=== PATIENT | female | born 1935 | race Caucasian/White ===

== ENCOUNTER 2016-12-02 12:35 | Emergency (ER) | payer MEDICARE ==
[2016-12-02 13:34] LABS: ANION GAP 11 (5-19); BLOOD UREA NITROGEN 25 mg/dL (7-20); CALCIUM 9.1 mg/dL (8.4-10.2); CARBON DIOXIDE 23 mmol/L (22-30); CHLORIDE 109 mmol/L (98-107); CREATININE RESULT 0.77 mg/dL (0.52-1.25); GLUCOSE 92 mg/dL (75-110); POTASSIUM 3.9 mmol/L (3.6-5.0); SODIUM 143.4 mmol/L (137-145)
[2016-12-02 13:43] LABS: ABSOLUTE EOSINOPHILS # (AUTO) 0.1 10^3/uL (0.0-0.6); ABSOLUTE LYMPHOCYTES (AUTO) 1.3 10^3/uL (0.5-4.7); ABSOLUTE MONOCYTES (AUTO) 0.4 10^3/uL (0.1-1.4); ABSOLUTE NEUT (AUTO) 4.1 10^3/uL (1.7-8.2); BASOPHILS % (AUTO) 0.8 % (0-2); HEMATOCRIT 39.6 % (36.0-47.0); HEMOGLOBIN 13.2 g/dL (12.0-15.5); LYMPHOCYTES % (AUTO) 21.1 % (13-45); MEAN CORPUSCULAR HEMOGLOBIN 30.9 pg (27.0-33.4); MEAN CORPUSCULAR HGB CONC 33.3 g/dL (32.0-36.0); MEAN CORPUSCULAR VOLUME 93 fl (80-97); MONOCYTES % (AUTO) 7.3 % (3-13); RED BLOOD COUNT 4.26 10^6/uL (3.72-5.28); SEGMENTED NEUTROPHILS % (AUTO) 68.8 % (42-78); WHITE BLOOD COUNT 5.9 10^3/uL (4.0-10.5)
--- NOTE | 2016-12-02 14:31 | ER Document Report ---
ED General - General Mode of Arrival: Medic Information source: Patient TRAVEL OUTSIDE OF THE [place] IN LAST 30 DAYS: No <ELIAN SINGLETON - Last Filed: 12/02/16 14:46> <LUCÍA RICO - Last Filed: 12/02/16 21:21> - General Chief Complaint: Shortness Of Breath Stated Complaint: WEAKNESS Notes: Patient is a 81-year-old female presenting [facility] the emergency department from her [facility], but she denies having any complaints. Patient states that the prison became worried because she was having chest pain from where she had her port removed today. Patient wants to go back home, and does not want her family to worry. Patient denies any symptoms whatsoever. (ELIAN SINGLETON) - Related Data Allergies/Adverse Reactions: codeine [Codeine] Allergy (Verified 05/25/15 07:40) meperidine HCl [From Demerol] Allergy (Verified 05/25/15 07:40) Penicillins Allergy (Verified 05/25/15 07:40) Sulfa (Sulfonamide Antibiotics) Allergy (Verified 05/25/15 07:40) Past Medical History - General Information source: Patient, [facility] Records, Outside Facility Records - Social History Smoking Status: Never Smoker Chew tobacco use (# tins/day): No Frequency of alcohol use: None Drug Abuse: None Family History: Reviewed & Not Pertinent - Past Medical History Cardiac Medical History: Reports: Hx Atrial Fibrillation, Hx Coronary Artery Disease, Hx Hypercholesterolemia, Hx Hypertension, Hx Peripheral Vascular Disease - Past surgical h/o hysterectomy, colectomy, cholecystectomy, appendectomy Pulmonary Medical History: Reports: Hx COPD, Hx Pneumonia Malignancy Medical History: Reports: Hx Colorectal Cancer Psychiatric Medical History: Reports: Hx Anxiety Past Surgical History: Reports: Hx Abdominal Surgery - colon, Hx Appendectomy, Hx Cholecystectomy, Hx Hysterectomy. Denies: Hx Pacemaker - Immunizations Immunizations up to date: Yes Hx Diphtheria, Pertussis, Tetanus Vaccination: Yes <ELIAN SINGLETON - Last Filed: 12/02/16 14:46> Review of Systems - Review of Systems Constitutional: No symptoms reported EENT: No symptoms reported Cardiovascular: No symptoms reported Respiratory: No symptoms reported Gastrointestinal: No symptoms reported Genitourinary: No symptoms reported Female Genitourinary: No symptoms reported Musculoskeletal: No symptoms reported Skin: No symptoms reported Hematologic/Lymphatic: No symptoms reported Neurological/Psychological: No symptoms reported <ELIAN SINGLETON - Last Filed: 12/02/16 14:46> Physical Exam - General General appearance: Appears well, Alert - HEENT Head: Normocephalic, Atraumatic Eyes: Normal Pupils: PERRL - Respiratory Respiratory status: No respiratory distress Chest status: Nontender Breath sounds: Normal Chest palpation: Normal - Cardiovascular Rhythm: Other - A. fib, rate controlled Murmur: No - Abdominal Inspection: Normal Distension: No distension Bowel sounds: Normal Tenderness: Nontender Organomegaly: No organomegaly - Back Back: Normal, Nontender - Extremities General upper extremity: Normal inspection, Nontender General lower extremity: Normal inspection, Nontender - Neurological Neuro grossly intact: Yes Cognition: Normal Orientation: AAOx4 [place] Coma Scale Eye Opening: Spontaneous [place] Coma Scale Verbal: Oriented [place] Coma Scale Motor: Obeys Commands [place] Coma Scale Total: 15 Speech: Normal - Psychological Associated symptoms: Normal affect, Normal mood - Skin Skin Temperature: Warm Skin Moisture: Dry Skin Color: Normal <ELIAN SINGLETON - Last Filed: 12/02/16 14:46> Course - Laboratory Result Diagrams: 12/02/16 13:05 12/02/16 13:05 <ELIAN SINGLETON - Last Filed: 12/02/16 14:46> - Laboratory Result Diagrams: 12/02/16 13:05 12/02/16 13:05 <LUCÍA RICO - Last Filed: 12/02/16 21:21> - Re-evaluation Re-evalutation: 12/02/16 14:52 I personally performed the services described in the documentation, reviewed and edited the documentation which was dictated to my scribe in my presence, and it accurately records my words and actions. Patient was at the surgeon's office today getting her port removed after going through cancer chemotherapy radiation for colon cancer. She said it's in remission. She said after it was removed she had a little bit of discomfort in her chest where they removed it when she went back to the prison she mention that to them thinking they gave her a Tylenol and they insisted she come in for evaluation. Patient says she is asymptomatic and does not want to be here she allows us to do a workup consisting of an EKG that is unchanged laboratory evaluation is negative and chest x-ray that is stable. She wants to go home she does not have any complaints she was discharged for primary care physician one to 2 days return for increasing worsening or new symptoms (LUCÍA RICO) - Vital Signs Vital signs: Temp Pulse Resp BP Pulse Ox 98.9 F 12/02/16 12:45 - Laboratory Laboratory results interpreted by me: 12/02/16 12/02/16 13:05 13:05 RDW 15.0 H Chloride 109 H BUN 25 H - EKG Interpretation by Me Additional EKG results interpreted by me: 12/02/16 14:52 EKG A. fib rate of 78 with history of A. fib no acute change from previous EKG done on 09/08/15. No acute ST segment elevation or depression (LUCÍA RICO) Discharge <ELIAN SINGLETON - Last Filed: 12/02/16 14:46> <LUCÍA RICO - Last Filed: 12/02/16 21:21> - Discharge Clinical Impression: recent port removal Condition: Stable Disposition: HOME, SELF-CARE Additional Instructions: Your sent over from the emergency department as a positive concerns on the nursing staff that you had some chest discomfort when she report was removed. He denied any chest pain pressure shortness of breath or exertion. No cardiac complaints on arrival stated that she felt fine we did a full assessment and evaluation including an EKG cardiac enzymes and lab all of which were negative. Your stable for discharge follow primary care physician one 2 days and return for increasing worsening or new symptoms Referrals: ONEL AVINA MD [Primary Care Provider] - Follow up as needed Scribe Documentation - Scribe Written by Gildardo:: Elian Singleton 12/02/2016 1431 acting as scribe for :: Dr. Rico <ELIAN SINGLTEON - Last Filed: 12/02/16 14:46>
--- NOTE | 2016-12-03 22:08 | EKG REPORT ---
SEVERITY:- ABNORMAL ECG - ATRIAL FIBRILLATION, V-RATE 60-104 BORDERLINE R WAVE PROGRESSION, ANTERIOR LEADS MINIMAL ST DEPRESSION, LATERAL LEADS : Confirmed by: Suzy Rubi MD 03-Dec-2016 22:06:24
== END 2016-12-02 16:00 | disposition home or self-care (01) ==
LOC: ER 12:35
DX: R06.02 Shortness of breath (principal); R53.1 Weakness
CPT/HCPCS: 36415; 71010; 80048; 84484; 85025; 93005; 93010; 99285

== ENCOUNTER → 2017-01-19 | Outpatient (CLI) | payer MEDICARE | LOC: OD 15:41 | PROVIDERS: ATTEND Family Medicine | DX: Z79.01 Long term (current) use of anticoagulants (principal) | CPT/HCPCS: 36415 ==

== ENCOUNTER → 2017-02-10 | Outpatient (CLI) | payer MEDICARE ==
--- NOTE | 2017-02-10 15:34 | WOMENS IMAGING REPORT ---
EXAM DESCRIPTION: BILAT SCREENING MAMMO W/CAD COMPLETED DATE/TIME: 02/10/2017 8:41 am REASON FOR STUDY: Z12.31, ROUTINE SCREENING MAMMO Z12.31 ENCNTR SCREEN MAMMOGRAM FOR MALIGNANT NEOP LASM OF MISSAEL COMPARISON: None. TECHNIQUE: Standard craniocaudal and mediolateral oblique views of each breast recorded using Memeoa l acquisition. LIMITATIONS: None. FINDINGS: RIGHT BREAST MASSES: No suspicious masses. CALCIFICATIONS: No new or suspicious calcifications. ARCHITECTURAL DISTORTION: None. DEVELOPING DENSITY: None. ASYMMETRY: None noted. OTHER: No other significant findings. LEFT BREAST MASSES: No suspicious masses. CALCIFICATIONS: No new or suspicious calcifications. ARCHITECTURAL DISTORTION: None. DEVELOPING DENSITY: None. ASYMMETRY: Asymmetry lateral left breast CC view only 5.4 cm from the nipple OTHER: No other significant findings. Read with the assistance of CAD. .[facility] - R2 Cenova Version 1.3 .[facility] Imaging - R2 Cenova Version 1.3 .[facility] - R2 Cenova Version 2.4 .[facility] - R2 Cenova Version 2.4 .[facility] - R2 Wel[employer] Line Arc Version 9.2 IMPRESSION: Left breast asymmetry BREAST DENSITY: b. There are scattered areas of fibroglandular density. BIRAD: 0 Incomplete: Needs Additional Imaging Evaluation and/or prior Mammograms for Comparison. RECOMMENDATION: RECOMMENDED FOLLOW-UP: Spot compression and ultrasound. The patient will be contacted for additional imaging. COMMENT: The patient has been notified of the results by letter per SA requirements. Additional no tification policies are in place for contacting patient with suspicious or incomplete findings. Quality ID #[id number]: The [employer] recommends an annual screening mammogram for women aged 40 years or over. This facility utilizes a reminder system to ensure that all patients receive reminder letters, and/or direct phone calls for appointments. This includes reminders for routine scr eening mammograms, diagnostic mammograms, or other Breast Imaging Interventions when appropriate. Th is patient will be placed in the appropriate reminder system. The [employer] (ACR) has developed recommendations for screening MRI of the breast s in certain patient populations, to be used in conjunction with mammography. Breast MRI surveillanc e may be appropriate for women with more than 20% lifetime risk of developing breast cancer as deter mined by genetic testing, significant family history of the disease, or history of mantle radiation f or Hodgkins Disease. ACR Practice Guidelines 2008. TECHNICAL DOCUMENTATION: FINDING NUMBER: (1) ASSESSMENT: (1) JOB ID: [id number] [employer]- All Rights Reserved
== END ==
LOC: WI 07:32
PROVIDERS: ATTEND Family Medicine
DX: Z12.31 Encounter for screening mammogram for malignant neoplasm of breast (principal)
CPT/HCPCS: 77067; G0202

== ENCOUNTER → 2017-02-23 | Outpatient (CLI) | payer MEDICARE ==
--- NOTE | 2017-02-24 08:13 | WOMENS IMAGING REPORT ---
EXAM DESCRIPTION: LEFT DIAGNOSTIC MAMMO W/CAD; U/S BREAST UNILAT LIMITED COMPLETED DATE/TIME: 02/23/2017 9:05 am; 02/23/2017 10:02 am REASON FOR STUDY: ASYMMETRY LATERAL L BREAST; LEFT BREAST ASYMMETRY R92.2 INCONCLUSIVE MAMMOGRAM COMPARISON: Bilateral screening mammogram 02/10/2017 TECHNIQUE: Cone compression craniocaudal and whole breast 90 mediolateral images of the left breas t recorded with digital acquisition. Additional left breast ultrasound was also performed LIMITATIONS: None. FINDINGS: BREAST: Left MASSES: No suspicious masses. CALCIFICATIONS: No new or suspicious calcifications. ARCHITECTURAL DISTORTION: None. DEVELOPING DENSITY: None. ASYMMETRY: None noted. OTHER: No other significant findings. Read with the assistance of CAD. .[facility] - R2 Cenova Version 1.3 .[facility] Imaging - R2 Cenova Version 1.3 .[facility] Imaging - R2 Cenova Version 2.4 .[facility] - R2 Cenova Version 2.4 .[facility] - R2 Bakery Products Checker Version 9.2 Left breast ultrasound: Ultrasound of the left breast at the 1 to 2 o'clock position about 5 cm of from the nipple demonstrat es a cluster of breast parenchymal cysts, together measuring about 1.3 x 0.5 cm in size. This accoun ts for the original density seen on screening mammogram 02/10/2017, and is a benign finding. IMPRESSION: No mammographic or sonographic evidence for malignancy left breast BREAST DENSITY: b. There are scattered areas of fibroglandular density. BIRAD: 2 Benign findings. RECOMMENDATION: RECOMMENDED FOLLOW UP: Please continue bilateral screening mammography in January 2018. SPECIFIC INTERVENTION/IMAGING/CONSULTATION RECOMMENDED:No additional intervention/ imaging/consultati on needed at this time. COMMUNICATION:Patient notified by letter COMMENT: The patient has been notified of the results by letter per SA requirements. Additional no tification policies are in place for contacting patient with suspicious or incomplete findings. Quality ID #[id number]: The [employer] recommends an annual screening mammogram for women aged 40 years or over. This facility utilizes a reminder system to ensure that all patients receive reminder letters, and/or direct phone calls for appointments. This includes reminders for routine scr eening mammograms, diagnostic mammograms, or other Breast Imaging Interventions when appropriate. Th is patient will be placed in the appropriate reminder system. The [employer] (ACR) has developed recommendations for screening MRI of the breast s in certain patient populations, to be used in conjunction with mammography. Breast MRI surveillanc e may be appropriate for women with more than 20% lifetime risk of developing breast cancer as deter mined by genetic testing, significant family history of the disease, or history of mantle radiation f or Hodgkins Disease. ACR Practice Guidelines 2008. TECHNICAL DOCUMENTATION: FINDING NUMBER: (1) ASSESSMENT: (1) JOB ID: [id number] [employer]- All Rights Reserved
--- NOTE | 2017-02-24 08:13 | WOMENS IMAGING REPORT ---
EXAM DESCRIPTION: LEFT DIAGNOSTIC MAMMO W/CAD; U/S BREAST UNILAT LIMITED COMPLETED DATE/TIME: 02/23/2017 9:05 am; 02/23/2017 10:02 am REASON FOR STUDY: ASYMMETRY LATERAL L BREAST; LEFT BREAST ASYMMETRY R92.2 INCONCLUSIVE MAMMOGRAM COMPARISON: Bilateral screening mammogram 02/10/2017 TECHNIQUE: Cone compression craniocaudal and whole breast 90 mediolateral images of the left breas t recorded with digital acquisition. Additional left breast ultrasound was also performed LIMITATIONS: None. FINDINGS: BREAST: Left MASSES: No suspicious masses. CALCIFICATIONS: No new or suspicious calcifications. ARCHITECTURAL DISTORTION: None. DEVELOPING DENSITY: None. ASYMMETRY: None noted. OTHER: No other significant findings. Read with the assistance of CAD. .[facility] - R2 Cenova Version 1.3 .[facility] Imaging - R2 Cenova Version 1.3 .[facility] Imaging - R2 Cenova Version 2.4 .[facility] [place] R2 Cenova Version 2.4 .[facility] - R2 Etcher Hand Version 9.2 Left breast ultrasound: Ultrasound of the left breast at the 1 to 2 o'clock position about 5 cm of from the nipple demonstrat es a cluster of breast parenchymal cysts, together measuring about 1.3 x 0.5 cm in size. This accoun ts for the original density seen on screening mammogram 02/10/2017, and is a benign finding. IMPRESSION: No mammographic or sonographic evidence for malignancy left breast BREAST DENSITY: b. There are scattered areas of fibroglandular density. BIRAD: 2 Benign findings. RECOMMENDATION: RECOMMENDED FOLLOW UP: Please continue bilateral screening mammography in January 2018. SPECIFIC INTERVENTION/IMAGING/CONSULTATION RECOMMENDED:No additional intervention/ imaging/consultati on needed at this time. COMMUNICATION:Patient notified by letter COMMENT: The patient has been notified of the results by letter per SA requirements. Additional no tification policies are in place for contacting patient with suspicious or incomplete findings. Quality ID #[id number]: The [employer] recommends an annual screening mammogram for women aged 40 years or over. This facility utilizes a reminder system to ensure that all patients receive reminder letters, and/or direct phone calls for appointments. This includes reminders for routine scr eening mammograms, diagnostic mammograms, or other Breast Imaging Interventions when appropriate. Th is patient will be placed in the appropriate reminder system. The [employer] (ACR) has developed recommendations for screening MRI of the breast s in certain patient populations, to be used in conjunction with mammography. Breast MRI surveillanc e may be appropriate for women with more than 20% lifetime risk of developing breast cancer as deter mined by genetic testing, significant family history of the disease, or history of mantle radiation f or Hodgkins Disease. ACR Practice Guidelines 2008. TECHNICAL DOCUMENTATION: FINDING NUMBER: (1) ASSESSMENT: (1) JOB ID: [id number] [employer]- All Rights Reserved
== END ==
LOC: WI 14:22
PROVIDERS: ATTEND Family Medicine
DX: R92.2 Inconclusive mammogram (principal)
CPT/HCPCS: 76642; G0206

== ENCOUNTER 2017-09-09 18:25 | Inpatient (IN) | payer MEDICARE ==
[2017-09-09] MEDS ORDERED: NORMAL SALINE 1000 ML 1,000 ML IV ONE (19:45)
--- NOTE | 2017-09-09 20:28 | RADIOLOGY REPORT (SQ) ---
EXAM DESCRIPTION: CHEST PA/LAT COMPLETED DATE/TIME: 09/09/2017 8:16 pm REASON FOR STUDY: cough 3 days, hypotensive COMPARISON: 08/28/2015. EXAM PARAMETERS: NUMBER OF VIEWS: two views TECHNIQUE: Digital Frontal and Lateral radiographic views of the chest acquired. RADIATION DOSE: NA LIMITATIONS: none FINDINGS: LUNGS AND PLEURA: No opacities, masses or pneumothorax. No pleural effusion. MEDIASTINUM AND HILAR STRUCTURES: No masses or contour abnormalities. HEART AND VASCULAR STRUCTURES: Heart normal size. No evidence for failure. BONES: No acute findings. HARDWARE: Vascular access port. OTHER: No other significant finding. IMPRESSION: NO SIGNIFICANT RADIOGRAPHIC FINDING IN THE CHEST. TECHNICAL DOCUMENTATION: JOB ID: [id number] [employer]- All Rights Reserved
[2017-09-09 20:56] LABS: ABSOLUTE MONOCYTES (AUTO) 0.5 10^3/uL (0.1-1.4); ABSOLUTE NEUT (AUTO) 7.3 10^3/uL (1.7-8.2); BASOPHILS % (AUTO) 0.3 % (0-2); EOSINOPHILS % (AUTO) 0.2 % (0-6); HEMATOCRIT 43.1 % (36.0-47.0); HEMOGLOBIN 14.4 g/dL (12.0-15.5); LYMPHOCYTES % (AUTO) 11.1 % (13-45); MEAN CORPUSCULAR HEMOGLOBIN 30.9 pg (27.0-33.4); MEAN CORPUSCULAR HGB CONC 33.3 g/dL (32.0-36.0); MEAN CORPUSCULAR VOLUME 93 fl (80-97); MONOCYTES % (AUTO) 6.1 % (3-13); PLATELET COUNT 180 10^3/uL (150-450); RED BLOOD COUNT 4.65 10^6/uL (3.72-5.28); SEGMENTED NEUTROPHILS % (AUTO) 82.3 % (42-78); TOTAL CELLS COUNTED % (AUTO) 100 %; WHITE BLOOD COUNT 8.9 10^3/uL (4.0-10.5)
--- NOTE | 2017-09-09 20:57 | ER Document Report ---
ED General - General Chief Complaint: Diarrhea Stated Complaint: DIARRHEA,COUGH Time Seen by Provider: 09/09/17 19:43 Notes: 82-year-old female patient from a nursing facility chief complaint of diarrhea and abdominal pain. Symptoms have been getting worse over the last several days. Note, patient had cellulitis underneath her right arm around [place] and has been on antibiotics. History of colon cancer with partial colon resection. Followed by Dr. Avina TRAVEL OUTSIDE OF THE [place] IN LAST 30 DAYS: No - HPI Onset: Last week Onset/Duration: Gradual Quality of pain: Cramping Severity: Moderate Pain Level: 2 Associated symptoms: Nonproductive cough Exacerbated by: Denies - Related Data Allergies/Adverse Reactions: codeine [Codeine] Allergy (Verified 09/09/17 18:26) meperidine HCl [From Demerol] Allergy (Verified 09/09/17 18:26) Penicillins Allergy (Verified 09/09/17 18:26) Sulfa (Sulfonamide Antibiotics) Allergy (Verified 09/09/17 18:26) Past Medical History - General Information source: Patient, Relative - Social History Smoking Status: Never Smoker Cigarette use (# per day): No Chew tobacco use (# tins/day): No Smoking Education Provided: No Frequency of alcohol use: None Drug Abuse: None Lives with: [facility] Family History: Reviewed & Not Pertinent - Past Medical History Cardiac Medical History: Reports: Hx Atrial Fibrillation, Hx Coronary Artery Disease, Hx Hypercholesterolemia, Hx Hypertension, Hx Peripheral Vascular Disease - Past surgical h/o hysterectomy, colectomy, cholecystectomy, appendectomy Pulmonary Medical History: Reports: Hx COPD, Hx Pneumonia Malignancy Medical History: Reports: Hx Colorectal Cancer Psychiatric Medical History: Reports: Hx Anxiety Past Surgical History: Reports: Hx Abdominal Surgery - colon, Hx Appendectomy, Hx Cholecystectomy, Hx Hysterectomy. Denies: Hx Pacemaker - Immunizations Immunizations up to date: Yes Hx Diphtheria, Pertussis, Tetanus Vaccination: Yes Review of Systems - Review of Systems Constitutional: Malaise, Weakness EENT: No symptoms reported Cardiovascular: Palpitations, Lightheaded Respiratory: Cough Gastrointestinal: Abdominal pain, Diarrhea Genitourinary: No symptoms reported Musculoskeletal: No symptoms reported Skin: No symptoms reported Physical Exam - Vital signs Vitals: Temp Pulse Resp BP Pulse Ox 99.1 F 90 20 89/63 L 97 09/09/17 18:40 09/09/17 18:40 09/09/17 18:40 09/09/17 18:40 09/09/17 18:40 Interpretation: Normal - General General appearance: Appears well, Alert - HEENT Head: Normocephalic, Atraumatic Eyes: Normal Pupils: PERRL - Respiratory Respiratory status: No respiratory distress Chest status: Nontender Breath sounds: Normal Chest palpation: Normal - Cardiovascular Rhythm: Tachycardia Heart sounds: Normal auscultation Murmur: No - Abdominal Inspection: Normal Distension: No distension Bowel sounds: Normal Tenderness: Nontender Organomegaly: No organomegaly - Back Back: Normal, Nontender - Extremities General upper extremity: Normal inspection, Nontender, Normal color, Normal ROM , Normal temperature General lower extremity: Normal inspection, Nontender, Normal color, Normal ROM , Normal temperature, Normal weight bearing. No: Cecilia's sign - Neurological Neuro grossly intact: Yes Cognition: Normal Orientation: AAOx4 [place] Coma Scale Eye Opening: Spontaneous [place] Coma Scale Verbal: Oriented [place] Coma Scale Motor: Obeys Commands [place] Coma Scale Total: 15 Speech: Normal Motor strength normal: LUE, RUE, LLE, RLE Sensory: Normal - Psychological Associated symptoms: Normal affect, Normal mood - Skin Skin Temperature: Warm Skin Moisture: Dry Skin Color: Normal Course - Re-evaluation Re-evalutation: 09/09/17 21:35 On the fact the patient was on antibiotics recently, was tachycardic and hypotensive and is an elderly patient lives in a residential with a history of colon cancer will admit to the hospital. Consulted Dr. Hernandez who agrees to admit at this time. Does not want cardiac labs or EKG but does want her started on fluids and Flagyl. - Vital Signs Vital signs: Temp Pulse Resp BP Pulse Ox 99.1 F 90 20 122/93 H 92 09/09/17 18:40 09/09/17 18:40 09/09/17 21:01 09/09/17 21:01 09/09/17 21:01 - Laboratory Result Diagrams: 09/09/17 20:35 09/09/17 20:35 Laboratory results interpreted by me: 09/09/17 09/09/17 09/09/17 20:35 20:35 21:45 RDW 16.0 H Seg Neutrophils % 82.3 H Lymphocytes % 11.1 L BUN 26 H Est GFR ( Amer) 54 L Est GFR (Non-Af Amer) 45 L Urine Protein 100 H Urine Blood MODERATE H Urine Nitrite POSITIVE H Urine Bilirubin SMALL H Urine Urobilinogen 4.0 H Ur Leukocyte Esterase MODERATE H Discharge - Discharge Clinical Impression: Colitis Hypotension Qualifiers: Hypotension type: other hypotension type Qualified Code(s): I95.89 - Other hypotension Condition: Good Disposition: ADMITTED INPATIENT Admitting Provider: David Referrals: ONEL AVINA MD [Primary Care Provider] - Follow up as needed
[2017-09-09 21:33] LABS: ALANINE AMINOTRANSFERASE 21 U/L (9-52); ALBUMIN 4.1 g/dL (3.5-5.0); ALKALINE PHOSPHATASE 68 U/L (38-126); ANION GAP 11 (5-19); ASPARTATE AMINO TRANSFERASE 23 U/L (14-36); BILIRUBIN,DIRECT 0.4 mg/dL (0.0-0.4); BILIRUBIN,TOTAL 1.3 mg/dL (0.2-1.3); BLOOD UREA NITROGEN 26 mg/dL (7-20); CALCIUM 9.6 mg/dL (8.4-10.2); CARBON DIOXIDE 27 mmol/L (22-30); CHLORIDE 104 mmol/L (98-107); GLUCOSE 106 mg/dL (75-110); LIPASE 30.4 U/L (23-300); POTASSIUM 3.7 mmol/L (3.6-5.0); SODIUM 142.2 mmol/L (137-145); TOTAL PROTEIN 6.7 g/dL (6.3-8.2)
[2017-09-09 22:06] LABS: APPEARANCE,URINE CLOUDY; BILIRUBIN,URINE SMALL (NEGATIVE); COLOR,URINE AMBER; GLUCOSE, URINE NEGATIVE (NEGATIVE); KETONES,URINE NEGATIVE (NEGATIVE); LEUKOCYTE ESTERASE,URINE MODERATE (NEGATIVE); NITRITE,URINE POSITIVE (NEGATIVE); PROTEIN,URINE 100 mg/dL (NEGATIVE); URINE SPECIFIC GRAVITY 1.028
[2017-09-09] MEDS ORDERED: DEXTROSE 5%-1/2 NORMAL SALINE 500 ML IV ONE (22:09)
[2017-09-09] MEDS ORDERED: NITROFURANTOIN MONOHYD/M-CRYST 100 MG CAPSULE PO ONE (22:10)
[2017-09-09] MEDS ORDERED: METRONIDAZOLE 500 MG TABLET PO ONE (22:10)
[2017-09-09 22:14] LABS: A TYPE INFLUENZA AG NEGATIVE (NEGATIVE); B INFLUENZA AG NEGATIVE (NEGATIVE)
[2017-09-10] MEDS ORDERED: INFLUENZA ADLT QUAD (36MOS+) 2017-18 VAC 0.5 ML SYR IM PRN (02:00)
[2017-09-10] MEDS: ONDANSETRON HCL INJ/PF 4 MG/2 ML SDV IV PRN (05:05)
[2017-09-10] MEDS ORDERED: METRONIDAZOLE 500 MG/NS RTU 100 ML IV SCH (06:00)
[2017-09-10] MEDS ORDERED: (PENDING PHARMACY ID) (Melatonin/Pyridoxine Hcl (B6) [Melatonin 3 Mg Tablet] 1 TAB) PO PRN (11:05)
[2017-09-10] MEDS ORDERED: (PENDING PHARMACY ID) (Loperamide Hcl [Imodium A-D] 2 MG) PO PRN (11:05)
[2017-09-10] MEDS ORDERED: CALCIUM CARBONATE 500 MG TAB.CHEW PO PRN (11:05)
[2017-09-10] MEDS ORDERED: (PENDING PHARMACY ID) (Guaifenesin [Mucinex] 600 MG) PO PRN (11:05)
[2017-09-10] MEDS ORDERED: GUAIFENESIN 600 MG TABLET.SA PO PRN (11:27)
[2017-09-10] MEDS ORDERED: LOPERAMIDE HCL 2 MG CAPSULE PO PRN (11:28)
[2017-09-10] MEDS ORDERED: SERTRALINE HCL 50 MG TABLET PO ONE (11:45)
[2017-09-10] MEDS ORDERED: DILTIAZEM HCL 120 MG CAP.SR.24H PO ONE (12:00)
[2017-09-10] MEDS: METRONIDAZOLE 500 MG TABLET PO SCH ×2 (13:24→21:37)
[2017-09-10 16:13] LABS: INTERNATIONAL RATION (INR) 2.39; PROTHROMBIN TIME 27.3 SEC (11.4-15.4)
[2017-09-10 16:14] LABS: PARTIAL THROMBOPLASTIN TIME 70.4 SEC (23.5-35.8)
[2017-09-10] MEDS ORDERED: IPRATROPIUM/ALBUTEROL 0.5-2.5 MG/3 ML AMPUL NEB ONE (19:15)
[2017-09-10] MEDS: IPRATROPIUM/ALBUTEROL 0.5-2.5 MG/3 ML AMPUL NEB SCH (20:03)
[2017-09-10] MEDS: ATORVASTATIN CALCIUM 10 MG TABLET PO SCH (21:36)
[2017-09-10] MEDS: DONEPEZIL HCL 5 MG TABLET PO SCH (21:37)
[2017-09-10] MEDS: BUDESONIDE/FORMOTEROL 160-4.5 MCG 60 PUFF/6 GM MDI IH SCH (21:38)
[2017-09-10] MEDS: OXYCODONE-ACETAMINOPHEN 5-325 MG TABLET PO SCH (22:04)
--- NOTE | 2017-09-10 22:15 | PDOC H&P ---
History of Present Illness Admission Date/PCP: 09/09/17 22:26 ONEL AVINA MD History of Present Illness: DARLYN EVANS is a 82 year old female, She came to the emergency room last night for evaluation of diarrhea associated with hypotension. She apparently was on p.o. antibiotic for management of cellulitis of the right upper arm, she subsequently developed diarrhea, in the emergency room it was assumed that she has clostridium difficile colitis, because of the low blood pressure and profuse diarrhea hospital admission was advised by the ED providers. When I saw patient on the floor there was no diarrhea the low blood pressure was resolved with hydration but she was audibly wheezing, the urine culture is growing negative rods, she has a history of COPD.Last night the oxygen saturation was 98% on room air, since she started wheezing the oxygen saturation has decreased to 90% on room air, presently on nasal cannula, 2 L Past Medical History Cardiac Medical History: Reports: Atrial Fibrillation, Coronary Artery Disease, Hyperlipidema, Hypertension, Peripheral Vascular Disease - Past surgical h/o hysterectomy, colectomy, cholecystectomy, appendectomy Pulmonary Medical History: Reports: Chronic Obstructive Pulmonary Disease (COPD) , Pneumonia Malignancy Medical History: Reports: Colorectal Cancer Past Surgical History Past Surgical History: Reports: Appendectomy, Cholecystectomy, Hysterectomy Denies: Pacemaker Social History Lives with: Shelter Smoking Status: Former Smoker Frequency of Alcohol Use: None Hx Recreational Drug Use: No Drugs: None Hx Prescription Drug Abuse: No - Advance Directive Resuscitation Status: Do Not Resuscitate Family History Family History: Reviewed & Not Pertinent Parental Family History Reviewed: Yes Children Family History Reviewed: Yes Sibling(s) Family History Reviewed.: Yes Medication/Allergy Home Medications: Acetaminophen [Tylenol 325 mg Tablet] 325 mg PO Q6HP PRN 09/10/17 Budesonide/Formoterol Fumarate [Symbicort HFA 160-4.5 mcg Inhaler 6 gm] 2 puff IH BID 09/10/17 Calcium Carbonate [Tums Chewable 500 mg Tab.chew] 500 mg PO BIDP PRN 09/10/17 Diltiazem HCl [Cardizem Cd 120 mg Capsule] 120 mg PO DAILY 09/10/17 Donepezil HCl [Aricept 5 mg Tablet] 5 mg PO QHS 09/10/17 Fluticasone Propionate [Flonase Nasal Whiteford 50 Mcg/Whiteford 16 gm] 1 spr NASL DAILY 09/10/17 Guaifenesin [Mucinex] 600 mg PO Q12HP PRN 09/10/17 Loperamide HCl [Imodium A-D] 2 mg PO Q6HP PRN 09/10/17 Melatonin/Pyridoxine HCl (B6) [Melatonin 3 mg Tablet] 1 tab PO HSP PRN 09/10/17 Omeprazole 20 mg PO DAILY 09/10/17 Oxycodone HCl/Acetaminophen [Percocet 5-325 mg Tablet] 1 tab PO QHS 09/10/17 Pravastatin Sodium [Pravachol] 40 mg PO DAILY 09/10/17 Sertraline HCl [Zoloft] 25 mg PO DAILY 09/10/17 Warfarin Sodium [Coumadin 2.5 mg Tablet] 2.5 mg PO TUTHSA 09/10/17 Allergies/Adverse Reactions: codeine [Codeine] Allergy (Verified 09/09/17 18:26) meperidine HCl [From Demerol] Allergy (Verified 09/09/17 18:26) Penicillins Allergy (Verified 09/09/17 18:26) Sulfa (Sulfonamide Antibiotics) Allergy (Verified 09/09/17 18:26) Review of Systems Constitutional: ABSENT: chills, fever(s), headache(s), weight gain, weight loss Eyes: ABSENT: visual disturbances Ears: ABSENT: hearing changes Cardiovascular: ABSENT: chest pain, dyspnea on exertion, edema, orthropnea, palpitations Respiratory: PRESENT: cough, dyspnea Gastrointestinal: PRESENT: diarrhea Genitourinary: ABSENT: dysuria, hematuria Musculoskeletal: ABSENT: joint swelling Integumentary: ABSENT: rash, wounds Neurological: ABSENT: abnormal gait, abnormal speech, confusion, dizziness, focal weakness, syncope Psychiatric: ABSENT: anxiety, depression, homidical ideation, suicidal ideation Endocrine: ABSENT: cold intolerance, heat intolerance, menstrual abnormalities, polydipsia, polyuria Hematologic/Lymphatic: ABSENT: easy bleeding, easy bruising, lymphadenopathy Physical Exam Vital Signs: Temp Pulse Resp BP Pulse Ox 98.0 F 86 16 140/70 H 100 09/10/17 15:59 09/10/17 20:05 09/10/17 20:05 09/10/17 15:59 09/10/17 15:59 Intake & Output 09/09/17 09/10/17 09/11/17 06:59 06:59 06:59 Intake Total 0 362 Output Total 100 Balance 0 262 General appearance: PRESENT: severe distress Eye exam: PRESENT: conjunctiva pink, EOMI, PERRLA Ear exam: PRESENT: normal external ear exam Mouth exam: PRESENT: moist, tongue midline Neck exam: PRESENT: full ROM Respiratory exam: PRESENT: wheezes Cardiovascular exam: PRESENT: RRR, +S1, +S2 Pulses: PRESENT: normal dorsalis pedis pul, +2 pedal pulses bilateral Vascular exam: PRESENT: normal capillary refill GI/Abdominal exam: PRESENT: normal bowel sounds, soft Rectal exam: PRESENT: deferred Neurological exam: PRESENT: alert, awake, oriented to person, oriented to place , oriented to time, oriented to situation, CN II-XII grossly intact Psychiatric exam: PRESENT: appropriate affect, normal mood Skin exam: PRESENT: dry, intact, warm Results Impressions: Chest X-Ray 09/09/17 19:44 IMPRESSION: NO SIGNIFICANT RADIOGRAPHIC FINDING IN THE CHEST. Assessment & Plan - Diagnosis (1) Acute exacerbation of chronic obstructive pulmonary disease (COPD) Is this a current diagnosis for this admission?: Yes Plan: Patient started on IV Solu-Medrol, bronchodilators (2) Urinary tract infection Qualifiers: Urinary tract infection type: site unspecified Hematuria presence: without hematuria Qualified Code(s): N39.0 - Urinary tract infection, site not specified Is this a current diagnosis for this admission?: Yes Plan: Start IV Levaquin (3) Diarrhea Qualifiers: Diarrhea type: unspecified type Qualified Code(s): R19.7 - Diarrhea, unspecified Is this a current diagnosis for this admission?: Yes (4) Hypotension Qualifiers: Hypotension type: unspecified hypotension type Qualified Code(s): I95.9 - Hypotension, unspecified Is this a current diagnosis for this admission?: Yes Plan: Current volume loss with hydration
[2017-09-10] MEDS: WARFARIN SODIUM 2.5 MG TABLET PO SCH (22:58)
[2017-09-10] MEDS: METHYLPREDNISOLONE INJ 125 MG/2 ML SDV IV SCH (22:58)
[2017-09-10] MEDS: LEVOFLOXACIN 750 MG/D5W RTU 750 MG/150 ML RTUPB IV SCH (22:58)
[2017-09-10] MEDS: DEXTROSE 5%-1/2 NORMAL SALINE 1,000 ML IV PRN (23:00)
[2017-09-11] MEDS: IPRATROPIUM/ALBUTEROL 0.5-2.5 MG/3 ML AMPUL NEB SCH ×6 (00:36→21:06)
[2017-09-11] MEDS: LANSOPRAZOLE 15 MG TAB.RAP.DR PO SCH (06:48)
[2017-09-11] MEDS: METHYLPREDNISOLONE INJ 125 MG/2 ML SDV IV SCH ×3 (06:48→23:00)
[2017-09-11] MEDS: METRONIDAZOLE 500 MG TABLET PO SCH ×3 (06:49→22:59)
[2017-09-11 08:46] LABS: INTERNATIONAL RATION (INR) 2.27; PROTHROMBIN TIME 26.3 SEC (11.4-15.4)
[2017-09-11] MEDS: ACETAMINOPHEN 325 MG TABLET PO PRN (08:54)
[2017-09-11] MEDS ORDERED: (PENDING PHARMACY ID) (Sertraline Hcl [Zoloft] 25 MG) PO SCH (10:00)
[2017-09-11] MEDS ORDERED: (PENDING PHARMACY ID) (Pravastatin Sodium [Pravachol] 40 MG) PO SCH (10:00)
[2017-09-11] MEDS: BUDESONIDE/FORMOTEROL 160-4.5 MCG 60 PUFF/6 GM MDI IH SCH (10:39)
[2017-09-11] MEDS: DILTIAZEM HCL 120 MG CAP.SR.24H PO SCH (10:39)
[2017-09-11] MEDS: FLUTICASONE NASAL SPRAY 50 MCG/SPRY 120 SPRAY/16 GM NASL SCH (10:39)
[2017-09-11] MEDS: SERTRALINE HCL 50 MG TABLET PO SCH (10:39)
[2017-09-11] MEDS: DEXTROSE 5%-1/2 NORMAL SALINE 1,000 ML IV PRN (15:09)
[2017-09-11] MEDS: OXYCODONE-ACETAMINOPHEN 5-325 MG TABLET PO SCH (22:58)
[2017-09-11] MEDS: ATORVASTATIN CALCIUM 10 MG TABLET PO SCH (22:59)
[2017-09-11] MEDS: LEVOFLOXACIN 750 MG/D5W RTU 750 MG/150 ML RTUPB IV SCH (23:00)
--- NOTE | 2017-09-11 23:58 | PDOC PROGRESS REPORT ---
Subjective Progress Note for:: 09/11/17 Subjective:: Patient was seen by the bedside, she was admitted initially for presumptive Clostridium difficile colitis, she was noted to be wheezing with shortness of breath and retraction of the chest wall Reason For Visit: COLITIS, HYPOTENSION Physical Exam Vital Signs: Temp Pulse Resp BP Pulse Ox 97.3 F 105 H 16 107/84 93 09/11/17 15:18 09/11/17 21:06 09/11/17 21:06 09/11/17 15:18 09/11/17 21:06 Intake & Output 09/10/17 09/11/17 09/12/17 06:59 06:59 06:59 Intake Total 0 512 Output Total 100 Balance 0 412 Eye exam: PRESENT: PERRLA Ear exam: PRESENT: normal external ear exam Mouth exam: PRESENT: moist, tongue midline Neck exam: PRESENT: full ROM Respiratory exam: PRESENT: wheezes Cardiovascular exam: PRESENT: RRR, +S1, +S2 Vascular exam: PRESENT: normal capillary refill GI/Abdominal exam: PRESENT: normal bowel sounds, soft Rectal exam: PRESENT: deferred Neurological exam: PRESENT: alert Psychiatric exam: PRESENT: appropriate affect, normal mood Skin exam: PRESENT: dry, intact, warm. ABSENT: cyanosis, rash Results Impressions: Chest X-Ray 09/09/17 19:44 IMPRESSION: NO SIGNIFICANT RADIOGRAPHIC FINDING IN THE CHEST. Assessment & Plan - Diagnosis (1) Acute exacerbation of chronic obstructive pulmonary disease (COPD) Is this a current diagnosis for this admission?: Yes (2) Urinary tract infection Qualifiers: Urinary tract infection type: site unspecified Hematuria presence: without hematuria Qualified Code(s): N39.0 - Urinary tract infection, site not specified Is this a current diagnosis for this admission?: Yes (3) Diarrhea Qualifiers: Diarrhea type: unspecified type Qualified Code(s): R19.7 - Diarrhea, unspecified Is this a current diagnosis for this admission?: Yes (4) Hypotension Qualifiers: Hypotension type: unspecified hypotension type Qualified Code(s): I95.9 - Hypotension, unspecified Is this a current diagnosis for this admission?: Yes
[2017-09-11] MEDS ORDERED: DONEPEZIL HCL 5 MG TABLET ONE (23:59)
[2017-09-12] MEDS: IPRATROPIUM/ALBUTEROL 0.5-2.5 MG/3 ML AMPUL NEB SCH ×6 (00:03→20:55)
[2017-09-12] MEDS: DONEPEZIL HCL 5 MG TABLET PO SCH ×2 (00:07→23:56)
[2017-09-12] MEDS: BUDESONIDE/FORMOTEROL 160-4.5 MCG 60 PUFF/6 GM MDI IH SCH ×3 (03:03→23:56)
[2017-09-12] MEDS: METRONIDAZOLE 500 MG TABLET PO SCH ×2 (05:45→13:45)
[2017-09-12] MEDS: LANSOPRAZOLE 15 MG TAB.RAP.DR PO SCH (05:45)
[2017-09-12] MEDS: METHYLPREDNISOLONE INJ 125 MG/2 ML SDV IV SCH ×3 (05:46→22:44)
[2017-09-12 07:30] LABS: INTERNATIONAL RATION (INR) 2.36
[2017-09-12] MEDS: DEXTROSE 5%-1/2 NORMAL SALINE 1,000 ML IV PRN ×2 (08:25→22:46)
[2017-09-12] MEDS: SERTRALINE HCL 50 MG TABLET PO SCH (10:01)
[2017-09-12] MEDS: FLUTICASONE NASAL SPRAY 50 MCG/SPRY 120 SPRAY/16 GM NASL SCH (10:02)
[2017-09-12] MEDS: ACETAMINOPHEN 325 MG TABLET PO PRN (10:02)
[2017-09-12] MEDS: DILTIAZEM HCL 120 MG CAP.SR.24H PO SCH (10:32)
--- NOTE | 2017-09-12 16:04 | PDOC PROGRESS REPORT ---
Subjective Progress Note for:: 09/12/17 Subjective:: She was seen by the bedside, the nurse stated that she did not sleep last night and that she was confused. She told me that she was talking to her and that she usually does these ,when asked why she kept talking to her she said that she loves her . Reason For Visit: COLITIS, HYPOTENSION Physical Exam Vital Signs: Temp Pulse Resp BP Pulse Ox 98.1 F 114 H 20 131/64 H 98 09/12/17 12:35 09/12/17 15:37 09/12/17 15:37 09/12/17 12:35 09/12/17 12:35 Intake & Output 09/11/17 09/12/17 09/13/17 06:59 06:59 06:59 Intake Total 512 1000 105 Output Total 100 Balance 412 1000 105 Head exam: PRESENT: atraumatic, normocephalic Eye exam: PRESENT: conjunctiva pink, EOMI, PERRLA Ear exam: PRESENT: normal external ear exam Mouth exam: PRESENT: moist, tongue midline Neck exam: PRESENT: full ROM Respiratory exam: PRESENT: wheezes Vascular exam: PRESENT: normal capillary refill GI/Abdominal exam: PRESENT: normal bowel sounds, soft Rectal exam: PRESENT: deferred Neurological exam: PRESENT: alert Results Impressions: Chest X-Ray 09/09/17 19:44 IMPRESSION: NO SIGNIFICANT RADIOGRAPHIC FINDING IN THE CHEST. Assessment & Plan - Diagnosis (1) Acute exacerbation of chronic obstructive pulmonary disease (COPD) Is this a current diagnosis for this admission?: Yes (2) Urinary tract infection Qualifiers: Urinary tract infection type: site unspecified Hematuria presence: without hematuria Qualified Code(s): N39.0 - Urinary tract infection, site not specified Is this a current diagnosis for this admission?: Yes (3) Diarrhea Qualifiers: Diarrhea type: unspecified type Qualified Code(s): R19.7 - Diarrhea, unspecified Is this a current diagnosis for this admission?: Yes (4) Hypotension Qualifiers: Hypotension type: unspecified hypotension type Qualified Code(s): I95.9 - Hypotension, unspecified Is this a current diagnosis for this admission?: Yes (5) Insomnia Is this a current diagnosis for this admission?: Yes Plan: Start restoril
[2017-09-12] MEDS ORDERED: HALOPERIDOL LACTATE INJ 5 MG/1 ML VIAL IV PRN (16:57)
[2017-09-12] MEDS ORDERED: HALOPERIDOL LACTATE INJ 5 MG/1 ML VIAL ONE (17:25)
[2017-09-12] MEDS: ONDANSETRON HCL INJ/PF 4 MG/2 ML SDV IV PRN (17:49)
[2017-09-12 18:27] LABS: ARTERIAL BLOOD BASE EXCESS -2.6 mmol/L; ARTERIAL BLOOD H2CO3 1.09 mmol/L (1.05-1.35); ARTERIAL BLOOD HCO3 21.7 mmol/L (20-26); ARTERIAL BLOOD O2 SATURATION 97.5 % (94-98); ARTERIAL BLOOD PCO2 36.2 mmHg (35-45); ARTERIAL BLOOD PO2 99.2 mmHg (80-100); ARTERIAL BLOOD TOTAL CO2 22.8 mmol/L (21-25)
[2017-09-12 18:28] LABS: ARTERIAL BLOOD FIO2 3L
[2017-09-12] MEDS: LEVOFLOXACIN 750 MG/D5W RTU 750 MG/150 ML RTUPB IV SCH (22:44)
[2017-09-12] MEDS: WARFARIN SODIUM 2.5 MG TABLET PO SCH (23:56)
[2017-09-12] MEDS: ATORVASTATIN CALCIUM 10 MG TABLET PO SCH (23:56)
[2017-09-12] MEDS: TEMAZEPAM 15 MG CAPSULE PO SCH (23:56)
[2017-09-12] MEDS: OXYCODONE-ACETAMINOPHEN 5-325 MG TABLET PO SCH (23:56)
[2017-09-13] MEDS: IPRATROPIUM/ALBUTEROL 0.5-2.5 MG/3 ML AMPUL NEB SCH ×6 (00:11→19:26)
[2017-09-13] MEDS: LANSOPRAZOLE 15 MG TAB.RAP.DR PO SCH (05:13)
[2017-09-13] MEDS: METHYLPREDNISOLONE INJ 125 MG/2 ML SDV IV SCH ×3 (05:13→18:08)
[2017-09-13 07:52] LABS: INTERNATIONAL RATION (INR) 2.48; PROTHROMBIN TIME 28.1 SEC (11.4-15.4)
[2017-09-13] MEDS: BUDESONIDE/FORMOTEROL 160-4.5 MCG 60 PUFF/6 GM MDI IH SCH ×2 (10:34→23:11)
[2017-09-13] MEDS: DILTIAZEM HCL 120 MG CAP.SR.24H PO SCH (10:34)
[2017-09-13] MEDS: SERTRALINE HCL 50 MG TABLET PO SCH (10:34)
[2017-09-13] MEDS: FLUTICASONE NASAL SPRAY 50 MCG/SPRY 120 SPRAY/16 GM NASL SCH (10:34)
[2017-09-13] MEDS: ACETAMINOPHEN 325 MG TABLET PO PRN (15:14)
--- NOTE | 2017-09-13 17:07 | PDOC PROGRESS REPORT ---
Subjective Progress Note for:: 09/13/17 Subjective:: Patient was seen by the bedside, she still wheezing some Reason For Visit: COLITIS, HYPOTENSION Physical Exam Vital Signs: Temp Pulse Resp BP Pulse Ox 97.6 F 65 24 H 150/90 H 97 09/13/17 12:25 09/13/17 12:25 09/13/17 12:25 09/13/17 12:25 09/13/17 12:25 Intake & Output 09/12/17 09/13/17 09/14/17 06:59 06:59 06:59 Intake Total 1624 965 7081 Balance 1533 593 2757 General appearance: PRESENT: mild distress Eye exam: PRESENT: PERRLA Respiratory exam: PRESENT: wheezes Cardiovascular exam: PRESENT: +S1, +S2 GI/Abdominal exam: PRESENT: soft Neurological exam: PRESENT: alert Results Laboratory Results: 09/12/17 18:10 Carbonic Acid 1.09 HCO3/H2CO3 Ratio 19:1 ABG pH 7.40 ABG pCO2 36.2 ABG pO2 99.2 ABG HCO3 21.7 ABG O2 Saturation 97.5 ABG Base Excess -2.6 FiO2 3L Impressions: Chest X-Ray 09/09/17 19:44 IMPRESSION: NO SIGNIFICANT RADIOGRAPHIC FINDING IN THE CHEST. Assessment & Plan - Diagnosis (1) Acute exacerbation of chronic obstructive pulmonary disease (COPD) Is this a current diagnosis for this admission?: Yes Plan: The dose of Solu-Medrol will be decreased to 60 mg IV every 8 (2) Urinary tract infection Qualifiers: Urinary tract infection type: site unspecified Hematuria presence: without hematuria Qualified Code(s): N39.0 - Urinary tract infection, site not specified Is this a current diagnosis for this admission?: Yes (3) Diarrhea Qualifiers: Diarrhea type: unspecified type Qualified Code(s): R19.7 - Diarrhea, unspecified Is this a current diagnosis for this admission?: Yes (4) Hypotension Qualifiers: Hypotension type: unspecified hypotension type Qualified Code(s): I95.9 - Hypotension, unspecified Is this a current diagnosis for this admission?: Yes (5) Insomnia Is this a current diagnosis for this admission?: Yes
--- NOTE | 2017-09-13 17:46 | RADIOLOGY REPORT (SQ) ---
EXAM DESCRIPTION: CHEST PA/LAT COMPLETED DATE/TIME: 09/13/2017 5:31 pm REASON FOR STUDY: copd COMPARISON: 09/09/2017 EXAM PARAMETERS: NUMBER OF VIEWS: two views TECHNIQUE: Digital Frontal and Lateral radiographic views of the chest acquired. RADIATION DOSE: NA LIMITATIONS: none FINDINGS: LUNGS AND PLEURA: Interval development of a small left effusion. Right lung remains clear . MEDIASTINUM AND HILAR STRUCTURES: No masses or contour abnormalities. HEART AND VASCULAR STRUCTURES: Heart normal size. No evidence for failure. BONES: No acute findings. HARDWARE: Venous access catheter unchanged. OTHER: No other significant finding. IMPRESSION: Interval development of small left effusion. TECHNICAL DOCUMENTATION: JOB ID: [id number] [employer]- All Rights Reserved
[2017-09-13 17:49] LABS: ABSOLUTE LYMPHOCYTES (AUTO) 0.4 10^3/uL (0.5-4.7); ABSOLUTE MONOCYTES (AUTO) 0.3 10^3/uL (0.1-1.4); ABSOLUTE NEUT (AUTO) 7.7 10^3/uL (1.7-8.2); HEMATOCRIT 38.6 % (36.0-47.0); LYMPHOCYTES % (AUTO) 5.2 % (13-45); MEAN CORPUSCULAR HEMOGLOBIN 31.3 pg (27.0-33.4); MEAN CORPUSCULAR HGB CONC 33.8 g/dL (32.0-36.0); MEAN CORPUSCULAR VOLUME 92 fl (80-97); MONOCYTES % (AUTO) 3.8 % (3-13); PLATELET COUNT 182 10^3/uL (150-450); RED BLOOD COUNT 4.17 10^6/uL (3.72-5.28); TOTAL CELLS COUNTED % (AUTO) 100 %; WHITE BLOOD COUNT 8.5 10^3/uL (4.0-10.5)
[2017-09-13 18:14] LABS: ALANINE AMINOTRANSFERASE 33 U/L (9-52); ALBUMIN 3.1 g/dL (3.5-5.0); ALKALINE PHOSPHATASE 50 U/L (38-126); ANION GAP 15 (5-19); ASPARTATE AMINO TRANSFERASE 32 U/L (14-36); BILIRUBIN,DIRECT 0.3 mg/dL (0.0-0.4); BILIRUBIN,TOTAL 0.3 mg/dL (0.2-1.3); BLOOD UREA NITROGEN 25 mg/dL (7-20); CALCIUM 10.1 mg/dL (8.4-10.2); CARBON DIOXIDE 21 mmol/L (22-30); CHLORIDE 106 mmol/L (98-107); GLUCOSE 163 mg/dL (75-110); POTASSIUM 3.4 mmol/L (3.6-5.0); TOTAL PROTEIN 5.4 g/dL (6.3-8.2)
[2017-09-13] MEDS: LEVOFLOXACIN 750 MG/D5W RTU 750 MG/150 ML RTUPB IV SCH (23:08)
[2017-09-13] MEDS: ATORVASTATIN CALCIUM 10 MG TABLET PO SCH (23:09)
[2017-09-13] MEDS: DONEPEZIL HCL 5 MG TABLET PO SCH (23:09)
[2017-09-13] MEDS: OXYCODONE-ACETAMINOPHEN 5-325 MG TABLET PO SCH (23:10)
[2017-09-13] MEDS: TEMAZEPAM 15 MG CAPSULE PO SCH (23:10)
[2017-09-14] MEDS: IPRATROPIUM/ALBUTEROL 0.5-2.5 MG/3 ML AMPUL NEB SCH ×6 (00:01→19:50)
[2017-09-14] MEDS: METHYLPREDNISOLONE INJ 125 MG/2 ML SDV IV SCH ×3 (02:17→17:40)
[2017-09-14] MEDS: LANSOPRAZOLE 15 MG TAB.RAP.DR PO SCH (06:19)
[2017-09-14 08:11] LABS: ABSOLUTE LYMPHOCYTES (AUTO) 0.5 10^3/uL (0.5-4.7); ABSOLUTE MONOCYTES (AUTO) 0.3 10^3/uL (0.1-1.4); ABSOLUTE NEUT (AUTO) 5.8 10^3/uL (1.7-8.2); BASOPHILS % (AUTO) 0.1 % (0-2); HEMATOCRIT 38.5 % (36.0-47.0); HEMOGLOBIN 12.9 g/dL (12.0-15.5); LYMPHOCYTES % (AUTO) 7.9 % (13-45); MEAN CORPUSCULAR HEMOGLOBIN 30.8 pg (27.0-33.4); MEAN CORPUSCULAR HGB CONC 33.4 g/dL (32.0-36.0); MEAN CORPUSCULAR VOLUME 92 fl (80-97); MONOCYTES % (AUTO) 3.8 % (3-13); PLATELET COUNT 158 10^3/uL (150-450); RED BLOOD COUNT 4.18 10^6/uL (3.72-5.28); RED CELL DISTRIBUTION WIDTH 15.7 % (11.5-14.0); SEGMENTED NEUTROPHILS % (AUTO) 88.2 % (42-78); TOTAL CELLS COUNTED % (AUTO) 100 %; WHITE BLOOD COUNT 6.5 10^3/uL (4.0-10.5)
[2017-09-14 08:22] LABS: INTERNATIONAL RATION (INR) 2.28; PROTHROMBIN TIME 26.3 SEC (11.4-15.4)
[2017-09-14 08:33] LABS: ALANINE AMINOTRANSFERASE 38 U/L (9-52); ALBUMIN 3.1 g/dL (3.5-5.0); ALKALINE PHOSPHATASE 43 U/L (38-126); ANION GAP 12 (5-19); ASPARTATE AMINO TRANSFERASE 28 U/L (14-36); BILIRUBIN,DIRECT 0.2 mg/dL (0.0-0.4); BILIRUBIN,TOTAL 0.4 mg/dL (0.2-1.3); BLOOD UREA NITROGEN 26 mg/dL (7-20); CALCIUM 9.9 mg/dL (8.4-10.2); CARBON DIOXIDE 25 mmol/L (22-30); CHLORIDE 105 mmol/L (98-107); GLUCOSE 146 mg/dL (75-110); POTASSIUM 3.7 mmol/L (3.6-5.0); SODIUM 142.3 mmol/L (137-145); TOTAL PROTEIN 5.3 g/dL (6.3-8.2)
[2017-09-14] MEDS: BUDESONIDE/FORMOTEROL 160-4.5 MCG 60 PUFF/6 GM MDI IH SCH ×2 (10:23→21:46)
[2017-09-14] MEDS: DILTIAZEM HCL 120 MG CAP.SR.24H PO SCH (10:23)
[2017-09-14] MEDS: SERTRALINE HCL 50 MG TABLET PO SCH (10:23)
[2017-09-14] MEDS: FLUTICASONE NASAL SPRAY 50 MCG/SPRY 120 SPRAY/16 GM NASL SCH (10:23)
--- NOTE | 2017-09-14 21:37 | PDOC PROGRESS REPORT ---
Subjective Progress Note for:: 09/14/17 Subjective:: Patient was seen by the bedside, she is improving Reason For Visit: COLITIS, HYPOTENSION Physical Exam Vital Signs: Temp Pulse Resp BP Pulse Ox 98.0 F 120 H 22 H 151/84 H 97 09/14/17 15:57 09/14/17 16:34 09/14/17 16:34 09/14/17 15:57 09/14/17 16:34 Intake & Output 09/13/17 09/14/17 09/15/17 06:59 06:59 06:59 Intake Total 255 1050 Balance 255 1050 General appearance: PRESENT: no acute distress Respiratory exam: PRESENT: wheezes Cardiovascular exam: PRESENT: +S1, +S2 GI/Abdominal exam: PRESENT: soft Neurological exam: PRESENT: alert Results Laboratory Results: 09/14/17 07:58 09/14/17 07:58 09/14/17 09/14/17 07:58 07:58 WBC 6.5 RBC 4.18 Hgb 12.9 Hct 38.5 MCV 92 MCH 30.8 MCHC 33.4 RDW 15.7 H Plt Count 158 Seg Neutrophils % 88.2 H Lymphocytes % 7.9 L Monocytes % 3.8 Eosinophils % 0.0 Basophils % 0.1 Absolute Neutrophils 5.8 Absolute Lymphocytes 0.5 Absolute Monocytes 0.3 Absolute Eosinophils 0.0 Absolute Basophils 0.0 Sodium 142.3 Potassium 3.7 Chloride 105 Carbon Dioxide 25 Anion Gap 12 BUN 26 H Creatinine 0.89 Est GFR ( Amer) > 60 Est GFR (Non-Af Amer) > 60 Glucose 146 H Calcium 9.9 Total Bilirubin 0.4 AST 28 ALT 38 Alkaline Phosphatase 43 Total Protein 5.3 L Albumin 3.1 L Impressions: Chest X-Ray 09/13/17 00:00 IMPRESSION: Interval development of small left effusion. Assessment & Plan - Diagnosis (1) Acute exacerbation of chronic obstructive pulmonary disease (COPD) Is this a current diagnosis for this admission?: Yes (2) Urinary tract infection Qualifiers: Urinary tract infection type: site unspecified Hematuria presence: without hematuria Qualified Code(s): N39.0 - Urinary tract infection, site not specified Is this a current diagnosis for this admission?: Yes (3) Diarrhea Qualifiers: Diarrhea type: unspecified type Qualified Code(s): R19.7 - Diarrhea, unspecified Is this a current diagnosis for this admission?: Yes (4) Hypotension Qualifiers: Hypotension type: unspecified hypotension type Qualified Code(s): I95.9 - Hypotension, unspecified Is this a current diagnosis for this admission?: Yes (5) Insomnia Is this a current diagnosis for this admission?: Yes
[2017-09-14] MEDS: LEVOFLOXACIN 750 MG TABLET PO SCH (21:47)
[2017-09-14] MEDS: ATORVASTATIN CALCIUM 10 MG TABLET PO SCH (21:49)
[2017-09-14] MEDS: DONEPEZIL HCL 5 MG TABLET PO SCH (21:49)
[2017-09-14] MEDS: OXYCODONE-ACETAMINOPHEN 5-325 MG TABLET PO SCH (21:50)
[2017-09-14] MEDS: TEMAZEPAM 15 MG CAPSULE PO SCH (21:50)
[2017-09-15] MEDS: IPRATROPIUM/ALBUTEROL 0.5-2.5 MG/3 ML AMPUL NEB SCH ×6 (00:21→20:37)
[2017-09-15] MEDS: METHYLPREDNISOLONE INJ 125 MG/2 ML SDV IV SCH ×3 (02:48→18:04)
[2017-09-15] MEDS: DEXTROSE 5%-1/2 NORMAL SALINE 1,000 ML IV PRN ×2 (02:48→21:47)
[2017-09-15] MEDS: LANSOPRAZOLE 15 MG TAB.RAP.DR PO SCH (07:32)
[2017-09-15 08:06] LABS: INTERNATIONAL RATION (INR) 1.84; PROTHROMBIN TIME 22.3 SEC (11.4-15.4)
[2017-09-15] MEDS: DILTIAZEM HCL 120 MG CAP.SR.24H PO SCH (09:14)
[2017-09-15] MEDS: SERTRALINE HCL 50 MG TABLET PO SCH (09:14)
[2017-09-15] MEDS: BUDESONIDE/FORMOTEROL 160-4.5 MCG 60 PUFF/6 GM MDI IH SCH ×2 (09:16→21:46)
[2017-09-15] MEDS: FLUTICASONE NASAL SPRAY 50 MCG/SPRY 120 SPRAY/16 GM NASL SCH (09:17)
[2017-09-15] MEDS: ATORVASTATIN CALCIUM 10 MG TABLET PO SCH (21:45)
[2017-09-15] MEDS: TEMAZEPAM 15 MG CAPSULE PO SCH (21:45)
[2017-09-15] MEDS: WARFARIN SODIUM 2.5 MG TABLET PO SCH (21:45)
[2017-09-15] MEDS: OXYCODONE-ACETAMINOPHEN 5-325 MG TABLET PO SCH (21:46)
[2017-09-15] MEDS: LEVOFLOXACIN 750 MG TABLET PO SCH (21:46)
[2017-09-15] MEDS: DONEPEZIL HCL 5 MG TABLET PO SCH (21:46)
--- NOTE | 2017-09-15 21:51 | PDOC PROGRESS REPORT ---
Subjective Progress Note for:: 09/15/17 Subjective:: Patient was seen by the bedside she is still wheezing but she is improved she complained of constipation Reason For Visit: COLITIS, HYPOTENSION Physical Exam Vital Signs: Temp Pulse Resp BP Pulse Ox 98.5 F 118 H 18 136/77 H 95 09/15/17 20:00 09/15/17 20:00 09/15/17 20:00 09/15/17 20:00 09/15/17 20:00 Intake & Output 09/14/17 09/15/17 09/16/17 06:59 06:59 06:59 Intake Total 1050 770 Balance 1050 770 Head exam: PRESENT: atraumatic, normocephalic Eye exam: PRESENT: conjunctiva pink, EOMI, PERRLA Ear exam: PRESENT: normal external ear exam Mouth exam: PRESENT: moist, tongue midline Neck exam: PRESENT: full ROM Respiratory exam: PRESENT: wheezes Cardiovascular exam: PRESENT: RRR, +S1, +S2 Pulses: PRESENT: normal dorsalis pedis pul, +2 pedal pulses bilateral Vascular exam: PRESENT: normal capillary refill GI/Abdominal exam: PRESENT: normal bowel sounds, soft. ABSENT: distended, guarding, mass, organolmegaly, rebound, tenderness Rectal exam: PRESENT: deferred Neurological exam: PRESENT: alert, awake, oriented to person, oriented to place , oriented to time, oriented to situation, CN II-XII grossly intact. ABSENT: motor sensory deficit Psychiatric exam: PRESENT: appropriate affect, normal mood Skin exam: PRESENT: dry, intact, warm Results Laboratory Results: 09/14/17 07:58 09/14/17 07:58 Impressions: Chest X-Ray 09/13/17 00:00 IMPRESSION: Interval development of small left effusion. Assessment & Plan - Diagnosis (1) Acute exacerbation of chronic obstructive pulmonary disease (COPD) Is this a current diagnosis for this admission?: Yes (2) Urinary tract infection Qualifiers: Urinary tract infection type: site unspecified Hematuria presence: without hematuria Qualified Code(s): N39.0 - Urinary tract infection, site not specified Is this a current diagnosis for this admission?: Yes (3) Diarrhea Qualifiers: Diarrhea type: unspecified type Qualified Code(s): R19.7 - Diarrhea, unspecified Is this a current diagnosis for this admission?: Yes (4) Hypotension Qualifiers: Hypotension type: unspecified hypotension type Qualified Code(s): I95.9 - Hypotension, unspecified Is this a current diagnosis for this admission?: Yes (5) Insomnia Is this a current diagnosis for this admission?: Yes - Plan Summary Plan Summary: Discontinue IV Solu-Medrol start prednisone 40 mg
[2017-09-16] MEDS: IPRATROPIUM/ALBUTEROL 0.5-2.5 MG/3 ML AMPUL NEB SCH ×7 (00:14→23:57)
[2017-09-16] MEDS: LANSOPRAZOLE 15 MG TAB.RAP.DR PO SCH (07:25)
[2017-09-16 09:07] LABS: INTERNATIONAL RATION (INR) 1.66; PROTHROMBIN TIME 20.6 SEC (11.4-15.4)
[2017-09-16] MEDS: DILTIAZEM HCL 120 MG CAP.SR.24H PO SCH (09:30)
[2017-09-16] MEDS: SERTRALINE HCL 50 MG TABLET PO SCH (09:30)
[2017-09-16] MEDS: FLUTICASONE NASAL SPRAY 50 MCG/SPRY 120 SPRAY/16 GM NASL SCH (09:31)
[2017-09-16] MEDS: PREDNISONE 20 MG TABLET PO SCH (09:31)
[2017-09-16] MEDS: BUDESONIDE/FORMOTEROL 160-4.5 MCG 60 PUFF/6 GM MDI IH SCH ×2 (09:31→22:07)
--- NOTE | 2017-09-16 16:38 | PDOC PROGRESS REPORT ---
Subjective Progress Note for:: 09/16/17 Subjective:: Patient complains of constipation Reason For Visit: COLITIS, HYPOTENSION Physical Exam Vital Signs: Temp Pulse Resp BP Pulse Ox 96.8 F L 76 18 141/75 H 97 09/16/17 12:26 09/16/17 12:26 09/16/17 12:26 09/16/17 12:26 09/16/17 12:26 Intake & Output 09/15/17 09/16/17 09/17/17 06:59 06:59 06:59 Intake Total 770 770 450 Balance 770 770 450 General appearance: PRESENT: no acute distress Eye exam: PRESENT: PERRLA Respiratory exam: PRESENT: wheezes Cardiovascular exam: PRESENT: +S1, +S2 GI/Abdominal exam: PRESENT: soft Neurological exam: PRESENT: alert Results Laboratory Results: 09/14/17 07:58 09/14/17 07:58 Impressions: Chest X-Ray 09/13/17 00:00 IMPRESSION: Interval development of small left effusion. Assessment & Plan - Diagnosis (1) Acute exacerbation of chronic obstructive pulmonary disease (COPD) Is this a current diagnosis for this admission?: Yes (2) Urinary tract infection Qualifiers: Urinary tract infection type: site unspecified Hematuria presence: without hematuria Qualified Code(s): N39.0 - Urinary tract infection, site not specified Is this a current diagnosis for this admission?: Yes (3) Diarrhea Qualifiers: Diarrhea type: unspecified type Qualified Code(s): R19.7 - Diarrhea, unspecified Is this a current diagnosis for this admission?: Yes (4) Hypotension Qualifiers: Hypotension type: unspecified hypotension type Qualified Code(s): I95.9 - Hypotension, unspecified Is this a current diagnosis for this admission?: Yes (5) Insomnia Is this a current diagnosis for this admission?: Yes (6) Constipation Qualifiers: Constipation type: other constipation type Qualified Code(s): K59.09 - Other constipation Is this a current diagnosis for this admission?: Yes Plan: Molasses enema
[2017-09-16] MEDS: LEVOFLOXACIN 750 MG TABLET PO SCH (22:08)
[2017-09-16] MEDS: TEMAZEPAM 15 MG CAPSULE PO SCH (22:08)
[2017-09-16] MEDS: OXYCODONE-ACETAMINOPHEN 5-325 MG TABLET PO SCH (22:08)
[2017-09-16] MEDS: DONEPEZIL HCL 5 MG TABLET PO SCH (22:08)
[2017-09-16] MEDS: ATORVASTATIN CALCIUM 10 MG TABLET PO SCH (22:08)
[2017-09-17] MEDS: DEXTROSE 5%-1/2 NORMAL SALINE 1,000 ML IV PRN ×2 (03:20→23:13)
[2017-09-17] MEDS: IPRATROPIUM/ALBUTEROL 0.5-2.5 MG/3 ML AMPUL NEB SCH ×5 (03:52→20:31)
[2017-09-17] MEDS: LANSOPRAZOLE 15 MG TAB.RAP.DR PO SCH (07:40)
[2017-09-17] MEDS: FLUTICASONE NASAL SPRAY 50 MCG/SPRY 120 SPRAY/16 GM NASL SCH (09:25)
[2017-09-17] MEDS: DILTIAZEM HCL 120 MG CAP.SR.24H PO SCH (09:25)
[2017-09-17] MEDS: PREDNISONE 20 MG TABLET PO SCH (09:25)
[2017-09-17] MEDS: BUDESONIDE/FORMOTEROL 160-4.5 MCG 60 PUFF/6 GM MDI IH SCH ×2 (09:25→21:12)
[2017-09-17] MEDS: SERTRALINE HCL 50 MG TABLET PO SCH (09:25)
--- NOTE | 2017-09-17 16:45 | RADIOLOGY REPORT (SQ) ---
EXAM DESCRIPTION: CT ABD/PELVIS NO ORAL OR IV COMPLETED DATE/TIME: 09/17/2017 4:23 pm REASON FOR STUDY: constipation COMPARISON: May 2015 TECHNIQUE: CT scan of the abdomen and pelvis performed without intravenous or oral contrast. Images reviewed with lung, soft tissue, and bone windows. Reconstructed coronal and sagittal MPR images revi ewed. All images stored on PACS. All CT scanners at this facility use dose modulation, iterative reconstruction, and/or weight based d osing when appropriate to reduce radiation dose to as low as reasonably achievable (ALARA). [facility]: Dose Right [facility]: CareDose [facility]: Dose Right [facility]: Teradose 4D [facility]: Smart Tachyus RADIATION DOSE: CT Rad equipment meets quality standard of care and radiation dose reduction techniq ues were employed. CTDIvol: 18.1 mGy. DLP: 877 mGy-cm.mGy. LIMITATIONS: None. FINDINGS: LOWER CHEST: Tiny bilateral pleural effusions are identified with some minimal associated airspace consolidation in the lung bases most consistent with atelectatic changes. NON-CONTRASTED LIVER, SPLEEN, ADRENALS: Evaluation limited by lack of IV contrast. No identified sign ificant masses. PANCREAS: No masses. No peripancreatic inflammatory changes. GALLBLADDER: Status post cholecystectomy RIGHT KIDNEY AND URETER: No suspicious masses. Assessment limited by lack of IV contrast. No signif icant calcifications. No hydronephrosis or hydroureter. LEFT KIDNEY AND URETER: No suspicious masses. Assessment limited by lack of IV contrast. No signifi cant calcifications. No hydronephrosis or hydroureter. AORTA AND RETROPERITONEUM: Extensive vascular calcifications are again identified involving the abdom inal aorta and iliac vessels as well as the mesenteric and renal arteries. Infrarenal abdominal aort ic aneurysm is identified measuring 3.7 x 3.3 cm in diameters. This is increase in size from the pre vious study were measured 3.5 x 3.2 cm. 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 No retroperitoneal masses or adenopathy. BOWEL AND PERITONEAL CAVITY: No obvious masses or inflammatory changes. No free fluid. Moderate amou nt of fecal material is identified throughout the colon. Multiple diverticula are identified in the sigmoid colon without CT evidence for diverticulitis APPENDIX: Status post appendectomy PELVIS, BLADDER, AND ABDOMINAL WALL:No abnormal masses. No free fluid. Bladder normal. There is an i ncisional hernia in the midline anteriorly containing a portion of bowel without obstruction. BONES: There is a lumbar scoliosis convex to the right with extensive degenerative changes. OTHER: No other significant finding. IMPRESSION: Interval increase in size of the abdominal aortic aneurysm in left common iliac artery a neurysm as noted above. Other findings as noted above COMMENT: Quality ID # [id number]: Final reports with documentation of one or more dose reduction techniques (e.g., Automated exposure control, adjustment of the mA and/or kV according to patient size, use of iterative reconstruction technique) TECHNICAL DOCUMENTATION: JOB ID: [id number] [employer]- All Rights Reserved
[2017-09-17] MEDS ORDERED: BISACODYL 5 MG TABEC PO ONE (18:00)
[2017-09-17] MEDS ORDERED: FLUCONAZOLE 100 MG TABLET PO ONE (20:00)
--- NOTE | 2017-09-17 20:44 | PDOC PROGRESS REPORT ---
Subjective Progress Note for:: 09/17/17 Subjective:: Patient did not respond to molasses enema, a CAT scan of the abdomen and pelvis was obtained, showed no obstruction, it showed fecal impaction throughout the colon, infrarenal aortic aneurysm that is slightly increased from previous examination, she also have fungal dermatitis of the inner thighs Reason For Visit: COLITIS, HYPOTENSION Physical Exam Vital Signs: Temp Pulse Resp BP Pulse Ox 97.4 F 98 16 130/78 H 98 09/17/17 16:54 09/17/17 20:33 09/17/17 20:33 09/17/17 16:54 09/17/17 20:33 Intake & Output 09/16/17 09/17/17 09/18/17 06:59 06:59 06:59 Intake Total 770 1820 Balance 770 1820 General appearance: PRESENT: mild distress Head exam: PRESENT: atraumatic, normocephalic Eye exam: PRESENT: PERRLA Ear exam: PRESENT: normal external ear exam Mouth exam: PRESENT: moist, tongue midline Neck exam: PRESENT: full ROM Respiratory exam: PRESENT: rhonchi Cardiovascular exam: PRESENT: RRR, +S1, +S2 Vascular exam: PRESENT: normal capillary refill GI/Abdominal exam: PRESENT: normal bowel sounds, soft Rectal exam: PRESENT: deferred Neurological exam: PRESENT: alert. ABSENT: motor sensory deficit Psychiatric exam: PRESENT: appropriate affect, normal mood Skin exam: PRESENT: dry, erythema, intact, warm Results Laboratory Results: 09/14/17 07:58 09/14/17 07:58 Impressions: Chest X-Ray 09/13/17 00:00 IMPRESSION: Interval development of small left effusion. Abdomen/Pelvis CT 09/17/17 00:00 IMPRESSION: Interval increase in size of the abdominal aortic aneurysm in left common iliac artery aneurysm as noted above. Other findings as noted above Assessment & Plan - Diagnosis (1) Acute exacerbation of chronic obstructive pulmonary disease (COPD) Is this a current diagnosis for this admission?: Yes (2) Urinary tract infection Qualifiers: Urinary tract infection type: site unspecified Hematuria presence: without hematuria Qualified Code(s): N39.0 - Urinary tract infection, site not specified Is this a current diagnosis for this admission?: Yes (3) Diarrhea Qualifiers: Diarrhea type: unspecified type Qualified Code(s): R19.7 - Diarrhea, unspecified Is this a current diagnosis for this admission?: Yes (4) Hypotension Qualifiers: Hypotension type: unspecified hypotension type Qualified Code(s): I95.9 - Hypotension, unspecified Is this a current diagnosis for this admission?: Yes (5) Insomnia Is this a current diagnosis for this admission?: Yes (6) Constipation Qualifiers: Constipation type: other constipation type Qualified Code(s): K59.09 - Other constipation Is this a current diagnosis for this admission?: Yes Plan: Start Dulcolax 20GRAM (7) Fungal dermatitis Is this a current diagnosis for this admission?: Yes Plan: Start Diflucan, nystatin cream
[2017-09-17] MEDS: TEMAZEPAM 15 MG CAPSULE PO SCH (21:11)
[2017-09-17] MEDS: DONEPEZIL HCL 5 MG TABLET PO SCH (21:11)
[2017-09-17] MEDS: ATORVASTATIN CALCIUM 10 MG TABLET PO SCH (21:12)
[2017-09-17] MEDS: WARFARIN SODIUM 2.5 MG TABLET PO SCH (21:12)
[2017-09-17] MEDS: NYSTATIN CREAM 15 GM TP SCH (21:12)
[2017-09-18] MEDS: IPRATROPIUM/ALBUTEROL 0.5-2.5 MG/3 ML AMPUL NEB SCH ×6 (00:08→20:20)
[2017-09-18] MEDS: LANSOPRAZOLE 15 MG TAB.RAP.DR PO SCH (05:20)
[2017-09-18 08:07] LABS: INTERNATIONAL RATION (INR) 1.53; PROTHROMBIN TIME 19.3 SEC (11.4-15.4)
[2017-09-18] MEDS: DILTIAZEM HCL 120 MG CAP.SR.24H PO SCH (10:19)
[2017-09-18] MEDS: BUDESONIDE/FORMOTEROL 160-4.5 MCG 60 PUFF/6 GM MDI IH SCH ×2 (10:19→22:04)
[2017-09-18] MEDS: NYSTATIN CREAM 15 GM TP SCH ×2 (10:19→22:05)
[2017-09-18] MEDS: SERTRALINE HCL 50 MG TABLET PO SCH (10:19)
[2017-09-18] MEDS: PREDNISONE 20 MG TABLET PO SCH (10:19)
[2017-09-18] MEDS: FLUTICASONE NASAL SPRAY 50 MCG/SPRY 120 SPRAY/16 GM NASL SCH (10:19)
--- NOTE | 2017-09-18 19:13 | PDOC TRANSFER SUMMARY ---
General - Admit/Disc Date/PCP Admission Date/Primary Care Provider: 09/09/17 22:26 ONEL AVINA MD Discharge Date: 09/18/17 - Discharge Diagnosis (1) Acute exacerbation of chronic obstructive pulmonary disease (COPD) Is this a current diagnosis for this admission?: Yes (2) Urinary tract infection Is this a current diagnosis for this admission?: Yes (3) Diarrhea Is this a current diagnosis for this admission?: Yes (4) Hypotension Is this a current diagnosis for this admission?: Yes (5) Insomnia Is this a current diagnosis for this admission?: Yes (6) Constipation Is this a current diagnosis for this admission?: Yes (7) Fungal dermatitis Is this a current diagnosis for this admission?: Yes - Additional Information Resuscitation Status: Do Not Resuscitate Prescriptions: Prednisone 20 mg PO DAILY #10 tablet Home Medications: Acetaminophen [Tylenol 325 mg Tablet] 325 mg PO Q6HP PRN 09/10/17 Budesonide/Formoterol Fumarate [Symbicort HFA 160-4.5 mcg Inhaler 6 gm] 2 puff IH BID 09/10/17 Calcium Carbonate [Tums Chewable 500 mg Tab.chew] 500 mg PO BIDP PRN 09/10/17 Diltiazem HCl [Cardizem Cd 120 mg Capsule] 120 mg PO DAILY 09/10/17 Donepezil HCl [Aricept 5 mg Tablet] 5 mg PO QHS 09/10/17 Fluticasone Propionate [Flonase Nasal [place] 50 Mcg/[place] 16 gm] 1 spr NASL DAILY 09/10/17 Guaifenesin [Mucinex] 600 mg PO Q12HP PRN 09/10/17 Loperamide HCl [Imodium A-D] 2 mg PO Q6HP PRN 09/10/17 Melatonin/Pyridoxine HCl (B6) [Melatonin 3 mg Tablet] 1 tab PO HSP PRN 09/10/17 Omeprazole 20 mg PO DAILY 09/10/17 Pravastatin Sodium [Pravachol] 40 mg PO DAILY 09/10/17 Sertraline HCl [Zoloft] 25 mg PO DAILY 09/10/17 Warfarin Sodium [Coumadin 2.5 mg Tablet] 2.5 mg PO TUTHSA 09/10/17 Prednisone 20 mg PO DAILY #10 tablet 09/18/17 History of Present Illness Admission Date/PCP: 09/09/17 22:26 ONEL AVINA MD History of Present Illness: DARLYN EVANS is a 82 year old female, She came to the emergency room last night for evaluation of diarrhea associated with hypotension. She apparently was on p.o. antibiotic for management of cellulitis of the right upper arm, she subsequently developed diarrhea, in the emergency room it was assumed that she has clostridium difficile colitis, because of the low blood pressure and profuse diarrhea hospital admission was advised by the ED providers. When I saw patient on the floor there was no diarrhea the low blood pressure was resolved with hydration but she was audibly wheezing, the urine culture is growing negative rods, she has a history of COPD.Last night the oxygen saturation was 98% on room air, since she started wheezing the oxygen saturation has decreased to 90% on room air, presently on nasal cannula, 2 L Hospital Course Hospital Course: Patient was admitted initially for diarrhea associated with low blood pressure, there was no evidence of diarrhea in the hospital, she developed acute COPD exacerbation requiring IV Solu-Medrol and antibiotic. She had constipation that did not respond initially to enema, a CAT scan of the abdomen and pelvis was done without contrast, it confirmed constipation does not obstruction she was subsequently treated with p.o. Dulcolax and enema and she had a BM. She is being discharged back to assisted living facility today Physical Exam Vital Signs: Temp Pulse Resp BP Pulse Ox 97.4 F 56 L 18 114/86 H 95 09/18/17 16:18 09/18/17 16:18 09/18/17 16:18 09/18/17 16:18 09/18/17 16:18 Intake & Output 09/17/17 09/18/17 09/19/17 06:59 06:59 06:59 Intake Total 5861 034 2119 Balance 3268 080 3922 General appearance: PRESENT: no acute distress Eye exam: PRESENT: PERRLA Respiratory exam: PRESENT: rhonchi Cardiovascular exam: PRESENT: +S1, +S2 GI/Abdominal exam: PRESENT: soft Neurological exam: PRESENT: alert Results Laboratory Results: 09/14/17 07:58 09/14/17 07:58 09/18/17 10:55 Stool for White Cells NO WBCs SEEN Impressions: Chest X-Ray 09/13/17 00:00 IMPRESSION: Interval development of small left effusion. Abdomen/Pelvis CT 09/17/17 00:00 IMPRESSION: Interval increase in size of the abdominal aortic aneurysm in left common iliac artery aneurysm as noted above. Other findings as noted above
[2017-09-18] MEDS: DONEPEZIL HCL 5 MG TABLET PO SCH (22:04)
[2017-09-18] MEDS: ATORVASTATIN CALCIUM 10 MG TABLET PO SCH (22:04)
[2017-09-18] MEDS: TEMAZEPAM 15 MG CAPSULE PO SCH (22:04)
[2017-09-19] MEDS: IPRATROPIUM/ALBUTEROL 0.5-2.5 MG/3 ML AMPUL NEB SCH ×7 (00:01→23:54)
[2017-09-19] MEDS: LANSOPRAZOLE 15 MG TAB.RAP.DR PO SCH (06:44)
[2017-09-19 08:25] LABS: INTERNATIONAL RATION (INR) 1.42; PROTHROMBIN TIME 18.2 SEC (11.4-15.4)
[2017-09-19] MEDS: NYSTATIN CREAM 15 GM TP SCH ×2 (09:35→21:39)
[2017-09-19] MEDS: PREDNISONE 20 MG TABLET PO SCH (09:35)
[2017-09-19] MEDS: DILTIAZEM HCL 120 MG CAP.SR.24H PO SCH (09:35)
[2017-09-19] MEDS: BUDESONIDE/FORMOTEROL 160-4.5 MCG 60 PUFF/6 GM MDI IH SCH ×2 (09:35→21:39)
[2017-09-19] MEDS: SERTRALINE HCL 50 MG TABLET PO SCH (09:36)
[2017-09-19] MEDS: FLUTICASONE NASAL SPRAY 50 MCG/SPRY 120 SPRAY/16 GM NASL SCH (09:36)
--- NOTE | 2017-09-19 11:49 | PDOC PROGRESS REPORT ---
Subjective Progress Note for:: 09/19/17 Subjective:: Transfer to [facility] delayed due to facility refusal to accept patient back because of increase need for assistance in ADL. She denied any chest pain or difficulty with breathing. No nausea, vomiting, abdominal pain, constipation, or diarrhea. No reported fever or chills. Reason For Visit: COLITIS, HYPOTENSION Physical Exam Vital Signs: Temp Pulse Resp BP Pulse Ox 97.9 F 115 H 20 128/71 H 96 09/19/17 08:33 09/19/17 08:33 09/19/17 08:33 09/19/17 08:33 09/19/17 08:33 Intake & Output 09/18/17 09/19/17 09/20/17 06:59 06:59 06:59 Intake Total 520 1000 Balance 520 1000 General appearance: PRESENT: no acute distress, well-developed, well-nourished Head exam: PRESENT: atraumatic, normocephalic Mouth exam: PRESENT: moist Respiratory exam: PRESENT: clear to auscultation chela Cardiovascular exam: PRESENT: RRR. ABSENT: diastolic murmur, rubs, systolic murmur Vascular exam: PRESENT: normal capillary refill. ABSENT: pallor GI/Abdominal exam: PRESENT: normal bowel sounds, soft. ABSENT: distended, guarding, mass, organolmegaly, rebound, tenderness Extremities exam: ABSENT: pedal edema Musculoskeletal exam: PRESENT: deformity - related to multiple jpoints involvment with arthritis Neurological exam: PRESENT: alert, awake, oriented to person, oriented to place , oriented to time, oriented to situation, CN II-XII grossly intact. ABSENT: motor sensory deficit Psychiatric exam: PRESENT: appropriate affect, normal mood. ABSENT: homicidal ideation, suicidal ideation Skin exam: PRESENT: dry, intact, warm, other - resolving ecchymotic lesion on left forearm.. ABSENT: cyanosis, rash Results Laboratory Results: 09/14/17 07:58 09/14/17 07:58 09/18/17 10:55 Stool for White Cells NO WBCs SEEN Impressions: Chest X-Ray 09/13/17 00:00 IMPRESSION: Interval development of small left effusion. Abdomen/Pelvis CT 09/17/17 00:00 IMPRESSION: Interval increase in size of the abdominal aortic aneurysm in left common iliac artery aneurysm as noted above. Other findings as noted above Assessment & Plan - Diagnosis (1) Acute exacerbation of chronic obstructive pulmonary disease (COPD) Is this a current diagnosis for this admission?: Yes Plan: Improved. (2) Urinary tract infection Qualifiers: Urinary tract infection type: acute cystitis Hematuria presence: without hematuria Qualified Code(s): N30.00 - Acute cystitis without hematuria Is this a current diagnosis for this admission?: Yes Plan: Improved. (3) Constipation Qualifiers: Constipation type: other constipation type Qualified Code(s): K59.09 - Other constipation Is this a current diagnosis for this admission?: Yes Plan: Improved. (4) Physical debility Is this a current diagnosis for this admission?: Yes Plan: Patient may benefit from short term rehabilitation and [facility]. (5) Chronic atrial fibrillation Is this a current diagnosis for this admission?: Yes Plan: See covering attending physician orders. (6) Hypertension Qualifiers: Hypertension type: essential hypertension Qualified Code(s): I10 - Essential (primary) hypertension Is this a current diagnosis for this admission?: Yes Plan: See covering attending physician orders. (7) CAD (coronary artery disease) Qualifiers: Coronary Disease-Associated Artery/Lesion type: [place] artery [place] vs. transplanted heart: circle heart Associated angina: without angina Qualified Code(s): I25.10 - Atherosclerotic heart disease of circle coronary artery without angina pectoris Is this a current diagnosis for this admission?: Yes Plan: Improved. - Time Time Spent with patient: 25-34 minutes Medications reviewed and adjusted accordingly: Yes Anticipated discharge: SNF - for short term rehabilitation Within: Other - Inpatient Certification Based on my medical assessment, after consideration of the patient's comorbidities, presenting symptoms, or acuity I expect that the services needed warrant INPATIENT care.: Yes I certify that my determination is in accordance with my understanding of Medicare's requirements for reasonable and necessary INPATIENT services [42 CFR 412.3e].: Yes Medical Necessity: Need Close Monitoring Due to Risk of Patient Decompensation, Risk of Complication if Not Cared For in Hospital Post Hospital Care: D/C or Transfer Summary - Plan Summary Plan Summary: See covering attending physician orders.
[2017-09-19] MEDS: ACETAMINOPHEN 325 MG TABLET PO PRN (16:54)
[2017-09-19] MEDS: ATORVASTATIN CALCIUM 10 MG TABLET PO SCH (21:38)
[2017-09-19] MEDS: WARFARIN SODIUM 2.5 MG TABLET PO SCH (21:38)
[2017-09-19] MEDS: TEMAZEPAM 15 MG CAPSULE PO SCH (21:39)
[2017-09-19] MEDS: DONEPEZIL HCL 5 MG TABLET PO SCH (21:39)
[2017-09-20] MEDS: IPRATROPIUM/ALBUTEROL 0.5-2.5 MG/3 ML AMPUL NEB SCH ×5 (04:09→19:47)
[2017-09-20] MEDS: LANSOPRAZOLE 15 MG TAB.RAP.DR PO SCH (06:27)
[2017-09-20] MEDS: BUDESONIDE/FORMOTEROL 160-4.5 MCG 60 PUFF/6 GM MDI IH SCH ×2 (10:05→22:36)
[2017-09-20] MEDS: PREDNISONE 20 MG TABLET PO SCH (10:05)
[2017-09-20] MEDS: DILTIAZEM HCL 120 MG CAP.SR.24H PO SCH (10:05)
[2017-09-20] MEDS: FLUTICASONE NASAL SPRAY 50 MCG/SPRY 120 SPRAY/16 GM NASL SCH (10:05)
[2017-09-20] MEDS: NYSTATIN CREAM 15 GM TP SCH ×2 (10:05→22:38)
[2017-09-20] MEDS: SERTRALINE HCL 50 MG TABLET PO SCH (10:05)
[2017-09-20] MEDS: DONEPEZIL HCL 5 MG TABLET PO SCH (22:37)
[2017-09-20] MEDS: ATORVASTATIN CALCIUM 10 MG TABLET PO SCH (22:37)
[2017-09-20] MEDS: TEMAZEPAM 15 MG CAPSULE PO SCH (22:37)
[2017-09-21] MEDS: IPRATROPIUM/ALBUTEROL 0.5-2.5 MG/3 ML AMPUL NEB SCH ×6 (00:32→19:35)
[2017-09-21] MEDS: LANSOPRAZOLE 15 MG TAB.RAP.DR PO SCH (05:09)
[2017-09-21] MEDS: PREDNISONE 20 MG TABLET PO SCH (09:14)
[2017-09-21] MEDS: DILTIAZEM HCL 120 MG CAP.SR.24H PO SCH (09:14)
[2017-09-21] MEDS: SERTRALINE HCL 50 MG TABLET PO SCH (09:15)
[2017-09-21] MEDS: BUDESONIDE/FORMOTEROL 160-4.5 MCG 60 PUFF/6 GM MDI IH SCH ×2 (09:17→22:37)
[2017-09-21] MEDS: FLUTICASONE NASAL SPRAY 50 MCG/SPRY 120 SPRAY/16 GM NASL SCH (09:17)
[2017-09-21] MEDS: NYSTATIN CREAM 15 GM TP SCH ×2 (14:01→22:37)
--- NOTE | 2017-09-21 19:45 | PDOC PROGRESS REPORT ---
Subjective Progress Note for:: 09/21/17 Subjective:: Patient was discharged on Thursday about 3 days ago to assisted living facility but the facility refused to accept patient back suggesting that patient needed to go to senior care home for rehabilitation, discharge planning is working on that Reason For Visit: COLITIS, HYPOTENSION Physical Exam Vital Signs: Temp Pulse Resp BP Pulse Ox 97.9 F 120 H 16 125/81 97 09/21/17 16:56 09/21/17 19:36 09/21/17 19:36 09/21/17 16:56 09/21/17 19:36 Intake & Output 09/20/17 09/21/17 09/22/17 06:59 06:59 06:59 Intake Total 490 1420 700 Balance 490 1420 700 General appearance: PRESENT: no acute distress Eye exam: PRESENT: PERRLA Respiratory exam: PRESENT: rhonchi Cardiovascular exam: PRESENT: +S1, +S2 GI/Abdominal exam: PRESENT: soft Neurological exam: PRESENT: alert Results Laboratory Results: 09/14/17 07:58 09/14/17 07:58 09/18/17 10:55 Stool - Stool - Final Impressions: Chest X-Ray 09/13/17 00:00 IMPRESSION: Interval development of small left effusion. Abdomen/Pelvis CT 09/17/17 00:00 IMPRESSION: Interval increase in size of the abdominal aortic aneurysm in left common iliac artery aneurysm as noted above. Other findings as noted above Assessment & Plan - Diagnosis (1) Acute exacerbation of chronic obstructive pulmonary disease (COPD) Is this a current diagnosis for this admission?: Yes (2) Urinary tract infection Qualifiers: Urinary tract infection type: site unspecified Hematuria presence: without hematuria Qualified Code(s): N39.0 - Urinary tract infection, site not specified Is this a current diagnosis for this admission?: Yes (3) Diarrhea Qualifiers: Diarrhea type: unspecified type Qualified Code(s): R19.7 - Diarrhea, unspecified Is this a current diagnosis for this admission?: Yes (4) Hypotension Qualifiers: Hypotension type: unspecified hypotension type Qualified Code(s): I95.9 - Hypotension, unspecified Is this a current diagnosis for this admission?: Yes (5) Insomnia Is this a current diagnosis for this admission?: Yes (6) Constipation Qualifiers: Constipation type: other constipation type Qualified Code(s): K59.09 - Other constipation Is this a current diagnosis for this admission?: Yes (7) Fungal dermatitis Is this a current diagnosis for this admission?: Yes
[2017-09-21] MEDS: DONEPEZIL HCL 5 MG TABLET PO SCH (22:38)
[2017-09-21] MEDS: TEMAZEPAM 15 MG CAPSULE PO SCH (22:38)
[2017-09-21] MEDS: ATORVASTATIN CALCIUM 10 MG TABLET PO SCH (22:39)
[2017-09-22] MEDS: IPRATROPIUM/ALBUTEROL 0.5-2.5 MG/3 ML AMPUL NEB SCH ×6 (00:07→19:26)
[2017-09-22] MEDS: LANSOPRAZOLE 15 MG TAB.RAP.DR PO SCH (05:17)
[2017-09-22] MEDS: DILTIAZEM HCL 120 MG CAP.SR.24H PO SCH (10:35)
[2017-09-22] MEDS: FLUTICASONE NASAL SPRAY 50 MCG/SPRY 120 SPRAY/16 GM NASL SCH (10:35)
[2017-09-22] MEDS: PREDNISONE 20 MG TABLET PO SCH (10:35)
[2017-09-22] MEDS: SERTRALINE HCL 50 MG TABLET PO SCH (10:35)
[2017-09-22] MEDS: BUDESONIDE/FORMOTEROL 160-4.5 MCG 60 PUFF/6 GM MDI IH SCH ×2 (10:35→23:07)
[2017-09-22] MEDS: NYSTATIN CREAM 15 GM TP SCH ×2 (10:35→23:08)
[2017-09-22] MEDS: WARFARIN SODIUM 2.5 MG TABLET PO SCH (23:06)
[2017-09-22] MEDS: ATORVASTATIN CALCIUM 10 MG TABLET PO SCH (23:07)
[2017-09-22] MEDS: TEMAZEPAM 15 MG CAPSULE PO SCH (23:07)
[2017-09-22] MEDS: DONEPEZIL HCL 5 MG TABLET PO SCH (23:07)
[2017-09-23] MEDS: IPRATROPIUM/ALBUTEROL 0.5-2.5 MG/3 ML AMPUL NEB SCH ×5 (00:25→16:47)
[2017-09-23] MEDS: LANSOPRAZOLE 15 MG TAB.RAP.DR PO SCH (07:33)
[2017-09-23] MEDS: FLUTICASONE NASAL SPRAY 50 MCG/SPRY 120 SPRAY/16 GM NASL SCH (09:11)
[2017-09-23] MEDS: BUDESONIDE/FORMOTEROL 160-4.5 MCG 60 PUFF/6 GM MDI IH SCH (09:11)
[2017-09-23] MEDS: SERTRALINE HCL 50 MG TABLET PO SCH (09:11)
[2017-09-23] MEDS: PREDNISONE 20 MG TABLET PO SCH (09:11)
[2017-09-23] MEDS: DILTIAZEM HCL 120 MG CAP.SR.24H PO SCH (09:11)
[2017-09-23] MEDS: NYSTATIN CREAM 15 GM TP SCH (09:12)
--- NOTE | 2017-09-23 10:25 | PDOC PROGRESS REPORT ---
Subjective Progress Note for:: 09/23/17 Subjective:: Patient is currently doing well Patient's denied any chest pain denied any shortness of the breath Patient's denied any other complaints Patients wants to go back to the rehab and waiting for the rooms Reason For Visit: COLITIS, HYPOTENSION Physical Exam Vital Signs: Temp Pulse Resp BP Pulse Ox 98.1 F 82 18 137/76 H 98 09/23/17 08:29 09/23/17 08:29 09/23/17 08:29 09/23/17 08:29 09/23/17 08:29 Intake & Output 09/22/17 09/23/17 09/24/17 06:59 06:59 06:59 Intake Total 1660 1100 Balance 1660 1100 Weight 113.1 kg General appearance: PRESENT: no acute distress, well-developed, well-nourished Head exam: PRESENT: atraumatic, normocephalic Eye exam: PRESENT: conjunctiva pink, EOMI, PERRLA. ABSENT: scleral icterus Ear exam: PRESENT: normal external ear exam Mouth exam: PRESENT: moist, tongue midline Neck exam: PRESENT: full ROM. ABSENT: carotid bruit, JVD, lymphadenopathy, thyromegaly Respiratory exam: PRESENT: clear to auscultation chela Cardiovascular exam: PRESENT: RRR. ABSENT: diastolic murmur, rubs, systolic murmur Pulses: PRESENT: normal dorsalis pedis pul, +2 pedal pulses bilateral Vascular exam: PRESENT: normal capillary refill GI/Abdominal exam: PRESENT: normal bowel sounds, soft. ABSENT: distended, guarding, mass, organolmegaly, rebound, tenderness Rectal exam: PRESENT: deferred Musculoskeletal exam: PRESENT: ambulatory Neurological exam: PRESENT: alert, awake, oriented to person, oriented to place , oriented to time, oriented to situation, CN II-XII grossly intact. ABSENT: motor sensory deficit Psychiatric exam: PRESENT: appropriate affect, normal mood. ABSENT: homicidal ideation, suicidal ideation Skin exam: PRESENT: dry, intact, warm. ABSENT: cyanosis, rash Results Laboratory Results: 09/14/17 07:58 09/14/17 07:58 09/18/17 10:55 Stool - Stool - Final 09/18/17 10:55 Stool - Stool Stool Culture - Final Vancomycin Resis. Enterococci Yeast, Not Natasha Albicans Impressions: Chest X-Ray 09/13/17 00:00 IMPRESSION: Interval development of small left effusion. Abdomen/Pelvis CT 09/17/17 00:00 IMPRESSION: Interval increase in size of the abdominal aortic aneurysm in left common iliac artery aneurysm as noted above. Other findings as noted above Assessment & Plan - Diagnosis (1) Acute exacerbation of chronic obstructive pulmonary disease (COPD) Is this a current diagnosis for this admission?: Yes (3) Hypotension Qualifiers: Hypotension type: unspecified hypotension type Qualified Code(s): I95.9 - Hypotension, unspecified Is this a current diagnosis for this admission?: Yes (4) CAD (coronary artery disease) Qualifiers: Coronary Disease-Associated Artery/Lesion type: [place] artery [place] vs. transplanted heart: [place] heart Associated angina: without angina Qualified Code(s): I25.10 - Atherosclerotic heart disease of [place] coronary artery without angina pectoris Is this a current diagnosis for this admission?: Yes (5) COPD (chronic obstructive pulmonary disease) Qualifiers: COPD type: unspecified COPD Qualified Code(s): J44.9 - Chronic obstructive pulmonary disease, unspecified (6) Chronic atrial fibrillation Is this a current diagnosis for this admission?: Yes - Time Time Spent with patient: 15-24 minutes Medications reviewed and adjusted accordingly: Yes Anticipated discharge: SNF Within: when bed available - Inpatient Certification Medical Necessity: Need Close Monitoring Due to Risk of Patient Decompensation Post Hospital Care: D/C Named Account Executive Documentation - Plan Summary Plan Summary: Patient is currently doing well
[2017-09-23 15:32] VITALS: BP 132/84
== END 2017-09-23 16:55 | DRG 392 ==
LOC: ER 18:25 → EH 22:26 → 5 09-10 00:49 → 2N 09-11 12:49 → 2S 09-12 18:17
PROVIDERS: ADMIT Family Medicine; ATTEND Family Medicine
DX: K52.9 Noninfective gastroenteritis and colitis, unspecified (principal); J44.1 Chronic obstructive pulmonary disease with (acute) exacerbation; N39.0 Urinary tract infection, site not specified; I95.89 Other hypotension; I25.10 Atherosclerotic heart disease of native coronary artery without angina pectoris; I48.91 Unspecified atrial fibrillation; I73.9 Peripheral vascular disease, unspecified; Z16.21 Resistance to vancomycin; E78.00 Pure hypercholesterolemia, unspecified; G47.00 Insomnia, unspecified; K56.41 Fecal impaction; B36.8 Other specified superficial mycoses; I72.2 Aneurysm of renal artery; B95.2 Enterococcus as the cause of diseases classified elsewhere; Z88.0 Allergy status to penicillin; Z88.6 Allergy status to analgesic agent; Z85.038 Personal history of other malignant neoplasm of large intestine; Z88.2 Allergy status to sulfonamides; Z75.1 Person awaiting admission to adequate facility elsewhere; Z66 Do not resuscitate; Z90.710 Acquired absence of both cervix and uterus; Z90.49 Acquired absence of other specified parts of digestive tract
CPT/HCPCS: 36415; 36600; 71046; 74176; 80053; 81001; 82803; 83690; 85025; 85610; 85730; 87045; 87086; 87088; 87186; 87205; 87493; 87804; 89055; 94640; 96360; 99285; G8978-GP; G8979-GP; J1630; J1956; J2405; J2930; J3490; J7030; J7512; J7620; J8499

== ENCOUNTER → 2017-10-12 | Outpatient (CLI) | payer MEDICARE ==
[2017-10-13 07:07] LABS: PROTHROMBIN TIME 13.9 SEC (11.4-15.4)
== END ==
LOC: LCAL 12:55
PROVIDERS: ATTEND Physician Assistant
DX: I48.2 Chronic atrial fibrillation (principal); Z79.01 Long term (current) use of anticoagulants
CPT/HCPCS: 36415; 85610

== ENCOUNTER 2017-10-21 07:32 | Emergency (ER) | payer MEDICARE ==
[2017-10-21] MEDS ORDERED: ACETAMINOPHEN 325 MG TABLET PO ONE (08:16)
[2017-10-21 09:57] LABS: APPEARANCE,URINE CLEAR; BILIRUBIN,URINE NEGATIVE (NEGATIVE); COLOR,URINE YELLOW; GLUCOSE, URINE NEGATIVE (NEGATIVE); KETONES,URINE NEGATIVE (NEGATIVE); LEUKOCYTE ESTERASE,URINE NEGATIVE (NEGATIVE); NITRITE,URINE NEGATIVE (NEGATIVE); PROTEIN,URINE NEGATIVE (NEGATIVE); URINE SPECIFIC GRAVITY 1.008; UROBILINOGEN,URINE NEGATIVE mg/dL (<2.0)
--- NOTE | 2017-10-21 10:09 | RADIOLOGY REPORT (SQ) ---
EXAM DESCRIPTION: L SPINE WHOLE COMPLETED DATE/TIME: 10/21/2017 9:58 am REASON FOR STUDY: low back pain COMPARISON: CT abdomen pelvis 09/17/2017 NUMBER OF VIEWS: Five views including obliques. TECHNIQUE: AP, lateral, oblique, and sacral radiographic images acquired of the lumbar spine. LIMITATIONS: None. FINDINGS: MINERALIZATION: Normal. SEGMENTATION: Normal. No transitional anatomy. ALIGNMENT: Degenerative convex rightward lumbar curvature. Grade 1 anterolisthesis of L4 over L5 VERTEBRAE: No compression deformities DISCS: High-grade disc space narrowing throughout the T12-L1, L1-2, L2-3, and L3-4 levels. POSTERIOR ELEMENTS: Advanced bilateral facet arthropathy at L3-4, L4-5, and L5-S1. HARDWARE: None in the spine. PARASPINAL SOFT TISSUES: Peripherally calcified 5 cm left proximal common iliac artery aneurysm simil ar compared to CT 09/17/2017. PELVIS: Not included in the field of view OTHER: No other significant finding. 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
[2017-10-21] MEDS ORDERED: LIDOCAINE 5% (700 MG) TRANSDERMAL ADH..PATCH TP ONE (10:27)
--- NOTE | 2017-10-21 10:27 | ER Document Report ---
ED Neck/Back Problem - General Chief Complaint: Back Pain Stated Complaint: BACK PAIN Time Seen by Provider: 10/21/17 07:46 Mode of Arrival: Medic Information source: Patient Notes: Patient is an 82-year-old female who presents to the ER via EMS for left lower back pain times approximately 1 month. PatientWas diagnosed with urinary tract infection by her primary care provider and placed on Keflex. She states that she did finish all of that and she denies any burning with urination, fever, chills. She denies any injury. Patient told EMS that she had chronic back pain. She denies any radiation down the leg, numbness, tingling, loss of bladder or bowel function. TRAVEL OUTSIDE OF THE [place] IN LAST 30 DAYS: No - Related Data Allergies/Adverse Reactions: codeine [Codeine] Allergy (Verified 09/09/17 18:26) meperidine HCl [From Demerol] Allergy (Verified 09/09/17 18:26) Penicillins Allergy (Verified 09/09/17 18:26) Sulfa (Sulfonamide Antibiotics) Allergy (Verified 09/09/17 18:26) Past Medical History - General Information source: Patient - Social History Smoking Status: Unknown if Ever Smoked Family History: Reviewed & Not Pertinent Patient has suicidal ideation: No Patient has homicidal ideation: No - Past Medical History Cardiac Medical History: Reports: Hx Atrial Fibrillation, Hx Coronary Artery Disease, Hx Hypercholesterolemia, Hx Hypertension, Hx Peripheral Vascular Disease - Past surgical h/o hysterectomy, colectomy, cholecystectomy, appendectomy Pulmonary Medical History: Reports: Hx COPD, Hx Pneumonia Renal/ Medical History: Denies: Hx Peritoneal Dialysis Malignancy Medical History: Reports: Hx Colorectal Cancer Psychiatric Medical History: Reports: Hx Anxiety Past Surgical History: Reports: Hx Abdominal Surgery - colon, Hx Appendectomy, Hx Cholecystectomy, Hx Hysterectomy. Denies: Hx Pacemaker - Immunizations Immunizations up to date: Yes Hx Diphtheria, Pertussis, Tetanus Vaccination: Yes Review of Systems - Review of Systems Constitutional: No symptoms reported EENT: No symptoms reported Cardiovascular: No symptoms reported Respiratory: No symptoms reported Gastrointestinal: No symptoms reported Genitourinary: See HPI Female Genitourinary: No symptoms reported Musculoskeletal: See HPI Skin: No symptoms reported Hematologic/Lymphatic: No symptoms reported Neurological/Psychological: No symptoms reported Physical Exam - Vital signs Vitals: Pulse Resp 98 18 10/21/17 08:03 02/21/18 08:03 - Notes Notes: PHYSICAL EXAMINATION: GENERAL: Well-appearing and in no acute distress. HEAD: Atraumatic, normocephalic. EYES: Pupils equal round and reactive to light, extraocular movements intact, sclera anicteric, conjunctiva are normal. ENT: ear canals without erythema or foreign body, TMs pearly [place] with good bony landmarks, nares patent, oropharynx clear without exudates. Moist mucous membranes. NECK: Normal range of motion, supple without lymphadenopathy LUNGS: CTAB and equal. No wheezes rales or rhonchi. HEART: Regular rate and rhythm without murmurs ABDOMEN: Soft, no tenderness. No guarding, no rebound BACK: no vertebral tenderness, normal ROM GI/: no CVA tenderness EXTREMITIES: Normal range of motion, no pitting edema. No cyanosis. NEUROLOGICAL: Cranial nerves grossly intact. Normal sensory/motor exams. PSYCH: Normal mood, normal affect. SKIN: Warm, Dry, normal turgor, no rashes or lesions noted Course - Re-evaluation Re-evalutation: 10/21/17 10:25 Patient is not tender to exam of the back, urinalysis reveals no signs of infection, lumbar x-ray reveals no acute pathology. It does report a 5 cm common iliac aneurysm which primary care provider does know about. - Vital Signs Vital signs: Temp Pulse Resp BP Pulse Ox 98 22 H 124/81 100 10/21/17 08:03 10/21/17 08:58 10/21/17 08:58 10/21/17 08:58 Discharge - Discharge Clinical Impression: Back pain Qualifiers: Back pain location: low back pain Chronicity: acute Back pain laterality: left Sciatica presence: without sciatica Qualified Code(s): M54.5 - Low back pain Condition: Stable Disposition: HOME, SELF-CARE Additional Instructions: Return immediately for any new or worsening symptoms. Follow up with primary care provider, call tomorrow to make followup appointment. Referrals: ONEL AVINA MD [Primary Care Provider] - Follow up as needed
[2017-10-21 11:25] VITALS: BP 154/88
== END 2017-10-21 11:44 | disposition home or self-care (01) ==
LOC: ER 07:32
DX: M54.5 Low back pain (principal); I72.3 Aneurysm of iliac artery; I25.10 Atherosclerotic heart disease of native coronary artery without angina pectoris; I10 Essential (primary) hypertension; J44.9 Chronic obstructive pulmonary disease, unspecified; Z85.048 Personal history of other malignant neoplasm of rectum, rectosigmoid junction, and anus; Z87.440 Personal history of urinary (tract) infections; Z88.5 Allergy status to narcotic agent; Z88.0 Allergy status to penicillin; Z88.2 Allergy status to sulfonamides
CPT/HCPCS: 99284; 81001; 72110; A9270

== ENCOUNTER 2017-10-24 17:00 | Emergency (ER) | payer MEDICARE ==
[2017-10-24] MEDS ORDERED: IPRATROPIUM/ALBUTEROL 0.5-2.5 MG/3 ML AMPUL NEB ONE (17:26)
[2017-10-24] MEDS ORDERED: PREDNISONE 20 MG TABLET PO ONE (17:26)
--- NOTE | 2017-10-24 17:26 | ER Document Report ---
ED Respiratory Problem - General Chief Complaint: Shortness Of Breath Stated Complaint: SHORTNESS OF BREATH Time Seen by Provider: 10/24/17 17:07 Notes: The patient is an 82-year-old female, past medical history COPD, A. fib (on Cardizem and Coumadin), dementia, presents with productive yellow sputum and mild shortness of breath over the past 2 days. Patient denies fevers, chest pain, abdominal pain, vomiting, hemoptysis, increased leg swelling, back pain, rash or headaches. TRAVEL OUTSIDE OF THE [place] IN LAST 30 DAYS: No - Related Data Allergies/Adverse Reactions: codeine [Codeine] Allergy (Verified 09/09/17 18:26) meperidine HCl [From Demerol] Allergy (Verified 09/09/17 18:26) Penicillins Allergy (Verified 09/09/17 18:26) Sulfa (Sulfonamide Antibiotics) Allergy (Verified 09/09/17 18:26) Past Medical History - General Information source: Patient, Outside Facility Records - Social History Smoking Status: Unknown if Ever Smoked Family History: Reviewed & Not Pertinent - Past Medical History Cardiac Medical History: Reports: Hx Atrial Fibrillation, Hx Coronary Artery Disease, Hx Hypercholesterolemia, Hx Hypertension, Hx Peripheral Vascular Disease - Past surgical h/o hysterectomy, colectomy, cholecystectomy, appendectomy Pulmonary Medical History: Reports: Hx COPD, Hx Pneumonia Renal/ Medical History: Denies: Hx Peritoneal Dialysis Malignancy Medical History: Reports: Hx Colorectal Cancer Psychiatric Medical History: Reports: Hx Anxiety Past Surgical History: Reports: Hx Abdominal Surgery - colon, Hx Appendectomy, Hx Cholecystectomy, Hx Hysterectomy. Denies: Hx Pacemaker - Immunizations Immunizations up to date: Yes Hx Diphtheria, Pertussis, Tetanus Vaccination: Yes Review of Systems - Review of Systems Notes: REVIEW OF SYSTEMS: CONSTITUTIONAL: -fevers, -chills EENT: -eye pain, -difficulty swallowing, -nasal congestion CARDIOVASCULAR: -chest pain, -syncope. RESPIRATORY: +cough, +SOB GASTROINTESTINAL: -abdominal pain, -nausea, -vomiting, -diarrhea GENITOURINARY: -dysuria, -hematuria MUSCULOSKELETAL: -back pain, -neck pain SKIN: -rash or skin lesions. HEMATOLOGIC: -easy bruising or bleeding. LYMPHATIC: -swollen, enlarged glands. NEUROLOGICAL: -altered mental status or loss of consciousness, -headache, - neurologic symptoms PSYCHIATRIC: -anxiety, -depression. ALL OTHER SYSTEMS REVIEWED AND NEGATIVE. Physical Exam - Vital signs Vitals: Resp 25 H 10/24/17 17:08 - Notes Notes: PHYSICAL EXAMINATION: GENERAL: Well-appearing, well-nourished and in no acute distress. HEAD: Atraumatic, normocephalic. EYES: Pupils equal round and reactive to light, extraocular movements intact, sclera anicteric, conjunctiva are normal. ENT: nares patent, oropharynx clear without exudates. Moist mucous membranes. NECK: Normal range of motion, supple without lymphadenopathy LUNGS: Diffuse rhonchi and mild wheezing. No increased work of breathing. HEART: Irregularly irregular rhythm. ABDOMEN: Soft, nontender, normoactive bowel sounds. No guarding, no rebound. No masses appreciated. EXTREMITIES: Normal range of motion, no pitting or edema. No cyanosis. NEUROLOGICAL: Cranial nerves grossly intact. Normal speech. Normal sensory and motor exams. PSYCH: Normal mood, normal affect. SKIN: Warm, Dry, normal turgor, no rashes or lesions noted. Course - Re-evaluation Re-evalutation: Patient appears well and is in no respiratory distress. After duonebs and steroids, she feels much better and her wheezing has resolved. Chest x-ray does not show any acute infiltrates and she is afebrile. No signs of pneumonia at this time. Patient went into A. fib with RVR while in the ER, most likely from her duonebs. This is a frequent occurrence for her and she is asymptomatic. Patient already on Coumadin and takes Diltiazem at home. Provided her her evening dose with improvement in her rate. Given very strict return precautions and she understands. - Vital Signs Vital signs: Temp Pulse Resp BP Pulse Ox 98.9 F 28 H 113/87 H 94 10/24/17 17:09 10/24/17 21:44 10/24/17 21:44 10/24/17 21:44 - Laboratory Result Diagrams: 10/24/17 17:22 10/24/17 17:22 Laboratory results interpreted by me: 10/24/17 10/24/17 10/24/17 17:22 17:22 17:22 RDW 17.3 H Seg Neutrophils % 83.0 H Lymphocytes % 7.2 L Potassium 3.4 L Glucose 111 H Creatine Kinase 24 L NT-Pro-B Natriuret Pep 1950 H Total Protein 5.6 L - Diagnostic Test Radiology reviewed: Image reviewed, Reports reviewed Radiology results interpreted by me: CXR: NAD - EKG Interpretation by Me EKG shows normal: [place], Intervals, QRS Complexes Rate: Tachycardia Rhythm: A.Fib When compared to previous EKG there are: No significant change Discharge - Discharge Clinical Impression: Bronchitis Atrial fibrillation Qualifiers: Atrial fibrillation type: chronic Qualified Code(s): I48.2 - Chronic atrial fibrillation Condition: Stable Disposition: HOME, SELF-CARE Additional Instructions: BRONCHITIS WITH BRONCHOSPASM (WHEEZING): You have bronchitis with bronchospasm (wheezing). Sometimes people develop wheezing with a chest cold. This occurs either because of an underlying tendency toward asthma or because the virus itself irritates the bronchial tubes. This irritation causes cough, shortness of breath, and wheezing. Emergency treatment of bronchospasm may include adrenaline shots or bronchodilator aerosol. You may feel lightheaded and have a rapid pulse for an hour or two. Rest and get plenty of fluids. At home, we'll treat you with a bronchodilator inhaler. Corticosteroids may be required for some patients. Until you recover, avoid chemical fumes, dusts, pollens, and exercising in very cold or dry air. If you smoke, stop now! Most cases of bronchitis get better without antibiotics. We prescribe antibiotics when we believe bacteria are damaging your airways, or if there's high risk the bronchitis will worsen into pneumonia. Increase your fluid intake. A cool mist humidifier may make your lungs more comfortable. An expectorant (cough medicine that loosens phlegm) can help. Repeated episodes of bronchitis and bronchospasm may result in lung damage -- for example, chronic bronchitis, recurrent pneumonias, or emphysema. If you develop a fever, increased wheezing, chest pain, or severe shortness of breath, you should contact the doctor immediately. INHALED BRONCHODILATORS: You have received a treatment of and/or prescription for an inhaled bronchodilator -- a medication which stimulates the airways in the lung to dilate. This improves the flow of air in asthma, bronchitis, and emphysema. These medicines have some similarity to adrenaline, and can cause similar side effects: shakiness, racing heart, and a sense of nervousness. These side effects decrease with time. Contact your doctor if these side effects are severe. Do not over-use the medicine. Too-frequent use of the inhaler may make it ineffective. Call your doctor if the inhaler is not controlling your symptoms at the prescribed doses. STEROID MEDICATION: You have been given an injection of or oral medicine of the cortisone/ steroid class. This medication is used to control inflammation or allergy. Jose t is usually only given for a short period of time, until the acute process subsides. There are usually no side effects from short-term use of cortisone-like medications. Some persons feel an increased sense of well-being and are not sleepy at bedtime. Long-term use of cortisone medications is best avoided, unless required for a severe condition. If your condition does not remit, or relapses after the course of corticosteroid medication, you should consult your physician. USE OF ACETAMINOPHEN (Tylenol): Acetaminophen may be taken for pain relief or fever control. It's much safer than aspirin, offering a wider range of "safe" dosages. It is safe during . Some brand names are Tylenol, Panadol, Datril, Anacin 3, Tempra, and Liquiprin. Acetaminophen can be repeated every four hours. The following are maximum recommended dosages: >89 pounds or adults 650 mg to 900 mg Acetaminophen can be repeated every four hours. Maximum dose not to exceed 4000 mg a day. SMOKING: If you smoke, you should stop smoking. The tar and chemicals in cigarette smoke are harmful. Smoking has been shown to cause: emphysema chronic bronchitis lung cancer mouth and throat cancer stomach and pancreas cancer premature aging defects In addition, smoking increases ear and lung infections in children of smokers. FOLLOW-UP CARE: If you have been referred to a physician for follow-up care, call the physician s office for an appointment as you were instructed or within the next two days. If you experience worsening or a significant change in your symptoms, notify the physician immediately or return to the Emergency Department at any time for re-evaluation. Prescriptions: Albuterol Sulfate [Proair HFA Inhalation Aerosol 8.5 gm MDI] 2 puff IH Q4H PRN # 1 mdi PRN Reason: Prednisone [Deltasone 20 mg Tablet] 3 tab PO DAILY 4 Days tablet Referrals: ONEL AVINA MD [Primary Care Provider] - Follow up as needed
[2017-10-24 17:43] LABS: ABSOLUTE BASOPHILS # (AUTO) 0.1 10^3/uL (0.0-0.2); ABSOLUTE LYMPHOCYTES (AUTO) 0.6 10^3/uL (0.5-4.7); ABSOLUTE MONOCYTES (AUTO) 0.8 10^3/uL (0.1-1.4); ABSOLUTE NEUT (AUTO) 7.5 10^3/uL (1.7-8.2); BASOPHILS % (AUTO) 0.8 % (0-2); EOSINOPHILS % (AUTO) 0.4 % (0-6); HEMATOCRIT 36.7 % (36.0-47.0); HEMOGLOBIN 12.3 g/dL (12.0-15.5); LYMPHOCYTES % (AUTO) 7.2 % (13-45); MEAN CORPUSCULAR HEMOGLOBIN 31.7 pg (27.0-33.4); MEAN CORPUSCULAR HGB CONC 33.6 g/dL (32.0-36.0); MEAN CORPUSCULAR VOLUME 94 fl (80-97); MONOCYTES % (AUTO) 8.6 % (3-13); PLATELET COUNT 266 10^3/uL (150-450); RED BLOOD COUNT 3.89 10^6/uL (3.72-5.28); RED CELL DISTRIBUTION WIDTH 17.3 % (11.5-14.0); TOTAL CELLS COUNTED % (AUTO) 100 %
[2017-10-24 18:03] LABS: ALANINE AMINOTRANSFERASE 17 U/L (9-52); ALBUMIN 3.5 g/dL (3.5-5.0); ALKALINE PHOSPHATASE 54 U/L (38-126); ANION GAP 10 (5-19); ASPARTATE AMINO TRANSFERASE 16 U/L (14-36); BILIRUBIN,DIRECT 0.2 mg/dL (0.0-0.4); BILIRUBIN,TOTAL 0.7 mg/dL (0.2-1.3); BLOOD UREA NITROGEN 10 mg/dL (7-20); CARBON DIOXIDE 30 mmol/L (22-30); CHLORIDE 101 mmol/L (98-107); CREATINE KINASE 24 U/L (30-135); GLUCOSE 111 mg/dL (75-110); POTASSIUM 3.4 mmol/L (3.6-5.0); SODIUM 141.1 mmol/L (137-145); TOTAL PROTEIN 5.6 g/dL (6.3-8.2)
--- NOTE | 2017-10-24 18:16 | RADIOLOGY REPORT (SQ) ---
EXAM DESCRIPTION: CHEST SINGLE VIEW COMPLETED DATE/TIME: 10/24/2017 5:35 pm REASON FOR STUDY: cough COMPARISON: 09/13/2017 EXAM PARAMETERS: NUMBER OF VIEWS: One view. TECHNIQUE: Single frontal radiographic view of the chest acquired. RADIATION DOSE: NA LIMITATIONS: None. FINDINGS: LUNGS AND PLEURA: No acute opacities, masses or pneumothorax. No pleural effusion. MEDIASTINUM AND HILAR STRUCTURES: Stable. HEART AND VASCULAR STRUCTURES: Stable. BONES: No acute findings. HARDWARE: Left chest port, stable. OTHER: No other significant finding. IMPRESSION: NO ACUTE RADIOGRAPHIC FINDING IN THE CHEST. TECHNICAL DOCUMENTATION: JOB ID: [id number] [id number] 2010 [employer]- All Rights Reserved Reading location - IP/workstation name: [email or web address]
[2017-10-24 18:28] LABS: VENOUS BLOOD BASE EXCESS 3.2 mmol/L; VENOUS BLOOD HCO3 30.3 mmol/L (20-32); VENOUS BLOOD PCO2 53.2 mmHg (35-63); VENOUS BLOOD PH 7.37 (7.30-7.42)
[2017-10-24] MEDS ORDERED: DILTIAZEM HCL INJ 25 MG/5 ML VIAL IV ONE (18:38)
[2017-10-24] MEDS ORDERED: DILTIAZEM HCL 120 MG CAP.SR.24H PO ONE (19:54)
[2017-10-24] MEDS ORDERED: NORMAL SALINE 500 ML IV ONE (19:54)
--- NOTE | 2017-10-24 21:31 | EKG REPORT ---
SEVERITY:- ABNORMAL ECG - ATRIAL FIBRILLATION, V-RATE 84-149 VENTRICULAR PREMATURE COMPLEX OLD ANTERIOR INFARCT : Confirmed by: Dixon Mcfarlane MD 24-Oct-2017 21:31:09
[2017-10-24 21:56] VITALS: BP 113/87
== END 2017-10-24 21:56 | disposition home or self-care (01) ==
LOC: ER 17:00
DX: J40 Bronchitis, not specified as acute or chronic (principal); J44.9 Chronic obstructive pulmonary disease, unspecified; R06.02 Shortness of breath; R00.0 Tachycardia, unspecified; I25.10 Atherosclerotic heart disease of native coronary artery without angina pectoris; I10 Essential (primary) hypertension; I48.2 Chronic atrial fibrillation; Z79.01 Long term (current) use of anticoagulants; Z79.899 Other long term (current) drug therapy; Z88.5 Allergy status to narcotic agent; Z88.0 Allergy status to penicillin; Z88.2 Allergy status to sulfonamides; Z85.048 Personal history of other malignant neoplasm of rectum, rectosigmoid junction, and anus; Z87.01 Personal history of pneumonia (recurrent)
CPT/HCPCS: 93005; 94640; 99285; 96374; 36415; 82550; 83605; 85025; 80053; 82803; 83880; 71045; 93010; A9270 ×3; J3490; J7040; J7512; J7620

== ENCOUNTER 2017-10-26 09:18 | Inpatient (IN) | payer MEDICARE ==
[2017-10-26] MEDS ORDERED: DILTIAZEM HCL INJ 25 MG/5 ML VIAL IV ONE (09:41)
[2017-10-26] MEDS ORDERED: IPRATROPIUM/ALBUTEROL 0.5-2.5 MG/3 ML AMPUL NEB ONE (09:48)
--- NOTE | 2017-10-26 09:53 | ER Document Report ---
ED Respiratory Problem - General Chief Complaint: Breathing Difficulty Stated Complaint: BREATHING DIFFICULTIES Time Seen by Provider: 10/26/17 09:40 Information source: Patient TRAVEL OUTSIDE OF THE [place] IN LAST 30 DAYS: No - HPI Patient complains to provider of: CHF Duration: No: Better, Continuous, Gone now, Intermittent episodes, Worse/ persistent Initiating Event: No: Allergy, Aspiration/Choking, Exertion, Exposure to chemicals, Exposure to dust, Exposure to fumes, Exposure to mold, Exposure to smoke, Out of meds, Sports/exercise, URI, Other Quality of pain: denies: No pain, Achy, Burning, Cramping, Dull, Fullness, Pressure, Sharp, Stabbing, Throbbing, Other Context: denies: DVT, Factor V Leiden, Hx asthma, Hx CHF, Hx COPD, Malignancy, , Recent cardiac event, Recent foreign travel, Recent long distance trvl , Recent immobilization, Recent surgery, Smoker, Other Chest pain/discomfort: denies: Center, Constant, Heaviness, Intermittent, Left, Pain, Radiates to arm, Radiates to back, Radiates to jaw, Right, Tightness, Worse with deep breaths Cough: denies: Nonproductive, Productive, Stridor, Suspect aspiration Sputum amount: Moderate Sputum color: Creamy Associated symptoms: denies: None, Ankle/leg swelling, Allergy/hay fever, Anxiety, Bloody cough, Chest pain/discomfort, Chills, Congestion, Cough, Dental decay, Difficulty breathing, Earache, Extertional dyspnea, Facial pain, Fever, Headache, Heart racing, Hoarseness, Hurts to breathe, Hyperventilation, Jaw pain , Leg/calf/joint pain, Muscle spasms, Orthopnea, PND, Runny nose, Sinus pain/ pressure, Short of breath, Sore Throat, Sweaty, Tingling face, Tingling hands, Unable to swallow, Toothache, Wheezing, Other - Related Data Allergies/Adverse Reactions: codeine [Codeine] Allergy (Verified 09/09/17 18:) meperidine HCl [From Demerol] Allergy (Verified 09/09/17:) Penicillins Allergy (Verified 09/09/17) Sulfa (Sulfonamide Antibiotics) Allergy (Verified 09/09/17) Past Medical History - General Information source: Patient - Social History Smoking Status: Former Smoker Cigarette use (# per day): No Chew tobacco use (# tins/day): No Smoking Education Provided: No Frequency of alcohol use: Rare Lives with: [facility] Family History: Reviewed & Not Pertinent - Past Medical History Cardiac Medical History: Reports: Hx Atrial Fibrillation, Hx Coronary Artery Disease, Hx Hypercholesterolemia, Hx Hypertension, Hx Peripheral Vascular Disease - Past surgical h/o hysterectomy, colectomy, cholecystectomy, appendectomy Pulmonary Medical History: Reports: Hx COPD, Hx Pneumonia Renal/ Medical History: Denies: Hx Peritoneal Dialysis Malignancy Medical History: Reports: Hx Colorectal Cancer Psychiatric Medical History: Reports: Hx Anxiety Past Surgical History: Reports: Hx Abdominal Surgery - colon, Hx Appendectomy, Hx Cholecystectomy, Hx Hysterectomy. Denies: Hx Pacemaker - Immunizations Immunizations up to date: Yes Hx Diphtheria, Pertussis, Tetanus Vaccination: Yes Review of Systems - Review of Systems Constitutional: denies: No symptoms reported, See HPI, Chills, Diaphoresis, Fever, Malaise, Weakness, Other, Weight gain, Weight loss, Recent illness EENT: denies: No symptoms reported, See HPI, Eye pain, Eye discharge, Blurred vision, Tearing, Double vision, Ear pain, Ear discharge, Nose pain, Nose congestion, Nose discharge, Sinus pressure, Sinus discharge, Throat pain, Difficulty swallowing, Throat swelling, Mouth pain, Mouth swelling, Dental problem, Vertigo, Other Cardiovascular: denies: No symptoms reported, See HPI, Chest pain, Palpitations , Heart racing, Orthopnea, Dyspnea, Syncope, Dizziness, Lightheaded, Edema, Other, Paroxysmal Nocturnal Dysp Respiratory: denies: No symptoms reported, See HPI, Cough, Hurts to breathe, Hemoptysis, Short of breath, Sputum, Stridor, Wheezing, Other Gastrointestinal: denies: No symptoms reported, See HPI, Abdomen distended, Abdominal pain, Diarrhea, Nausea, Vomiting, Constipation, Blood streaked bowels , Poor appetite, Poor fluid intake, Blood in vomit, Black stools, Rectal bleeding, Last bowel movement, Fecal incontinence, Other Genitourinary: denies: No symptoms reported, See HPI, Burning, Dysuria, Discharge, Frequency, Flank pain, Hematuria, Incontinence, Pain, Urgency, Retention, Other Physical Exam - Vital signs Vitals: Resp BP Pulse Ox 30 H 150/87 H 86 L 10/26/17 09:26 10/26/17 09:26 10/26/17 09:26 - Notes Notes: PHYSICAL EXAMINATION: GENERAL: Well-appearing, well-nourished and in no acute distress. Obese, audible tracheal sound HEAD: Atraumatic, normocephalic. EYES: Pupils equal round and reactive to light, extraocular movements intact, conjunctiva are normal. ENT: Nares patent, oropharynx clear without exudates. Moist mucous membranes. NECK: Normal range of motion, supple without lymphadenopathy LUNGS: Bilaterally tracheobronchial sounds were heard throughout the lung field , except expiratory wheeze in the left lower lung field. No rales. No other adventitial sounds HEART: Regular rate and rhythm without murmurs ABDOMEN: Soft, nontender, nondistended abdomen. No guarding, no rebound. No masses appreciated. Female : deferred Musculoskeletal: Normal range of motion, no pitting or edema. No cyanosis. NEUROLOGICAL: Cranial nerves grossly intact. Normal speech, normal gait. Normal sensory, motor exams PSYCH: Normal mood, normal affect. SKIN: Warm, Dry, normal turgor, no rashes or lesions noted. Course - Re-evaluation Re-evalutation: 10/26/17 12:30 Patient states that she is still feeling not that well. Like to stay in the hospital. Dr. Avina was contacted and case was discussed and currently being admitted. - Vital Signs Vital signs: Temp Pulse Resp BP Pulse Ox 98.4 F 24 H 158/94 H 90 L 10/26/17 09:56 10/26/17 11:31 10/26/17 11:31 10/26/17 11:31 - Laboratory Result Diagrams: 10/26/17 09:30 10/26/17 09:30 Laboratory results interpreted by me: 10/26/17 10/26/17 10/26/17 09:30 09:30 09:30 RDW 17.2 H Potassium 3.3 L Carbon Dioxide 31 H Direct Bilirubin 0.6 H NT-Pro-B Natriuret Pep 7210 H Urine Protein Urine Urobilinogen 10/26/17 10:25 RDW Potassium Carbon Dioxide Direct Bilirubin NT-Pro-B Natriuret Pep Urine Protein 30 H Urine Urobilinogen 4.0 H - EKG Interpretation by Me Rhythm: A.Fib When compared to previous EKG there are: No significant change - Electrocardiogram shows atrial fibrillation at the rate of 120 beats per minutes , normal axis, poor R-wave in anterior lead V2 to V3 V4. No acute ST elevation ST-T depression T-wave inversions noted. Discharge - Discharge Clinical Impression: Tracheobronchitis Congestive heart failure (CHF) Qualifiers: Heart failure type: systolic Heart failure chronicity: acute on chronic Qualified Code(s): I50.23 - Acute on chronic systolic (congestive) heart failure COPD (chronic obstructive pulmonary disease) Qualifiers: COPD type: chronic bronchitis Chronic bronchitis type: mucopurulent Qualified Code(s): J41.1 - Mucopurulent chronic bronchitis Atrial fibrillation Qualifiers: Atrial fibrillation type: chronic Qualified Code(s): I48.2 - Chronic atrial fibrillation Condition: Stable Admitting Provider: [facility] Admitted: [facility] Referrals: ONEL AVINA MD [Primary Care Provider] - Follow up as needed
[2017-10-26 09:59] LABS: ABSOLUTE LYMPHOCYTES (AUTO) 1.1 10^3/uL (0.5-4.7); ABSOLUTE NEUT (AUTO) 5.9 10^3/uL (1.7-8.2); BASOPHILS % (AUTO) 0.1 % (0-2); HEMATOCRIT 39.4 % (36.0-47.0); HEMOGLOBIN 13.1 g/dL (12.0-15.5); MEAN CORPUSCULAR HEMOGLOBIN 31.7 pg (27.0-33.4); MEAN CORPUSCULAR HGB CONC 33.2 g/dL (32.0-36.0); MEAN CORPUSCULAR VOLUME 96 fl (80-97); PLATELET COUNT 308 10^3/uL (150-450); RED BLOOD COUNT 4.12 10^6/uL (3.72-5.28); RED CELL DISTRIBUTION WIDTH 17.2 % (11.5-14.0); SEGMENTED NEUTROPHILS % (AUTO) 73.9 % (42-78); TOTAL CELLS COUNTED % (AUTO) 100 %
--- NOTE | 2017-10-26 10:17 | RADIOLOGY REPORT (SQ) ---
EXAM DESCRIPTION: CHEST SINGLE VIEW COMPLETED DATE/TIME: 10/26/2017 10:02 am REASON FOR STUDY: Shortness of breath cough COMPARISON: 10/24/2017 EXAM PARAMETERS: NUMBER OF VIEWS: One view. TECHNIQUE: Single frontal radiographic view of the chest acquired. RADIATION DOSE: NA LIMITATIONS: None. FINDINGS: LUNGS AND PLEURA: No opacities, masses or pneumothorax. No pleural effusion. MEDIASTINUM AND HILAR STRUCTURES: No masses. Contour normal. HEART AND VASCULAR STRUCTURES: Mild cardiomegaly. BONES: No acute findings. HARDWARE: Left subclavian catheter with tip in superior vena cava. OTHER: No other significant finding. IMPRESSION: Cardiomegaly without evidence acute cardiopulmonary disease. TECHNICAL DOCUMENTATION: JOB ID: [id number] [employer]- All Rights Reserved Reading location - IP/workstation name: [email or web address]
[2017-10-26 10:20] LABS: ALANINE AMINOTRANSFERASE 24 U/L (9-52); ALBUMIN 3.6 g/dL (3.5-5.0); ALKALINE PHOSPHATASE 62 U/L (38-126); ANION GAP 14 (5-19); ASPARTATE AMINO TRANSFERASE 18 U/L (14-36); BILIRUBIN,DIRECT 0.6 mg/dL (0.0-0.4); BILIRUBIN,TOTAL 0.9 mg/dL (0.2-1.3); BLOOD UREA NITROGEN 16 mg/dL (7-20); CALCIUM 9.5 mg/dL (8.4-10.2); CARBON DIOXIDE 31 mmol/L (22-30); CHLORIDE 99 mmol/L (98-107); GLUCOSE 95 mg/dL (75-110); POTASSIUM 3.3 mmol/L (3.6-5.0); SODIUM 144.1 mmol/L (137-145); TOTAL PROTEIN 6.3 g/dL (6.3-8.2)
[2017-10-26 10:31] LABS: CREATINE KINASE MB 2.85 ng/mL (<4.55); TROPONIN I 0.026 ng/mL
[2017-10-26 10:57] LABS: APPEARANCE,URINE SLIGHTLY-CLOUDY; BILIRUBIN,URINE NEGATIVE (NEGATIVE); COLOR,URINE YELLOW; GLUCOSE, URINE NEGATIVE (NEGATIVE); KETONES,URINE NEGATIVE (NEGATIVE); LEUKOCYTE ESTERASE,URINE NEGATIVE (NEGATIVE); NITRITE,URINE NEGATIVE (NEGATIVE); PROTEIN,URINE 30 mg/dL (NEGATIVE); URINE SPECIFIC GRAVITY 1.024
[2017-10-26] MEDS ORDERED: MAG HYDROX/AL HYDROX/SIMETH SUSP 30 ML UDCUP PO PRN (12:34)
[2017-10-26] MEDS ORDERED: POTASSIUM CHLORIDE 10 MEQ TABLET.SA PO ONE (12:59)
[2017-10-26] MEDS ORDERED: DILTIAZEM HCL 120 MG CAP.SR.24H PO ONE (13:00)
[2017-10-26 13:20] LABS: INTERNATIONAL RATION (INR) 1.11; PROTHROMBIN TIME 15.1 SEC (11.4-15.4)
[2017-10-26] MEDS: LEVALBUTEROL HCL NEB 1.25 MG/3 ML AMPUL NEB SCH ×2 (13:39→20:24)
[2017-10-26] MEDS: METHYLPREDNISOLONE INJ 40 MG/1 ML SDV IV SCH ×2 (13:39→21:57)
--- NOTE | 2017-10-26 13:48 | EKG REPORT ---
SEVERITY:- ABNORMAL ECG - ATRIAL FIBRILLATION ABNRM R PROG, CONSIDER OLD ASMI OR LEAD PLACEMENT REPOL ABNRM SUGGESTS ISCHEMIA, ANT-LAT LEADS : Confirmed by: Dixon Mcfarlane MD 26-Oct-2017 13:46:29
--- NOTE | 2017-10-26 13:52 | PDOC H&P ---
History of Present Illness Admission Date/PCP: 10/26/17 13:25 ONEL AVINA MD Patient complains of: Shortness of the breath History of Present Illness: DARLYN EVANS is a 82 year old female This is a 4-year-old females with a significant history of the COPD history of the hypertension history of the chronic A. fib and a multiple other comorbidity came to the emergency department because of the complaining of her difficulty in breathing with some productivity cough and congestion'sAnd the patient's was some mild bronchitis with COPD with acute exacerbations and underlying congestive heart failure and decided to admit in the IMCU for further evaluations I saw the patient in the ER patient was comfortably lying in the bed denied any chest pain denied any shortness of the breath but patient heart rate was running 120 range Patient was in the ER last week because of the back pain and possible UTI currently denied any symptoms Patient supposed to be on Coumadin but currently not taking the Coumadin as per INR is only 1.11 Not sure what the assisted living's medications list is not there Patient have underlying some dementia but currently appropriately answered all questions Discussed with the son Scot regarding the patient's current conditions Past Medical History Cardiac Medical History: Reports: Atrial Fibrillation, Coronary Artery Disease, Hyperlipidema, Hypertension, Peripheral Vascular Disease - Past surgical h/o hysterectomy, colectomy, cholecystectomy, appendectomy Pulmonary Medical History: Reports: Chronic Obstructive Pulmonary Disease (COPD) , Pneumonia Malignancy Medical History: Reports: Colorectal Cancer GI Medical History: Reports: Gastroesophageal Reflux Disease Musculoskeltal Medical History: Reports: Arthritis Psychiatric Medical History: Reports: Dementia, Depression Past Surgical History Past Surgical History: Reports: Appendectomy, Cholecystectomy, Hysterectomy Denies: Pacemaker Social History Lives with: [facility] Smoking Status: Former Smoker Frequency of Alcohol Use: None Hx Recreational Drug Use: No Drugs: None Hx Prescription Drug Abuse: No Family History Family History: Reviewed & Not Pertinent Parental Family History Reviewed: Yes Children Family History Reviewed: Yes Sibling(s) Family History Reviewed.: Yes Medication/Allergy Home Medications: Acetaminophen [Tylenol 325 mg Tablet] 650 mg PO Q4HP PRN 10/26/17 Albuterol Sulfate [Proair HFA] 2 puff IH Q4HP PRN 10/26/17 Budesonide/Formoterol Fumarate [Symbicort Hfa 160-4.5 Mcg Inhaler 6 gm] 1 puff IH Q12 10/26/17 Diltiazem HCl [Cardizem Cd 120 mg Capsule] 120 mg PO QHS 10/26/17 Donepezil HCl [Aricept 5 mg Tablet] 5 mg PO QHS 10/26/17 Fluticasone Propionate [Flonase Nasal [place] 50 Mcg/[place] 16 gm] 1 spray NASL DAILY 10/26/17 Loperamide HCl [Imodium A-D] 2 mg PO Q6HP PRN 10/26/17 Mag Hydrox/Al Hydrox/Simeth [Maalox Plus Susp 30 Udcup] 30 ml PO DAILYP PRN Melatonin [Melatin] 3 mg PO HSP PRN 10/26/17 Omeprazole 20 mg PO DAILY 10/26/17 Pravastatin Sodium [Pravachol] 40 mg PO DAILY 10/26/17 Prednisone [Deltasone 20 mg Tablet] 60 mg PO DAILY 10/26/17 Sertraline HCl [Zoloft] 25 mg PO DAILY 10/26/17 Allergies/Adverse Reactions: codeine [Codeine] Allergy (Verified 09/09/17 18:26) meperidine HCl [From Demerol] Allergy (Verified 09/09/17 18:26) Penicillins Allergy (Verified 09/09/17 18:26) Sulfa (Sulfonamide Antibiotics) Allergy (Verified 09/09/17 18:26) Review of Systems Constitutional: PRESENT: weakness. ABSENT: chills, fever(s), headache(s), weight gain, weight loss Eyes: ABSENT: visual disturbances Ears: ABSENT: hearing changes Cardiovascular: ABSENT: chest pain, edema, orthropnea, palpitations Respiratory: PRESENT: cough. ABSENT: hemoptysis Gastrointestinal: ABSENT: abdominal pain, constipation, diarrhea, hematemesis, hematochezia, nausea, vomiting Genitourinary: ABSENT: dysuria, hematuria Musculoskeletal: ABSENT: joint swelling Integumentary: ABSENT: rash, wounds Neurological: ABSENT: abnormal gait, abnormal speech, confusion, dizziness, focal weakness, syncope Psychiatric: ABSENT: anxiety, depression, homidical ideation, suicidal ideation Endocrine: ABSENT: cold intolerance, heat intolerance, menstrual abnormalities, polydipsia, polyuria Hematologic/Lymphatic: ABSENT: easy bleeding, easy bruising, lymphadenopathy Physical Exam Vital Signs: Temp Pulse Resp BP Pulse Ox 98.4 F 24 H 158/94 H 135 H 10/26/17 09:56 10/26/17 11:31 10/26/17 11:31 10/26/17 13:08 General appearance: PRESENT: no acute distress, well-developed, well-nourished Head exam: PRESENT: atraumatic, normocephalic Eye exam: PRESENT: conjunctiva pink, EOMI, PERRLA. ABSENT: scleral icterus Ear exam: PRESENT: normal external ear exam Mouth exam: PRESENT: moist, tongue midline Neck exam: PRESENT: full ROM. ABSENT: carotid bruit, JVD, lymphadenopathy, thyromegaly Respiratory exam: PRESENT: decreased breath sounds, wheezes Cardiovascular exam: PRESENT: irregular rhythm, +S1, +S2, tachycardia. ABSENT: diastolic murmur, rubs, systolic murmur Pulses: PRESENT: normal dorsalis pedis pul, +2 pedal pulses bilateral Vascular exam: PRESENT: normal capillary refill GI/Abdominal exam: PRESENT: normal bowel sounds, soft. ABSENT: distended, guarding, mass, organolmegaly, rebound, tenderness Rectal exam: PRESENT: deferred Extremities exam: ABSENT: pedal edema Neurological exam: PRESENT: alert, awake, oriented to person, oriented to place , oriented to time, oriented to situation, CN II-XII grossly intact. ABSENT: motor sensory deficit Psychiatric exam: PRESENT: appropriate affect, normal mood. ABSENT: homicidal ideation, suicidal ideation Skin exam: PRESENT: dry, intact, warm. ABSENT: cyanosis, rash Results Impressions: Chest X-Ray 10/26/17 09:48 IMPRESSION: Cardiomegaly without evidence acute cardiopulmonary disease. Assessment & Plan - Diagnosis (1) COPD (chronic obstructive pulmonary disease) Qualifiers: COPD type: chronic bronchitis Chronic bronchitis type: mucopurulent Qualified Code(s): J41.1 - Mucopurulent chronic bronchitis Is this a current diagnosis for this admission?: Yes Plan: With acute exacerbation will start the patient is Xopenex nebulizer and IV steroids (2) Atrial fibrillation Qualifiers: Atrial fibrillation type: chronic Qualified Code(s): I48.2 - Chronic atrial fibrillation Is this a current diagnosis for this admission?: Yes Plan: With a rapid ventricular response. At the [facility] p.o. get the echocardiogramSince the cardiology (3) Congestive heart failure (CHF) Qualifiers: Heart failure type: systolic Heart failure chronicity: acute on chronic Qualified Code(s): I50.23 - Acute on chronic systolic (congestive) heart failure Is this a current diagnosis for this admission?: Yes Plan: But the patient on Lasix 20 mg get the 2D echocardiogram (4) CAD (coronary artery disease) Qualifiers: Coronary Disease-Associated Artery/Lesion type: unspecified vessel or lesion type Is this a current diagnosis for this admission?: Yes Plan: Get the serial cardiac enzymes to continues to monitor (5) Hypertension Qualifiers: Hypertension type: essential hypertension Qualified Code(s): I10 - Essential (primary) hypertension Is this a current diagnosis for this admission?: Yes Plan: Currently stable (6) Hypokalemia Is this a current diagnosis for this admission?: Yes Plan: Replace the potassium (7) Dementia Qualifiers: Dementia type: unspecified type Dementia behavioral disturbance: without behavioral disturbance Qualified Code(s): F03.90 - Unspecified dementia without behavioral disturbance Is this a current diagnosis for this admission?: Yes Plan: Currently stable - Time Time Spent: 30 to 50 Minutes Critical Time spent with patient: 15-24 minutes Medications reviewed and adjusted accordingly: Yes Anticipated discharge: Other Within: Other - Inpatient Certification Medical Necessity: Need Close Monitoring Due to Risk of Patient Decompensation, Need for Nebulizer Therapy and Monitoring of Response, Need for IV Antibiotics Post Hospital Care: D/C [facility] Documentation - Plan Summary Plan Summary: With the patient in IMCU see other MD orders discussed with the patient's son Scot regarding the patient's current conditions
[2017-10-26 14:39] LABS: CREATINE KINASE MB 2.38 ng/mL (<4.55); TROPONIN I 0.028 ng/mL
--- NOTE | 2017-10-26 15:14 | RADIOLOGY REPORT (SQ) ---
EXAM DESCRIPTION: CTA CHEST COMPLETED DATE/TIME: 10/26/2017 2:16 pm REASON FOR STUDY: sob COMPARISON: CT chest 03/10/2014, 08/06/2012 TECHNIQUE: CT scan of the chest performed using helical scanning technique with dynamic intravenous contrast injection. Images reviewed with lung, soft tissue and bone windows. Reconstructed coronal and sagittal MPR images reviewed. Additional 3 dimensional post-processing performed to develop Maximal Intensity Projection images (CO P). All images stored on PACS. All CT scanners at this facility use dose modulation, iterative reconstruction, and/or weight based d osing when appropriate to reduce radiation dose to as low as reasonably achievable (ALARA). [facility]: Dose Right [facility]: CareDose [facility]: Dose Right [facility]: Teradose 4D [facility]: [employer] CONTRAST TYPE AND DOSE: contrast/concentration: Isovue 370.00 mg/ml; Total Contrast Delivered: 75.0 ml; Total Saline Delivered: 87.0 ml Contrast bolus optimized for the pulmonary arteries. Not diagnostic for the aorta. RENAL FUNCTION: Creatinine 0.7 RADIATION DOSE: CT Rad equipment meets quality standard of care and radiation dose reduction techniq ues were employed. CTDIvol: 18.2 - 23.2 mGy. DLP: 709 mGy-cm. . LIMITATIONS: Motion artifact FINDINGS: LUNGS AND PLEURA: There is mild interstitial infiltrate in the right and left posterior co stophrenic sulci, and in the lingula. Question mild interstitial pulmonary edema. Changes of obstructive lung disease at both apices. No worrisome pulmonary nodules. No pleural effusion. No pneumothorax. AORTA AND GREAT VESSELS: No aneurysm. Contrast bolus not optimized for the aorta, no gross aortic di ssection. . HEART: No pericardial effusion. Very heavy aortic valve calcification and heavily calcified coronary arteries. PULMONARY ARTERIES: No emboli visualized in the main pulmonary arteries or the segmental branches. HILAR AND MEDIASTINAL STRUCTURES: No identified masses or abnormal nodes. HARDWARE: None in the chest. UPPER ABDOMEN: Very heavily calcified upper abdominal aorta and celiac/ SMA. At the very bottom edge of the field of view, the at infrarenal abdominal aorta is ectatic, 3.5 cm in diameter. This is inc ompletely evaluated on today's study. However, CT abdomen pelvis 09/17/2017 demonstrates that this ec ruslan of the abdominal aorta is stable. 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 Right upper quadrant Clips post cholecystect shayan THYROID AND OTHER SOFT TISSUES: No masses. No adenopathy. BONES: No acute or significant finding. 3D MIPS: Confirm above findings. OTHER: No other significant finding. IMPRESSION: No CT angio evidence of acute pulmonary emboli. Very heavily calcified aortic valve and heavily calcified coronary arteries. No thoracic aneurysm Very heavily calcified visceral arteries in the upper abdomen. COMMENT: Quality ID # [id number]: Final reports with documentation of one or more dose reduction techniques (e.g., Automated exposure control, adjustment of the mA and/or kV according to patient size, use of iterative reconstruction technique) TECHNICAL DOCUMENTATION: JOB ID: [id number] [employer]- All Rights Reserved Reading location - IP/workstation name: [email or web address]
[2017-10-26] MEDS ORDERED: PREDNISONE 20 MG TABLET PO SCH (18:00)
[2017-10-26 19:33] LABS: CREATINE KINASE MB 2.38 ng/mL (<4.55); TROPONIN I 0.017 ng/mL
--- NOTE | 2017-10-26 20:19 | PDOC CONSULTATION ---
Consultation Consult Date: 10/26/17 Attending physician:: ONEL AVINA Consult reason:: Shortness of breath and atrial fibrillation History of Present Illness Admission Date/PCP: 10/26/17 13:25 ONEL AVINA MD Patient complains of: Shortness of breath History of Present Illness: DARLYN EVANS is a 82 year old female with a significant history of the COPD history of the hypertension history of the chronic A. fib and a multiple other comorbidity came to the emergency department because of the complaining of her difficulty in breathing with some productivity cough and congestion. Patient was seen in the ER prior to transfer to a regular bed. At that time she looked comfortable but skin felt somewhat warm and hot. Patient was in the ER last week because of the back pain and possible UTI currently denied any symptoms Patient supposed to be on Coumadin but currently not taking the Coumadin as per INR is only 1.11 Not sure what the assisted living's medications list is not there. Patient have underlying some dementia but currently appropriately answered all questions Discussed with the son Scot regarding the patient's current conditions. This history was reviewed and confirmed. On questioning patient denied any chest pain. Patient was noted to be confused therefore could not add to this history. Patient however on repeated questioning denied having any chest pains. Past Medical History Cardiac Medical History: Reports: Atrial Fibrillation, Coronary Artery Disease, Hyperlipidema, Hypertension, Peripheral Vascular Disease - Past surgical h/o hysterectomy, colectomy, cholecystectomy, appendectomy Pulmonary Medical History: Reports: Chronic Obstructive Pulmonary Disease (COPD) , Pneumonia Malignancy Medical History: Reports: Colorectal Cancer GI Medical History: Reports: Gastroesophageal Reflux Disease Musculoskeltal Medical History: Reports: Arthritis Psychiatric Medical History: Reports: Dementia, Depression Past Surgical History Past Surgical History: Reports: Appendectomy, Cholecystectomy, Hysterectomy Denies: Pacemaker Social History Information Source: Patient Lives with: [facility] Smoking Status: Former Smoker Frequency of Alcohol Use: None Hx Recreational Drug Use: No Drugs: None Hx Prescription Drug Abuse: No - Advance Directive Resuscitation Status: Full Code Surrogate healthcare decision maker:: Patient's son is the surrogate decision-maker Family History Family History: Hypertension Parental Family History Reviewed: Yes Children Family History Reviewed: Yes Sibling(s) Family History Reviewed.: Yes Medication/Allergy Home Medications: Acetaminophen [Tylenol 325 mg Tablet] 650 mg PO Q4HP PRN 10/26/17 Albuterol Sulfate [Proair HFA] 2 puff IH Q4HP PRN 10/26/17 Budesonide/Formoterol Fumarate [Symbicort Hfa 160-4.5 Mcg Inhaler 6 gm] 1 puff IH Q12 10/26/17 Diltiazem HCl [Cardizem Cd 120 mg Capsule] 120 mg PO QHS 10/26/17 Donepezil HCl [Aricept 5 mg Tablet] 5 mg PO QHS 10/26/17 Fluticasone Propionate [Flonase Nasal [place] 50 Mcg/[place] 16 gm] 1 spray NASL DAILY 10/26/17 Loperamide HCl [Imodium A-D] 2 mg PO Q6HP PRN 10/26/17 Mag Hydrox/Al Hydrox/Simeth [Maalox Plus Susp 30 Udcup] 30 ml PO DAILYP PRN Melatonin [Melatin] 3 mg PO HSP PRN 10/26/17 Omeprazole 20 mg PO DAILY 10/26/17 Pravastatin Sodium [Pravachol] 40 mg PO DAILY 10/26/17 Prednisone [Deltasone 20 mg Tablet] 60 mg PO DAILY 10/26/17 Sertraline HCl [Zoloft] 25 mg PO DAILY 10/26/17 Allergies/Adverse Reactions: codeine [Codeine] Allergy (Verified 09/09/17 18:26) meperidine HCl [From Demerol] Allergy (Verified 09/09/17 18:26) Penicillins Allergy (Verified 09/09/17 18:26) Sulfa (Sulfonamide Antibiotics) Allergy (Verified 09/09/17 18:26) Review of Systems ROS unobtainable: Due to mental status Physical Exam Vital Signs: Temp Pulse Resp BP Pulse Ox 98.4 F 34 H 146/69 H 94 10/26/17 09:56 10/26/17 18:33 10/26/17 18:33 10/26/17 18:33 Exam: GENERAL: well-nourished and in no acute distress. Patient is alert but not oriented to place time or person. Patient noted to be mildly agitated. HEAD: Atraumatic, normocephalic. EYES: Pupils equal round and reactive to light, extraocular movements intact, sclera anicteric, conjunctiva are normal. ENT: TMs normal, nares patent, oropharynx clear without exudates. Moist mucous membranes. No oral ulcerations or bleeding gums noted NECK: supple without lymphadenopathy or JVD. Trachea is central. No cervical or axillary lymphadenopathy noted. Carotids are 2+ LUNGS: Breath sounds bibasilar fine crackles at bases. No significant dullness noted. CHEST: Palpation of chest wall shows no significant chest wall tenderness. HEART: [place] [employer], No PSH, 2/6 BOGDAN aortic area, 1/6 saucedo systolic murmur mitral area, rubs or gallops. ABDOMEN: Soft, no significant tenderness appreciated, normoactive bowel sounds. No guarding, no rebound. No rigidity noted . No masses appreciated. EXTREMITIES: Pedal pulses are 1-2+, no calf tenderness noted, Trace + pedal edema noted. No clubbing or cyanosis. NEUROLOGICAL: Patient is alert but is not able to participate in neurological exam because of patient's current mental status PSYCH: Patient cannot participate in a neurologic and psych exam because of the patient's current mental status SKIN: No significant ecchymosis, rash, ulcerations or signs of pruritus noted. MUSCULOSKELETAL EXAM: No significant joint swelling noted. Results Laboratory Results: 10/26/17 10/26/17 10/26/17 13:37 13:37 18:59 Creatine Kinase 28 L 30 CK-MB (CK-2) 2.38 Troponin I 0.028 10/26/17 18:59 Creatine Kinase CK-MB (CK-2) 2.38 Troponin I 0.017 EKG Comments: Atrial fibrillation with rapid ventricular response. Minor nonspecific ST segment changes noted. Impressions: Chest/Abdomen CTA 10/26/17 00:00 IMPRESSION: No CT angio evidence of acute pulmonary emboli. Very heavily calcified aortic valve and heavily calcified coronary arteries. No thoracic aneurysm Very heavily calcified visceral arteries in the upper abdomen. Chest X-Ray 10/26/17 09:48 IMPRESSION: Cardiomegaly without evidence acute cardiopulmonary disease. Assessment & Plan - Diagnosis (1) Atrial fibrillation Qualifiers: Atrial fibrillation type: chronic Qualified Code(s): I48.2 - Chronic atrial fibrillation Is this a current diagnosis for this admission?: Yes (2) COPD (chronic obstructive pulmonary disease) Qualifiers: COPD type: chronic bronchitis Chronic bronchitis type: mucopurulent Qualified Code(s): J41.1 - Mucopurulent chronic bronchitis Is this a current diagnosis for this admission?: Yes (3) Congestive heart failure (CHF) Qualifiers: Heart failure type: systolic Heart failure chronicity: acute on chronic Qualified Code(s): I50.23 - Acute on chronic systolic (congestive) heart failure Is this a current diagnosis for this admission?: Yes (4) Acute bronchitis Qualifiers: Bronchitis organism: unspecified organism Qualified Code(s): J20.9 - Acute bronchitis, unspecified Is this a current diagnosis for this admission?: Yes (5) Coronary artery disease Qualifiers: Coronary Disease-Associated Artery/Lesion type: [place] artery [place] vs. transplanted heart: [place] heart Associated angina: angina presence unspecified Qualified Code(s): I25.10 - Atherosclerotic heart disease of [place] coronary artery without angina pectoris Is this a current diagnosis for this admission?: Yes - Notes Notes: Atrial fibrillation: Seems to be chronic. Recommend rate control and chronic anticoagulation. Consider rate control with calcium channel chichi in view of significant COPD. COPD: Continue antibiotic therapy, a steroid therapy, bronchodilator therapy as required. Congestive heart failure: Possibly diastolic and possibly right-sided. Recommend diuretic therapy. Acute bronchitis: Continue antibiotic therapy. Coronary artery disease: Patient noted to have significant coronary calcification on CTA. Recommend chronic Coumadin to be continued for A. fib, statin statin therapy, beta-chichi/rate lowering calcium channel chichi therapy etc. - Time Time Spent: 30 to 50 Minutes - CODE STATUS was discussed, patient remains full code. Surrogate decision-maker unchanged. Multiple medical problems were addressed. More than 50% of the time spent coordinating care, discussing management plans with involved caregivers. Management plans discussed with involved personnels. Medical decision making was of moderate to high complexity , patient's has multiple comorbidities. Medications reviewed and adjusted accordingly: Yes
[2017-10-26 21:36] LABS: FREE T3 3.05 pg/mL (2.77-5.27); FREE T4 (FREE THYROXINE) 1.67 ng/dL (0.78-2.19)
[2017-10-26] MEDS: ATORVASTATIN CALCIUM 10 MG TABLET PO SCH (21:54)
[2017-10-26] MEDS: DONEPEZIL HCL 5 MG TABLET PO SCH (21:54)
[2017-10-26] MEDS: ACETAMINOPHEN 325 MG TABLET PO PRN (21:55)
[2017-10-26] MEDS: MELATONIN 3 MG TABLET PO PRN (21:56)
[2017-10-26] MEDS ORDERED: WARFARIN SODIUM 3 MG TABLET PO SCH (22:00)
[2017-10-26] MEDS ORDERED: DILTIAZEM HCL 120 MG CAP.SR.24H PO SCH (22:00)
[2017-10-26] MEDS ORDERED: CEFEPIME 1 GM/D5W RTU 1 GM/50 ML RTUPB IV SCH (22:00)
[2017-10-26] MEDS ORDERED: WARFARIN SODIUM 5 MG TABLET PO SCH (22:00)
[2017-10-26] MEDS: BUDESONIDE/FORMOTEROL 160-4.5 MCG 60 PUFF/6 GM MDI IH SCH (23:25)
[2017-10-26] MEDS: CEFEPIME 1 GM/D5W RTU 1 GM/50 ML RTUPB IV SCH (23:37)
[2017-10-27 01:30] LABS: CREATINE KINASE MB 2.44 ng/mL (<4.55); TROPONIN I 0.013 ng/mL
[2017-10-27] MEDS: LEVALBUTEROL HCL NEB 1.25 MG/3 ML AMPUL NEB SCH ×4 (01:59→21:19)
[2017-10-27] MEDS ORDERED: DILTIAZEM HCL 30 MG TABLET PO ONE (02:45)
[2017-10-27] MEDS ORDERED: FUROSEMIDE 20 MG TABLET PO ONE (03:15)
[2017-10-27] MEDS: LANSOPRAZOLE 15 MG TAB.RAP.DR PO SCH (06:05)
[2017-10-27] MEDS: METHYLPREDNISOLONE INJ 40 MG/1 ML SDV IV SCH (06:06)
[2017-10-27 06:53] LABS: ABSOLUTE LYMPHOCYTES (AUTO) 0.5 10^3/uL (0.5-4.7); ABSOLUTE MONOCYTES (AUTO) 0.7 10^3/uL (0.1-1.4); ABSOLUTE NEUT (AUTO) 5.3 10^3/uL (1.7-8.2); BASOPHILS % (AUTO) 0.1 % (0-2); HEMATOCRIT 35.6 % (36.0-47.0); LYMPHOCYTES % (AUTO) 8.2 % (13-45); MEAN CORPUSCULAR HEMOGLOBIN 31.9 pg (27.0-33.4); MEAN CORPUSCULAR HGB CONC 33.7 g/dL (32.0-36.0); MEAN CORPUSCULAR VOLUME 95 fl (80-97); MONOCYTES % (AUTO) 10.5 % (3-13); PLATELET COUNT 260 10^3/uL (150-450); RED BLOOD COUNT 3.76 10^6/uL (3.72-5.28); RED CELL DISTRIBUTION WIDTH 17.3 % (11.5-14.0); SEGMENTED NEUTROPHILS % (AUTO) 81.2 % (42-78); TOTAL CELLS COUNTED % (AUTO) 100 %; WHITE BLOOD COUNT 6.5 10^3/uL (4.0-10.5)
[2017-10-27 07:01] LABS: INTERNATIONAL RATION (INR) 1.14; PROTHROMBIN TIME 15.4 SEC (11.4-15.4)
[2017-10-27 07:16] LABS: ANION GAP 12 (5-19); BLOOD UREA NITROGEN 25 mg/dL (7-20); CALCIUM 9.7 mg/dL (8.4-10.2); CARBON DIOXIDE 29 mmol/L (22-30); CHLORIDE 104 mmol/L (98-107); GLUCOSE 159 mg/dL (75-110); SODIUM 145.2 mmol/L (137-145)
[2017-10-27] MEDS: ACETAMINOPHEN 325 MG TABLET PO PRN ×3 (09:04→19:51)
[2017-10-27] MEDS: SERTRALINE HCL 50 MG TABLET PO SCH (09:05)
[2017-10-27] MEDS: FLUTICASONE NASAL SPRAY 50 MCG/SPRY 120 SPRAY/16 GM NASL SCH (09:05)
[2017-10-27] MEDS: BUDESONIDE/FORMOTEROL 160-4.5 MCG 60 PUFF/6 GM MDI IH SCH ×2 (09:06→21:09)
[2017-10-27] MEDS: CEFEPIME 1 GM/D5W RTU 1 GM/50 ML RTUPB IV SCH ×2 (09:06→21:09)
[2017-10-27] MEDS ORDERED: (PENDING PHARMACY ID) (Sertraline Hcl [Zoloft] 25 MG) PO SCH (10:00)
[2017-10-27] MEDS ORDERED: DILTIAZEM HCL 120 MG CAP.SR.24H PO SCH ×2 (10:00)
[2017-10-27] MEDS ORDERED: BUSPIRONE HCL 10 MG TABLET PO ONE (10:00)
[2017-10-27] MEDS ORDERED: FUROSEMIDE 20 MG TABLET PO SCH (10:00)
[2017-10-27] MEDS ORDERED: (PENDING PHARMACY ID) (Pravastatin Sodium [Pravachol] 40 MG) PO SCH (10:00)
[2017-10-27] MEDS ORDERED: METHYLPREDNISOLONE INJ 40 MG/1 ML SDV IV SCH (12:36)
[2017-10-27] MEDS: DILTIAZEM HCL INJ 25 MG/5 ML VIAL IV PRN ×3 (12:40→23:26)
--- NOTE | 2017-10-27 12:45 | PDOC PROGRESS REPORT ---
Subjective Progress Note for:: 10/27/17 Subjective:: Patient is still very anxious and still wheezing Patient's denied any chest pain but still short of breath Since heart rate is still running 120-130 range Is very anxious Reason For Visit: SOB,COPD,CHF Physical Exam Vital Signs: Temp Pulse Resp BP Pulse Ox 97.7 F 120 H 22 H 124/88 H 96 10/27/17 11:10 10/27/17 11:10 10/27/17 11:10 10/27/17 11:10 10/27/17 11:10 Intake & Output 10/26/17 10/27/17 10/28/17 06:59 06:59 06:59 Intake Total 750 355 Balance 750 355 Weight 87.5 kg General appearance: PRESENT: no acute distress, well-developed, well-nourished Head exam: PRESENT: atraumatic, normocephalic Eye exam: PRESENT: conjunctiva pink, EOMI, PERRLA. ABSENT: scleral icterus Ear exam: PRESENT: normal external ear exam Mouth exam: PRESENT: moist, tongue midline Neck exam: PRESENT: full ROM. ABSENT: carotid bruit, JVD, lymphadenopathy, thyromegaly Respiratory exam: PRESENT: wheezes Cardiovascular exam: PRESENT: RRR. ABSENT: diastolic murmur, rubs, systolic murmur Pulses: PRESENT: normal dorsalis pedis pul, +2 pedal pulses bilateral Vascular exam: PRESENT: normal capillary refill GI/Abdominal exam: PRESENT: normal bowel sounds, soft. ABSENT: distended, guarding, mass, organolmegaly, rebound, tenderness Rectal exam: PRESENT: deferred Extremities exam: ABSENT: pedal edema Neurological exam: PRESENT: alert, awake, oriented to person, oriented to place , oriented to time, oriented to situation, CN II-XII grossly intact. ABSENT: motor sensory deficit Psychiatric exam: PRESENT: appropriate affect, normal mood. ABSENT: homicidal ideation, suicidal ideation Skin exam: PRESENT: dry, intact, warm. ABSENT: cyanosis, rash Results Laboratory Results: 10/27/17 05:46 10/27/17 05:46 10/26/17 10/27/17 10/27/17 18:59 05:46 05:46 WBC 6.5 RBC 3.76 Hgb 12.0 Hct 35.6 L MCV 95 MCH 31.9 MCHC 33.7 RDW 17.3 H Plt Count 260 Seg Neutrophils % 81.2 H Lymphocytes % 8.2 L Monocytes % 10.5 Eosinophils % 0.0 Basophils % 0.1 Absolute Neutrophils 5.3 Absolute Lymphocytes 0.5 Absolute Monocytes 0.7 Absolute Eosinophils 0.0 Absolute Basophils 0.0 Sodium 145.2 H Potassium 4.0 Chloride 104 Carbon Dioxide 29 Anion Gap 12 BUN 25 H Creatinine 0.76 Est GFR ( Amer) > 60 Est GFR (Non-Af Amer) > 60 Glucose 159 H Calcium 9.7 Magnesium 1.9 Free T4 1.67 Free T3 pg/mL 3.05 10/26/17 10/26/17 10/26/17 13:37 13:37 18:59 Creatine Kinase 28 L 30 CK-MB (CK-2) 2.38 Troponin I 0.028 NT-Pro-B Natriuret Pep 10/26/17 10/27/17 10/27/17 18:59 00:43 00:43 Creatine Kinase 27 L CK-MB (CK-2) 2.38 2.44 Troponin I 0.017 0.013 NT-Pro-B Natriuret Pep 10/27/17 05:46 Creatine Kinase CK-MB (CK-2) Troponin I NT-Pro-B Natriuret Pep 4390 H Impressions: Chest/Abdomen CTA 10/26/17 00:00 IMPRESSION: No CT angio evidence of acute pulmonary emboli. Very heavily calcified aortic valve and heavily calcified coronary arteries. No thoracic aneurysm Very heavily calcified visceral arteries in the upper abdomen. Chest X-Ray 10/26/17 09:48 IMPRESSION: Cardiomegaly without evidence acute cardiopulmonary disease. Assessment & Plan - Diagnosis (1) COPD (chronic obstructive pulmonary disease) Qualifiers: COPD type: chronic bronchitis Chronic bronchitis type: mucopurulent Qualified Code(s): J41.1 - Mucopurulent chronic bronchitis Is this a current diagnosis for this admission?: Yes Plan: increse IV steroid 60 mg q. 8 continues to nebulizer treatments (2) Atrial fibrillation Qualifiers: Atrial fibrillation type: chronic Qualified Code(s): I48.2 - Chronic atrial fibrillation Is this a current diagnosis for this admission?: Yes Plan: With a rapid ventricular response. At the [facility] p.o. get the echocardiogramSince the cardiology (3) Congestive heart failure (CHF) Qualifiers: Heart failure type: systolic Heart failure chronicity: acute on chronic Qualified Code(s): I50.23 - Acute on chronic systolic (congestive) heart failure Is this a current diagnosis for this admission?: Yes Plan: But the patient on Lasix 20 mg get the 2D echocardiogram (4) CAD (coronary artery disease) Qualifiers: Coronary Disease-Associated Artery/Lesion type: unspecified vessel or lesion type Is this a current diagnosis for this admission?: Yes Plan: Get the serial cardiac enzymes to continues to monitor (5) Hypertension Qualifiers: Hypertension type: essential hypertension Qualified Code(s): I10 - Essential (primary) hypertension Is this a current diagnosis for this admission?: Yes Plan: Currently stable (6) Hypokalemia Is this a current diagnosis for this admission?: Yes Plan: Currently all stable (7) Dementia Qualifiers: Dementia type: unspecified type Dementia behavioral disturbance: without behavioral disturbance Qualified Code(s): F03.90 - Unspecified dementia without behavioral disturbance Is this a current diagnosis for this admission?: Yes Plan: Currently stable (8) Abdominal aortic aneurysm Qualifiers: Presence of rupture: without rupture Qualified Code(s): I71.4 - Abdominal aortic aneurysm, without rupture Is this a current diagnosis for this admission?: Yes Plan: CT abdomen and pelvis was done in 2018 in August with so some mild increasing the size of aneurysm will follow outpatients vascular surgery (9) Anxiety disorder Qualifiers: Anxiety disorder type: generalized anxiety disorder Qualified Code(s): F41.1 - Generalized anxiety disorder Is this a current diagnosis for this admission?: Yes Plan: Start the patient on the BuSpar 5 mg p.o. every 8 - Time Time Spent with patient: 15-24 minutes Medications reviewed and adjusted accordingly: Yes Anticipated discharge: SNF Within: Other - Inpatient Certification Medical Necessity: Need Close Monitoring Due to Risk of Patient Decompensation, Need for IV Antibiotics Post Hospital Care: D/C Rn Surgical [facility] Documentation - Plan Summary Plan Summary: Will increase the steroid and also start on the BuSpar Is very noncompliance with the Coumadin is hard to regulate discussed with the patient's to start the Eliquis 2.5 mg p.o. twice a day continues to current other medications The CT of the head and also continues to monitor
[2017-10-27] MEDS: METHYLPREDNISOLONE INJ 125 MG/2 ML SDV IV SCH ×2 (13:53→21:19)
[2017-10-27] MEDS: BUSPIRONE HCL 10 MG TABLET PO SCH ×2 (13:54→21:08)
--- NOTE | 2017-10-27 14:04 | RADIOLOGY REPORT (SQ) ---
EXAM DESCRIPTION: CT HEAD WITHOUT COMPLETED DATE/TIME: 10/27/2017 1:30 pm REASON FOR STUDY: daniel COMPARISON: 09/08/2015 TECHNIQUE: Axial images acquired through the brain without intravenous contrast. Images reviewed wi th bone, brain and subdural windows. Images stored on PACS. All CT scanners at this facility use dose modulation, iterative reconstruction, and/or weight based d osing when appropriate to reduce radiation dose to as low as reasonably achievable (ALARA). [facility]: Dose Right [facility]: CareDose [facility]: Dose Right [facility]: Teradose 4D [facility]: Smart [employer] RADIATION DOSE: CT Rad equipment meets quality standard of care and radiation dose reduction techniq ues were employed. CTDIvol: 47.9 mGy. DLP: 881 mGy-cm.mGy. LIMITATIONS: None. FINDINGS: VENTRICLES: Prominent. CEREBRUM: No masses. No hemorrhage. No midline shift. Areas of low density in the white matter mos t likely due to chronic micro-vascular ischemic change. No evidence for acute infarction. CEREBELLUM: No masses. No hemorrhage. No alteration of density. No evidence for acute infarction. EXTRAAXIAL SPACES: Age-related involutional change. No fluid collections. No masses. ORBITS AND GLOBE: No intra- or extraconal masses. Normal contour of globe without masses. CALVARIUM: No fracture. PARANASAL SINUSES: Opacified maxillary, ethmoid and sphenoid sinuses. SOFT TISSUES: No mass or hematoma. OTHER: No other significant finding. IMPRESSION: CHRONIC CHANGES OF ATROPHY AND MICROVASCULAR ISCHEMIA. NO ACUTE PROCESS. EVIDENCE OF ACUTE STROKE: NO. TECHNICAL DOCUMENTATION: JOB ID: [id number] Quality ID # [id number]: Final reports with documentation of one or more dose reduction techniques (e.g., Au tomated exposure control, adjustment of the mA and/or kV according to patient size, use of iterative reconstruction technique) 2010 [employer]- All Rights Reserved Reading location - IP/workstation name: [email or web address]
[2017-10-27] MEDS: APIXABAN 2.5 MG TABLET PO SCH (17:58)
--- NOTE | 2017-10-27 18:40 | XCELERA REPORT ---
[address] [address] Transthoracic Echocardiogram Report Name: DARLYN EVANS Age: 82 yrs Gender: Female : 1935 Patient Status: Inpatient Patient Location: [address] [place] [address] Study Date: 10/27/2017 03:12 PM Height: 67 in Weight: 190 lb BSA: 2.0 m2 Procedure: A complete two-dimensional transthoracic echocardiogram was performed (2D, M-mode, spectral and color flow Doppler). The study was technically difficult with many images being suboptimal in quality. Reason For Study: chf/afib Ordering Physician: ONEL AVINA Performed By: Brenda Bach Interpretation Summary LV diastolic function could not be adequately assessed due to atrial fibrilation. The left ventricular ejection fraction is preserved. Consider additional methods to assess LVEF such as MUGA scan, CTA heart, cardiac MRI, FIFI, etc. if clinically indicated. There is borderline concentric left ventricular hypertrophy. The left ventricle is grossly normal size. Regional wall motion abnormalities cannot be excluded due to limited visualization. The right ventricle is mild to moderately dilated. Right ventricular function cannot be assessed due to poor image quality. The right atrium is moderately dilated. The left atrium is mildly dilated. There is no mitral valve stenosis. There is a mild to moderate amount of mitral regurgitation There is a mild amount of aortic regurgitation There is no aortic valve stenosis There is a trace to mild amount of tricuspid regurgitation There is mild to moderate pulmonary hypertension by echo Right ventricular systolic pressure is estimated to be elevated at 40- 50mmHg. The aortic root is not well visualized but is probably normal size. The inferior vena cava was not well visualized There is no pericardial effusion. MMode/2D Measurements & Calculations RVDd: 2.9 cm LVIDd: 4.7 cmFS: 23.3 % Ao root diam: 2.9 cm IVSd: 1.2 cm LVIDs: 3.6 cmEDV(Teich): 102.8 ml LVPWd: 1.0 cmESV(Teich): 54.9 ml Ao root area: 6.5 cm2 EF(Teich): 46.6 % LA dimension: 4.0 cm LVOT diam: 2.0 cm LVOT area: 3.3 cm2 Doppler Measurements & Calculations MV E max manuelito: MV P1/2t max manuelito: Ao V2 max: AI max manuelito: 149.1 cm/sec 144.6 cm/sec 156.4 cm/sec 419.3 cm/sec MV P1/2t: 64.6 msec Ao max PG: AI max PG: MVA(P1/2t): 3.4 cm2 9.8 mmHg 70.3 mmHg MV dec slope: ALYSE(V,D): 1.8 cm2AI dec slope: 655.7 cm/sec2 322.8 cm/sec2 AI P1/2t: 380.5 msec LV V1 max PG: PA V2 max: TR max manuelito: 2.9 mmHg 84.4 cm/sec 304.1 cm/sec LV V1 max: PA max P.8 mmHg TR max P.0 cm/sec 37.0 mmHg Left Ventricle The left ventricle is grossly normal size. There is borderline concentric left ventricular hypertrophy. The left ventricular ejection fraction is preserved. Consider additional methods to assess LVEF such as MUGA scan, CTA heart, cardiac MRI, FIFI, etc. if clinically indicated. LV diastolic function could not be adequately assessed due to atrial fibrilation. Regional wall motion abnormalities cannot be excluded due to limited visualization. Right Ventricle The right ventricle is mild to moderately dilated. There is normal right ventricular wall thickness. Right ventricular function cannot be assessed due to poor image quality. Atria The right atrium is moderately dilated. The left atrium is mildly dilated. Interarterial septum not well visualized and not well dopplered. Cannot comment on ASD/PFO presence. Mitral Valve There is mild mitral leaflet calcification. There is mild to moderate mitral annular calcification. There is no mitral valve stenosis. There is a mild to moderate amount of mitral regurgitation. Aortic Valve The aortic valve is moderately calcified. There is no aortic valve stenosis. There is a mild amount of aortic regurgitation. Tricuspid Valve The tricuspid valve is not well visualized secondary to technical limitations. There is no tricuspid stenosis. There is a trace to mild amount of tricuspid regurgitation. There is mild to moderate pulmonary hypertension by echo. Right ventricular systolic pressure is estimated to be elevated at 40-50mmHg. Pulmonic Valve The pulmonic valve is not well visualized. Great Vessels The aortic root is not well visualized but is probably normal size. The inferior vena cava was not well visualized. Effusions There is no pericardial effusion. : ONEL AVINA > Nathan Maurer
--- NOTE | 2017-10-27 19:50 | PDOC PROGRESS REPORT ---
Subjective Progress Note for:: 10/27/17 Subjective:: Patient noted to be intermittently short of breath with active wheezing. She is also noted to have increased heart rate especially when agitated. When she is asleep, her heart rate seems reasonable. I was called this morning about patient heart rate being increased. Orders to give Cardizem 10 mg IV every hour as needed for heart rate of 110 bpm was given. Patient also noted to have congestive heart failure. 2D echo shows significant enlargement of the right ventricle with some RV systolic dysfunction. Reason For Visit: SOB,COPD,CHF Physical Exam Vital Signs: Temp Pulse Resp BP Pulse Ox 98.1 F 113 H 20 146/83 H 98 10/27/17 19:35 10/27/17 19:35 10/27/17 19:35 10/27/17 19:35 10/27/17 19:35 Intake & Output 10/26/17 10/27/17 10/28/17 06:59 06:59 06:59 Intake Total 750 1197 Balance 750 1197 Weight 87.5 kg Exam: GENERAL: well-nourished and in no acute distress. Patient is alert patient is somewhat confused and not cooperative. HEAD: Atraumatic, normocephalic. EYES: Pupils equal round and reactive to light, extraocular movements intact, sclera anicteric, conjunctiva are normal. ENT: TMs normal, nares patent, oropharynx clear without exudates. Moist mucous membranes. No oral ulcerations or bleeding gums noted NECK: supple without lymphadenopathy or JVD. Trachea is central. No cervical or axillary lymphadenopathy noted. Carotids are 2+ LUNGS: Breath sounds bibasilar fine crackles at bases. No significant dullness noted. CHEST: Palpation of chest wall shows no significant chest wall tenderness. 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 ABDOMEN: Soft, no significant tenderness appreciated, normoactive bowel sounds. No guarding, no rebound. No rigidity noted . No masses appreciated. EXTREMITIES: Pedal pulses are 1-2+, no calf tenderness noted, Trace + pedal edema noted. No clubbing or cyanosis. NEUROLOGICAL: Patient is alert but is not able to participate in neurological exam because of patient's current mental status PSYCH: Patient cannot participate in a neurologic and psych exam because of the patient's current mental status SKIN: No significant ecchymosis, rash, ulcerations or signs of pruritus noted. MUSCULOSKELETAL EXAM: No significant joint swelling noted. Results Laboratory Results: 10/27/17 05:46 10/27/17 05:46 10/26/17 10/27/17 10/27/17 18:59 05:46 05:46 WBC 6.5 RBC 3.76 Hgb 12.0 Hct 35.6 L MCV 95 MCH 31.9 MCHC 33.7 RDW 17.3 H Plt Count 260 Seg Neutrophils % 81.2 H Lymphocytes % 8.2 L Monocytes % 10.5 Eosinophils % 0.0 Basophils % 0.1 Absolute Neutrophils 5.3 Absolute Lymphocytes 0.5 Absolute Monocytes 0.7 Absolute Eosinophils 0.0 Absolute Basophils 0.0 Sodium 145.2 H Potassium 4.0 Chloride 104 Carbon Dioxide 29 Anion Gap 12 BUN 25 H Creatinine 0.76 Est GFR ( Amer) > 60 Est GFR (Non-Af Amer) > 60 Glucose 159 H Calcium 9.7 Magnesium 1.9 Free T4 1.67 Free T3 pg/mL 3.05 10/26/17 10/26/17 10/26/17 13:37 13:37 18:59 Creatine Kinase 28 L 30 CK-MB (CK-2) 2.38 Troponin I 0.028 NT-Pro-B Natriuret Pep 10/26/17 10/27/17 10/27/17 18:59 00:43 00:43 Creatine Kinase 27 L CK-MB (CK-2) 2.38 2.44 Troponin I 0.017 0.013 NT-Pro-B Natriuret Pep 10/27/17 05:46 Creatine Kinase CK-MB (CK-2) Troponin I NT-Pro-B Natriuret Pep 4390 H EKG Comments: Telemetry strip shows atrial fibrillation with uncontrolled ventricular response. Impressions: Chest/Abdomen CTA 10/26/17 00:00 IMPRESSION: No CT angio evidence of acute pulmonary emboli. Very heavily calcified aortic valve and heavily calcified coronary arteries. No thoracic aneurysm Very heavily calcified visceral arteries in the upper abdomen. Chest X-Ray 10/26/17 09:48 IMPRESSION: Cardiomegaly without evidence acute cardiopulmonary disease. Head CT 10/27/17 00:00 IMPRESSION: CHRONIC CHANGES OF ATROPHY AND MICROVASCULAR ISCHEMIA. NO ACUTE PROCESS. EVIDENCE OF ACUTE STROKE: NO. Assessment & Plan - Diagnosis (1) Atrial fibrillation Qualifiers: Atrial fibrillation type: chronic Qualified Code(s): I48.2 - Chronic atrial fibrillation Is this a current diagnosis for this admission?: Yes (2) COPD (chronic obstructive pulmonary disease) Qualifiers: COPD type: chronic bronchitis Chronic bronchitis type: mucopurulent Qualified Code(s): J41.1 - Mucopurulent chronic bronchitis Is this a current diagnosis for this admission?: Yes (3) Congestive heart failure (CHF) Qualifiers: Heart failure type: systolic Heart failure chronicity: acute on chronic Qualified Code(s): I50.23 - Acute on chronic systolic (congestive) heart failure Is this a current diagnosis for this admission?: Yes (4) Acute bronchitis Qualifiers: Bronchitis organism: unspecified organism Qualified Code(s): J20.9 - Acute bronchitis, unspecified Is this a current diagnosis for this admission?: Yes (5) Coronary artery disease Qualifiers: Coronary Disease-Associated Artery/Lesion type: [place] artery [place] vs. transplanted heart: [place] heart Associated angina: angina presence unspecified Qualified Code(s): I25.10 - Atherosclerotic heart disease of [place] coronary artery without angina pectoris Is this a current diagnosis for this admission?: Yes - Notes Notes: Atrial fibrillation: Seems to be chronic. Recommend rate control and chronic anticoagulation. Consider rate control with calcium channel chichi in view of significant COPD. Patient currently on Cardizem CD will increase to a total dose and also give as needed IV Cardizem. Will consider adding digoxin to the regimen. COPD: Continue antibiotic therapy, a steroid therapy, bronchodilator therapy as required. Congestive heart failure: Possibly diastolic and possibly right-sided. Patient on Lasix 20 mg p.o. daily. Recommend follow-up chest x-rays. Acute bronchitis: Continue antibiotic therapy. Coronary artery disease: Patient noted to have significant coronary calcification on CTA. Recommend chronic anticoagulation to be continued for A. fib, statin statin therapy, beta-chichi/rate lowering calcium channel chichi therapy etc. consider adding a small dose of beta-chichi when wheezing has improved. - Time Time with patient: 15-25 minutes - CODE STATUS : was discussed, patient remains DO NOT RESUSCITATE. Surrogate decision-maker unchanged. Multiple medical problems were addressed. More than 50% of the time spent coordinating care, discussing management plans with involved caregivers. Management plans discussed with involved personnels. Medical decision making was of moderate to high complexity, patient's has multiple comorbidities. Medications reviewed and adjusted accordingly: Yes
[2017-10-27] MEDS ORDERED: DIGOXIN 0.125 MG TABLET PO ONE (20:30)
[2017-10-27] MEDS: DILTIAZEM HCL 180 MG CAPSULE.CR PO SCH (21:08)
[2017-10-27] MEDS: ATORVASTATIN CALCIUM 10 MG TABLET PO SCH (21:09)
[2017-10-27] MEDS: DONEPEZIL HCL 5 MG TABLET PO SCH (21:09)
[2017-10-28] MEDS: LEVALBUTEROL HCL NEB 1.25 MG/3 ML AMPUL NEB SCH ×4 (02:39→20:08)
[2017-10-28 04:51] LABS: ABSOLUTE LYMPHOCYTES (AUTO) 0.6 10^3/uL (0.5-4.7); ABSOLUTE MONOCYTES (AUTO) 0.4 10^3/uL (0.1-1.4); BASOPHILS % (AUTO) 0.1 % (0-2); HEMATOCRIT 37.5 % (36.0-47.0); HEMOGLOBIN 12.5 g/dL (12.0-15.5); MEAN CORPUSCULAR HEMOGLOBIN 31.6 pg (27.0-33.4); MEAN CORPUSCULAR HGB CONC 33.5 g/dL (32.0-36.0); MEAN CORPUSCULAR VOLUME 95 fl (80-97); PLATELET COUNT 273 10^3/uL (150-450); RED BLOOD COUNT 3.97 10^6/uL (3.72-5.28); RED CELL DISTRIBUTION WIDTH 17.7 % (11.5-14.0); SEGMENTED NEUTROPHILS % (AUTO) 85.9 % (42-78); TOTAL CELLS COUNTED % (AUTO) 100 %
[2017-10-28 05:04] LABS: ANION GAP 8 (5-19); BLOOD UREA NITROGEN 31 mg/dL (7-20); CALCIUM 9.4 mg/dL (8.4-10.2); CARBON DIOXIDE 30 mmol/L (22-30); CHLORIDE 106 mmol/L (98-107); GLUCOSE 160 mg/dL (75-110); INTERNATIONAL RATION (INR) 1.58; POTASSIUM 3.9 mmol/L (3.6-5.0); PROTHROMBIN TIME 19.8 SEC (11.4-15.4); SODIUM 143.9 mmol/L (137-145)
[2017-10-28 05:17] LABS: APPEARANCE,URINE SLIGHTLY-CLOUDY; BILIRUBIN,URINE NEGATIVE (NEGATIVE); COLOR,URINE YELLOW; GLUCOSE, URINE NEGATIVE (NEGATIVE); KETONES,URINE NEGATIVE (NEGATIVE); LEUKOCYTE ESTERASE,URINE NEGATIVE (NEGATIVE); NITRITE,URINE NEGATIVE (NEGATIVE); PROTEIN,URINE NEGATIVE (NEGATIVE); URINE SPECIFIC GRAVITY 1.032
[2017-10-28] MEDS: LANSOPRAZOLE 15 MG TAB.RAP.DR PO SCH (05:55)
[2017-10-28] MEDS: APIXABAN 2.5 MG TABLET PO SCH ×2 (05:55→17:11)
[2017-10-28] MEDS: BUSPIRONE HCL 10 MG TABLET PO SCH ×3 (05:55→22:00)
[2017-10-28] MEDS: DILTIAZEM HCL INJ 25 MG/5 ML VIAL IV PRN (05:55)
[2017-10-28] MEDS: METHYLPREDNISOLONE INJ 125 MG/2 ML SDV IV SCH ×3 (05:55→22:01)
[2017-10-28] MEDS ORDERED: ONDANSETRON HCL INJ/PF 4 MG/2 ML SDV ONE (06:59)
[2017-10-28] MEDS: FUROSEMIDE 20 MG TABLET PO SCH (10:41)
[2017-10-28] MEDS: BUDESONIDE/FORMOTEROL 160-4.5 MCG 60 PUFF/6 GM MDI IH SCH ×2 (10:41→22:01)
[2017-10-28] MEDS: SERTRALINE HCL 50 MG TABLET PO SCH (10:42)
[2017-10-28] MEDS: DIGOXIN 0.125 MG TABLET PO SCH (10:42)
[2017-10-28] MEDS: DILTIAZEM HCL 180 MG CAPSULE.CR PO SCH ×2 (10:42→22:00)
[2017-10-28] MEDS: FLUTICASONE NASAL SPRAY 50 MCG/SPRY 120 SPRAY/16 GM NASL SCH (10:42)
[2017-10-28] MEDS: CEFEPIME 1 GM/D5W RTU 1 GM/50 ML RTUPB IV SCH ×2 (10:54→22:01)
--- NOTE | 2017-10-28 11:31 | PDOC PROGRESS REPORT ---
Subjective Progress Note for:: 10/28/17 Subjective:: Patient today feeling better. She is sitting at the bedside chair and is cheerful today. Patient still short of breath but significantly improved. Heart rate under better control on increased dose of Cardizem and digoxin. Patient remains in atrial fibrillation. Patient also noted to have congestive heart failure. 2D echo shows significant enlargement of the right ventricle with some RV systolic dysfunction. Reason For Visit: SOB,COPD,CHF Physical Exam Vital Signs: Temp Pulse Resp BP Pulse Ox 98.3 F 96 22 H 142/75 H 93 10/28/17 07:42 10/28/17 08:37 10/28/17 08:37 10/28/17 07:42 10/28/17 08:37 Intake & Output 10/27/17 10/28/17 10/29/17 06:59 06:59 06:59 Intake Total 750 1507 Balance 750 1507 Weight 87.5 kg 87.5 kg Exam: GENERAL: well-nourished and in no acute distress. Alert and oriented x2 HEAD: Atraumatic, normocephalic. EYES: Pupils equal round and reactive to light, extraocular movements intact, sclera anicteric, conjunctiva are normal. ENT: TMs normal, nares patent, oropharynx clear without exudates. Moist mucous membranes. No oral ulcerations or bleeding gums noted NECK: supple without lymphadenopathy. Trachea is central. No cervical or axillary lymphadenopathy noted. Carotids are 2+, JVD WNL LUNGS: Respiration seems nonlabored, no significant accessory muscle action noted. Bilateral mild wheezes rales or rhonchi noted. No significant dullness noted on percussion. CHEST: Palpation of the chest wall shows no significant chest wall tenderness. No other significant abnormalities noted. HEART: [place] [employer], No PSH, 1/6 BOGDAN aortic area, 1/6 saucedo systolic murmur mitral area, no rubs, no gallops. ABDOMEN: Soft, no significant tenderness appreciated, normoactive bowel sounds. No guarding, no rebound. No rigidity noted . No masses appreciated. EXTREMITIES: Pedal pulses are 1-2+, no calf tenderness noted. No clubbing or cyanosis.trace to 1+ pedal edema noted NEUROLOGICAL: Focused neurological exam showed no significant neurologic deficit. Normal speech, no focal weakness appreciated. PSYCH: Normal mood, normal affect. Judgment and insight not checked. SKIN: No significant ecchymosis, rash, ulcerations or signs of pruritus noted. MUSCULOSKELETAL EXAM: No significant joint swelling noted. Results Laboratory Results: 10/28/17 04:28 10/28/17 04:28 10/28/17 10/28/17 10/28/17 04:28 04:28 04:45 WBC 7.0 RBC 3.97 Hgb 12.5 Hct 37.5 MCV 95 MCH 31.6 MCHC 33.5 RDW 17.7 H Plt Count 273 Seg Neutrophils % 85.9 H Lymphocytes % 8.0 L Monocytes % 6.0 Eosinophils % 0.0 Basophils % 0.1 Absolute Neutrophils 6.0 Absolute Lymphocytes 0.6 Absolute Monocytes 0.4 Absolute Eosinophils 0.0 Absolute Basophils 0.0 Sodium 143.9 Potassium 3.9 Chloride 106 Carbon Dioxide 30 Anion Gap 8 BUN 31 H Creatinine 0.77 Est GFR ( Amer) > 60 Est GFR (Non-Af Amer) > 60 Glucose 160 H Calcium 9.4 Magnesium 2.1 Urine Color YELLOW Urine Appearance SLIGHTLY-CLOUDY Urine pH 6.0 Ur Specific [place] 1.032 Urine Protein NEGATIVE Urine Glucose (UA) NEGATIVE Urine Ketones NEGATIVE Urine Blood NEGATIVE Urine Nitrite NEGATIVE Ur Leukocyte Esterase NEGATIVE Urine WBC (Auto) 0 Urine RBC (Auto) 0 10/26/17 14:20 Sputum Gram Stain - Final 10/26/17 14:20 Sputum Sputum Culture - Final Haemophilus Influenzae Normal Ania 10/26/17 10/26/17 10/26/17 13:37 13:37 18:59 Creatine Kinase 28 L 30 CK-MB (CK-2) 2.38 Troponin I 0.028 NT-Pro-B Natriuret Pep 10/26/17 10/27/17 10/27/17 18:59 00:43 00:43 Creatine Kinase 27 L CK-MB (CK-2) 2.38 2.44 Troponin I 0.017 0.013 NT-Pro-B Natriuret Pep 10/27/17 10/28/17 05:46 04:28 Creatine Kinase CK-MB (CK-2) Troponin I NT-Pro-B Natriuret Pep 4390 H 3800 H EKG Comments: Telemetry shows atrial fibrillation with controlled ventricular response. Impressions: Chest/Abdomen CTA 10/26/17 00:00 IMPRESSION: No CT angio evidence of acute pulmonary emboli. Very heavily calcified aortic valve and heavily calcified coronary arteries. No thoracic aneurysm Very heavily calcified visceral arteries in the upper abdomen. Chest X-Ray 10/26/17 09:48 IMPRESSION: Cardiomegaly without evidence acute cardiopulmonary disease. Head CT 10/27/17 00:00 IMPRESSION: CHRONIC CHANGES OF ATROPHY AND MICROVASCULAR ISCHEMIA. NO ACUTE PROCESS. EVIDENCE OF ACUTE STROKE: NO. Assessment & Plan - Diagnosis (1) Atrial fibrillation Qualifiers: Atrial fibrillation type: chronic Qualified Code(s): I48.2 - Chronic atrial fibrillation Is this a current diagnosis for this admission?: Yes (2) COPD (chronic obstructive pulmonary disease) Qualifiers: COPD type: chronic bronchitis Chronic bronchitis type: mucopurulent Qualified Code(s): J41.1 - Mucopurulent chronic bronchitis Is this a current diagnosis for this admission?: Yes (3) Congestive heart failure (CHF) Qualifiers: Heart failure type: systolic Heart failure chronicity: acute on chronic Qualified Code(s): I50.23 - Acute on chronic systolic (congestive) heart failure Is this a current diagnosis for this admission?: Yes (4) Acute bronchitis Qualifiers: Bronchitis organism: unspecified organism Qualified Code(s): J20.9 - Acute bronchitis, unspecified Is this a current diagnosis for this admission?: Yes (5) Coronary artery disease Qualifiers: Coronary Disease-Associated Artery/Lesion type: [place] artery [place] vs. transplanted heart: [place] heart Associated angina: angina presence unspecified Qualified Code(s): I25.10 - Atherosclerotic heart disease of [place] coronary artery without angina pectoris Is this a current diagnosis for this admission?: Yes - Notes Notes: Atrial fibrillation: Seems to be chronic. Recommend rate control and chronic anticoagulation. Consider rate control with calcium channel chichi in view of significant COPD. Yesterday increased Cardizem CD to 180 p.o. twice daily and also added digoxin at low-dose. Continue at this dose today with additional IV Cardizem as needed. COPD: Continue antibiotic therapy, a steroid therapy, bronchodilator therapy as required. Congestive heart failure: Possibly diastolic and possibly right-sided. Patient on Lasix 20 mg p.o. daily. Recommend follow-up chest x-rays. Acute bronchitis: Continue antibiotic therapy. Coronary artery disease: Patient noted to have significant coronary calcification on CTA. Recommend chronic anticoagulation to be continued for A. fib, statin statin therapy, beta-chichi/rate lowering calcium channel chichi therapy etc. consider adding a small dose of beta-chichi when wheezing has improved. - Time Time with patient: 15-25 minutes - CODE STATUS : was discussed, patient remains DO NOT RESUSCITATE. Surrogate decision-maker patient's son. Multiple medical problems were addressed. More than 50% of the time spent coordinating care, discussing management plans with involved caregivers. Management plans discussed with involved personnels. Medical decision making was of moderate to high complexity, patient's has multiple comorbidities. Medications reviewed and adjusted accordingly: Yes
--- NOTE | 2017-10-28 16:42 | PDOC CONSULTATION ---
Consultation Consult Date: 10/27/17 Attending physician:: ONEL AVINA Consult reason:: Dyspnea History of Present Illness Admission Date/PCP: 10/26/17 13:25 ONEL AVINA MD History of Present Illness: DARLYN EVANS is a 82 year old female with a significant history of the COPD history of the hypertension history of the chronic A. fib and a multiple other comorbidity came to the emergency department because of the complaining of her difficulty in breathing with some productivity cough and congestion.Patient is somewhat complete fused in history is limited . Past Medical History Cardiac Medical History: Reports: Atrial Fibrillation, Coronary Artery Disease, Hyperlipidema, Hypertension, Peripheral Vascular Disease - Past surgical h/o hysterectomy, colectomy, cholecystectomy, appendectomy Pulmonary Medical History: Reports: Chronic Obstructive Pulmonary Disease (COPD) , Pneumonia Malignancy Medical History: Reports: Colorectal Cancer GI Medical History: Reports: Gastroesophageal Reflux Disease Musculoskeltal Medical History: Reports: Arthritis Psychiatric Medical History: Reports: Dementia, Depression Past Surgical History Past Surgical History: Reports: Appendectomy, Cholecystectomy, Hysterectomy Denies: Pacemaker Social History Lives with: [facility] Smoking Status: Former Smoker Frequency of Alcohol Use: None Hx Recreational Drug Use: No Drugs: None Hx Prescription Drug Abuse: No - Advance Directive Resuscitation Status: Full Code Family History Parental Family History Reviewed: No Children Family History Reviewed: No Sibling(s) Family History Reviewed.: No Medication/Allergy Home Medications: Acetaminophen [Tylenol 325 mg Tablet] 650 mg PO Q4HP PRN 10/26/17 Albuterol Sulfate [Proair HFA] 2 puff IH Q4HP PRN 10/26/17 Budesonide/Formoterol Fumarate [Symbicort Hfa 160-4.5 Mcg Inhaler 6 gm] 1 puff IH Q12 10/26/17 Diltiazem HCl [Cardizem Cd 120 mg Capsule] 120 mg PO QHS 10/26/17 Donepezil HCl [Aricept 5 mg Tablet] 5 mg PO QHS 10/26/17 Fluticasone Propionate [Flonase Nasal [place] 50 Mcg/Worden 16 gm] 1 spray NASL DAILY 10/26/17 Loperamide HCl [Imodium A-D] 2 mg PO Q6HP PRN 10/26/17 Mag Hydrox/Al Hydrox/Simeth [Maalox Plus Susp 30 Udcup] 30 ml PO DAILYP PRN Melatonin [Melatin] 3 mg PO HSP PRN 10/26/17 Omeprazole 20 mg PO DAILY 10/26/17 Pravastatin Sodium [Pravachol] 40 mg PO DAILY 10/26/17 Prednisone [Deltasone 20 mg Tablet] 60 mg PO DAILY 10/26/17 Sertraline HCl [Zoloft] 25 mg PO DAILY 10/26/17 Allergies/Adverse Reactions: codeine [Codeine] Allergy (Verified 09/09/17 18:26) meperidine HCl [From Demerol] Allergy (Verified 09/09/17 18:26) Penicillins Allergy (Verified 09/09/17 18:26) Sulfa (Sulfonamide Antibiotics) Allergy (Verified 09/09/17 18:26) Review of Systems ROS unobtainable: Due to mental status Physical Exam Vital Signs: Temp Pulse Resp BP Pulse Ox 97.7 F 96 22 H 124/88 H 96 10/27/17 11:10 10/27/17 14:00 10/27/17 14:00 10/27/17 11:10 10/27/17 14:00 Intake & Output 10/26/17 10/27/17 10/28/17 06:59 06:59 06:59 Intake Total 750 355 Balance 750 355 Weight 87.5 kg General appearance: PRESENT: disheveled, mild distress, thin, well-developed. ABSENT: cooperative Head exam: PRESENT: atraumatic, normocephalic Eye exam: PRESENT: conjunctiva pale. ABSENT: nystagmus, periorbital swelling, scleral icterus Mouth exam: PRESENT: dry mucosa, neck supple, tongue midline Neck exam: ABSENT: carotid bruit, JVD, lymphadenopathy, thyromegaly, tracheal deviation, tracheostomy Respiratory exam: PRESENT: decreased breath sounds, prolonged expiratory phas Cardiovascular exam: PRESENT: RRR, +S1, +S2 Pulses: PRESENT: normal radial pulses GI/Abdominal exam: PRESENT: diminished bowel sounds, soft Extremities exam: ABSENT: clubbing, joint swelling Musculoskeletal exam: ABSENT: deformity, dislocation Neurological exam: PRESENT: awake. ABSENT: oriented to person, oriented to place Psychiatric exam: ABSENT: anxious Skin exam: PRESENT: dry Results Laboratory Results: 10/27/17 05:46 10/27/17 05:46 10/26/17 10/27/17 10/27/17 18:59 05:46 05:46 WBC 6.5 RBC 3.76 Hgb 12.0 Hct 35.6 L MCV 95 MCH 31.9 MCHC 33.7 RDW 17.3 H Plt Count 260 Seg Neutrophils % 81.2 H Lymphocytes % 8.2 L Monocytes % 10.5 Eosinophils % 0.0 Basophils % 0.1 Absolute Neutrophils 5.3 Absolute Lymphocytes 0.5 Absolute Monocytes 0.7 Absolute Eosinophils 0.0 Absolute Basophils 0.0 Sodium 145.2 H Potassium 4.0 Chloride 104 Carbon Dioxide 29 Anion Gap 12 BUN 25 H Creatinine 0.76 Est GFR ( Amer) > 60 Est GFR (Non-Af Amer) > 60 Glucose 159 H Calcium 9.7 Magnesium 1.9 Free T4 1.67 Free T3 pg/mL 3.05 10/26/17 10/26/17 10/26/17 13:37 13:37 18:59 Creatine Kinase 28 L 30 CK-MB (CK-2) 2.38 Troponin I 0.028 NT-Pro-B Natriuret Pep 10/26/17 10/27/17 10/27/17 18:59 00:43 00:43 Creatine Kinase 27 L CK-MB (CK-2) 2.38 2.44 Troponin I 0.017 0.013 NT-Pro-B Natriuret Pep 10/27/17 05:46 Creatine Kinase CK-MB (CK-2) Troponin I NT-Pro-B Natriuret Pep 4390 H Impressions: Chest/Abdomen CTA 10/26/17 00:00 IMPRESSION: No CT angio evidence of acute pulmonary emboli. Very heavily calcified aortic valve and heavily calcified coronary arteries. No thoracic aneurysm Very heavily calcified visceral arteries in the upper abdomen. Chest X-Ray 10/26/17 09:48 IMPRESSION: Cardiomegaly without evidence acute cardiopulmonary disease. Head CT 10/27/17 00:00 IMPRESSION: CHRONIC CHANGES OF ATROPHY AND MICROVASCULAR ISCHEMIA. NO ACUTE PROCESS. EVIDENCE OF ACUTE STROKE: NO. Assessment & Plan - Diagnosis (1) Anxiety disorder Qualifiers: Anxiety disorder type: generalized anxiety disorder Qualified Code(s): F41.1 - Generalized anxiety disorder Is this a current diagnosis for this admission?: Yes (2) COPD (chronic obstructive pulmonary disease) Qualifiers: COPD type: chronic bronchitis Chronic bronchitis type: mucopurulent Qualified Code(s): J41.1 - Mucopurulent chronic bronchitis Is this a current diagnosis for this admission?: Yes Plan: bronchodialator (3) Congestive heart failure (CHF) Qualifiers: Heart failure type: systolic Heart failure chronicity: acute on chronic Qualified Code(s): I50.23 - Acute on chronic systolic (congestive) heart failure Is this a current diagnosis for this admission?: Yes (4) Dementia Qualifiers: Dementia type: unspecified type Dementia behavioral disturbance: without behavioral disturbance Qualified Code(s): F03.90 - Unspecified dementia without behavioral disturbance Is this a current diagnosis for this admission?: Yes
--- NOTE | 2017-10-28 17:28 | PDOC PROGRESS REPORT ---
Subjective Progress Note for:: 10/28/17 Subjective:: Patient is currently doing wellPatient's denied any chest pain denied any shortness of the breath Reason For Visit: SOB,COPD,CHF Physical Exam Vital Signs: Temp Pulse Resp BP Pulse Ox 98.0 F 114 H 20 116/54 L 93 10/28/17 15:37 10/28/17 15:37 10/28/17 15:37 10/28/17 15:37 10/28/17 15:37 Intake & Output 10/27/17 10/28/17 10/29/17 06:59 06:59 06:59 Intake Total 750 1507 250 Balance 750 1507 250 Weight 87.5 kg 87.5 kg General appearance: PRESENT: no acute distress, well-developed, well-nourished Head exam: PRESENT: atraumatic, normocephalic Eye exam: PRESENT: conjunctiva pink, EOMI, PERRLA. ABSENT: scleral icterus Ear exam: PRESENT: normal external ear exam Mouth exam: PRESENT: moist, tongue midline Neck exam: PRESENT: full ROM. ABSENT: carotid bruit, JVD, lymphadenopathy, thyromegaly Respiratory exam: PRESENT: wheezes Cardiovascular exam: PRESENT: RRR. ABSENT: diastolic murmur, rubs, systolic murmur Pulses: PRESENT: normal dorsalis pedis pul, +2 pedal pulses bilateral Vascular exam: PRESENT: normal capillary refill GI/Abdominal exam: PRESENT: normal bowel sounds, soft. ABSENT: distended, guarding, mass, organolmegaly, rebound, tenderness Rectal exam: PRESENT: deferred Extremities exam: ABSENT: pedal edema Neurological exam: PRESENT: alert, awake, oriented to person, oriented to place , oriented to time, oriented to situation, CN II-XII grossly intact. ABSENT: motor sensory deficit Psychiatric exam: PRESENT: appropriate affect, normal mood. ABSENT: homicidal ideation, suicidal ideation Skin exam: PRESENT: dry, intact, warm. ABSENT: cyanosis, rash Results Laboratory Results: 10/28/17 04:28 10/28/17 04:28 10/28/17 10/28/17 10/28/17 04:28 04:28 04:45 WBC 7.0 RBC 3.97 Hgb 12.5 Hct 37.5 MCV 95 MCH 31.6 MCHC 33.5 RDW 17.7 H Plt Count 273 Seg Neutrophils % 85.9 H Lymphocytes % 8.0 L Monocytes % 6.0 Eosinophils % 0.0 Basophils % 0.1 Absolute Neutrophils 6.0 Absolute Lymphocytes 0.6 Absolute Monocytes 0.4 Absolute Eosinophils 0.0 Absolute Basophils 0.0 Sodium 143.9 Potassium 3.9 Chloride 106 Carbon Dioxide 30 Anion Gap 8 BUN 31 H Creatinine 0.77 Est GFR ( Amer) > 60 Est GFR (Non-Af Amer) > 60 Glucose 160 H Calcium 9.4 Magnesium 2.1 Urine Color YELLOW Urine Appearance SLIGHTLY-CLOUDY Urine pH 6.0 Ur Specific [place] 1.032 Urine Protein NEGATIVE Urine Glucose (UA) NEGATIVE Urine Ketones NEGATIVE Urine Blood NEGATIVE Urine Nitrite NEGATIVE Ur Leukocyte Esterase NEGATIVE Urine WBC (Auto) 0 Urine RBC (Auto) 0 10/26/17 14:20 Sputum Gram Stain - Final 10/26/17 14:20 Sputum Sputum Culture - Final Haemophilus Influenzae Normal Ania 10/26/17 10/26/17 10/26/17 13:37 13:37 18:59 Creatine Kinase 28 L 30 CK-MB (CK-2) 2.38 Troponin I 0.028 NT-Pro-B Natriuret Pep 10/26/17 10/27/17 10/27/17 18:59 00:43 00:43 Creatine Kinase 27 L CK-MB (CK-2) 2.38 2.44 Troponin I 0.017 0.013 NT-Pro-B Natriuret Pep 10/27/17 10/28/17 05:46 04:28 Creatine Kinase CK-MB (CK-2) Troponin I NT-Pro-B Natriuret Pep 4390 H 3800 H Impressions: Chest/Abdomen CTA 10/26/17 00:00 IMPRESSION: No CT angio evidence of acute pulmonary emboli. Very heavily calcified aortic valve and heavily calcified coronary arteries. No thoracic aneurysm Very heavily calcified visceral arteries in the upper abdomen. Chest X-Ray 10/26/17 09:48 IMPRESSION: Cardiomegaly without evidence acute cardiopulmonary disease. Head CT 10/27/17 00:00 IMPRESSION: CHRONIC CHANGES OF ATROPHY AND MICROVASCULAR ISCHEMIA. NO ACUTE PROCESS. EVIDENCE OF ACUTE STROKE: NO. Assessment & Plan - Diagnosis (1) COPD (chronic obstructive pulmonary disease) Qualifiers: COPD type: chronic bronchitis Chronic bronchitis type: mucopurulent Qualified Code(s): J41.1 - Mucopurulent chronic bronchitis Is this a current diagnosis for this admission?: Yes Plan: increse IV steroid 60 mg q. 8 continues to nebulizer treatments (2) Atrial fibrillation Qualifiers: Atrial fibrillation type: chronic Qualified Code(s): I48.2 - Chronic atrial fibrillation Is this a current diagnosis for this admission?: Yes Plan: With a rapid ventricular response. At the [facility] p.o. get the echocardiogramSince the cardiology (3) Congestive heart failure (CHF) Qualifiers: Heart failure type: systolic Heart failure chronicity: acute on chronic Qualified Code(s): I50.23 - Acute on chronic systolic (congestive) heart failure Is this a current diagnosis for this admission?: Yes Plan: But the patient on Lasix 20 mg get the 2D echocardiogram (4) CAD (coronary artery disease) Qualifiers: Coronary Disease-Associated Artery/Lesion type: unspecified vessel or lesion type Is this a current diagnosis for this admission?: Yes Plan: Get the serial cardiac enzymes to continues to monitor (5) Hypertension Qualifiers: Hypertension type: essential hypertension Qualified Code(s): I10 - Essential (primary) hypertension Is this a current diagnosis for this admission?: Yes Plan: Currently stable (6) Hypokalemia Is this a current diagnosis for this admission?: Yes Plan: Currently all stable (7) Dementia Qualifiers: Dementia type: unspecified type Dementia behavioral disturbance: without behavioral disturbance Qualified Code(s): F03.90 - Unspecified dementia without behavioral disturbance Is this a current diagnosis for this admission?: Yes Plan: Currently stable (8) Abdominal aortic aneurysm Qualifiers: Presence of rupture: without rupture Qualified Code(s): I71.4 - Abdominal aortic aneurysm, without rupture Is this a current diagnosis for this admission?: Yes Plan: CT abdomen and pelvis was done in 2018 in August with so some mild increasing the size of aneurysm will follow outpatients vascular surgery (9) Anxiety disorder Qualifiers: Anxiety disorder type: generalized anxiety disorder Qualified Code(s): F41.1 - Generalized anxiety disorder Is this a current diagnosis for this admission?: Yes Plan: Start the patient on the BuSpar 5 mg p.o. every 8 - Time Time Spent with patient: 15-24 minutes Medications reviewed and adjusted accordingly: Yes Anticipated discharge: SNF Within: Other - Inpatient Certification Medical Necessity: Need Close Monitoring Due to Risk of Patient Decompensation, Need for IV Antibiotics Post Hospital Care: D/C [place] [facility] Documentation - Plan Summary Plan Summary: Continues to current medication
[2017-10-28] MEDS: ATORVASTATIN CALCIUM 10 MG TABLET PO SCH (22:00)
[2017-10-28] MEDS: DONEPEZIL HCL 5 MG TABLET PO SCH (22:00)
[2017-10-28] MEDS ORDERED: CEFEPIME IV ONE (22:42)
[2017-10-28] MEDS ORDERED: D5W RTU IV ONE (22:42)
[2017-10-29] MEDS: LEVALBUTEROL HCL NEB 1.25 MG/3 ML AMPUL NEB SCH ×4 (01:33→20:25)
[2017-10-29] MEDS: LANSOPRAZOLE 15 MG TAB.RAP.DR PO SCH (05:16)
[2017-10-29] MEDS: BUSPIRONE HCL 10 MG TABLET PO SCH ×3 (05:16→23:11)
[2017-10-29] MEDS: APIXABAN 2.5 MG TABLET PO SCH ×2 (05:16→18:26)
[2017-10-29] MEDS: METHYLPREDNISOLONE INJ 125 MG/2 ML SDV IV SCH (05:17)
[2017-10-29 06:43] LABS: INTERNATIONAL RATION (INR) 1.61; PROTHROMBIN TIME 20.1 SEC (11.4-15.4)
[2017-10-29 06:45] LABS: ABSOLUTE LYMPHOCYTES (AUTO) 0.6 10^3/uL (0.5-4.7); ABSOLUTE MONOCYTES (AUTO) 0.4 10^3/uL (0.1-1.4); ABSOLUTE NEUT (AUTO) 9.4 10^3/uL (1.7-8.2); BASOPHILS % (AUTO) 0.2 % (0-2); HEMOGLOBIN 12.3 g/dL (12.0-15.5); LYMPHOCYTES % (AUTO) 5.8 % (13-45); MEAN CORPUSCULAR HEMOGLOBIN 31.4 pg (27.0-33.4); MEAN CORPUSCULAR HGB CONC 33.2 g/dL (32.0-36.0); MEAN CORPUSCULAR VOLUME 95 fl (80-97); MONOCYTES % (AUTO) 3.4 % (3-13); PLATELET COUNT 288 10^3/uL (150-450); RED CELL DISTRIBUTION WIDTH 17.5 % (11.5-14.0); SEGMENTED NEUTROPHILS % (AUTO) 90.6 % (42-78); TOTAL CELLS COUNTED % (AUTO) 100 %; WHITE BLOOD COUNT 10.4 10^3/uL (4.0-10.5)
[2017-10-29 06:48] LABS: ANION GAP 8 (5-19); BLOOD UREA NITROGEN 39 mg/dL (7-20); CALCIUM 9.2 mg/dL (8.4-10.2); CARBON DIOXIDE 29 mmol/L (22-30); CHLORIDE 106 mmol/L (98-107); GLUCOSE 162 mg/dL (75-110); POTASSIUM 3.9 mmol/L (3.6-5.0); SODIUM 142.9 mmol/L (137-145)
--- NOTE | 2017-10-29 08:40 | PDOC PROGRESS REPORT ---
Subjective Progress Note for:: 10/29/17 Subjective:: Patient is currently doing much better Patient's denied any chest pain denied any shortness of the breath Does walk with the physical therapy yesterday Reason For Visit: SOB,COPD,CHF Physical Exam Vital Signs: Temp Pulse Resp BP Pulse Ox 97.9 F 55 L 16 128/67 H 98 10/29/17 07:40 10/29/17 07:40 10/29/17 07:40 10/29/17 07:40 10/29/17 07:40 Intake & Output 10/28/17 10/29/17 10/30/17 06:59 06:59 06:59 Intake Total 1507 1595 Output Total 400 Balance 1507 1195 Weight 87.5 kg 87 kg General appearance: PRESENT: no acute distress, well-developed, well-nourished Head exam: PRESENT: atraumatic, normocephalic Eye exam: PRESENT: conjunctiva pink, EOMI, PERRLA. ABSENT: scleral icterus Ear exam: PRESENT: normal external ear exam Mouth exam: PRESENT: moist, tongue midline Neck exam: PRESENT: full ROM. ABSENT: carotid bruit, JVD, lymphadenopathy, thyromegaly Respiratory exam: PRESENT: clear to auscultation chela Cardiovascular exam: PRESENT: RRR. ABSENT: diastolic murmur, rubs, systolic murmur Pulses: PRESENT: normal dorsalis pedis pul, +2 pedal pulses bilateral Vascular exam: PRESENT: normal capillary refill GI/Abdominal exam: PRESENT: normal bowel sounds, soft. ABSENT: distended, guarding, mass, organolmegaly, rebound, tenderness Rectal exam: PRESENT: deferred Extremities exam: ABSENT: pedal edema Musculoskeletal exam: PRESENT: ambulatory Neurological exam: PRESENT: alert, awake, oriented to person, oriented to place , oriented to time, oriented to situation, CN II-XII grossly intact. ABSENT: motor sensory deficit Psychiatric exam: PRESENT: appropriate affect, normal mood. ABSENT: homicidal ideation, suicidal ideation Skin exam: PRESENT: dry, intact, warm. ABSENT: cyanosis, rash Results Laboratory Results: 10/29/17 06:16 10/29/17 06:16 10/29/17 10/29/17 06:16 06:16 WBC 10.4 RBC 3.90 Hgb 12.3 Hct 37.0 MCV 95 MCH 31.4 MCHC 33.2 RDW 17.5 H Plt Count 288 Seg Neutrophils % 90.6 H Lymphocytes % 5.8 L Monocytes % 3.4 Eosinophils % 0.0 Basophils % 0.2 Absolute Neutrophils 9.4 H Absolute Lymphocytes 0.6 Absolute Monocytes 0.4 Absolute Eosinophils 0.0 Absolute Basophils 0.0 Sodium 142.9 Potassium 3.9 Chloride 106 Carbon Dioxide 29 Anion Gap 8 BUN 39 H Creatinine 0.80 Est GFR ( Amer) > 60 Est GFR (Non-Af Amer) > 60 Glucose 162 H Calcium 9.2 Magnesium 2.1 10/26/17 14:20 Sputum Gram Stain - Final 10/26/17 14:20 Sputum Sputum Culture - Final Haemophilus Influenzae Normal Ania 10/26/17 10/26/17 10/26/17 13:37 13:37 18:59 Creatine Kinase 28 L 30 CK-MB (CK-2) 2.38 Troponin I 0.028 NT-Pro-B Natriuret Pep 10/26/17 10/27/17 10/27/17 18:59 00:43 00:43 Creatine Kinase 27 L CK-MB (CK-2) 2.38 2.44 Troponin I 0.017 0.013 NT-Pro-B Natriuret Pep 10/27/17 10/28/17 10/29/17 05:46 04:28 06:16 Creatine Kinase CK-MB (CK-2) Troponin I NT-Pro-B Natriuret Pep 4390 H 3800 H 1940 H Impressions: Chest/Abdomen CTA 10/26/17 00:00 IMPRESSION: No CT angio evidence of acute pulmonary emboli. Very heavily calcified aortic valve and heavily calcified coronary arteries. No thoracic aneurysm Very heavily calcified visceral arteries in the upper abdomen. Chest X-Ray 10/26/17 09:48 IMPRESSION: Cardiomegaly without evidence acute cardiopulmonary disease. Head CT 10/27/17 00:00 IMPRESSION: CHRONIC CHANGES OF ATROPHY AND MICROVASCULAR ISCHEMIA. NO ACUTE PROCESS. EVIDENCE OF ACUTE STROKE: NO. Assessment & Plan - Diagnosis (1) COPD (chronic obstructive pulmonary disease) Qualifiers: COPD type: chronic bronchitis Chronic bronchitis type: mucopurulent Qualified Code(s): J41.1 - Mucopurulent chronic bronchitis Is this a current diagnosis for this admission?: Yes Plan: We reduce the IV steroid continues to nebulizer (2) Atrial fibrillation Qualifiers: Atrial fibrillation type: chronic Qualified Code(s): I48.2 - Chronic atrial fibrillation Is this a current diagnosis for this admission?: Yes Plan: With a rapid ventricular response. At the [facility] p.o. get the echocardiogramSince the cardiology Patient's claim that she cannot afford the Eliquis because it is too expensive will check with the pharmacyIf is still expensive consider back to the Coumadin which is very difficult to monitor with this patient's noncompliance issues (3) Congestive heart failure (CHF) Qualifiers: Heart failure type: systolic Heart failure chronicity: acute on chronic Qualified Code(s): I50.23 - Acute on chronic systolic (congestive) heart failure Is this a current diagnosis for this admission?: Yes Plan: But the patient on Lasix 20 mg get the 2D echocardiogram (4) CAD (coronary artery disease) Qualifiers: Coronary Disease-Associated Artery/Lesion type: unspecified vessel or lesion type Is this a current diagnosis for this admission?: Yes Plan: Get the serial cardiac enzymes to continues to monitor (5) Hypertension Qualifiers: Hypertension type: essential hypertension Qualified Code(s): I10 - Essential (primary) hypertension Is this a current diagnosis for this admission?: Yes Plan: Currently stable (6) Hypokalemia Is this a current diagnosis for this admission?: Yes Plan: Currently all resolved (7) Dementia Qualifiers: Dementia type: unspecified type Dementia behavioral disturbance: without behavioral disturbance Qualified Code(s): F03.90 - Unspecified dementia without behavioral disturbance Is this a current diagnosis for this admission?: Yes Plan: Currently stable (8) Abdominal aortic aneurysm Qualifiers: Presence of rupture: without rupture Qualified Code(s): I71.4 - Abdominal aortic aneurysm, without rupture Is this a current diagnosis for this admission?: Yes Plan: CT abdomen and pelvis was done in 2018 in August with so some mild increasing the size of aneurysm will follow outpatients vascular surgery (9) Anxiety disorder Qualifiers: Anxiety disorder type: generalized anxiety disorder Qualified Code(s): F41.1 - Generalized anxiety disorder Is this a current diagnosis for this admission?: Yes Plan: Start the patient on the BuSpar 5 mg p.o. every 8 - Time Time Spent with patient: 15-24 minutes Medications reviewed and adjusted accordingly: Yes Anticipated discharge: Other Within: Other - Inpatient Certification Medical Necessity: Need Close Monitoring Due to Risk of Patient Decompensation Post Hospital Care: D/C Uat Tester Documentation - Plan Summary Plan Summary: Currently all improving will continues to current medications
[2017-10-29] MEDS: POLYETHYLENE GLYCOL 3350 POWDER 17 GM/1 PACKET PO SCH (09:07)
[2017-10-29] MEDS: FLUTICASONE NASAL SPRAY 50 MCG/SPRY 120 SPRAY/16 GM NASL SCH (09:07)
[2017-10-29] MEDS: CEFEPIME 1 GM/D5W RTU 1 GM/50 ML RTUPB IV SCH ×2 (09:07→23:09)
[2017-10-29] MEDS: BUDESONIDE/FORMOTEROL 160-4.5 MCG 60 PUFF/6 GM MDI IH SCH ×2 (09:09→23:11)
[2017-10-29] MEDS: FUROSEMIDE 20 MG TABLET PO SCH (09:10)
[2017-10-29] MEDS: DIGOXIN 0.125 MG TABLET PO SCH (09:10)
[2017-10-29] MEDS: SERTRALINE HCL 50 MG TABLET PO SCH (09:10)
[2017-10-29] MEDS: DILTIAZEM HCL 180 MG CAPSULE.CR PO SCH ×2 (09:11→23:10)
[2017-10-29] MEDS: ACETAMINOPHEN 325 MG TABLET PO PRN (11:54)
--- NOTE | 2017-10-29 12:56 | PDOC PROGRESS REPORT ---
Subjective Progress Note for:: 10/28/17 Subjective:: I am a little better Reason For Visit: SOB,COPD,CHF Physical Exam Vital Signs: Temp Pulse Resp BP Pulse Ox 97.5 F 101 H 18 134/70 H 97 10/29/17 11:10 10/29/17 11:10 10/29/17 11:10 10/29/17 11:10 10/29/17 11:10 Intake & Output 10/28/17 10/29/17 10/30/17 06:59 06:59 06:59 Intake Total 1507 1595 Output Total 400 Balance 1507 1195 Weight 87.5 kg 87 kg General appearance: PRESENT: no acute distress, cooperative, disheveled, obese Head exam: ABSENT: atraumatic, normocephalic Eye exam: PRESENT: conjunctiva pale, EOMI. ABSENT: nystagmus, periorbital swelling, scleral icterus Mouth exam: PRESENT: dry mucosa, neck supple, tongue midline Neck exam: ABSENT: carotid bruit, JVD, lymphadenopathy, thyromegaly, tracheal deviation, tracheostomy Respiratory exam: PRESENT: decreased breath sounds, prolonged expiratory phas, rhonchi, symmetrical, unlabored, wheezes. ABSENT: rales, retraction, stridor, tachypnea Cardiovascular exam: PRESENT: RRR, +S1, +S2 Pulses: PRESENT: normal radial pulses GI/Abdominal exam: PRESENT: diminished bowel sounds, soft Extremities exam: ABSENT: calf tenderness, clubbing Musculoskeletal exam: ABSENT: deformity, dislocation Neurological exam: PRESENT: awake Skin exam: PRESENT: dry, warm Results Laboratory Results: 10/29/17 06:16 10/29/17 06:16 10/29/17 10/29/17 06:16 06:16 WBC 10.4 RBC 3.90 Hgb 12.3 Hct 37.0 MCV 95 MCH 31.4 MCHC 33.2 RDW 17.5 H Plt Count 288 Seg Neutrophils % 90.6 H Lymphocytes % 5.8 L Monocytes % 3.4 Eosinophils % 0.0 Basophils % 0.2 Absolute Neutrophils 9.4 H Absolute Lymphocytes 0.6 Absolute Monocytes 0.4 Absolute Eosinophils 0.0 Absolute Basophils 0.0 Sodium 142.9 Potassium 3.9 Chloride 106 Carbon Dioxide 29 Anion Gap 8 BUN 39 H Creatinine 0.80 Est GFR ( Amer) > 60 Est GFR (Non-Af Amer) > 60 Glucose 162 H Calcium 9.2 Magnesium 2.1 10/26/17 14:20 Sputum Gram Stain - Final 10/26/17 14:20 Sputum Sputum Culture - Final Haemophilus Influenzae Normal Ania 10/26/17 10/26/17 10/26/17 13:37 13:37 18:59 Creatine Kinase 28 L 30 CK-MB (CK-2) 2.38 Troponin I 0.028 NT-Pro-B Natriuret Pep 10/26/17 10/27/17 10/27/17 18:59 00:43 00:43 Creatine Kinase 27 L CK-MB (CK-2) 2.38 2.44 Troponin I 0.017 0.013 NT-Pro-B Natriuret Pep 10/27/17 10/28/17 10/29/17 05:46 04:28 06:16 Creatine Kinase CK-MB (CK-2) Troponin I NT-Pro-B Natriuret Pep 4390 H 3800 H 1940 H Impressions: Chest/Abdomen CTA 10/26/17 00:00 IMPRESSION: No CT angio evidence of acute pulmonary emboli. Very heavily calcified aortic valve and heavily calcified coronary arteries. No thoracic aneurysm Very heavily calcified visceral arteries in the upper abdomen. Chest X-Ray 10/26/17 09:48 IMPRESSION: Cardiomegaly without evidence acute cardiopulmonary disease. Head CT 10/27/17 00:00 IMPRESSION: CHRONIC CHANGES OF ATROPHY AND MICROVASCULAR ISCHEMIA. NO ACUTE PROCESS. EVIDENCE OF ACUTE STROKE: NO. Assessment & Plan - Diagnosis (1) Anxiety disorder Qualifiers: Anxiety disorder type: generalized anxiety disorder Qualified Code(s): F41.1 - Generalized anxiety disorder Is this a current diagnosis for this admission?: Yes (2) COPD (chronic obstructive pulmonary disease) Qualifiers: COPD type: chronic bronchitis Chronic bronchitis type: mucopurulent Qualified Code(s): J41.1 - Mucopurulent chronic bronchitis Is this a current diagnosis for this admission?: Yes Plan: bronchodialator (3) Congestive heart failure (CHF) Qualifiers: Heart failure type: systolic Heart failure chronicity: acute on chronic Qualified Code(s): I50.23 - Acute on chronic systolic (congestive) heart failure Is this a current diagnosis for this admission?: Yes (4) Dementia Qualifiers: Dementia type: unspecified type Dementia behavioral disturbance: without behavioral disturbance Qualified Code(s): F03.90 - Unspecified dementia without behavioral disturbance Is this a current diagnosis for this admission?: Yes
[2017-10-29] MEDS: METHYLPREDNISOLONE INJ 40 MG/1 ML SDV IV SCH ×2 (14:53→23:11)
--- NOTE | 2017-10-29 19:11 | PDOC PROGRESS REPORT ---
Subjective Progress Note for:: 10/29/17 Subjective:: Patient today feeling better. She is sitting at the bedside chair and is cheerful today. Still remains in atrial fibrillation. Heart rate somewhat better controlled. Patient still short of breath but significantly improved. Heart rate under better control on increased dose of Cardizem and digoxin. Patient remains in atrial fibrillation. Patient also noted to have congestive heart failure. 2D echo shows significant enlargement of the right ventricle with some RV systolic dysfunction. Reason For Visit: SOB,COPD,CHF Physical Exam Vital Signs: Temp Pulse Resp BP Pulse Ox 98.0 F 115 H 18 134/62 H 93 10/29/17 15:36 10/29/17 15:36 10/29/17 15:36 10/29/17 15:36 10/29/17 15:36 Intake & Output 10/28/17 10/29/17 10/30/17 06:59 06:59 06:59 Intake Total 1507 1595 760 Output Total 400 150 Balance 1507 1195 610 Weight 87.5 kg 87 kg Exam: GENERAL: well-nourished and in no acute distress. Alert and oriented x 2 HEAD: Atraumatic, normocephalic. EYES: Pupils equal round and reactive to light, extraocular movements intact, sclera anicteric, conjunctiva are normal. ENT: TMs normal, nares patent, oropharynx clear without exudates. Moist mucous membranes. No oral ulcerations or bleeding gums noted NECK: supple without lymphadenopathy. Trachea is central. No cervical or axillary lymphadenopathy noted. Carotids are 2+, JVD WNL LUNGS: Respiration seems nonlabored, no significant accessory muscle action noted. Mild bilateral wheezes rales or rhonchi noted. No significant dullness noted on percussion. CHEST: Palpation of the chest wall shows no significant chest wall tenderness. No other significant abnormalities noted. HEART: [place] [employer], No PSH, 1/6 BOGDAN aortic area, 1/6 sauced[place] systolic murmur mitral area, no rubs, no gallops. ABDOMEN: Soft, no significant tenderness appreciated, normoactive bowel sounds. No guarding, no rebound. No rigidity noted . No masses appreciated. EXTREMITIES: Pedal pulses are 1-2+, no calf tenderness noted. No clubbing or cyanosis.trace to 1+ pedal edema noted NEUROLOGICAL: Focused neurological exam showed no significant neurologic deficit. Normal speech, no focal weakness appreciated. PSYCH: Normal mood, normal affect. Judgment and insight not checked. SKIN: No significant ecchymosis, rash, ulcerations or signs of pruritus noted. MUSCULOSKELETAL EXAM: No significant joint swelling noted. Results Laboratory Results: 10/29/17 06:16 10/29/17 06:16 10/29/17 10/29/17 06:16 06:16 WBC 10.4 RBC 3.90 Hgb 12.3 Hct 37.0 MCV 95 MCH 31.4 MCHC 33.2 RDW 17.5 H Plt Count 288 Seg Neutrophils % 90.6 H Lymphocytes % 5.8 L Monocytes % 3.4 Eosinophils % 0.0 Basophils % 0.2 Absolute Neutrophils 9.4 H Absolute Lymphocytes 0.6 Absolute Monocytes 0.4 Absolute Eosinophils 0.0 Absolute Basophils 0.0 Sodium 142.9 Potassium 3.9 Chloride 106 Carbon Dioxide 29 Anion Gap 8 BUN 39 H Creatinine 0.80 Est GFR ( Amer) > 60 Est GFR (Non-Af Amer) > 60 Glucose 162 H Calcium 9.2 Magnesium 2.1 10/26/17 10/26/17 10/26/17 13:37 13:37 18:59 Creatine Kinase 28 L 30 CK-MB (CK-2) 2.38 Troponin I 0.028 NT-Pro-B Natriuret Pep 10/26/17 10/27/17 10/27/17 18:59 00:43 00:43 Creatine Kinase 27 L CK-MB (CK-2) 2.38 2.44 Troponin I 0.017 0.013 NT-Pro-B Natriuret Pep 10/27/17 10/28/17 10/29/17 05:46 04:28 06:16 Creatine Kinase CK-MB (CK-2) Troponin I NT-Pro-B Natriuret Pep 4390 H 3800 H 1940 H EKG Comments: Telemetry shows atrial fibrillation with controlled ventricular response. Impressions: Chest/Abdomen CTA 10/26/17 00:00 IMPRESSION: No CT angio evidence of acute pulmonary emboli. Very heavily calcified aortic valve and heavily calcified coronary arteries. No thoracic aneurysm Very heavily calcified visceral arteries in the upper abdomen. Chest X-Ray 10/26/17 09:48 IMPRESSION: Cardiomegaly without evidence acute cardiopulmonary disease. Head CT 10/27/17 00:00 IMPRESSION: CHRONIC CHANGES OF ATROPHY AND MICROVASCULAR ISCHEMIA. NO ACUTE PROCESS. EVIDENCE OF ACUTE STROKE: NO. Assessment & Plan - Diagnosis (1) Atrial fibrillation Qualifiers: Atrial fibrillation type: chronic Qualified Code(s): I48.2 - Chronic atrial fibrillation Is this a current diagnosis for this admission?: Yes (2) COPD (chronic obstructive pulmonary disease) Qualifiers: COPD type: chronic bronchitis Chronic bronchitis type: mucopurulent Qualified Code(s): J41.1 - Mucopurulent chronic bronchitis Is this a current diagnosis for this admission?: Yes (3) Congestive heart failure (CHF) Qualifiers: Heart failure type: systolic Heart failure chronicity: acute on chronic Qualified Code(s): I50.23 - Acute on chronic systolic (congestive) heart failure Is this a current diagnosis for this admission?: Yes (4) Acute bronchitis Qualifiers: Bronchitis organism: unspecified organism Qualified Code(s): J20.9 - Acute bronchitis, unspecified Is this a current diagnosis for this admission?: Yes (5) Coronary artery disease Qualifiers: Coronary Disease-Associated Artery/Lesion type: [place] artery [place] vs. transplanted heart: [place] heart Associated angina: angina presence unspecified Qualified Code(s): I25.10 - Atherosclerotic heart disease of [place] coronary artery without angina pectoris Is this a current diagnosis for this admission?: Yes - Notes Notes: Atrial fibrillation: Seems to be chronic. Recommend rate control and chronic anticoagulation. Consider rate control with calcium channel chichi in view of significant COPD. Currently on increased Cardizem CD to 180 p.o. twice daily and also added digoxin at low-dose. Continue at this dose today with additional IV Cardizem as needed. If heart rate is still increased, will consider increasing Cardizem CD to 240 mg p.o. twice daily. COPD: Continue antibiotic therapy, a steroid therapy, bronchodilator therapy as required. Congestive heart failure: Possibly diastolic and possibly right-sided. Patient on Lasix 20 mg p.o. daily. Recommend follow-up chest x-rays. Acute bronchitis: Continue antibiotic therapy. Coronary artery disease: Patient noted to have significant coronary calcification on CTA. Recommend chronic anticoagulation to be continued for A. fib, statin statin therapy, beta-chichi/rate lowering calcium channel chichi therapy etc. consider adding a small dose of beta-chichi when wheezing has improved. - Time Time with patient: 15-25 minutes - CODE STATUS : was discussed, patient remains DO NOT RESUSCITATE. Surrogate decision-maker unchanged. Multiple medical problems were addressed. More than 50% of the time spent coordinating care, discussing management plans with involved caregivers. Management plans discussed with involved personnels. Medical decision making was of moderate to high complexity, patient's has multiple comorbidities. Medications reviewed and adjusted accordingly: Yes
[2017-10-29] MEDS: ATORVASTATIN CALCIUM 10 MG TABLET PO SCH (23:10)
[2017-10-29] MEDS: MELATONIN 3 MG TABLET PO PRN (23:10)
[2017-10-29] MEDS: DONEPEZIL HCL 5 MG TABLET PO SCH (23:11)
[2017-10-30] MEDS: LEVALBUTEROL HCL NEB 1.25 MG/3 ML AMPUL NEB SCH ×4 (02:01→20:31)
[2017-10-30 05:38] LABS: HEMATOCRIT 37.3 % (36.0-47.0); HEMOGLOBIN 12.3 g/dL (12.0-15.5); MEAN CORPUSCULAR HEMOGLOBIN 31.2 pg (27.0-33.4); MEAN CORPUSCULAR VOLUME 95 fl (80-97); PLATELET COUNT 271 10^3/uL (150-450); RED BLOOD COUNT 3.94 10^6/uL (3.72-5.28); RED CELL DISTRIBUTION WIDTH 17.6 % (11.5-14.0); WHITE BLOOD COUNT 12.7 10^3/uL (4.0-10.5)
[2017-10-30 05:46] LABS: INTERNATIONAL RATION (INR) 1.62; PROTHROMBIN TIME 20.2 SEC (11.4-15.4)
[2017-10-30 05:56] LABS: ANION GAP 9 (5-19); BLOOD UREA NITROGEN 38 mg/dL (7-20); CALCIUM 9.3 mg/dL (8.4-10.2); CARBON DIOXIDE 31 mmol/L (22-30); CHLORIDE 103 mmol/L (98-107); GLUCOSE 188 mg/dL (75-110); POTASSIUM 3.8 mmol/L (3.6-5.0); SODIUM 143.2 mmol/L (137-145)
[2017-10-30 06:18] LABS: ABSOLUTE MONOCYTES # (MANUAL) 0.3 10^3/uL (0.1-1.4); ABSOLUTE NEUTROPHILS# (MANUAL) 11.4 10^3/uL (1.7-8.2); BAND NEUTROPHILS % (MANUAL) 1 % (3-5); BASOPHILS % (MANUAL) 0 % (0-2); EOSINOPHILS % (MANUAL) 0 % (0-6); LYMPHOCYTES % (MANUAL) 8 % (13-45); METAMYELOCYTES % (MANUAL) 1 % (0); MONOCYTES % (MANUAL) 2 % (3-13); SEGMENTED NEUTROPHILS % (MAN) 88 % (42-78); TOTAL CELLS COUNTED 100
[2017-10-30 06:20] LABS: ANISOCYTOSIS 1+; OVALOCYTES SLIGHT; PLATELET COMMENT ADEQUATE; POIKILOCYTOSIS SLIGHT; POLYCHROMASIA SLIGHT; TOXIC GRANULATION SLIGHT; TOXIC VACUOLATION PRESENT
[2017-10-30] MEDS: APIXABAN 2.5 MG TABLET PO SCH ×2 (06:45→17:11)
[2017-10-30] MEDS: BUSPIRONE HCL 10 MG TABLET PO SCH ×3 (06:45→22:53)
[2017-10-30] MEDS: METHYLPREDNISOLONE INJ 40 MG/1 ML SDV IV SCH (06:45)
[2017-10-30] MEDS: LANSOPRAZOLE 15 MG TAB.RAP.DR PO SCH (06:45)
--- NOTE | 2017-10-30 10:20 | PDOC PROGRESS REPORT ---
Subjective Progress Note for:: 10/30/17 Subjective:: Patient is currently doing much better Patient's denied any chest pain denied any shortness of the breath She does walk with the physical therapy and did very well Reason For Visit: SOB,COPD,CHF Physical Exam Vital Signs: Temp Pulse Resp BP Pulse Ox 98.3 F 98 18 126/71 H 96 10/30/17 07:40 10/30/17 08:47 10/30/17 08:47 10/30/17 07:40 10/30/17 08:47 Intake & Output 10/29/17 10/30/17 10/31/17 06:59 06:59 06:59 Intake Total 1595 1077 Output Total 400 150 Balance 1195 927 Weight 87 kg 87.8 kg General appearance: PRESENT: no acute distress, well-developed, well-nourished Head exam: PRESENT: atraumatic, normocephalic Eye exam: PRESENT: conjunctiva pink, EOMI, PERRLA. ABSENT: scleral icterus Ear exam: PRESENT: normal external ear exam Mouth exam: PRESENT: moist, tongue midline Neck exam: PRESENT: full ROM. ABSENT: carotid bruit, JVD, lymphadenopathy, thyromegaly Respiratory exam: PRESENT: clear to auscultation chela Cardiovascular exam: PRESENT: RRR. ABSENT: diastolic murmur, rubs, systolic murmur Pulses: PRESENT: normal dorsalis pedis pul, +2 pedal pulses bilateral Vascular exam: PRESENT: normal capillary refill GI/Abdominal exam: PRESENT: normal bowel sounds, soft. ABSENT: distended, guarding, mass, organolmegaly, rebound, tenderness Rectal exam: PRESENT: deferred Extremities exam: ABSENT: pedal edema Musculoskeletal exam: PRESENT: ambulatory Neurological exam: PRESENT: alert, awake, oriented to person, oriented to place , oriented to time, oriented to situation, CN II-XII grossly intact. ABSENT: motor sensory deficit Psychiatric exam: PRESENT: appropriate affect, normal mood. ABSENT: homicidal ideation, suicidal ideation Skin exam: PRESENT: dry, intact, warm. ABSENT: cyanosis, rash Results Laboratory Results: 10/30/17 04:45 10/30/17 04:45 10/30/17 10/30/17 04:45 04:45 WBC 12.7 H RBC 3.94 Hgb 12.3 Hct 37.3 MCV 95 MCH 31.2 MCHC 33.0 RDW 17.6 H Plt Count 271 Seg Neutrophils % Not Reportable Lymphocytes % Not Reportable Monocytes % Not Reportable Eosinophils % Not Reportable Basophils % Not Reportable Absolute Neutrophils Not Reportable Absolute Lymphocytes Not Reportable Absolute Monocytes Not Reportable Absolute Eosinophils Not Reportable Absolute Basophils Not Reportable Sodium 143.2 Potassium 3.8 Chloride 103 Carbon Dioxide 31 H Anion Gap 9 BUN 38 H Creatinine 0.81 Est GFR ( Amer) > 60 Est GFR (Non-Af Amer) > 60 Glucose 188 H Calcium 9.3 10/26/17 10/26/17 10/26/17 13:37 13:37 18:59 Creatine Kinase 28 L 30 CK-MB (CK-2) 2.38 Troponin I 0.028 NT-Pro-B Natriuret Pep 10/26/17 10/27/17 10/27/17 18:59 00:43 00:43 Creatine Kinase 27 L CK-MB (CK-2) 2.38 2.44 Troponin I 0.017 0.013 NT-Pro-B Natriuret Pep 10/27/17 10/28/17 10/29/17 05:46 04:28 06:16 Creatine Kinase CK-MB (CK-2) Troponin I NT-Pro-B Natriuret Pep 4390 H 3800 H 1940 H Impressions: Chest/Abdomen CTA 10/26/17 00:00 IMPRESSION: No CT angio evidence of acute pulmonary emboli. Very heavily calcified aortic valve and heavily calcified coronary arteries. No thoracic aneurysm Very heavily calcified visceral arteries in the upper abdomen. Chest X-Ray 10/26/17 09:48 IMPRESSION: Cardiomegaly without evidence acute cardiopulmonary disease. Head CT 10/27/17 00:00 IMPRESSION: CHRONIC CHANGES OF ATROPHY AND MICROVASCULAR ISCHEMIA. NO ACUTE PROCESS. EVIDENCE OF ACUTE STROKE: NO. Assessment & Plan - Diagnosis (1) COPD (chronic obstructive pulmonary disease) Qualifiers: COPD type: chronic bronchitis Chronic bronchitis type: mucopurulent Qualified Code(s): J41.1 - Mucopurulent chronic bronchitis Is this a current diagnosis for this admission?: Yes Plan: Currently doing well will cut down the IV steroid to the p.o. steroid (2) Atrial fibrillation Qualifiers: Atrial fibrillation type: chronic Qualified Code(s): I48.2 - Chronic atrial fibrillation Is this a current diagnosis for this admission?: Yes Plan: With a rapid ventricular response. At the [facility] p.o. get the echocardiogramSince the cardiology Patient's claim that she cannot afford the Eliquis because it is too expensive will check with the pharmacyIf is still expensive consider back to the Coumadin which is very difficult to monitor with this patient's noncompliance issues (3) Congestive heart failure (CHF) Qualifiers: Heart failure type: systolic Heart failure chronicity: acute on chronic Qualified Code(s): I50.23 - Acute on chronic systolic (congestive) heart failure Is this a current diagnosis for this admission?: Yes Plan: But the patient on Lasix 20 mg get the 2D echocardiogram (4) CAD (coronary artery disease) Qualifiers: Coronary Disease-Associated Artery/Lesion type: unspecified vessel or lesion type Is this a current diagnosis for this admission?: Yes Plan: Get the serial cardiac enzymes to continues to monitor (5) Hypertension Qualifiers: Hypertension type: essential hypertension Qualified Code(s): I10 - Essential (primary) hypertension Is this a current diagnosis for this admission?: Yes Plan: Currently stable (6) Hypokalemia Is this a current diagnosis for this admission?: Yes Plan: Currently all resolved (7) Dementia Qualifiers: Dementia type: unspecified type Dementia behavioral disturbance: without behavioral disturbance Qualified Code(s): F03.90 - Unspecified dementia without behavioral disturbance Is this a current diagnosis for this admission?: Yes Plan: Currently stable (8) Abdominal aortic aneurysm Qualifiers: Presence of rupture: without rupture Qualified Code(s): I71.4 - Abdominal aortic aneurysm, without rupture Is this a current diagnosis for this admission?: Yes Plan: CT abdomen and pelvis was done in 2018 in August with so some mild increasing the size of aneurysm will follow outpatients vascular surgery (9) Anxiety disorder Qualifiers: Anxiety disorder type: generalized anxiety disorder Qualified Code(s): F41.1 - Generalized anxiety disorder Is this a current diagnosis for this admission?: Yes Plan: Start the patient on the BuSpar 5 mg p.o. every 8 - Time Time Spent with patient: 15-24 minutes Medications reviewed and adjusted accordingly: Yes Anticipated discharge: Other Within: within 24 hours - Inpatient Certification Medical Necessity: Need Close Monitoring Due to Risk of Patient Decompensation Post Hospital Care: D/C Head Custodian Documentation - Plan Summary Plan Summary: Currently doing well hopefully will discharge the patient's next 24 hours
[2017-10-30] MEDS: CEFEPIME 1 GM/D5W RTU 1 GM/50 ML RTUPB IV SCH ×2 (10:52→22:53)
[2017-10-30] MEDS: POLYETHYLENE GLYCOL 3350 POWDER 17 GM/1 PACKET PO SCH (10:53)
[2017-10-30] MEDS: BUDESONIDE/FORMOTEROL 160-4.5 MCG 60 PUFF/6 GM MDI IH SCH ×2 (10:54→22:53)
[2017-10-30] MEDS: FLUTICASONE NASAL SPRAY 50 MCG/SPRY 120 SPRAY/16 GM NASL SCH (10:54)
[2017-10-30] MEDS: SERTRALINE HCL 50 MG TABLET PO SCH (10:55)
[2017-10-30] MEDS: FUROSEMIDE 20 MG TABLET PO SCH (10:56)
[2017-10-30] MEDS: DILTIAZEM HCL 180 MG CAPSULE.CR PO SCH (10:57)
[2017-10-30] MEDS: DIGOXIN 0.125 MG TABLET PO SCH (10:58)
[2017-10-30] MEDS: PREDNISONE 20 MG TABLET PO SCH ×2 (10:58→17:11)
--- NOTE | 2017-10-30 11:15 | PDOC PROGRESS REPORT ---
Subjective Progress Note for:: 10/30/17 Subjective:: Patient today feeling better. She is sitting at the bedside chair and is cheerful today. Still remains in atrial fibrillation. Heart rate somewhat better controlled. Patient still short of breath but significantly improved. Heart rate under better control on increased dose of Cardizem and digoxin. Patient remains in atrial fibrillation. Heart rate still somewhat elevated intermittently. Patient also noted to have congestive heart failure. 2D echo shows significant enlargement of the right ventricle with some RV systolic dysfunction. Reason For Visit: SOB,COPD,CHF Physical Exam Vital Signs: Temp Pulse Resp BP Pulse Ox 98.3 F 98 18 126/71 H 96 10/30/17 07:40 10/30/17 08:47 10/30/17 08:47 10/30/17 07:40 10/30/17 08:47 Intake & Output 10/29/17 10/30/17 10/31/17 06:59 06:59 06:59 Intake Total 1595 1077 Output Total 400 150 Balance 1195 927 Weight 87 kg 87.8 kg Exam: GENERAL: well-nourished and in no acute distress. Alert and oriented x3. Patient noted to be at times pleasantly confused. HEAD: Atraumatic, normocephalic. EYES: Pupils equal round and reactive to light, extraocular movements intact, sclera anicteric, conjunctiva are normal. ENT: TMs normal, nares patent, oropharynx clear without exudates. Moist mucous membranes. No oral ulcerations or bleeding gums noted NECK: supple without lymphadenopathy. Trachea is central. No cervical or axillary lymphadenopathy noted. Carotids are 2+, JVD WNL LUNGS: Respiration seems nonlabored, no significant accessory muscle action noted. Mild bilateral coarse wheezes rales or rhonchi noted. No significant dullness noted on percussion. CHEST: Palpation of the chest wall shows no significant chest wall tenderness. No other significant abnormalities noted. HEART: [place] [employer]IST, No PSH, 1/6 BOGDAN aortic area, 1/6 saucedo systolic murmur mitral area, no rubs, no gallops. ABDOMEN: Soft, no significant tenderness appreciated, normoactive bowel sounds. No guarding, no rebound. No rigidity noted . No masses appreciated. EXTREMITIES: Pedal pulses are 1-2+, no calf tenderness noted. No clubbing or cyanosis.trace to 1+ pedal edema noted NEUROLOGICAL: Focused neurological exam showed no significant neurologic deficit. Normal speech, no focal weakness appreciated. PSYCH: Normal mood, normal affect. Judgment and insight within normal limits. SKIN: No significant ecchymosis, rash, ulcerations or signs of pruritus noted. MUSCULOSKELETAL EXAM: No significant joint swelling noted. Results Laboratory Results: 10/30/17 04:45 10/30/17 04:45 10/30/17 10/30/17 04:45 04:45 WBC 12.7 H RBC 3.94 Hgb 12.3 Hct 37.3 MCV 95 MCH 31.2 MCHC 33.0 RDW 17.6 H Plt Count 271 Seg Neutrophils % Not Reportable Lymphocytes % Not Reportable Monocytes % Not Reportable Eosinophils % Not Reportable Basophils % Not Reportable Absolute Neutrophils Not Reportable Absolute Lymphocytes Not Reportable Absolute Monocytes Not Reportable Absolute Eosinophils Not Reportable Absolute Basophils Not Reportable Sodium 143.2 Potassium 3.8 Chloride 103 Carbon Dioxide 31 H Anion Gap 9 BUN 38 H Creatinine 0.81 Est GFR ( Amer) > 60 Est GFR (Non-Af Amer) > 60 Glucose 188 H Calcium 9.3 10/26/17 10/26/17 10/26/17 13:37 13:37 18:59 Creatine Kinase 28 L 30 CK-MB (CK-2) 2.38 Troponin I 0.028 NT-Pro-B Natriuret Pep 10/26/17 10/27/17 10/27/17 18:59 00:43 00:43 Creatine Kinase 27 L CK-MB (CK-2) 2.38 2.44 Troponin I 0.017 0.013 NT-Pro-B Natriuret Pep 10/27/17 10/28/17 10/29/17 05:46 04:28 06:16 Creatine Kinase CK-MB (CK-2) Troponin I NT-Pro-B Natriuret Pep 4390 H 3800 H 1940 H EKG Comments: Atrial fibrillation with reasonably controlled heart rate response but intermittently tachycardic. Impressions: Chest/Abdomen CTA 10/26/17 00:00 IMPRESSION: No CT angio evidence of acute pulmonary emboli. Very heavily calcified aortic valve and heavily calcified coronary arteries. No thoracic aneurysm Very heavily calcified visceral arteries in the upper abdomen. Chest X-Ray 10/26/17 09:48 IMPRESSION: Cardiomegaly without evidence acute cardiopulmonary disease. Head CT 10/27/17 00:00 IMPRESSION: CHRONIC CHANGES OF ATROPHY AND MICROVASCULAR ISCHEMIA. NO ACUTE PROCESS. EVIDENCE OF ACUTE STROKE: NO. Assessment & Plan - Diagnosis (1) Atrial fibrillation Qualifiers: Atrial fibrillation type: chronic Qualified Code(s): I48.2 - Chronic atrial fibrillation Is this a current diagnosis for this admission?: Yes (2) COPD (chronic obstructive pulmonary disease) Qualifiers: COPD type: chronic bronchitis Chronic bronchitis type: mucopurulent Qualified Code(s): J41.1 - Mucopurulent chronic bronchitis Is this a current diagnosis for this admission?: Yes (3) Congestive heart failure (CHF) Qualifiers: Heart failure type: systolic Heart failure chronicity: acute on chronic Qualified Code(s): I50.23 - Acute on chronic systolic (congestive) heart failure Is this a current diagnosis for this admission?: Yes (4) Acute bronchitis Qualifiers: Bronchitis organism: unspecified organism Qualified Code(s): J20.9 - Acute bronchitis, unspecified Is this a current diagnosis for this admission?: Yes (5) Coronary artery disease Qualifiers: Coronary Disease-Associated Artery/Lesion type: [place] artery [place] vs. transplanted heart: [place] heart Associated angina: angina presence unspecified Qualified Code(s): I25.10 - Atherosclerotic heart disease of [place] coronary artery without angina pectoris Is this a current diagnosis for this admission?: Yes - Notes Notes: Atrial fibrillation: Seems to be chronic. Recommend rate control and chronic anticoagulation. Consider rate control with calcium channel chichi in view of significant COPD. Heart rate still noted to be somewhat increased. Will increase Cardizem CD to 240 mg p.o. twice daily. COPD: Continue antibiotic therapy, a steroid therapy, bronchodilator therapy as required. Congestive heart failure: Possibly diastolic and possibly right-sided. Patient on Lasix 20 mg p.o. daily. Recommend follow-up chest x-rays. BNP level coming down nicely. Recommend predischarge chest x-ray and BNP level. Acute bronchitis: Continue antibiotic therapy. Coronary artery disease: Patient noted to have significant coronary calcification on CTA. Recommend chronic anticoagulation to be continued for A. fib, statin statin therapy, beta-chichi/rate lowering calcium channel chichi therapy etc. consider adding a small dose of beta-chichi when wheezing has improved. - Time Time with patient: 15-25 minutes - CODE STATUS was discussed, patient remains DNR. Surrogate decision-maker unchanged. Multiple medical problems were addressed. More than 50% of the time spent coordinating care, discussing management plans with involved caregivers. Management plans discussed with involved personnels. Medical decision making was of moderate to high complexity , patient's has multiple comorbidities. Medications reviewed and adjusted accordingly: Yes
[2017-10-30 17:16] LABS: APPEARANCE,URINE CLOUDY; BILIRUBIN,URINE NEGATIVE (NEGATIVE); COLOR,URINE YELLOW; GLUCOSE, URINE NEGATIVE (NEGATIVE); KETONES,URINE NEGATIVE (NEGATIVE); LEUKOCYTE ESTERASE,URINE NEGATIVE (NEGATIVE); NITRITE,URINE NEGATIVE (NEGATIVE); PROTEIN,URINE NEGATIVE (NEGATIVE); UROBILINOGEN,URINE NEGATIVE mg/dL (<2.0)
[2017-10-30] MEDS ORDERED: DILTIAZEM HCL 120 MG CAP.SR.24H PO SCH (22:00)
[2017-10-30] MEDS: DONEPEZIL HCL 5 MG TABLET PO SCH (22:48)
[2017-10-30] MEDS: MELATONIN 3 MG TABLET PO PRN (22:48)
[2017-10-30] MEDS: ATORVASTATIN CALCIUM 10 MG TABLET PO SCH (22:48)
[2017-10-30] MEDS: DILTIAZEM HCL 240 MG CAPSULE.CR PO SCH (22:53)
[2017-10-31] MEDS: LEVALBUTEROL HCL NEB 1.25 MG/3 ML AMPUL NEB SCH ×4 (02:08→20:18)
[2017-10-31 06:17] LABS: ANION GAP 8 (5-19); BLOOD UREA NITROGEN 36 mg/dL (7-20); CALCIUM 9.1 mg/dL (8.4-10.2); CARBON DIOXIDE 32 mmol/L (22-30); CHLORIDE 101 mmol/L (98-107); GLUCOSE 156 mg/dL (75-110); POTASSIUM 4.5 mmol/L (3.6-5.0)
[2017-10-31 06:19] LABS: INTERNATIONAL RATION (INR) 1.37; PROTHROMBIN TIME 17.7 SEC (11.4-15.4)
[2017-10-31] MEDS: BUSPIRONE HCL 10 MG TABLET PO SCH ×3 (06:38→21:15)
[2017-10-31] MEDS: APIXABAN 2.5 MG TABLET PO SCH ×2 (06:38→17:28)
[2017-10-31] MEDS: LANSOPRAZOLE 15 MG TAB.RAP.DR PO SCH (06:38)
[2017-10-31 08:11] LABS: HEMATOCRIT 39.7 % (36.0-47.0); MEAN CORPUSCULAR HEMOGLOBIN 31.2 pg (27.0-33.4); MEAN CORPUSCULAR HGB CONC 32.9 g/dL (32.0-36.0); MEAN CORPUSCULAR VOLUME 95 fl (80-97); PLATELET COUNT 261 10^3/uL (150-450); RED BLOOD COUNT 4.19 10^6/uL (3.72-5.28); RED CELL DISTRIBUTION WIDTH 17.1 % (11.5-14.0); WHITE BLOOD COUNT 15.9 10^3/uL (4.0-10.5)
[2017-10-31 08:33] LABS: ABSOLUTE LYMPHOCYTES# (MANUAL) 0.8 10^3/uL (0.5-4.7); ABSOLUTE MONOCYTES # (MANUAL) 0.8 10^3/uL (0.1-1.4); ABSOLUTE NEUTROPHILS# (MANUAL) 14.3 10^3/uL (1.7-8.2); BASOPHILS % (MANUAL) 0 % (0-2); EOSINOPHILS % (MANUAL) 0 % (0-6); LYMPHOCYTES % (MANUAL) 5 % (13-45); MONOCYTES % (MANUAL) 5 % (3-13); SEGMENTED NEUTROPHILS % (MAN) 90 % (42-78); TOTAL CELLS COUNTED 100
[2017-10-31 08:34] LABS: ANISOCYTOSIS 1+; OVALOCYTES SLIGHT; PLATELET COMMENT ADEQUATE; POIKILOCYTOSIS SLIGHT; TOXIC GRANULATION SLIGHT
--- NOTE | 2017-10-31 10:31 | PDOC PROGRESS REPORT ---
Subjective Progress Note for:: 10/31/17 Subjective:: Patient is currently doing well Patients ask for the enema She has denied any chest pain denied any shortness of the breath Reason For Visit: SOB,COPD,CHF Physical Exam Vital Signs: Temp Pulse Resp BP Pulse Ox 97.6 F 106 H 16 138/83 H 98 10/31/17 07:14 10/31/17 07:14 10/31/17 07:14 10/31/17 07:14 10/31/17 07:14 Intake & Output 10/30/17 10/31/17 11/01/17 06:59 06:59 06:59 Intake Total 1077 981 Output Total 150 Balance 927 981 Weight 87.8 kg 89.5 kg General appearance: PRESENT: no acute distress, well-developed, well-nourished Head exam: PRESENT: atraumatic, normocephalic Eye exam: PRESENT: conjunctiva pink, EOMI, PERRLA. ABSENT: scleral icterus Ear exam: PRESENT: normal external ear exam Mouth exam: PRESENT: moist, tongue midline Neck exam: PRESENT: full ROM. ABSENT: carotid bruit, JVD, lymphadenopathy, thyromegaly Respiratory exam: PRESENT: clear to auscultation chela Cardiovascular exam: PRESENT: RRR. ABSENT: diastolic murmur, rubs, systolic murmur Pulses: PRESENT: normal [place] pedis pul, +2 pedal pulses bilateral Vascular exam: PRESENT: normal capillary refill GI/Abdominal exam: PRESENT: normal bowel sounds, soft. ABSENT: distended, guarding, mass, organolmegaly, rebound, tenderness Rectal exam: PRESENT: deferred Extremities exam: ABSENT: pedal edema Musculoskeletal exam: PRESENT: ambulatory Neurological exam: PRESENT: alert, awake, oriented to person, oriented to place , oriented to time, oriented to situation, CN II-XII grossly intact. ABSENT: motor sensory deficit Psychiatric exam: PRESENT: appropriate affect, normal mood. ABSENT: homicidal ideation, suicidal ideation Skin exam: PRESENT: dry, intact, warm. ABSENT: cyanosis, rash Results Laboratory Results: 10/31/17 08:03 10/31/17 04:36 10/30/17 10/31/17 10/31/17 17:00 04:36 04:36 WBC Cancelled RBC Cancelled Hgb Cancelled Hct Cancelled MCV Cancelled MCH Cancelled MCHC Cancelled RDW Cancelled Plt Count Cancelled Seg Neutrophils % Cancelled Lymphocytes % Cancelled Monocytes % Cancelled Eosinophils % Cancelled Basophils % Cancelled Absolute Neutrophils Cancelled Absolute Lymphocytes Cancelled Absolute Monocytes Cancelled Absolute Eosinophils Cancelled Absolute Basophils Cancelled Sodium 141.0 Potassium 4.5 Chloride 101 Carbon Dioxide 32 H Anion Gap 8 BUN 36 H Creatinine 0.83 Est GFR ( Amer) > 60 Est GFR (Non-Af Amer) > 60 Glucose 156 H Calcium 9.1 Urine Color YELLOW Urine Appearance CLOUDY Urine pH 5.0 Ur Specific [place] 1.020 Urine Protein NEGATIVE Urine Glucose (UA) NEGATIVE Urine Ketones NEGATIVE Urine Blood NEGATIVE Urine Nitrite NEGATIVE Ur Leukocyte Esterase NEGATIVE Urine WBC (Auto) 1 Urine RBC (Auto) 1 10/31/17 08:03 WBC 15.9 H RBC 4.19 Hgb 13.0 Hct 39.7 MCV 95 MCH 31.2 MCHC 32.9 RDW 17.1 H Plt Count 261 Seg Neutrophils % Not Reportable Lymphocytes % Not Reportable Monocytes % Not Reportable Eosinophils % Not Reportable Basophils % Not Reportable Absolute Neutrophils Not Reportable Absolute Lymphocytes Not Reportable Absolute Monocytes Not Reportable Absolute Eosinophils Not Reportable Absolute Basophils Not Reportable Sodium Potassium Chloride Carbon Dioxide Anion Gap BUN Creatinine Est GFR ( Amer) Est GFR (Non-Af Amer) Glucose Calcium Urine Color Urine Appearance Urine pH Ur Specific [place] Urine Protein Urine Glucose (UA) Urine Ketones Urine Blood Urine Nitrite Ur Leukocyte Esterase Urine WBC (Auto) Urine RBC (Auto) 10/26/17 10/26/17 10/26/17 13:37 13:37 18:59 Creatine Kinase 28 L 30 CK-MB (CK-2) 2.38 Troponin I 0.028 NT-Pro-B Natriuret Pep 10/26/17 10/27/17 10/27/17 18:59 00:43 00:43 Creatine Kinase 27 L CK-MB (CK-2) 2.38 2.44 Troponin I 0.017 0.013 NT-Pro-B Natriuret Pep 10/27/17 10/28/17 10/29/17 05:46 04:28 06:16 Creatine Kinase CK-MB (CK-2) Troponin I NT-Pro-B Natriuret Pep 4390 H 3800 H 1940 H Impressions: Chest/Abdomen CTA 10/26/17 00:00 IMPRESSION: No CT angio evidence of acute pulmonary emboli. Very heavily calcified aortic valve and heavily calcified coronary arteries. No thoracic aneurysm Very heavily calcified visceral arteries in the upper abdomen. Chest X-Ray 10/26/17 09:48 IMPRESSION: Cardiomegaly without evidence acute cardiopulmonary disease. Head CT 10/27/17 00:00 IMPRESSION: CHRONIC CHANGES OF ATROPHY AND MICROVASCULAR ISCHEMIA. NO ACUTE PROCESS. EVIDENCE OF ACUTE STROKE: NO. Assessment & Plan - Diagnosis (1) COPD (chronic obstructive pulmonary disease) Qualifiers: COPD type: chronic bronchitis Chronic bronchitis type: mucopurulent Qualified Code(s): J41.1 - Mucopurulent chronic bronchitis Is this a current diagnosis for this admission?: Yes Plan: Currently doing well will cut down the IV steroid to the p.o. steroid (2) Atrial fibrillation Qualifiers: Atrial fibrillation type: chronic Qualified Code(s): I48.2 - Chronic atrial fibrillation Is this a current diagnosis for this admission?: Yes Plan: With a rapid ventricular response. At the [facility] p.o. get the echocardiogramSince the cardiology Patient's claim that she cannot afford the Eliquis because it is too expensive will check with the pharmacyIf is still expensive consider back to the Coumadin which is very difficult to monitor with this patient's noncompliance issues (3) Congestive heart failure (CHF) Qualifiers: Heart failure type: systolic Heart failure chronicity: acute on chronic Qualified Code(s): I50.23 - Acute on chronic systolic (congestive) heart failure Is this a current diagnosis for this admission?: Yes Plan: But the patient on Lasix 20 mg get the 2D echocardiogram (4) CAD (coronary artery disease) Qualifiers: Coronary Disease-Associated Artery/Lesion type: unspecified vessel or lesion type Is this a current diagnosis for this admission?: Yes Plan: Get the serial cardiac enzymes to continues to monitor (5) Hypertension Qualifiers: Hypertension type: essential hypertension Qualified Code(s): I10 - Essential (primary) hypertension Is this a current diagnosis for this admission?: Yes Plan: Currently stable (6) Hypokalemia Is this a current diagnosis for this admission?: Yes Plan: Currently all resolved (7) Dementia Qualifiers: Dementia type: unspecified type Dementia behavioral disturbance: without behavioral disturbance Qualified Code(s): F03.90 - Unspecified dementia without behavioral disturbance Is this a current diagnosis for this admission?: Yes Plan: Currently stable (8) Abdominal aortic aneurysm Qualifiers: Presence of rupture: without rupture Qualified Code(s): I71.4 - Abdominal aortic aneurysm, without rupture Is this a current diagnosis for this admission?: Yes Plan: CT abdomen and pelvis was done in 2018 in August with so some mild increasing the size of aneurysm will follow outpatients vascular surgery (9) Anxiety disorder Qualifiers: Anxiety disorder type: generalized anxiety disorder Qualified Code(s): F41.1 - Generalized anxiety disorder Is this a current diagnosis for this admission?: Yes Plan: Start the patient on the BuSpar 5 mg p.o. 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
[2017-10-31] MEDS: POLYETHYLENE GLYCOL 3350 POWDER 17 GM/1 PACKET PO SCH (10:48)
[2017-10-31] MEDS: DILTIAZEM HCL 240 MG CAPSULE.CR PO SCH (10:50)
[2017-10-31] MEDS: PREDNISONE 20 MG TABLET PO SCH (10:50)
[2017-10-31] MEDS: CEFEPIME 1 GM/D5W RTU 1 GM/50 ML RTUPB IV SCH ×2 (10:50→21:21)
[2017-10-31] MEDS: SERTRALINE HCL 50 MG TABLET PO SCH (10:51)
[2017-10-31] MEDS: DIGOXIN 0.125 MG TABLET PO SCH (10:51)
[2017-10-31] MEDS: FUROSEMIDE 20 MG TABLET PO SCH (10:51)
[2017-10-31] MEDS: BUDESONIDE/FORMOTEROL 160-4.5 MCG 60 PUFF/6 GM MDI IH SCH ×2 (10:53→21:16)
[2017-10-31] MEDS: FLUTICASONE NASAL SPRAY 50 MCG/SPRY 120 SPRAY/16 GM NASL SCH (10:54)
--- NOTE | 2017-10-31 14:43 | PDOC PROGRESS REPORT ---
Subjective Progress Note for:: 10/31/17 Subjective:: Patient today feeling better. She is however complaining of being constipated and is awaiting for an enema. Currently comfortably laying in bed watching TV. Still remains in atrial fibrillation. Heart rate somewhat better controlled, however still has intermittent high rates.. Patient still short of breath but significantly improved. Have placed patient on Cardizem CD 240 mg p.o. twice daily and also remains on digoxin. Patient remains in atrial fibrillation. Heart rate still somewhat elevated intermittently. Patient also noted to have congestive heart failure. Reason For Visit: SOB,COPD,CHF Physical Exam Vital Signs: Temp Pulse Resp BP Pulse Ox 97.5 F 105 H 20 142/75 H 95 10/31/17 11:03 10/31/17 11:03 10/31/17 11:03 10/31/17 11:03 10/31/17 11:03 Intake & Output 10/30/17 10/31/17 11/01/17 06:59 06:59 06:59 Intake Total 1077 981 474 Output Total 150 Balance 927 981 474 Weight 87.8 kg 89.5 kg Exam: GENERAL: well-nourished and in no acute distress. Alert and oriented x3 HEAD: Atraumatic, normocephalic. EYES: Pupils equal round and reactive to light, extraocular movements intact, sclera anicteric, conjunctiva are normal. ENT: TMs normal, nares patent, oropharynx clear without exudates. Moist mucous membranes. No oral ulcerations or bleeding gums noted NECK: supple without lymphadenopathy. Trachea is central. No cervical or axillary lymphadenopathy noted. Carotids are 2+, JVD WNL LUNGS: Respiration seems nonlabored, no significant accessory muscle action noted. Mild bilateral coarse wheezes rales or rhonchi noted. No significant dullness noted on percussion. CHEST: Palpation of the chest wall shows no significant chest wall tenderness. No other significant abnormalities noted. HEART: [place] [employer] S[employer]KER, No PSH, 1/6 BOGDAN aortic area, 1/6 saucedo systolic murmur mitral area, no rubs, no gallops. ABDOMEN: Soft, no significant tenderness appreciated, normoactive bowel sounds. No guarding, no rebound. No rigidity noted . No masses appreciated. EXTREMITIES: Pedal pulses are 1-2+, no calf tenderness noted. No clubbing or cyanosis.1+ pedal edema noted NEUROLOGICAL: Focused neurological exam showed no significant neurologic deficit. Normal speech, no focal weakness appreciated. PSYCH: Normal mood, normal affect. Judgment and insight within normal limits. SKIN: No significant ecchymosis, rash, ulcerations or signs of pruritus noted. MUSCULOSKELETAL EXAM: No significant joint swelling noted. Results Laboratory Results: 10/31/17 08:03 10/31/17 04:36 10/30/17 10/31/17 10/31/17 17:00 04:36 04:36 WBC Cancelled RBC Cancelled Hgb Cancelled Hct Cancelled MCV Cancelled MCH Cancelled MCHC Cancelled RDW Cancelled Plt Count Cancelled Seg Neutrophils % Cancelled Lymphocytes % Cancelled Monocytes % Cancelled Eosinophils % Cancelled Basophils % Cancelled Absolute Neutrophils Cancelled Absolute Lymphocytes Cancelled Absolute Monocytes Cancelled Absolute Eosinophils Cancelled Absolute Basophils Cancelled Sodium 141.0 Potassium 4.5 Chloride 101 Carbon Dioxide 32 H Anion Gap 8 BUN 36 H Creatinine 0.83 Est GFR ( Amer) > 60 Est GFR (Non-Af Amer) > 60 Glucose 156 H Calcium 9.1 Urine Color YELLOW Urine Appearance CLOUDY Urine pH 5.0 Ur Specific [place] 1.020 Urine Protein NEGATIVE Urine Glucose (UA) NEGATIVE Urine Ketones NEGATIVE Urine Blood NEGATIVE Urine Nitrite NEGATIVE Ur Leukocyte Esterase NEGATIVE Urine WBC (Auto) 1 Urine RBC (Auto) 1 10/31/17 08:03 WBC 15.9 H RBC 4.19 Hgb 13.0 Hct 39.7 MCV 95 MCH 31.2 MCHC 32.9 RDW 17.1 H Plt Count 261 Seg Neutrophils % Not Reportable Lymphocytes % Not Reportable Monocytes % Not Reportable Eosinophils % Not Reportable Basophils % Not Reportable Absolute Neutrophils Not Reportable Absolute Lymphocytes Not Reportable Absolute Monocytes Not Reportable Absolute Eosinophils Not Reportable Absolute Basophils Not Reportable Sodium Potassium Chloride Carbon Dioxide Anion Gap BUN Creatinine Est GFR ( Amer) Est GFR (Non-Af Amer) Glucose Calcium Urine Color Urine Appearance Urine pH Ur Specific [place] Urine Protein Urine Glucose (UA) Urine Ketones Urine Blood Urine Nitrite Ur Leukocyte Esterase Urine WBC (Auto) Urine RBC (Auto) 10/26/17 13:37 Blood Blood Culture - Final NO GROWTH IN 5 DAYS 10/26/17 10/26/17 10/26/17 13:37 13:37 18:59 Creatine Kinase 28 L 30 CK-MB (CK-2) 2.38 Troponin I 0.028 NT-Pro-B Natriuret Pep 10/26/17 10/27/17 10/27/17 18:59 00:43 00:43 Creatine Kinase 27 L CK-MB (CK-2) 2.38 2.44 Troponin I 0.017 0.013 NT-Pro-B Natriuret Pep 10/27/17 10/28/17 10/29/17 05:46 04:28 06:16 Creatine Kinase CK-MB (CK-2) Troponin I NT-Pro-B Natriuret Pep 4390 H 3800 H 1940 H Impressions: Chest/Abdomen CTA 10/26/17 00:00 IMPRESSION: No CT angio evidence of acute pulmonary emboli. Very heavily calcified aortic valve and heavily calcified coronary arteries. No thoracic aneurysm Very heavily calcified visceral arteries in the upper abdomen. Chest X-Ray 10/26/17 09:48 IMPRESSION: Cardiomegaly without evidence acute cardiopulmonary disease. Head CT 10/27/17 00:00 IMPRESSION: CHRONIC CHANGES OF ATROPHY AND MICROVASCULAR ISCHEMIA. NO ACUTE PROCESS. EVIDENCE OF ACUTE STROKE: NO. Assessment & Plan - Diagnosis (1) Atrial fibrillation Qualifiers: Atrial fibrillation type: chronic Qualified Code(s): I48.2 - Chronic atrial fibrillation Is this a current diagnosis for this admission?: Yes (2) COPD (chronic obstructive pulmonary disease) Qualifiers: COPD type: chronic bronchitis Chronic bronchitis type: mucopurulent Qualified Code(s): J41.1 - Mucopurulent chronic bronchitis Is this a current diagnosis for this admission?: Yes (3) Congestive heart failure (CHF) Qualifiers: Heart failure type: systolic Heart failure chronicity: acute on chronic Qualified Code(s): I50.23 - Acute on chronic systolic (congestive) heart failure Is this a current diagnosis for this admission?: Yes (4) Acute bronchitis Qualifiers: Bronchitis organism: unspecified organism Qualified Code(s): J20.9 - Acute bronchitis, unspecified Is this a current diagnosis for this admission?: Yes (5) Coronary artery disease Qualifiers: Coronary Disease-Associated Artery/Lesion type: [place] artery [place] vs. transplanted heart: [place] heart Associated angina: angina presence unspecified Qualified Code(s): I25.10 - Atherosclerotic heart disease of [place] coronary artery without angina pectoris Is this a current diagnosis for this admission?: Yes - Notes Notes: Atrial fibrillation: Seems to be chronic. Recommend rate control and chronic anticoagulation. Consider rate control with calcium channel chichi in view of significant COPD. Heart rate still noted to be somewhat increased. Currently on increased dose of Cardizem CD to 240 mg p.o. twice daily. Continue digoxin at current dose. If heart rate still increased after 5 doses of Cardizem, may consider adding small dose of beta-chichi. COPD: Continue antibiotic therapy, a steroid therapy, bronchodilator therapy as required. Congestive heart failure: Possibly diastolic and possibly right-sided. Patient on Lasix 20 mg p.o. daily. Recommend follow-up chest x-rays. BNP level coming down nicely. Recommend predischarge chest x-ray and BNP level. Acute bronchitis: Continue antibiotic therapy. Coronary artery disease: Patient noted to have significant coronary calcification on CTA. Recommend chronic anticoagulation to be continued for A. fib, statin statin therapy, beta-chichi/rate lowering calcium channel chichi therapy etc. consider adding a small dose of beta-chichi when wheezing has improved. - Time Time with patient: 15-25 minutes - CODE STATUS : was discussed, patient remains DO NOT RESUSCITATE. Surrogate decision-maker unchanged. Multiple medical problems were addressed. More than 50% of the time spent coordinating care, discussing management plans with involved caregivers. Management plans discussed with involved personnels. Medical decision making was of moderate to high complexity, patient's has multiple comorbidities. Medications reviewed and adjusted accordingly: Yes
[2017-10-31] MEDS: ATORVASTATIN CALCIUM 10 MG TABLET PO SCH (21:12)
[2017-10-31] MEDS: MELATONIN 3 MG TABLET PO PRN (21:14)
[2017-10-31] MEDS: DONEPEZIL HCL 5 MG TABLET PO SCH (21:15)
[2017-10-31] MEDS ORDERED: DOCUSATE SODIUM 100 MG CAPSULE PO ONE (22:00)
[2017-11-01] MEDS: LEVALBUTEROL HCL NEB 1.25 MG/3 ML AMPUL NEB SCH ×4 (02:14→20:29)
[2017-11-01] MEDS: DILTIAZEM HCL 240 MG CAPSULE.CR PO SCH ×2 (02:54→11:30)
[2017-11-01] MEDS: BUSPIRONE HCL 10 MG TABLET PO SCH ×3 (05:45→21:30)
[2017-11-01] MEDS: LANSOPRAZOLE 15 MG TAB.RAP.DR PO SCH (05:45)
[2017-11-01] MEDS: APIXABAN 2.5 MG TABLET PO SCH ×2 (05:46→17:42)
[2017-11-01 06:30] LABS: ABSOLUTE LYMPHOCYTES (AUTO) 0.9 10^3/uL (0.5-4.7); ABSOLUTE MONOCYTES (AUTO) 0.6 10^3/uL (0.1-1.4); ABSOLUTE NEUT (AUTO) 10.2 10^3/uL (1.7-8.2); BASOPHILS % (AUTO) 0.1 % (0-2); EOSINOPHILS % (AUTO) 0.1 % (0-6); HEMOGLOBIN 12.6 g/dL (12.0-15.5); LYMPHOCYTES % (AUTO) 7.9 % (13-45); MEAN CORPUSCULAR HEMOGLOBIN 31.4 pg (27.0-33.4); MEAN CORPUSCULAR HGB CONC 33.2 g/dL (32.0-36.0); MEAN CORPUSCULAR VOLUME 95 fl (80-97); MONOCYTES % (AUTO) 5.3 % (3-13); PLATELET COUNT 230 10^3/uL (150-450); RED BLOOD COUNT 4.02 10^6/uL (3.72-5.28); RED CELL DISTRIBUTION WIDTH 17.3 % (11.5-14.0); SEGMENTED NEUTROPHILS % (AUTO) 86.6 % (42-78); TOTAL CELLS COUNTED % (AUTO) 100 %; WHITE BLOOD COUNT 11.8 10^3/uL (4.0-10.5)
[2017-11-01 06:34] LABS: ANION GAP 6 (5-19); BLOOD UREA NITROGEN 30 mg/dL (7-20); CALCIUM 8.5 mg/dL (8.4-10.2); CARBON DIOXIDE 34 mmol/L (22-30); CHLORIDE 102 mmol/L (98-107); GLUCOSE 184 mg/dL (75-110); POTASSIUM 3.7 mmol/L (3.6-5.0); SODIUM 141.7 mmol/L (137-145)
--- NOTE | 2017-11-01 09:45 | PDOC PROGRESS REPORT ---
Subjective Progress Note for:: 11/01/17 Subjective:: Patient is currently doing fair Is complaining for rash on the right inner thigh which according to the patient' s flat on and off denied any pain denied any H Patient had a positive bowel movement Still needed oxygen and still very weak per nursing staff but patient insists she did not want to go to the rehab Reason For Visit: SOB,COPD,CHF Physical Exam Vital Signs: Temp Pulse Resp BP Pulse Ox 97.7 F 102 H 16 141/80 H 95 11/01/17 07:09 11/01/17 08:10 11/01/17 08:10 11/01/17 07:09 11/01/17 08:10 Intake & Output 10/31/17 11/01/17 11/02/17 06:59 06:59 06:59 Intake Total 981 1461 Balance 981 1461 Weight 89.5 kg 88 kg General appearance: PRESENT: no acute distress, well-developed, well-nourished Head exam: PRESENT: atraumatic, normocephalic Eye exam: PRESENT: conjunctiva pink, EOMI, PERRLA. ABSENT: scleral icterus Ear exam: PRESENT: normal external ear exam Mouth exam: PRESENT: moist, tongue midline Neck exam: PRESENT: full ROM. ABSENT: carotid bruit, JVD, lymphadenopathy, thyromegaly Respiratory exam: PRESENT: clear to auscultation chela Cardiovascular exam: PRESENT: RRR. ABSENT: diastolic murmur, rubs, systolic murmur Pulses: PRESENT: normal dorsalis pedis pul, +2 pedal pulses bilateral Vascular exam: PRESENT: normal capillary refill GI/Abdominal exam: PRESENT: normal bowel sounds, soft. ABSENT: distended, guarding, mass, organolmegaly, rebound, tenderness Rectal exam: PRESENT: deferred Extremities exam: ABSENT: pedal edema Additional comments: On the right inner thigh is a raised erythematous lesions scattered Neurological exam: PRESENT: alert, awake, oriented to person, oriented to place , oriented to time, oriented to situation, CN II-XII grossly intact. ABSENT: motor sensory deficit Psychiatric exam: PRESENT: appropriate affect, normal mood. ABSENT: homicidal ideation, suicidal ideation Skin exam: PRESENT: dry, intact, warm. ABSENT: cyanosis, rash Results Laboratory Results: 11/01/17 05:04 11/01/17 05:04 11/01/17 11/01/17 05:04 05:04 WBC 11.8 H RBC 4.02 Hgb 12.6 Hct 38.0 MCV 95 MCH 31.4 MCHC 33.2 RDW 17.3 H Plt Count 230 Seg Neutrophils % 86.6 H Lymphocytes % 7.9 L Monocytes % 5.3 Eosinophils % 0.1 Basophils % 0.1 Absolute Neutrophils 10.2 H Absolute Lymphocytes 0.9 Absolute Monocytes 0.6 Absolute Eosinophils 0.0 Absolute Basophils 0.0 Sodium 141.7 Potassium 3.7 Chloride 102 Carbon Dioxide 34 H Anion Gap 6 BUN 30 H Creatinine 0.67 Est GFR ( Amer) > 60 Est GFR (Non-Af Amer) > 60 Glucose 184 H Calcium 8.5 10/26/17 13:37 Blood Blood Culture - Final NO GROWTH IN 5 DAYS 10/26/17 10/26/17 10/26/17 13:37 13:37 18:59 Creatine Kinase 28 L 30 CK-MB (CK-2) 2.38 Troponin I 0.028 NT-Pro-B Natriuret Pep 10/26/17 10/27/17 10/27/17 18:59 00:43 00:43 Creatine Kinase 27 L CK-MB (CK-2) 2.38 2.44 Troponin I 0.017 0.013 NT-Pro-B Natriuret Pep 10/27/17 10/28/17 10/29/17 05:46 04:28 06:16 Creatine Kinase CK-MB (CK-2) Troponin I NT-Pro-B Natriuret Pep 4390 H 3800 H 1940 H Impressions: Chest/Abdomen CTA 10/26/17 00:00 IMPRESSION: No CT angio evidence of acute pulmonary emboli. Very heavily calcified aortic valve and heavily calcified coronary arteries. No thoracic aneurysm Very heavily calcified visceral arteries in the upper abdomen. Chest X-Ray 10/26/17 09:48 IMPRESSION: Cardiomegaly without evidence acute cardiopulmonary disease. Head CT 10/27/17 00:00 IMPRESSION: CHRONIC CHANGES OF ATROPHY AND MICROVASCULAR ISCHEMIA. NO ACUTE PROCESS. EVIDENCE OF ACUTE STROKE: NO. Assessment & Plan - Diagnosis (1) COPD (chronic obstructive pulmonary disease) Qualifiers: COPD type: chronic bronchitis Chronic bronchitis type: mucopurulent Qualified Code(s): J41.1 - Mucopurulent chronic bronchitis Is this a current diagnosis for this admission?: Yes Plan: Currently doing well will cut down the IV steroid to the p.o. steroid (2) Atrial fibrillation Qualifiers: Atrial fibrillation type: chronic Qualified Code(s): I48.2 - Chronic atrial fibrillation Is this a current diagnosis for this admission?: Yes Plan: With a rapid ventricular response. At the [facility] p.o. get the echocardiogramSince the cardiology Patient's claim that she cannot afford the Eliquis because it is too expensive will check with the pharmacyIf is still expensive consider back to the Coumadin which is very difficult to monitor with this patient's noncompliance issues (3) Congestive heart failure (CHF) Qualifiers: Heart failure type: systolic Heart failure chronicity: acute on chronic Qualified Code(s): I50.23 - Acute on chronic systolic (congestive) heart failure Is this a current diagnosis for this admission?: Yes Plan: But the patient on Lasix 20 mg get the 2D echocardiogram (4) CAD (coronary artery disease) Qualifiers: Coronary Disease-Associated Artery/Lesion type: unspecified vessel or lesion type Is this a current diagnosis for this admission?: Yes Plan: Get the serial cardiac enzymes to continues to monitor (5) Hypertension Qualifiers: Hypertension type: essential hypertension Qualified Code(s): I10 - Essential (primary) hypertension Is this a current diagnosis for this admission?: Yes Plan: Currently stable (6) Hypokalemia Is this a current diagnosis for this admission?: Yes Plan: Currently all resolved (7) Dementia Qualifiers: Dementia type: unspecified type Dementia behavioral disturbance: without behavioral disturbance Qualified Code(s): F03.90 - Unspecified dementia without behavioral disturbance Is this a current diagnosis for this admission?: Yes Plan: Currently stable (8) Abdominal aortic aneurysm Qualifiers: Presence of rupture: without rupture Qualified Code(s): I71.4 - Abdominal aortic aneurysm, without rupture Is this a current diagnosis for this admission?: Yes Plan: CT abdomen and pelvis was done in 2018 in August with so some mild increasing the size of aneurysm will follow outpatients vascular surgery (9) Anxiety disorder Qualifiers: Anxiety disorder type: generalized anxiety disorder Qualified Code(s): F41.1 - Generalized anxiety disorder Is this a current diagnosis for this admission?: Yes Plan: Start the patient on the BuSpar 5 mg p.o. every 8 (10) Rash Is this a current diagnosis for this admission?: Yes Plan: Very nonspecific and is most likely due to the diaper related but will get the Lotrisone creams and and D cream
[2017-11-01] MEDS: POLYETHYLENE GLYCOL 3350 POWDER 17 GM/1 PACKET PO SCH (11:27)
[2017-11-01] MEDS ORDERED: CLOTRIMAZOLE/BETAMETHASONE DIP CREAM 15 GM TOP ONE ×2 (11:30→19:45)
[2017-11-01] MEDS: SERTRALINE HCL 50 MG TABLET PO SCH (11:34)
[2017-11-01] MEDS: FUROSEMIDE 20 MG TABLET PO SCH (11:35)
[2017-11-01] MEDS: DIGOXIN 0.125 MG TABLET PO SCH (11:35)
--- NOTE | 2017-11-01 11:35 | RADIOLOGY REPORT (SQ) ---
EXAM DESCRIPTION: CHEST SINGLE VIEW COMPLETED DATE/TIME: 11/01/2017 11:18 am REASON FOR STUDY: copd COMPARISON: 10/26/2017 EXAM PARAMETERS: NUMBER OF VIEWS: One view. TECHNIQUE: Single frontal radiographic view of the chest acquired. RADIATION DOSE: NA LIMITATIONS: None. FINDINGS: LUNGS AND PLEURA: No opacities, masses or pneumothorax. No pleural effusion. MEDIASTINUM AND HILAR STRUCTURES: No masses. Contour normal. HEART AND VASCULAR STRUCTURES: Heart normal in size. Normal vasculature. BONES: No acute findings. HARDWARE: Venous access catheter unchanged. OTHER: No other significant finding. IMPRESSION: NO ACUTE RADIOGRAPHIC FINDING IN THE CHEST. TECHNICAL DOCUMENTATION: JOB ID: [id number] [employer]- All Rights Reserved Reading location - IP/workstation name: [email or web address]
[2017-11-01] MEDS: BUDESONIDE/FORMOTEROL 160-4.5 MCG 60 PUFF/6 GM MDI IH SCH ×2 (11:36→21:29)
[2017-11-01] MEDS: PREDNISONE 20 MG TABLET PO SCH (11:36)
[2017-11-01] MEDS: FLUTICASONE NASAL SPRAY 50 MCG/SPRY 120 SPRAY/16 GM NASL SCH (11:36)
[2017-11-01] MEDS: CEFEPIME 1 GM/D5W RTU 1 GM/50 ML RTUPB IV SCH ×2 (11:37→21:28)
[2017-11-01] MEDS ORDERED: DILTIAZEM HCL 180 MG CAPSULE.CR PO ONE (12:00)
--- NOTE | 2017-11-01 12:32 | PDOC PROGRESS REPORT ---
Subjective Progress Note for:: 11/01/17 Subjective:: Patient today feeling better. Patient claims she had large bowel movement yesterday following an enema. Patient's son at bedside. Currently comfortably laying in bed watching TV. Still remains in atrial fibrillation. Heart rate somewhat better controlled. Last night Cardizem CD was held because of presumed bradycardia but went telemetry strips were reviewed, her heart rate was noted to be 60. Patient still short of breath but significantly improved. Have reduced Cardizem CD to 180 mg p.o. twice daily and also remains on digoxin. Patient remains in atrial fibrillation. Heart rate still somewhat elevated intermittently. Patient also noted to have congestive heart failure. However this is compensated. Chest x-ray reviewed shows no residual CHF. Reason For Visit: SOB,COPD,CHF Physical Exam Vital Signs: Temp Pulse Resp BP Pulse Ox 97.7 F 102 H 16 141/80 H 95 11/01/17 07:09 11/01/17 08:10 11/01/17 08:10 11/01/17 07:09 11/01/17 08:10 Intake & Output 10/31/17 11/01/17 11/02/17 06:59 06:59 06:59 Intake Total 981 1461 Balance 981 1461 Weight 89.5 kg 88 kg Exam: GENERAL: well-nourished and in no acute distress. Alert and oriented x3 HEAD: Atraumatic, normocephalic. EYES: Pupils equal round and reactive to light, extraocular movements intact, sclera anicteric, conjunctiva are normal. ENT: TMs normal, nares patent, oropharynx clear without exudates. Moist mucous membranes. No oral ulcerations or bleeding gums noted NECK: supple without lymphadenopathy. Trachea is central. No cervical or axillary lymphadenopathy noted. Carotids are 2+, JVD WNL LUNGS: Respiration seems nonlabored, no significant accessory muscle action noted. Breath sounds clear to auscultation bilaterally and equal noted. No wheezes rales or rhonchi noted. No significant dullness noted on percussion. CHEST: Palpation of the chest wall shows no significant chest wall tenderness. No other significant abnormalities noted. HEART: [employer], No PSH, 1/6 BOGDAN aortic area, 1/6 saucedo systolic murmur mitral area, no rubs, no gallops. ABDOMEN: Soft, no significant tenderness appreciated, normoactive bowel sounds. No guarding, no rebound. No rigidity noted . No masses appreciated. EXTREMITIES: Pedal pulses are 1-2+, no calf tenderness noted. No clubbing or cyanosis.trace to 1+ pedal edema noted NEUROLOGICAL: Focused neurological exam showed no significant neurologic deficit. Normal speech, no focal weakness appreciated. PSYCH: Normal mood, normal affect. Judgment and insight within normal limits. SKIN: No significant ecchymosis, patient is noted to have a rash in the right groin area. MUSCULOSKELETAL EXAM: No significant joint swelling noted. Results Laboratory Results: 11/01/17 05:04 11/01/17 05:04 11/01/17 11/01/17 05:04 05:04 WBC 11.8 H RBC 4.02 Hgb 12.6 Hct 38.0 MCV 95 MCH 31.4 MCHC 33.2 RDW 17.3 H Plt Count 230 Seg Neutrophils % 86.6 H Lymphocytes % 7.9 L Monocytes % 5.3 Eosinophils % 0.1 Basophils % 0.1 Absolute Neutrophils 10.2 H Absolute Lymphocytes 0.9 Absolute Monocytes 0.6 Absolute Eosinophils 0.0 Absolute Basophils 0.0 Sodium 141.7 Potassium 3.7 Chloride 102 Carbon Dioxide 34 H Anion Gap 6 BUN 30 H Creatinine 0.67 Est GFR ( Amer) > 60 Est GFR (Non-Af Amer) > 60 Glucose 184 H Calcium 8.5 10/26/17 13:37 Blood Blood Culture - Final NO GROWTH IN 5 DAYS 10/26/17 10/26/17 10/26/17 13:37 13:37 18:59 Creatine Kinase 28 L 30 CK-MB (CK-2) 2.38 Troponin I 0.028 NT-Pro-B Natriuret Pep 10/26/17 10/27/17 10/27/17 18:59 00:43 00:43 Creatine Kinase 27 L CK-MB (CK-2) 2.38 2.44 Troponin I 0.017 0.013 NT-Pro-B Natriuret Pep 10/27/17 10/28/17 10/29/17 05:46 04:28 06:16 Creatine Kinase CK-MB (CK-2) Troponin I NT-Pro-B Natriuret Pep 4390 H 3800 H 1940 H EKG Comments: Telemetry strips shows atrial fibrillation with controlled ventricular response. Impressions: Chest/Abdomen CTA 10/26/17 00:00 IMPRESSION: No CT angio evidence of acute pulmonary emboli. Very heavily calcified aortic valve and heavily calcified coronary arteries. No thoracic aneurysm Very heavily calcified visceral arteries in the upper abdomen. Head CT 10/27/17 00:00 IMPRESSION: CHRONIC CHANGES OF ATROPHY AND MICROVASCULAR ISCHEMIA. NO ACUTE PROCESS. EVIDENCE OF ACUTE STROKE: NO. Chest X-Ray 11/01/17 00:00 IMPRESSION: NO ACUTE RADIOGRAPHIC FINDING IN THE CHEST. Assessment & Plan - Diagnosis (1) Atrial fibrillation Qualifiers: Atrial fibrillation type: chronic Qualified Code(s): I48.2 - Chronic atrial fibrillation Is this a current diagnosis for this admission?: Yes (2) COPD (chronic obstructive pulmonary disease) Qualifiers: COPD type: chronic bronchitis Chronic bronchitis type: mucopurulent Qualified Code(s): J41.1 - Mucopurulent chronic bronchitis Is this a current diagnosis for this admission?: Yes (3) Congestive heart failure (CHF) Qualifiers: Heart failure type: systolic Heart failure chronicity: acute on chronic Qualified Code(s): I50.23 - Acute on chronic systolic (congestive) heart failure Is this a current diagnosis for this admission?: Yes (4) Acute bronchitis Qualifiers: Bronchitis organism: unspecified organism Qualified Code(s): J20.9 - Acute bronchitis, unspecified Is this a current diagnosis for this admission?: Yes (5) Coronary artery disease Qualifiers: Coronary Disease-Associated Artery/Lesion type: resighini artery [place] vs. transplanted heart: resighini heart Associated angina: angina presence unspecified Qualified Code(s): I25.10 - Atherosclerotic heart disease of resighini coronary artery without angina pectoris Is this a current diagnosis for this admission?: Yes - Notes Notes: Have reduced Cardizem dose to 180 mg p.o. twice daily. Will check an EKG tomorrow morning and digoxin level tomorrow morning. Atrial fibrillation: Seems to be chronic. Recommend rate control and chronic anticoagulation. Consider rate control with calcium channel chichi in view of significant COPD. Currently on Cardizem therapy. Those are being adjusted. COPD: Continue antibiotic therapy, a steroid therapy, bronchodilator therapy as required. Congestive heart failure: Possibly diastolic and possibly right-sided. Patient on Lasix 20 mg p.o. daily. Recommend follow-up chest x-rays. BNP level coming down nicely. Chest x-ray shows resolution of CHF. Acute bronchitis: Continue antibiotic therapy. Coronary artery disease: Patient noted to have significant coronary calcification on CTA. Recommend chronic anticoagulation to be continued for A. fib, statin statin therapy, beta-chichi/rate lowering calcium channel chichi therapy etc. consider adding a small dose of beta-chichi when wheezing has improved. - Time Time with patient: 15-25 minutes - CODE STATUS was discussed, patient remains DNR. Surrogate decision-maker patient's son. Multiple medical problems were addressed. More than 50% of the time spent coordinating care, discussing management plans with involved caregivers. Management plans discussed with involved personnels. Medical decision making was of moderate to high complexity , patient's has multiple comorbidities. Medications reviewed and adjusted accordingly: Yes
[2017-11-01] MEDS: VALACYCLOVIR HCL 500 MG TABLET PO SCH ×2 (14:27→21:28)
[2017-11-01] MEDS: CLOTRIMAZOLE/BETAMETHASONE DIP CREAM 15 GM TOP SCH (17:42)
[2017-11-01] MEDS: ATORVASTATIN CALCIUM 10 MG TABLET PO SCH (21:29)
[2017-11-01] MEDS: MELATONIN 3 MG TABLET PO PRN (21:29)
[2017-11-01] MEDS: DILTIAZEM HCL 180 MG CAPSULE.CR PO SCH (21:30)
[2017-11-01] MEDS: TRAZODONE HCL 50 MG TABLET PO SCH (21:32)
[2017-11-01] MEDS: DONEPEZIL HCL 5 MG TABLET PO SCH (21:32)
[2017-11-01] MEDS: DOCUSATE SODIUM 100 MG CAPSULE PO SCH (21:32)
[2017-11-02] MEDS: LEVALBUTEROL HCL NEB 1.25 MG/3 ML AMPUL NEB SCH ×4 (01:51→20:46)
[2017-11-02] MEDS: VALACYCLOVIR HCL 500 MG TABLET PO SCH ×3 (05:27→22:36)
[2017-11-02] MEDS: BUSPIRONE HCL 10 MG TABLET PO SCH ×3 (05:28→22:35)
[2017-11-02] MEDS: LANSOPRAZOLE 15 MG TAB.RAP.DR PO SCH (05:28)
[2017-11-02] MEDS: APIXABAN 2.5 MG TABLET PO SCH ×2 (05:28→17:34)
[2017-11-02 06:48] LABS: ANION GAP 6 (5-19); BLOOD UREA NITROGEN 29 mg/dL (7-20); CALCIUM 8.7 mg/dL (8.4-10.2); CARBON DIOXIDE 34 mmol/L (22-30); CHLORIDE 102 mmol/L (98-107); GLUCOSE 105 mg/dL (75-110); SODIUM 142.1 mmol/L (137-145)
[2017-11-02 06:51] LABS: ABSOLUTE LYMPHOCYTES (AUTO) 1.3 10^3/uL (0.5-4.7); ABSOLUTE MONOCYTES (AUTO) 0.5 10^3/uL (0.1-1.4); BASOPHILS % (AUTO) 0.1 % (0-2); EOSINOPHILS % (AUTO) 0.4 % (0-6); HEMATOCRIT 40.4 % (36.0-47.0); HEMOGLOBIN 13.4 g/dL (12.0-15.5); MEAN CORPUSCULAR HEMOGLOBIN 31.5 pg (27.0-33.4); MEAN CORPUSCULAR HGB CONC 33.1 g/dL (32.0-36.0); MEAN CORPUSCULAR VOLUME 95 fl (80-97); MONOCYTES % (AUTO) 4.8 % (3-13); PLATELET COUNT 211 10^3/uL (150-450); RED BLOOD COUNT 4.24 10^6/uL (3.72-5.28); RED CELL DISTRIBUTION WIDTH 17.3 % (11.5-14.0); SEGMENTED NEUTROPHILS % (AUTO) 82.7 % (42-78); TOTAL CELLS COUNTED % (AUTO) 100 %; WHITE BLOOD COUNT 10.9 10^3/uL (4.0-10.5)
[2017-11-02] MEDS: POLYETHYLENE GLYCOL 3350 POWDER 17 GM/1 PACKET PO SCH (09:11)
[2017-11-02] MEDS: SERTRALINE HCL 50 MG TABLET PO SCH (09:12)
[2017-11-02] MEDS: FUROSEMIDE 20 MG TABLET PO SCH (09:12)
[2017-11-02] MEDS: DILTIAZEM HCL 180 MG CAPSULE.CR PO SCH ×2 (09:12→22:34)
[2017-11-02] MEDS: BUDESONIDE/FORMOTEROL 160-4.5 MCG 60 PUFF/6 GM MDI IH SCH ×2 (09:12→22:36)
[2017-11-02] MEDS: CLOTRIMAZOLE/BETAMETHASONE DIP CREAM 15 GM TOP SCH ×2 (09:12→17:34)
[2017-11-02] MEDS: FLUTICASONE NASAL SPRAY 50 MCG/SPRY 120 SPRAY/16 GM NASL SCH (09:12)
[2017-11-02] MEDS: PREDNISONE 20 MG TABLET PO SCH (09:12)
[2017-11-02] MEDS: DIGOXIN 0.125 MG TABLET PO SCH (09:12)
--- NOTE | 2017-11-02 09:15 | EKG REPORT ---
SEVERITY:- ABNORMAL ECG - ATRIAL FIBRILLATION ABERRANT COMPLEX, POSSIBLY SUPRAVENTRICULAR CONSIDER ANTEROSEPTAL INFARCT : Confirmed by: Nathan Maurer 02-Nov-2017 09:14:25
[2017-11-02] MEDS: CEFEPIME 1 GM/D5W RTU 1 GM/50 ML RTUPB IV SCH (10:24)
--- NOTE | 2017-11-02 10:44 | PDOC PROGRESS REPORT ---
Subjective Progress Note for:: 11/02/17 Subjective:: Patient is currently doing fair Is complaining for rash on the right inner thigh which according to the patient' s flat on and off denied any pain denied any H Patient had a positive bowel movement Still needed oxygen and still very weak per nursing staff but patient insists she did not want to go to the rehab Reason For Visit: SOB,COPD,CHF Physical Exam Vital Signs: Temp Pulse Resp BP Pulse Ox 97.8 F 69 18 109/49 L 95 11/02/17 07:30 11/02/17 08:25 11/02/17 08:25 11/02/17 07:30 11/02/17 08:25 Intake & Output 11/01/17 11/02/17 11/03/17 06:59 06:59 06:59 Intake Total 1461 1218 Output Total 950 Balance 1461 268 Weight 88 kg 85.9 kg General appearance: PRESENT: no acute distress, well-developed, well-nourished Head exam: PRESENT: atraumatic, normocephalic Eye exam: PRESENT: conjunctiva pink, EOMI, PERRLA. ABSENT: scleral icterus Ear exam: PRESENT: normal external ear exam Mouth exam: PRESENT: moist, tongue midline Neck exam: PRESENT: full ROM. ABSENT: carotid bruit, JVD, lymphadenopathy, thyromegaly Respiratory exam: PRESENT: clear to auscultation chela Cardiovascular exam: PRESENT: RRR. ABSENT: diastolic murmur, rubs, systolic murmur Pulses: PRESENT: normal dorsalis pedis pul, +2 pedal pulses bilateral Vascular exam: PRESENT: normal capillary refill GI/Abdominal exam: PRESENT: normal bowel sounds, soft. ABSENT: distended, guarding, mass, organolmegaly, rebound, tenderness Rectal exam: PRESENT: deferred Neurological exam: PRESENT: alert, awake, oriented to person, oriented to place , oriented to time, oriented to situation, CN II-XII grossly intact. ABSENT: motor sensory deficit Psychiatric exam: PRESENT: appropriate affect, normal mood. ABSENT: homicidal ideation, suicidal ideation Skin exam: PRESENT: dry, intact, warm. ABSENT: cyanosis, rash Results Laboratory Results: 11/02/17 05:26 11/02/17 05:26 11/02/17 11/02/17 05:26 05:26 WBC 10.9 H RBC 4.24 Hgb 13.4 Hct 40.4 MCV 95 MCH 31.5 MCHC 33.1 RDW 17.3 H Plt Count 211 Seg Neutrophils % 82.7 H Lymphocytes % 12.0 L Monocytes % 4.8 Eosinophils % 0.4 Basophils % 0.1 Absolute Neutrophils 9.0 H Absolute Lymphocytes 1.3 Absolute Monocytes 0.5 Absolute Eosinophils 0.0 Absolute Basophils 0.0 Sodium 142.1 Potassium 4.0 Chloride 102 Carbon Dioxide 34 H Anion Gap 6 BUN 29 H Creatinine 0.72 Est GFR ( Amer) > 60 Est GFR (Non-Af Amer) > 60 Glucose 105 Calcium 8.7 10/26/17 10/26/17 10/26/17 13:37 13:37 18:59 Creatine Kinase 28 L 30 CK-MB (CK-2) 2.38 Troponin I 0.028 NT-Pro-B Natriuret Pep 10/26/17 10/27/17 10/27/17 18:59 00:43 00:43 Creatine Kinase 27 L CK-MB (CK-2) 2.38 2.44 Troponin I 0.017 0.013 NT-Pro-B Natriuret Pep 10/27/17 10/28/17 10/29/17 05:46 04:28 06:16 Creatine Kinase CK-MB (CK-2) Troponin I NT-Pro-B Natriuret Pep 4390 H 3800 H 1940 H Impressions: Chest/Abdomen CTA 10/26/17 00:00 IMPRESSION: No CT angio evidence of acute pulmonary emboli. Very heavily calcified aortic valve and heavily calcified coronary arteries. No thoracic aneurysm Very heavily calcified visceral arteries in the upper abdomen. Head CT 10/27/17 00:00 IMPRESSION: CHRONIC CHANGES OF ATROPHY AND MICROVASCULAR ISCHEMIA. NO ACUTE PROCESS. EVIDENCE OF ACUTE STROKE: NO. Chest X-Ray 11/01/17 00:00 IMPRESSION: NO ACUTE RADIOGRAPHIC FINDING IN THE CHEST. Assessment & Plan - Diagnosis (1) COPD (chronic obstructive pulmonary disease) Qualifiers: COPD type: chronic bronchitis Chronic bronchitis type: mucopurulent Qualified Code(s): J41.1 - Mucopurulent chronic bronchitis Is this a current diagnosis for this admission?: Yes Plan: Currently doing well will cut down the IV steroid to the p.o. steroid (2) Atrial fibrillation Qualifiers: Atrial fibrillation type: chronic Qualified Code(s): I48.2 - Chronic atrial fibrillation Is this a current diagnosis for this admission?: Yes Plan: With a rapid ventricular response. At the [facility] p.o. get the echocardiogramSince the cardiology Patient's claim that she cannot afford the Eliquis because it is too expensive will check with the pharmacyIf is still expensive consider back to the Coumadin which is very difficult to monitor with this patient's noncompliance issues (3) Congestive heart failure (CHF) Qualifiers: Heart failure type: systolic Heart failure chronicity: acute on chronic Qualified Code(s): I50.23 - Acute on chronic systolic (congestive) heart failure Is this a current diagnosis for this admission?: Yes Plan: But the patient on Lasix 20 mg get the 2D echocardiogram (4) CAD (coronary artery disease) Qualifiers: Coronary Disease-Associated Artery/Lesion type: unspecified vessel or lesion type Is this a current diagnosis for this admission?: Yes Plan: Get the serial cardiac enzymes to continues to monitor (5) Hypertension Qualifiers: Hypertension type: essential hypertension Qualified Code(s): I10 - Essential (primary) hypertension Is this a current diagnosis for this admission?: Yes Plan: Currently stable (6) Hypokalemia Is this a current diagnosis for this admission?: Yes (7) Dementia Qualifiers: Dementia type: unspecified type Dementia behavioral disturbance: without behavioral disturbance Qualified Code(s): F03.90 - Unspecified dementia without behavioral disturbance Is this a current diagnosis for this admission?: Yes Plan: Currently stable (8) Abdominal aortic aneurysm Qualifiers: Presence of rupture: without rupture Qualified Code(s): I71.4 - Abdominal aortic aneurysm, without rupture Is this a current diagnosis for this admission?: Yes Plan: CT abdomen and pelvis was done in 2018 in August with so some mild increasing the size of aneurysm will follow outpatients vascular surgery (9) Anxiety disorder Qualifiers: Anxiety disorder type: generalized anxiety disorder Qualified Code(s): F41.1 - Generalized anxiety disorder Is this a current diagnosis for this admission?: Yes Plan: Start the patient on the BuSpar 5 mg p.o. every 8 (10) Rash Is this a current diagnosis for this admission?: Yes - Time Time Spent with patient: 15-24 minutes Medications reviewed and adjusted accordingly: Yes Anticipated discharge: Other Within: Other - Inpatient Certification Medical Necessity: Need Close Monitoring Due to Risk of Patient Decompensation Post Hospital Care: D/C Road Consultant Documentation - Plan Summary Plan Summary: Continues to current medications patients need to physical therapy patients do not want to go to the rehab's and assisted living is not going to take the patient's without patient's able to eat and functional by herself
--- NOTE | 2017-11-02 19:19 | PDOC PROGRESS REPORT ---
Subjective Progress Note for:: 11/02/17 Subjective:: Patient today feeling better. Patient sitting in the bedside chair and watching TV. Still remains in atrial fibrillation. Heart rate somewhat better controlled. Patient still short of breath but significantly improved. Had reduced Cardizem CD to 180 mg p.o. twice daily and also remains on digoxin. Patient remains in atrial fibrillation. Heart rate still somewhat elevated intermittently. Patient also noted to have congestive heart failure. However this is compensated. Chest x-ray reviewed shows no residual CHF. Reason For Visit: SOB,COPD,CHF Physical Exam Vital Signs: Temp Pulse Resp BP Pulse Ox 97.6 F 92 22 H 126/59 H 92 11/02/17 15:25 11/02/17 15:25 11/02/17 15:25 11/02/17 15:25 11/02/17 15:25 Intake & Output 11/01/17 11/02/17 11/03/17 06:59 06:59 06:59 Intake Total 1461 1218 957 Output Total 950 Balance 1461 268 957 Weight 88 kg 85.9 kg Exam: GENERAL: well-nourished and in no acute distress. Alert and oriented x3 HEAD: Atraumatic, normocephalic. EYES: Pupils equal round and reactive to light, extraocular movements intact, sclera anicteric, conjunctiva are normal. ENT: TMs normal, nares patent, oropharynx clear without exudates. Moist mucous membranes. No oral ulcerations or bleeding gums noted NECK: supple without lymphadenopathy. Trachea is central. No cervical or axillary lymphadenopathy noted. Carotids are 2+, JVD WNL LUNGS: Respiration seems nonlabored, no significant accessory muscle action noted. Few bilateral wheezing noted no crackles noted. No significant dullness noted on percussion. CHEST: Palpation of the chest wall shows no significant chest wall tenderness. No other significant abnormalities noted. 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 ABDOMEN: Soft, no significant tenderness appreciated, normoactive bowel sounds. No guarding, no rebound. No rigidity noted . No masses appreciated. EXTREMITIES: Pedal pulses are 1-2+, no calf tenderness noted. No clubbing or cyanosis.trace to 1+ pedal edema noted NEUROLOGICAL: Focused neurological exam showed no significant neurologic deficit. Normal speech, no focal weakness appreciated. PSYCH: Normal mood, normal affect. Judgment and insight within normal limits. SKIN: No significant ecchymosis, skin is noted to be warm. Rash noted right thigh area. MUSCULOSKELETAL EXAM: No significant acute joint swelling noted. Results Laboratory Results: 11/02/17 05:26 11/02/17 05:26 11/02/17 11/02/17 05:26 05:26 WBC 10.9 H RBC 4.24 Hgb 13.4 Hct 40.4 MCV 95 MCH 31.5 MCHC 33.1 RDW 17.3 H Plt Count 211 Seg Neutrophils % 82.7 H Lymphocytes % 12.0 L Monocytes % 4.8 Eosinophils % 0.4 Basophils % 0.1 Absolute Neutrophils 9.0 H Absolute Lymphocytes 1.3 Absolute Monocytes 0.5 Absolute Eosinophils 0.0 Absolute Basophils 0.0 Sodium 142.1 Potassium 4.0 Chloride 102 Carbon Dioxide 34 H Anion Gap 6 BUN 29 H Creatinine 0.72 Est GFR ( Amer) > 60 Est GFR (Non-Af Amer) > 60 Glucose 105 Calcium 8.7 10/26/17 10/26/17 10/26/17 13:37 13:37 18:59 Creatine Kinase 28 L 30 CK-MB (CK-2) 2.38 Troponin I 0.028 NT-Pro-B Natriuret Pep 10/26/17 10/27/17 10/27/17 18:59 00:43 00:43 Creatine Kinase 27 L CK-MB (CK-2) 2.38 2.44 Troponin I 0.017 0.013 NT-Pro-B Natriuret Pep 10/27/17 10/28/17 10/29/17 05:46 04:28 06:16 Creatine Kinase CK-MB (CK-2) Troponin I NT-Pro-B Natriuret Pep 4390 H 3800 H 1940 H Impressions: Chest/Abdomen CTA 10/26/17 00:00 IMPRESSION: No CT angio evidence of acute pulmonary emboli. Very heavily calcified aortic valve and heavily calcified coronary arteries. No thoracic aneurysm Very heavily calcified visceral arteries in the upper abdomen. Head CT 10/27/17 00:00 IMPRESSION: CHRONIC CHANGES OF ATROPHY AND MICROVASCULAR ISCHEMIA. NO ACUTE PROCESS. EVIDENCE OF ACUTE STROKE: NO. Chest X-Ray 03/04/18 00:00 IMPRESSION: NO ACUTE RADIOGRAPHIC FINDING IN THE CHEST. Assessment & Plan - Diagnosis (1) Atrial fibrillation Qualifiers: Atrial fibrillation type: chronic Qualified Code(s): I48.2 - Chronic atrial fibrillation Is this a current diagnosis for this admission?: Yes (2) COPD (chronic obstructive pulmonary disease) Qualifiers: COPD type: chronic bronchitis Chronic bronchitis type: mucopurulent Qualified Code(s): J41.1 - Mucopurulent chronic bronchitis Is this a current diagnosis for this admission?: Yes (3) Congestive heart failure (CHF) Qualifiers: Heart failure type: systolic Heart failure chronicity: acute on chronic Qualified Code(s): I50.23 - Acute on chronic systolic (congestive) heart failure Is this a current diagnosis for this admission?: Yes (4) Acute bronchitis Qualifiers: Bronchitis organism: unspecified organism Qualified Code(s): J20.9 - Acute bronchitis, unspecified Is this a current diagnosis for this admission?: Yes (5) Coronary artery disease Qualifiers: Coronary Disease-Associated Artery/Lesion type: [place] artery [place] vs. transplanted heart: [place] heart Associated angina: angina presence unspecified Qualified Code(s): I25.10 - Atherosclerotic heart disease of [place] coronary artery without angina pectoris Is this a current diagnosis for this admission?: Yes - Notes Notes: Currently patient remains stable from cardiac standpoint. Patient has been encouraged to ambulate so that further final adjustment of heart rate control could be made. But feel that currently and in the elderly, tight heart rate control is not recommended, especially if it is well tolerated. Atrial fibrillation: Seems to be chronic. Recommend rate control and chronic anticoagulation. Consider rate control with calcium channel chichi in view of significant COPD. Currently on Cardizem therapy. I feel patient does not need tight control of heart rate as she tends to tolerate hydrate reasonably well. COPD: Continue antibiotic therapy, a steroid therapy, bronchodilator therapy as required. Congestive heart failure: Possibly diastolic and possibly right-sided. Patient on Lasix 20 mg p.o. daily. Recommend follow-up chest x-rays. BNP level coming down nicely. Chest x-ray shows resolution of CHF. Acute bronchitis: Continue antibiotic therapy. Coronary artery disease: Patient noted to have significant coronary calcification on CTA. Recommend chronic anticoagulation to be continued for A. fib, statin statin therapy, beta-chichi/rate lowering calcium channel chichi therapy etc. consider adding a small dose of beta-chichi when wheezing has improved. - Time Time with patient: Greater than 35 minutes - CODE STATUS was discussed, patient remains DNR. Surrogate decision-maker not identified. Multiple medical problems were addressed. More than 50% of the time spent coordinating care, discussing management plans with involved caregivers. Management plans discussed with involved personnels. Medical decision making was of moderate to high complexity, patient's has multiple comorbidities. Medications reviewed and adjusted accordingly: Yes
[2017-11-02] MEDS: ATORVASTATIN CALCIUM 10 MG TABLET PO SCH (22:34)
[2017-11-02] MEDS: TRAZODONE HCL 50 MG TABLET PO SCH (22:36)
[2017-11-02] MEDS: DOCUSATE SODIUM 100 MG CAPSULE PO SCH (22:36)
[2017-11-02] MEDS: DONEPEZIL HCL 5 MG TABLET PO SCH (22:36)
[2017-11-03] MEDS: LEVALBUTEROL HCL NEB 1.25 MG/3 ML AMPUL NEB SCH ×4 (02:31→19:50)
[2017-11-03] MEDS: LANSOPRAZOLE 15 MG TAB.RAP.DR PO SCH (05:18)
[2017-11-03] MEDS: BUSPIRONE HCL 10 MG TABLET PO SCH ×3 (05:18→21:43)
[2017-11-03] MEDS: VALACYCLOVIR HCL 500 MG TABLET PO SCH ×3 (05:18→21:43)
[2017-11-03] MEDS: APIXABAN 2.5 MG TABLET PO SCH ×2 (05:18→17:15)
[2017-11-03 06:22] LABS: ANION GAP 5 (5-19); BLOOD UREA NITROGEN 31 mg/dL (7-20); CALCIUM 8.5 mg/dL (8.4-10.2); CARBON DIOXIDE 31 mmol/L (22-30); CHLORIDE 105 mmol/L (98-107); GLUCOSE 93 mg/dL (75-110); POTASSIUM 3.9 mmol/L (3.6-5.0)
--- NOTE | 2017-11-03 09:01 | PDOC PROGRESS REPORT ---
Subjective Progress Note for:: 11/03/17 Subjective:: Patient is currently doing fair She is denied any chest pain denied any shortness of the breath Patient's otherwise no other events happens Reason For Visit: SOB,COPD,CHF Physical Exam Vital Signs: Temp Pulse Resp BP Pulse Ox 98.2 F 76 22 H 127/52 H 96 11/03/17 03:57 11/03/17 08:19 11/03/17 08:19 11/03/17 03:57 11/03/17 08:19 Intake & Output 11/02/17 11/03/17 11/04/17 06:59 06:59 06:59 Intake Total 1218 1477 Output Total 950 Balance 268 1477 Weight 85.9 kg 87 kg General appearance: PRESENT: no acute distress, well-developed, well-nourished Head exam: PRESENT: atraumatic, normocephalic Eye exam: PRESENT: conjunctiva pink, EOMI, PERRLA. ABSENT: scleral icterus Ear exam: PRESENT: normal external ear exam Mouth exam: PRESENT: moist, tongue midline Neck exam: PRESENT: full ROM. ABSENT: carotid bruit, JVD, lymphadenopathy, thyromegaly Respiratory exam: PRESENT: clear to auscultation chela Cardiovascular exam: PRESENT: RRR. ABSENT: diastolic murmur, rubs, systolic murmur Pulses: PRESENT: normal dorsalis pedis pul, +2 pedal pulses bilateral Vascular exam: PRESENT: normal capillary refill GI/Abdominal exam: PRESENT: normal bowel sounds, soft. ABSENT: distended, guarding, mass, organolmegaly, rebound, tenderness Rectal exam: PRESENT: deferred Extremities exam: ABSENT: pedal edema Musculoskeletal exam: PRESENT: ambulatory Neurological exam: PRESENT: alert, awake, oriented to person, oriented to place , oriented to time, oriented to situation, CN II-XII grossly intact. ABSENT: motor sensory deficit Psychiatric exam: PRESENT: appropriate affect, normal mood. ABSENT: homicidal ideation, suicidal ideation Skin exam: PRESENT: dry, intact, warm. ABSENT: cyanosis, rash Results Laboratory Results: 11/02/17 05:26 11/03/17 05:03 11/03/17 05:03 Sodium 141.0 Potassium 3.9 Chloride 105 Carbon Dioxide 31 H Anion Gap 5 BUN 31 H Creatinine 0.70 Est GFR ( Amer) > 60 Est GFR (Non-Af Amer) > 60 Glucose 93 Calcium 8.5 10/26/17 10/26/17 10/26/17 13:37 13:37 18:59 Creatine Kinase 28 L 30 CK-MB (CK-2) 2.38 Troponin I 0.028 NT-Pro-B Natriuret Pep 10/26/17 10/27/17 10/27/17 18:59 00:43 00:43 Creatine Kinase 27 L CK-MB (CK-2) 2.38 2.44 Troponin I 0.017 0.013 NT-Pro-B Natriuret Pep 10/27/17 10/28/17 10/29/17 05:46 04:28 06:16 Creatine Kinase CK-MB (CK-2) Troponin I NT-Pro-B Natriuret Pep 4390 H 3800 H 1940 H Impressions: Chest/Abdomen CTA 10/26/17 00:00 IMPRESSION: No CT angio evidence of acute pulmonary emboli. Very heavily calcified aortic valve and heavily calcified coronary arteries. No thoracic aneurysm Very heavily calcified visceral arteries in the upper abdomen. Head CT 10/27/17 00:00 IMPRESSION: CHRONIC CHANGES OF ATROPHY AND MICROVASCULAR ISCHEMIA. NO ACUTE PROCESS. EVIDENCE OF ACUTE STROKE: NO. Chest X-Ray 11/01/17 00:00 IMPRESSION: NO ACUTE RADIOGRAPHIC FINDING IN THE CHEST. Assessment & Plan - Diagnosis (1) COPD (chronic obstructive pulmonary disease) Qualifiers: COPD type: chronic bronchitis Chronic bronchitis type: mucopurulent Qualified Code(s): J41.1 - Mucopurulent chronic bronchitis Is this a current diagnosis for this admission?: Yes Plan: Currently doing well will cut down the IV steroid to the p.o. steroid (2) Atrial fibrillation Qualifiers: Atrial fibrillation type: chronic Qualified Code(s): I48.2 - Chronic atrial fibrillation Is this a current diagnosis for this admission?: Yes Plan: With a rapid ventricular response. At the [facility] p.o. get the echocardiogramSince the cardiology Patient's claim that she cannot afford the Eliquis because it is too expensive will check with the pharmacyIf is still expensive consider back to the Coumadin which is very difficult to monitor with this patient's noncompliance issues (3) Congestive heart failure (CHF) Qualifiers: Heart failure type: systolic Heart failure chronicity: acute on chronic Qualified Code(s): I50.23 - Acute on chronic systolic (congestive) heart failure Is this a current diagnosis for this admission?: Yes Plan: But the patient on Lasix 20 mg get the 2D echocardiogram (4) CAD (coronary artery disease) Qualifiers: Coronary Disease-Associated Artery/Lesion type: unspecified vessel or lesion type Is this a current diagnosis for this admission?: Yes Plan: Get the serial cardiac enzymes to continues to monitor (5) Hypertension Qualifiers: Hypertension type: essential hypertension Qualified Code(s): I10 - Essential (primary) hypertension Is this a current diagnosis for this admission?: Yes Plan: Currently stable (6) Hypokalemia Is this a current diagnosis for this admission?: Yes Plan: Currently all resolved (7) Dementia Qualifiers: Dementia type: unspecified type Dementia behavioral disturbance: without behavioral disturbance Qualified Code(s): F03.90 - Unspecified dementia without behavioral disturbance Is this a current diagnosis for this admission?: Yes Plan: Currently stable (8) Abdominal aortic aneurysm Qualifiers: Presence of rupture: without rupture Qualified Code(s): I71.4 - Abdominal aortic aneurysm, without rupture Is this a current diagnosis for this admission?: Yes Plan: CT abdomen and pelvis was done in 2018 in August with so some mild increasing the size of aneurysm will follow outpatients vascular surgery (9) Anxiety disorder Qualifiers: Anxiety disorder type: generalized anxiety disorder Qualified Code(s): F41.1 - Generalized anxiety disorder Is this a current diagnosis for this admission?: Yes Plan: Start the patient on the BuSpar 5 mg p.o. 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
[2017-11-03] MEDS: BUDESONIDE/FORMOTEROL 160-4.5 MCG 60 PUFF/6 GM MDI IH SCH ×2 (09:24→21:43)
[2017-11-03] MEDS: FLUTICASONE NASAL SPRAY 50 MCG/SPRY 120 SPRAY/16 GM NASL SCH (09:24)
[2017-11-03] MEDS: DIGOXIN 0.125 MG TABLET PO SCH (09:25)
[2017-11-03] MEDS: CLOTRIMAZOLE/BETAMETHASONE DIP CREAM 15 GM TOP SCH ×2 (09:25→17:16)
[2017-11-03] MEDS: SERTRALINE HCL 50 MG TABLET PO SCH (09:25)
[2017-11-03] MEDS: PREDNISONE 10 MG TABLET PO SCH (09:25)
[2017-11-03] MEDS: DILTIAZEM HCL 180 MG CAPSULE.CR PO SCH ×2 (09:26→21:43)
[2017-11-03] MEDS: FUROSEMIDE 20 MG TABLET PO SCH (09:27)
[2017-11-03] MEDS: POLYETHYLENE GLYCOL 3350 POWDER 17 GM/1 PACKET PO SCH (09:27)
--- NOTE | 2017-11-03 10:06 | RADIOLOGY REPORT (SQ) ---
EXAM DESCRIPTION: CHEST PA/LAT COMPLETED DATE/TIME: 11/03/2017 9:16 am REASON FOR STUDY: copd COMPARISON: 09/13/2017 EXAM PARAMETERS: NUMBER OF VIEWS: two views TECHNIQUE: Digital Frontal and Lateral radiographic views of the chest acquired. RADIATION DOSE: NA LIMITATIONS: none FINDINGS: LUNGS AND PLEURA: No opacities, masses or pneumothorax. No pleural effusion. MEDIASTINUM AND HILAR STRUCTURES: No masses or contour abnormalities. HEART AND VASCULAR STRUCTURES: Heart normal size. No evidence for failure. BONES: No acute findings. Osteopenia. Mild thoracic spondylosis. HARDWARE: Left subclavian catheter with tip in superior vena cava. OTHER: No other significant finding. IMPRESSION: No evidence of acute cardiopulmonary disease. TECHNICAL DOCUMENTATION: JOB ID: [id number] [employer]- All Rights Reserved Reading location - IP/workstation name: [email or web address]
--- NOTE | 2017-11-03 11:33 | PDOC PROGRESS REPORT ---
Subjective Progress Note for:: 11/03/17 Subjective:: Patient today feeling better. No new complaints. Patient remains in atrial fibrillation. Heart rate still somewhat elevated intermittently. Patient also noted to have congestive heart failure. However this is compensated. Chest x-ray reviewed from this morning shows no acute cardiopulmonary process.. Reason For Visit: SOB,COPD,CHF Physical Exam Vital Signs: Temp Pulse Resp BP Pulse Ox 97.5 F 76 22 H 109/86 H 96 11/03/17 08:17 11/03/17 08:19 11/03/17 08:19 11/03/17 08:17 11/03/17 08:19 Intake & Output 11/02/17 11/03/17 11/04/17 06:59 06:59 06:59 Intake Total 1218 1477 Output Total 950 Balance 268 1477 Weight 85.9 kg 87 kg Exam: GENERAL: well-nourished and in no acute distress. Alert and oriented x3 HEAD: Atraumatic, normocephalic. EYES: Pupils equal round and reactive to light, extraocular movements intact, sclera anicteric, conjunctiva are normal. ENT: TMs normal, nares patent, oropharynx clear without exudates. Moist mucous membranes. No oral ulcerations or bleeding gums noted NECK: supple without lymphadenopathy. Trachea is central. No cervical or axillary lymphadenopathy noted. Carotids are 2+, JVD WNL LUNGS: Respiration seems nonlabored, no significant accessory muscle action noted. Few a scattered wheezes rales or rhonchi noted. No significant dullness noted on percussion. CHEST: Palpation of the chest wall shows no significant chest wall tenderness. No other significant abnormalities noted. 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 ABDOMEN: Soft, no significant tenderness appreciated, normoactive bowel sounds. No guarding, no rebound. No rigidity noted . No masses appreciated. EXTREMITIES: Pedal pulses are 1-2+, no calf tenderness noted. No clubbing or cyanosis.trace to 1+ pedal edema noted. NEUROLOGICAL: Focused neurological exam showed no significant neurologic deficit. Normal speech, no focal weakness appreciated. PSYCH: Normal mood, normal affect. Judgment and insight within normal limits. SKIN: No significant ecchymosis, skin is noted to be warm. Right groin rash noted. MUSCULOSKELETAL EXAM: No significant acute joint swelling noted. Results Laboratory Results: 11/02/17 05:26 11/03/17 05:03 11/03/17 05:03 Sodium 141.0 Potassium 3.9 Chloride 105 Carbon Dioxide 31 H Anion Gap 5 BUN 31 H Creatinine 0.70 Est GFR ( Amer) > 60 Est GFR (Non-Af Amer) > 60 Glucose 93 Calcium 8.5 10/26/17 10/26/17 10/26/17 13:37 13:37 18:59 Creatine Kinase 28 L 30 CK-MB (CK-2) 2.38 Troponin I 0.028 NT-Pro-B Natriuret Pep 10/26/17 10/27/17 10/27/17 18:59 00:43 00:43 Creatine Kinase 27 L CK-MB (CK-2) 2.38 2.44 Troponin I 0.017 0.013 NT-Pro-B Natriuret Pep 10/27/17 10/28/17 10/29/17 05:46 04:28 06:16 Creatine Kinase CK-MB (CK-2) Troponin I NT-Pro-B Natriuret Pep 4390 H 3800 H 1940 H EKG Comments: Telemetry shows sinus rhythm without any sustained tachycardia or bradycardia. Impressions: Chest/Abdomen CTA 10/26/17 00:00 IMPRESSION: No CT angio evidence of acute pulmonary emboli. Very heavily calcified aortic valve and heavily calcified coronary arteries. No thoracic aneurysm Very heavily calcified visceral arteries in the upper abdomen. Head CT 10/27/17 00:00 IMPRESSION: CHRONIC CHANGES OF ATROPHY AND MICROVASCULAR ISCHEMIA. NO ACUTE PROCESS. EVIDENCE OF ACUTE STROKE: NO. Chest X-Ray 11/03/17 00:00 IMPRESSION: No evidence of acute cardiopulmonary disease. Assessment & Plan - Diagnosis (1) Atrial fibrillation Qualifiers: Atrial fibrillation type: chronic Qualified Code(s): I48.2 - Chronic atrial fibrillation Is this a current diagnosis for this admission?: Yes (2) COPD (chronic obstructive pulmonary disease) Qualifiers: COPD type: chronic bronchitis Chronic bronchitis type: mucopurulent Qualified Code(s): J41.1 - Mucopurulent chronic bronchitis Is this a current diagnosis for this admission?: Yes (3) Congestive heart failure (CHF) Qualifiers: Heart failure type: systolic Heart failure chronicity: acute on chronic Qualified Code(s): I50.23 - Acute on chronic systolic (congestive) heart failure Is this a current diagnosis for this admission?: Yes (4) Acute bronchitis Qualifiers: Bronchitis organism: unspecified organism Qualified Code(s): J20.9 - Acute bronchitis, unspecified Is this a current diagnosis for this admission?: Yes (5) Coronary artery disease Qualifiers: Coronary Disease-Associated Artery/Lesion type: [place] artery [place] vs. transplanted heart: [place] heart Associated angina: angina presence unspecified Qualified Code(s): I25.10 - Atherosclerotic heart disease of [place] coronary artery without angina pectoris Is this a current diagnosis for this admission?: Yes - Notes Notes: Patient's heart rate has been reasonably well-controlled for last several days. At this point will sign off. Please reconsult if needed. Atrial fibrillation: Chronic. Recommend rate control and chronic anticoagulation. Consider rate control with calcium channel chichi in view of significant COPD. Currently on Cardizem therapy. I feel patient does not need tight control of heart rate as she tends to tolerate hydrate reasonably well. COPD: Continue antibiotic therapy, a steroid therapy, bronchodilator therapy as required. Congestive heart failure: Possibly diastolic and possibly right-sided. Continue patient on Lasix 20 mg p.o. daily. BNP level coming down nicely. Chest x-ray shows resolution of CHF. Acute bronchitis: Continue antibiotic therapy. Coronary artery disease: Patient noted to have significant coronary calcification on CTA. Recommend chronic anticoagulation to be continued for A. fib, statin statin therapy, beta-chichi/rate lowering calcium channel chichi therapy etc. consider adding a small dose of beta-chichi when wheezing has improved. - Time Time with patient: 15-25 minutes - CODE STATUS : was discussed, patient remains DO NOT RESUSCITATE. Surrogate decision-maker unchanged. Multiple medical problems were addressed. More than 50% of the time spent coordinating care, discussing management plans with involved caregivers. Management plans discussed with involved personnels. Medical decision making was of moderate to high complexity, patient's has multiple comorbidities. Medications reviewed and adjusted accordingly: Yes
[2017-11-03] MEDS ORDERED: LOPERAMIDE HCL 2 MG CAPSULE PO PRN (12:44)
[2017-11-03] MEDS: TRAZODONE HCL 50 MG TABLET PO SCH (21:43)
[2017-11-03] MEDS: DOCUSATE SODIUM 100 MG CAPSULE PO SCH (21:43)
[2017-11-03] MEDS: DONEPEZIL HCL 5 MG TABLET PO SCH (21:43)
[2017-11-03] MEDS: MELATONIN 3 MG TABLET PO PRN (21:43)
[2017-11-03] MEDS: ATORVASTATIN CALCIUM 10 MG TABLET PO SCH (21:43)
[2017-11-04] MEDS: LEVALBUTEROL HCL NEB 1.25 MG/3 ML AMPUL NEB SCH ×3 (02:00→13:58)
[2017-11-04] MEDS: BUSPIRONE HCL 10 MG TABLET PO SCH ×2 (05:15→14:48)
[2017-11-04] MEDS: VALACYCLOVIR HCL 500 MG TABLET PO SCH ×2 (05:15→14:49)
[2017-11-04] MEDS: LANSOPRAZOLE 15 MG TAB.RAP.DR PO SCH (05:15)
[2017-11-04] MEDS: APIXABAN 2.5 MG TABLET PO SCH (05:15)
[2017-11-04 05:45] LABS: BLOOD UREA NITROGEN 26 mg/dL (7-20); CALCIUM 8.5 mg/dL (8.4-10.2); GLUCOSE 98 mg/dL (75-110); POTASSIUM 3.8 mmol/L (3.6-5.0)
[2017-11-04 05:50] LABS: ANION GAP 7 (5-19); CARBON DIOXIDE 30 mmol/L (22-30); CHLORIDE 106 mmol/L (98-107); SODIUM 142.5 mmol/L (137-145)
[2017-11-04] MEDS: BUDESONIDE/FORMOTEROL 160-4.5 MCG 60 PUFF/6 GM MDI IH SCH (09:20)
[2017-11-04] MEDS: FLUTICASONE NASAL SPRAY 50 MCG/SPRY 120 SPRAY/16 GM NASL SCH (09:20)
[2017-11-04] MEDS: SERTRALINE HCL 50 MG TABLET PO SCH (09:21)
[2017-11-04] MEDS: CLOTRIMAZOLE/BETAMETHASONE DIP CREAM 15 GM TOP SCH (09:21)
[2017-11-04] MEDS: PREDNISONE 10 MG TABLET PO SCH (09:21)
[2017-11-04] MEDS: DILTIAZEM HCL 180 MG CAPSULE.CR PO SCH (09:29)
[2017-11-04] MEDS: DIGOXIN 0.125 MG TABLET PO SCH (09:30)
[2017-11-04] MEDS: FUROSEMIDE 20 MG TABLET PO SCH (09:32)
[2017-11-04] MEDS: POLYETHYLENE GLYCOL 3350 POWDER 17 GM/1 PACKET PO SCH (09:32)
--- NOTE | 2017-11-04 09:38 | PDOC DISCHARGE SUMMARY ---
General - Admit/Disc Date/PCP Admission Date/Primary Care Provider: 10/26/17 13:25 ONEL AVINA MD Discharge Date: 11/04/17 - Discharge Diagnosis (1) COPD (chronic obstructive pulmonary disease) Is this a current diagnosis for this admission?: Yes Summary: Continues to Xopenex nebulizers (2) Atrial fibrillation Is this a current diagnosis for this admission?: Yes Summary: Continues to Eliquis and Cardizem (3) Congestive heart failure (CHF) Is this a current diagnosis for this admission?: Yes Summary: Continues to Lasix 20 mg p.o. daily (4) CAD (coronary artery disease) Is this a current diagnosis for this admission?: Yes Summary: Saleem all stable follow-up with the Dr. Maurer (5) Hypertension Is this a current diagnosis for this admission?: Yes Summary: Currently all stable (6) Hypokalemia Is this a current diagnosis for this admission?: Yes Summary: All resolved (7) Dementia Is this a current diagnosis for this admission?: Yes Summary: Currently stable will be considered at the [facility] (8) Abdominal aortic aneurysm Is this a current diagnosis for this admission?: Yes Summary: Make arrangement outpatient vascular surgery to reevaluate (9) Anxiety disorder Is this a current diagnosis for this admission?: Yes Summary: Continues to BuSpar (10) Rash Is this a current diagnosis for this admission?: Yes Summary: Continues to current ointment and use a and D ointment daily - Additional Information Resuscitation Status: Full Code Discharge Diet: Cardiac Discharge Activity: Activity As Tolerated Prescriptions: Apixaban [Eliquis 2.5 mg Tablet] 2.5 mg PO Q12A #60 tablet Buspirone HCl [Buspar 10 mg Tablet] 5 mg PO Q8 #90 tablet Cephalexin Monohydrate [Keflex 500 mg Capsule] 500 mg PO TID #21 capsule Clotrimazole/Betamethasone Dip [Lotrisone Cream 15 gm] 1 applic TOP BID #1 tube Digoxin [Lanoxin 0.125 mg Tablet] 0.125 mg PO DAILY #30 tablet Diltiazem HCl [Cardizem Cd 180 mg Capsule] 180 mg PO Q12 #60 capsule.cr Docusate Sodium [Colace 100 mg Capsule] 100 mg PO QHS #30 capsule Furosemide [Lasix 20 mg Tablet] 20 mg PO DAILY #30 tablet Levalbuterol HCl [Xopenex Neb 1.25 mg/3 ml Ampul] 1.25 mg NEB RTQ6 #120 vial.neb Prednisone [Deltasone 10 mg Tablet] 10 mg PO DAILY #5 tablet Home Medications: Acetaminophen [Tylenol 325 mg Tablet] 650 mg PO Q4HP PRN 10/26/17 Budesonide/Formoterol Fumarate [Symbicort HFA 160-4.5 mcg Inhaler 6 gm] 1 puff IH Q12 10/26/17 Donepezil HCl [Aricept 5 mg Tablet] 5 mg PO QHS 10/26/17 Fluticasone Propionate [Flonase Nasal [place] 50 Mcg/[place] 16 gm] 1 spray NASL DAILY 10/26/17 Mag Hydrox/Al Hydrox/Simeth [Maalox Plus Susp 30 Udcup] 30 ml PO DAILYP PRN Melatonin [Melatin] 3 mg PO HSP PRN 10/26/17 Omeprazole 20 mg PO DAILY 10/26/17 Pravastatin Sodium [Pravachol] 40 mg PO DAILY 10/26/17 Sertraline HCl [Zoloft] 25 mg PO DAILY 10/26/17 Apixaban [Eliquis 2.5 mg Tablet] 2.5 mg PO Q12A #60 tablet 11/03/17 Buspirone HCl [Buspar 10 mg Tablet] 5 mg PO Q8 #90 tablet 11/03/17 Cephalexin Monohydrate [Keflex 500 mg Capsule] 500 mg PO TID #21 capsule Clotrimazole/Betamethasone Dip [Lotrisone Cream 15 gm] 1 applic TOP BID #1 tube 11/03/17 Digoxin [Lanoxin 0.125 mg Tablet] 0.125 mg PO DAILY #30 tablet 11/03/17 Diltiazem HCl [Cardizem Cd 180 mg Capsule] 180 mg PO Q12 #60 capsule.cr Docusate Sodium [Colace 100 mg Capsule] 100 mg PO QHS #30 capsule 11/03/17 Furosemide [Lasix 20 mg Tablet] 20 mg PO DAILY #30 tablet 11/03/17 Levalbuterol HCl [Xopenex Neb 1.25 mg/3 ml Ampul] 1.25 mg NEB RTQ6 #120 vial.neb 03/06/18 Prednisone [Deltasone 10 mg Tablet] 10 mg PO DAILY #5 tablet 11/03/17 History of Present Illness History of Present Illness: DARLYN EVANS is a 82 year old female This is a 4-year-old females with a significant history of the COPD history of the hypertension history of the chronic A. fib and a multiple other comorbidity came to the emergency department because of the complaining of her difficulty in breathing with some productivity cough and congestion'sAnd the patient's was some mild bronchitis with COPD with acute exacerbations and underlying congestive heart failure and decided to admit in the [facility] for further evaluations I saw the patient in the ER patient was comfortably lying in the bed denied any chest pain denied any shortness of the breath but patient heart rate was running 120 range Patient was in the ER last week because of the back pain and possible UTI currently denied any symptoms Patient supposed to be on Coumadin but currently not taking the Coumadin as per INR is only 1.11 Not sure what the assisted living's medications list is not there Patient have underlying some dementia but currently appropriately answered all questions Discussed with the son Scot regarding the patient's current conditions Hospital Course Hospital Course: This 84-year-old females with the multiple medical problem as above came to the emergency department complaint of shortness of the breath and patient was admitting in the hospital for the COPD and congestive heart failure and A. fib Since seen by the cable television technician and seen by Dr. Hollins pulmonary Patient will switch to Coumadin Eliquis due to the noncompliance Patient's otherwise doing well patients walk with the physical therapy with the walker Patient's p.o. intake is fair Patient at this point discharge back to the [facility], assisted living with the physical therapy Fall precautions Follow-up outpatients vascular surgery Discussed with the son regarding the patient's current conditions Physical Exam Vital Signs: Temp Pulse Resp BP Pulse Ox 98.2 F 95 16 129/84 H 93 11/04/17 07:55 11/04/17 07:55 11/04/17 07:55 11/04/17 07:55 11/04/17 07:55 Intake & Output 11/03/17 11/04/17 11/05/17 06:59 06:59 06:59 Intake Total 1477 1842 Balance 1477 1842 Weight 87 kg 85 kg General appearance: PRESENT: no acute distress, well-developed, well-nourished Head exam: PRESENT: atraumatic, normocephalic Eye exam: PRESENT: conjunctiva pink, EOMI, PERRLA. ABSENT: scleral icterus Ear exam: PRESENT: normal external ear exam Mouth exam: PRESENT: moist, tongue midline Neck exam: PRESENT: full ROM. ABSENT: carotid bruit, JVD, lymphadenopathy, thyromegaly Respiratory exam: PRESENT: clear to auscultation chela Cardiovascular exam: PRESENT: RRR. ABSENT: diastolic murmur, rubs, systolic murmur Pulses: PRESENT: normal dorsalis pedis pul, +2 pedal pulses bilateral Vascular exam: PRESENT: normal capillary refill GI/Abdominal exam: PRESENT: normal bowel sounds, soft. ABSENT: distended, guarding, mass, organolmegaly, rebound, tenderness Rectal exam: PRESENT: deferred Extremities exam: ABSENT: pedal edema Musculoskeletal exam: PRESENT: ambulatory Neurological exam: PRESENT: alert, awake, oriented to person, oriented to place , oriented to time, oriented to situation, CN II-XII grossly intact. ABSENT: motor sensory deficit Psychiatric exam: PRESENT: appropriate affect, normal mood. ABSENT: homicidal ideation, suicidal ideation Skin exam: PRESENT: dry, intact, warm. ABSENT: cyanosis, rash Results Laboratory Results: 11/02/17 05:26 11/04/17 05:05 11/04/17 05:05 Sodium 142.5 Potassium 3.8 Chloride 106 Carbon Dioxide 30 Anion Gap 7 BUN 26 H Creatinine 0.66 Est GFR ( Amer) > 60 Est GFR (Non-Af Amer) > 60 Glucose 98 Calcium 8.5 10/26/17 10/26/17 10/26/17 13:37 13:37 18:59 Creatine Kinase 28 L 30 CK-MB (CK-2) 2.38 Troponin I 0.028 NT-Pro-B Natriuret Pep 10/26/17 10/27/17 10/27/17 18:59 00:43 00:43 Creatine Kinase 27 L CK-MB (CK-2) 2.38 2.44 Troponin I 0.017 0.013 NT-Pro-B Natriuret Pep 10/27/17 10/28/17 10/29/17 05:46 04:28 06:16 Creatine Kinase CK-MB (CK-2) Troponin I NT-Pro-B Natriuret Pep 4390 H 3800 H 1940 H Impressions: Chest/Abdomen CTA 10/26/17 00:00 IMPRESSION: No CT angio evidence of acute pulmonary emboli. Very heavily calcified aortic valve and heavily calcified coronary arteries. No thoracic aneurysm Very heavily calcified visceral arteries in the upper abdomen. Head CT 10/27/17 00:00 IMPRESSION: CHRONIC CHANGES OF ATROPHY AND MICROVASCULAR ISCHEMIA. NO ACUTE PROCESS. EVIDENCE OF ACUTE STROKE: NO. Chest X-Ray 11/03/17 00:00 IMPRESSION: No evidence of acute cardiopulmonary disease. Qualifiers - * PATEINT BEING DISCHARGED WITH ANY OF THE FOLLOWING DIAGNOSIS?: Heart Failure VTE patient discharged on overlapping Therapy?: No HF Pt being discharged on ACEI for LVEF less than 40%?: No Reason(s) for not prescribing ACEI:: Contraindicated HF Pt being discharged on ARBS for LVEF less than 40%?: No Reason(s) for not prescribing ARBS:: Contraindicated HF Pt with Afib discharged with Warfarin?: Yes HF Pt discharged on evidence-based Beta Eris:: No Reason(s) for not prescribing evidence-based Beta Eris:: Contraindicated Plan Time Spent: Greater than 30 Minutes - Patients following office in 1 week we will repeat the CBC and Chem-7 Will refer the patient to the vascular surgery at [facility] for AAA Follow with the Dr. Maurer cable television technician Patient is currently on Eliquis a fall precautions Patient seen a physical therapy
[2017-11-04 12:53] VITALS: BP 107/46
--- NOTE | 2017-11-07 18:50 | PDOC PROGRESS REPORT ---
Subjective Progress Note for:: 10/29/17 Subjective:: I am a little better Reason For Visit: SOB,COPD,CHF Physical Exam Vital Signs: Temp Pulse Resp BP Pulse Ox 97.5 F 101 H 18 134/70 H 97 10/29/17 11:10 10/29/17 11:10 10/29/17 11:10 10/29/17 11:10 10/29/17 11:10 Intake & Output 10/28/17 10/29/17 10/30/17 06:59 06:59 06:59 Intake Total 1507 1595 Output Total 400 Balance 1507 1195 Weight 87.5 kg 87 kg General appearance: PRESENT: no acute distress, cooperative, disheveled, obese Head exam: PRESENT: atraumatic, normocephalic Eye exam: PRESENT: conjunctiva pale, EOMI. ABSENT: nystagmus, periorbital swelling, scleral icterus Mouth exam: PRESENT: dry mucosa, neck supple, tongue midline Neck exam: ABSENT: carotid bruit, JVD, lymphadenopathy, thyromegaly Respiratory exam: PRESENT: crackles, decreased breath sounds, prolonged expiratory phas, rhonchi, symmetrical, unlabored. ABSENT: rales, retraction, stridor, tachypnea Cardiovascular exam: PRESENT: RRR, +S1, +S2 Pulses: PRESENT: normal radial pulses GI/Abdominal exam: PRESENT: diminished bowel sounds, soft Extremities exam: PRESENT: clubbing, joint swelling Musculoskeletal exam: PRESENT: deformity, dislocation Neurological exam: PRESENT: alert, awake Skin exam: PRESENT: dry, warm Results Laboratory Results: 10/29/17 06:16 10/29/17 06:16 10/29/17 10/29/17 06:16 06:16 WBC 10.4 RBC 3.90 Hgb 12.3 Hct 37.0 MCV 95 MCH 31.4 MCHC 33.2 RDW 17.5 H Plt Count 288 Seg Neutrophils % 90.6 H Lymphocytes % 5.8 L Monocytes % 3.4 Eosinophils % 0.0 Basophils % 0.2 Absolute Neutrophils 9.4 H Absolute Lymphocytes 0.6 Absolute Monocytes 0.4 Absolute Eosinophils 0.0 Absolute Basophils 0.0 Sodium 142.9 Potassium 3.9 Chloride 106 Carbon Dioxide 29 Anion Gap 8 BUN 39 H Creatinine 0.80 Est GFR ( Amer) > 60 Est GFR (Non-Af Amer) > 60 Glucose 162 H Calcium 9.2 Magnesium 2.1 10/26/17 14:20 Sputum Gram Stain - Final 10/26/17 14:20 Sputum Sputum Culture - Final Haemophilus Influenzae Normal Ania 10/26/17 10/26/17 10/26/17 13:37 13:37 18:59 Creatine Kinase 28 L 30 CK-MB (CK-2) 2.38 Troponin I 0.028 NT-Pro-B Natriuret Pep 10/26/17 10/27/17 10/27/17 18:59 00:43 00:43 Creatine Kinase 27 L CK-MB (CK-2) 2.38 2.44 Troponin I 0.017 0.013 NT-Pro-B Natriuret Pep 10/27/17 10/28/17 10/29/17 05:46 04:28 06:16 Creatine Kinase CK-MB (CK-2) Troponin I NT-Pro-B Natriuret Pep 4390 H 3800 H 1940 H Impressions: Chest/Abdomen CTA 10/26/17 00:00 IMPRESSION: No CT angio evidence of acute pulmonary emboli. Very heavily calcified aortic valve and heavily calcified coronary arteries. No thoracic aneurysm Very heavily calcified visceral arteries in the upper abdomen. Chest X-Ray 10/26/17 09:48 IMPRESSION: Cardiomegaly without evidence acute cardiopulmonary disease. Head CT 10/27/17 00:00 IMPRESSION: CHRONIC CHANGES OF ATROPHY AND MICROVASCULAR ISCHEMIA. NO ACUTE PROCESS. EVIDENCE OF ACUTE STROKE: NO. Assessment & Plan - Diagnosis (1) Anxiety disorder Qualifiers: Anxiety disorder type: generalized anxiety disorder Qualified Code(s): F41.1 - Generalized anxiety disorder Is this a current diagnosis for this admission?: Yes (2) COPD (chronic obstructive pulmonary disease) Qualifiers: COPD type: chronic bronchitis Chronic bronchitis type: mucopurulent Qualified Code(s): J41.1 - Mucopurulent chronic bronchitis Is this a current diagnosis for this admission?: Yes Plan: bronchodialator (3) Congestive heart failure (CHF) Qualifiers: Heart failure type: systolic Heart failure chronicity: acute on chronic Qualified Code(s): I50.23 - Acute on chronic systolic (congestive) heart failure Is this a current diagnosis for this admission?: Yes (4) Dementia Qualifiers: Dementia type: unspecified type Dementia behavioral disturbance: without behavioral disturbance Qualified Code(s): F03.90 - Unspecified dementia without behavioral disturbance Is this a current diagnosis for this admission?: Yes
--- NOTE | 2017-11-07 18:52 | PDOC PROGRESS REPORT ---
Subjective Progress Note for:: 10/30/17 Subjective:: I am a little better Reason For Visit: SOB,COPD,CHF Physical Exam Vital Signs: Temp Pulse Resp BP Pulse Ox 97.3 F 77 18 125/62 96 11/03/17 12:35 11/03/17 14:10 11/03/17 14:10 11/03/17 12:35 11/03/17 14:10 Intake & Output 11/02/17 11/03/17 11/04/17 06:59 06:59 06:59 Intake Total 1218 1477 695 Output Total 950 Balance 268 1477 695 Weight 85.9 kg 87 kg General appearance: PRESENT: no acute distress, cooperative, disheveled, obese, well-developed Head exam: PRESENT: atraumatic, normocephalic Eye exam: PRESENT: conjunctiva pale, EOMI. ABSENT: nystagmus, periorbital swelling, scleral icterus Mouth exam: PRESENT: dry mucosa, neck supple, tongue midline Neck exam: ABSENT: carotid bruit, JVD, lymphadenopathy, thyromegaly, tracheal deviation, tracheostomy Respiratory exam: PRESENT: decreased breath sounds, prolonged expiratory phas, rhonchi, symmetrical, unlabored. ABSENT: stridor, tachypnea Cardiovascular exam: PRESENT: RRR, +S1, +S2 Pulses: PRESENT: normal radial pulses GI/Abdominal exam: PRESENT: diminished bowel sounds, soft Extremities exam: ABSENT: clubbing, joint swelling Musculoskeletal exam: PRESENT: full ROM. ABSENT: dislocation Neurological exam: PRESENT: alert, awake Psychiatric exam: PRESENT: normal mood Skin exam: PRESENT: dry, warm Results Laboratory Results: 11/02/17 05:26 11/03/17 05:03 11/03/17 05:03 Sodium 141.0 Potassium 3.9 Chloride 105 Carbon Dioxide 31 H Anion Gap 5 BUN 31 H Creatinine 0.70 Est GFR ( Amer) > 60 Est GFR (Non-Af Amer) > 60 Glucose 93 Calcium 8.5 10/26/17 10/26/17 10/26/17 13:37 13:37 18:59 Creatine Kinase 28 L 30 CK-MB (CK-2) 2.38 Troponin I 0.028 NT-Pro-B Natriuret Pep 10/26/17 10/27/17 10/27/17 18:59 00:43 00:43 Creatine Kinase 27 L CK-MB (CK-2) 2.38 2.44 Troponin I 0.017 0.013 NT-Pro-B Natriuret Pep 10/27/17 10/28/17 10/29/17 05:46 04:28 06:16 Creatine Kinase CK-MB (CK-2) Troponin I NT-Pro-B Natriuret Pep 4390 H 3800 H 1940 H Impressions: Chest/Abdomen CTA 10/26/17 00:00 IMPRESSION: No CT angio evidence of acute pulmonary emboli. Very heavily calcified aortic valve and heavily calcified coronary arteries. No thoracic aneurysm Very heavily calcified visceral arteries in the upper abdomen. Head CT 10/27/17 00:00 IMPRESSION: CHRONIC CHANGES OF ATROPHY AND MICROVASCULAR ISCHEMIA. NO ACUTE PROCESS. EVIDENCE OF ACUTE STROKE: NO. Chest X-Ray 11/03/17 00:00 IMPRESSION: No evidence of acute cardiopulmonary disease. Assessment & Plan - Diagnosis (1) Anxiety disorder Qualifiers: Anxiety disorder type: generalized anxiety disorder Qualified Code(s): F41.1 - Generalized anxiety disorder Is this a current diagnosis for this admission?: Yes (2) COPD (chronic obstructive pulmonary disease) Qualifiers: COPD type: chronic bronchitis Chronic bronchitis type: mucopurulent Qualified Code(s): J41.1 - Mucopurulent chronic bronchitis Is this a current diagnosis for this admission?: Yes Plan: bronchodialator (3) Congestive heart failure (CHF) Qualifiers: Heart failure type: systolic Heart failure chronicity: acute on chronic Qualified Code(s): I50.23 - Acute on chronic systolic (congestive) heart failure Is this a current diagnosis for this admission?: Yes (4) Dementia Qualifiers: Dementia type: unspecified type Dementia behavioral disturbance: without behavioral disturbance Qualified Code(s): F03.90 - Unspecified dementia without behavioral disturbance Is this a current diagnosis for this admission?: Yes
--- NOTE | 2017-11-07 18:53 | PDOC PROGRESS REPORT ---
Subjective Progress Note for:: 11/02/17 Subjective:: I am a little better Reason For Visit: SOB,COPD,CHF Physical Exam Vital Signs: Temp Pulse Resp BP Pulse Ox 97.3 F 77 18 125/62 96 11/03/17 12:35 11/03/17 14:10 11/03/17 14:10 11/03/17 12:35 11/03/17 14:10 Intake & Output 11/02/17 11/03/17 11/04/17 06:59 06:59 06:59 Intake Total 1218 1477 695 Output Total 950 Balance 268 1477 695 Weight 85.9 kg 87 kg General appearance: PRESENT: no acute distress, cooperative, disheveled, obese Head exam: PRESENT: atraumatic, normocephalic Eye exam: PRESENT: conjunctiva pale, EOMI. ABSENT: nystagmus, periorbital swelling, scleral icterus Mouth exam: PRESENT: dry mucosa, neck supple, tongue midline Neck exam: ABSENT: carotid bruit, JVD, lymphadenopathy, thyromegaly, tracheal deviation, tracheostomy Respiratory exam: PRESENT: decreased breath sounds, prolonged expiratory phas, rales, rhonchi, symmetrical, unlabored. ABSENT: retraction, stridor, tachypnea Cardiovascular exam: PRESENT: RRR, +S1, +S2 Pulses: PRESENT: normal radial pulses GI/Abdominal exam: PRESENT: diminished bowel sounds, soft Extremities exam: ABSENT: clubbing, joint swelling Musculoskeletal exam: ABSENT: deformity, dislocation Neurological exam: PRESENT: alert, awake Psychiatric exam: PRESENT: normal mood Skin exam: PRESENT: dry, warm Results Laboratory Results: 11/02/17 05:26 11/03/17 05:03 11/03/17 05:03 Sodium 141.0 Potassium 3.9 Chloride 105 Carbon Dioxide 31 H Anion Gap 5 BUN 31 H Creatinine 0.70 Est GFR ( Amer) > 60 Est GFR (Non-Af Amer) > 60 Glucose 93 Calcium 8.5 10/26/17 10/26/17 10/26/17 13:37 13:37 18:59 Creatine Kinase 28 L 30 CK-MB (CK-2) 2.38 Troponin I 0.028 NT-Pro-B Natriuret Pep 10/26/17 10/27/17 10/27/17 18:59 00:43 00:43 Creatine Kinase 27 L CK-MB (CK-2) 2.38 2.44 Troponin I 0.017 0.013 NT-Pro-B Natriuret Pep 10/27/17 10/28/17 10/29/17 05:46 04:28 06:16 Creatine Kinase CK-MB (CK-2) Troponin I NT-Pro-B Natriuret Pep 4390 H 3800 H 1940 H Impressions: Chest/Abdomen CTA 10/26/17 00:00 IMPRESSION: No CT angio evidence of acute pulmonary emboli. Very heavily calcified aortic valve and heavily calcified coronary arteries. No thoracic aneurysm Very heavily calcified visceral arteries in the upper abdomen. Head CT 10/27/17 00:00 IMPRESSION: CHRONIC CHANGES OF ATROPHY AND MICROVASCULAR ISCHEMIA. NO ACUTE PROCESS. EVIDENCE OF ACUTE STROKE: NO. Chest X-Ray 11/03/17 00:00 IMPRESSION: No evidence of acute cardiopulmonary disease. Assessment & Plan - Diagnosis (1) Anxiety disorder Qualifiers: Anxiety disorder type: generalized anxiety disorder Qualified Code(s): F41.1 - Generalized anxiety disorder Is this a current diagnosis for this admission?: Yes (2) COPD (chronic obstructive pulmonary disease) Qualifiers: COPD type: chronic bronchitis Chronic bronchitis type: mucopurulent Qualified Code(s): J41.1 - Mucopurulent chronic bronchitis Is this a current diagnosis for this admission?: Yes Plan: improving (3) Congestive heart failure (CHF) Qualifiers: Heart failure type: systolic Heart failure chronicity: acute on chronic Qualified Code(s): I50.23 - Acute on chronic systolic (congestive) heart failure Is this a current diagnosis for this admission?: Yes (4) Dementia Qualifiers: Dementia type: unspecified type Dementia behavioral disturbance: without behavioral disturbance Qualified Code(s): F03.90 - Unspecified dementia without behavioral disturbance Is this a current diagnosis for this admission?: Yes
--- NOTE | 2017-11-07 18:55 | PDOC PROGRESS REPORT ---
Subjective Progress Note for:: 11/03/17 Subjective:: I am a little better Reason For Visit: SOB,COPD,CHF Physical Exam Vital Signs: Temp Pulse Resp BP Pulse Ox 97.3 F 77 18 125/62 96 11/03/17 12:35 11/03/17 14:10 11/03/17 14:10 11/03/17 12:35 11/03/17 14:10 Intake & Output 11/02/17 11/03/17 11/04/17 06:59 06:59 06:59 Intake Total 1218 1477 695 Output Total 950 Balance 268 1477 695 Weight 85.9 kg 87 kg General appearance: PRESENT: no acute distress, cooperative, disheveled, obese Head exam: PRESENT: atraumatic, normocephalic Eye exam: PRESENT: conjunctiva pale, EOMI, nystagmus, periorbital swelling, scleral icterus Mouth exam: PRESENT: dry mucosa, neck supple, tongue midline Neck exam: ABSENT: carotid bruit, JVD, lymphadenopathy, thyromegaly, tracheal deviation, tracheostomy Respiratory exam: PRESENT: decreased breath sounds, prolonged expiratory phas, rhonchi, symmetrical, unlabored, wheezes. ABSENT: rales, retraction, stridor, tachypnea Cardiovascular exam: PRESENT: RRR, +S1, +S2 Pulses: PRESENT: normal radial pulses GI/Abdominal exam: PRESENT: diminished bowel sounds, soft Extremities exam: ABSENT: calf tenderness, clubbing Musculoskeletal exam: ABSENT: deformity, dislocation Neurological exam: PRESENT: alert, awake Psychiatric exam: PRESENT: normal mood Skin exam: PRESENT: dry, warm Results Laboratory Results: 11/02/17 05:26 11/03/17 05:03 11/03/17 05:03 Sodium 141.0 Potassium 3.9 Chloride 105 Carbon Dioxide 31 H Anion Gap 5 BUN 31 H Creatinine 0.70 Est GFR ( Amer) > 60 Est GFR (Non-Af Amer) > 60 Glucose 93 Calcium 8.5 10/26/17 10/26/17 10/26/17 13:37 13:37 18:59 Creatine Kinase 28 L 30 CK-MB (CK-2) 2.38 Troponin I 0.028 NT-Pro-B Natriuret Pep 10/26/17 10/27/17 10/27/17 18:59 00:43 00:43 Creatine Kinase 27 L CK-MB (CK-2) 2.38 2.44 Troponin I 0.017 0.013 NT-Pro-B Natriuret Pep 10/27/17 10/28/17 10/29/17 05:46 04:28 06:16 Creatine Kinase CK-MB (CK-2) Troponin I NT-Pro-B Natriuret Pep 4390 H 3800 H 1940 H Impressions: Chest/Abdomen CTA 10/26/17 00:00 IMPRESSION: No CT angio evidence of acute pulmonary emboli. Very heavily calcified aortic valve and heavily calcified coronary arteries. No thoracic aneurysm Very heavily calcified visceral arteries in the upper abdomen. Head CT 10/27/17 00:00 IMPRESSION: CHRONIC CHANGES OF ATROPHY AND MICROVASCULAR ISCHEMIA. NO ACUTE PROCESS. EVIDENCE OF ACUTE STROKE: NO. Chest X-Ray 11/03/17 00:00 IMPRESSION: No evidence of acute cardiopulmonary disease. Assessment & Plan - Diagnosis (1) Anxiety disorder Qualifiers: Anxiety disorder type: generalized anxiety disorder Qualified Code(s): F41.1 - Generalized anxiety disorder Is this a current diagnosis for this admission?: Yes (2) COPD (chronic obstructive pulmonary disease) Qualifiers: COPD type: chronic bronchitis Chronic bronchitis type: mucopurulent Qualified Code(s): J41.1 - Mucopurulent chronic bronchitis Is this a current diagnosis for this admission?: Yes Plan: improving (3) Congestive heart failure (CHF) Qualifiers: Heart failure type: systolic Heart failure chronicity: acute on chronic Qualified Code(s): I50.23 - Acute on chronic systolic (congestive) heart failure Is this a current diagnosis for this admission?: Yes (4) Dementia Qualifiers: Dementia type: unspecified type Dementia behavioral disturbance: without behavioral disturbance Qualified Code(s): F03.90 - Unspecified dementia without behavioral disturbance Is this a current diagnosis for this admission?: Yes
== END 2017-11-04 16:21 | DRG 190 ==
LOC: ER 09:18 → EH 13:25 → 3W 19:28
PROVIDERS: ADMIT Family Medicine; ATTEND Family Medicine
PROC: 3E0F73Z Introduction of Anti-inflammatory into Respiratory Tract, Via Natural or Artificial Opening (ICD-10-PCS; principal; 2017-10-26)
DX: J41.1 Mucopurulent chronic bronchitis (principal); I50.23 Acute on chronic systolic (congestive) heart failure; N39.0 Urinary tract infection, site not specified; I25.10 Atherosclerotic heart disease of native coronary artery without angina pectoris; I11.0 Hypertensive heart disease with heart failure; E87.6 Hypokalemia; F03.90 Unspecified dementia, unspecified severity, without behavioral disturbance, psychotic disturbance, mood disturbance, and anxiety; Z66 Do not resuscitate; I71.4 Abdominal aortic aneurysm, without rupture; R21 Rash and other nonspecific skin eruption; I48.2 Chronic atrial fibrillation; I73.9 Peripheral vascular disease, unspecified; K21.9 Gastro-esophageal reflux disease without esophagitis; M19.90 Unspecified osteoarthritis, unspecified site; F41.1 Generalized anxiety disorder; J20.9 Acute bronchitis, unspecified; J44.0 Chronic obstructive pulmonary disease with (acute) lower respiratory infection; B96.3 Hemophilus influenzae [H. influenzae] as the cause of diseases classified elsewhere; K59.00 Constipation, unspecified; R00.1 Bradycardia, unspecified; Z79.899 Other long term (current) drug therapy; Z85.038 Personal history of other malignant neoplasm of large intestine; Z90.49 Acquired absence of other specified parts of digestive tract; Z90.710 Acquired absence of both cervix and uterus; Z87.891 Personal history of nicotine dependence; Z88.6 Allergy status to analgesic agent; Z88.0 Allergy status to penicillin; Z88.2 Allergy status to sulfonamides; Z82.49 Family history of ischemic heart disease and other diseases of the circulatory system
CPT/HCPCS: 36415; 70450; 71045; 71046; 71275; 80048; 80053; 81001; 82550; 82553; 82803; 83605; 83735; 83880; 84439; 84443; 84481; 84484; 85025; 85610; 87040; 87070; 87077; 87086; 87205; 93005; 93010; 93306; 94640; 96374; 99285; G8978-GP; G8979-GP; J0692; J2405; J2920; J2930; J3490; J7512; J7620

== ENCOUNTER → 2017-11-18 | Outpatient (CLI) | payer MEDICARE ==
[2017-11-18 13:19] LABS: HEMATOCRIT 39.2 % (36.0-47.0); HEMOGLOBIN 13.1 g/dL (12.0-15.5); MEAN CORPUSCULAR HEMOGLOBIN 32.3 pg (27.0-33.4); MEAN CORPUSCULAR HGB CONC 33.4 g/dL (32.0-36.0); MEAN CORPUSCULAR VOLUME 97 fl (80-97); PLATELET COUNT 216 10^3/uL (150-450); RED BLOOD COUNT 4.05 10^6/uL (3.72-5.28); RED CELL DISTRIBUTION WIDTH 18.2 % (11.5-14.0); WHITE BLOOD COUNT 5.2 10^3/uL (4.0-10.5)
[2017-11-18 13:36] LABS: ALANINE AMINOTRANSFERASE 44 U/L (9-52); ALBUMIN 3.5 g/dL (3.5-5.0); ALKALINE PHOSPHATASE 57 U/L (38-126); ANION GAP 11 (5-19); ASPARTATE AMINO TRANSFERASE 24 U/L (14-36); BILIRUBIN,DIRECT 0.7 mg/dL (0.0-0.4); BLOOD UREA NITROGEN 20 mg/dL (7-20); CALCIUM 8.9 mg/dL (8.4-10.2); CARBON DIOXIDE 28 mmol/L (22-30); CHLORIDE 106 mmol/L (98-107); GLUCOSE 95 mg/dL (75-110); POTASSIUM 3.3 mmol/L (3.6-5.0); SODIUM 144.5 mmol/L (137-145); TOTAL PROTEIN 5.8 g/dL (6.3-8.2)
[2017-11-18 13:51] LABS: ABSOLUTE LYMPHOCYTES# (MANUAL) 0.8 10^3/uL (0.5-4.7); ABSOLUTE MONOCYTES # (MANUAL) 0.6 10^3/uL (0.1-1.4); ABSOLUTE NEUTROPHILS# (MANUAL) 3.7 10^3/uL (1.7-8.2); ANISOCYTOSIS 2+; BASOPHILS % (MANUAL) 0 % (0-2); EOSINOPHILS % (MANUAL) 2 % (0-6); LYMPHOCYTES % (MANUAL) 14 % (13-45); MONOCYTES % (MANUAL) 12 % (3-13); OVALOCYTES 2+; POIKILOCYTOSIS 2+; SEGMENTED NEUTROPHILS % (MAN) 71 % (42-78); TOTAL CELLS COUNTED 100
[2017-11-18 13:52] LABS: PLATELET CLUMPS PRESENT
[2017-11-18 13:53] LABS: POLYCHROMASIA 1+; TOXIC GRANULATION 1+
== END ==
LOC: OD 11:46
PROVIDERS: ATTEND Family Medicine
DX: R19.7 Diarrhea, unspecified (principal); R53.1 Weakness
CPT/HCPCS: 36415; 80053; 85025

== ENCOUNTER → 2017-11-23 | Outpatient (CLI) | payer MEDICARE ==
[2017-11-23 12:41] LABS: ANION GAP 10 (5-19); BLOOD UREA NITROGEN 18 mg/dL (7-20); CALCIUM 8.9 mg/dL (8.4-10.2); CARBON DIOXIDE 31 mmol/L (22-30); CHLORIDE 105 mmol/L (98-107); GLUCOSE 96 mg/dL (75-110); SODIUM 145.9 mmol/L (137-145)
[2017-11-23 12:46] LABS: POTASSIUM 2.8 mmol/L (3.6-5.0)
== END ==
LOC: OD 11:21
PROVIDERS: ATTEND Family Medicine
DX: E87.6 Hypokalemia (principal)
CPT/HCPCS: 36415; 80048

== ENCOUNTER → 2017-12-31 | Outpatient (CLI) | payer MEDICARE ==
[~2017-12-31] MED LIST: AMINOPHYLLINE INJ/PF 250 MG/10 ML SDV IV ONE; REGADENOSON INJ 0.4 MG/5 ML DISP.SYRIN IV ONE
--- NOTE | 2018-01-01 09:23 | DRAGON STRESS TEST REPORT ---
INTRAVENOUS LEXISCAN CARDIOLITE STRESS TEST USING SINGLE PHOTON EMMISION COMPUTERIZED TOMOGRAPHIC. DATE OF PROCEDURE: December 31, 2017, INDICATION : Preop cardiovascular evaluation. Abdominal aortic aneurysm without rupture CARDIAC RISK FACTORS: Type 2 diabetes, hypertension, dyslipidemia RESTING EKG: Atrial fibrillation, LVH with secondary ST-T wave changes STRESS EKG: No significant ST segment changes noted with LexiScan bolus REASON FOR TERMINATION: Protocol. PROCEDURE REPORT: Baseline heart rate 60 beats per minute with blood pressure of 127/68. Patient had no significant complaints. Patient was bolused with Lexiscan 0.4 mg intravenously followed by saline bolus. Heart rate at 2 minutes post bolus 69 with a blood pressure of 107/57. 3 minutes post bolus heart rate 62 with blood pressure of 115/55. No significant EKG changes were noted. Patient had no significant complaints during the procedure or postprocedure. Patient injected with Aminophyllin 75 mg at 3 minutes or later after Lexiscan bolus. CONCLUSIONS: Normal EKG and hemodynamic response to IV LexiScan. NUCLEAR DATA: At rest the patient was given 12.65 millicuries of technetium 99 sestamibi injected intravenously. As per protocol rest gated SPECT images were obtained. On day of stress test, the patient was given intravenous LexiScan at a dose of 0.4 mg in 5 mL intravenously, followed by flush with normal saline. Subsequently the stress dose of 36.8 millicuries of technetium 99 sestamibi was injected intravenously. As per protocol stress gated images were obtained. NUCLEAR INTERPRETATION: Both raw and processed data were used for interpretation. Visual, qualitative, computer-generated quantitative data was used. There was good myocardial uptake of technetium compound. Motion artifact and soft tissue attenuations were noted. Increased visceral uptake was noted. No definitive areas of transient perfusion defect noted except for a small area of decreased perfusion and stress images in the mid anterior wall. SDS of 2, however no corresponding wall motion abnormalities were noted.. This could be artifactual but cannot rule out mild ischemia, No definitive areas of fixed perfusion defect or scars noted. EKG gated imaging showed LV EF at 62 %, rest and stress gated EF similar visually. T. I D. ratio was 0.95. Lung heart ratio noted to be within normal limits 0.35. No significant extracardiac and abnormal radiotracer activities were noted. RV free wall uptake was noted to be WNL. IMPRESSION: Also refer to comments under nuclear interpretation. Also test results needs to be interpreted in the context of pretest probability. 1. Probable mild mid anterior wall ischemia. Total area is small with SDS of 2. No corresponding wall motion of mellitus were noted on gated imaging. 2. There is no definitive scintigraphic evidence of myocardial infarction/scar. 3. EKG gated imaging shows left ventricular ejection fraction of approx. 62 %. 4. Clinical correlation requested as occasionally single vessel disease or balanced ischemia could be missed. In approximately 10% of the cases Lexiscan may not cause adequate vasodilatory stress. RECOMMENDATIONS: Aggressive risk factor modification and medical management. Further evaluation may be needed if continued symptoms or other high risk indicators are noted on clinical evaluation. Close cardiology follow-up is also recommended. Clinical correlation with echocardiogram derived ejection fraction. Inability to exercise by itself can lead to increased cardiovascular event risks. Consider cardiology consultation and or follow-up if clinically indicated. I am available for cardiology evaluation and consultation if requested by the hr operations advisor, unless patient already has a maintenance service technician. PHAN
== END ==
LOC: RAD 07:31
PROVIDERS: ATTEND Surgery Vascular Surgery
DX: I71.4 Abdominal aortic aneurysm, without rupture (principal); I72.3 Aneurysm of iliac artery; I10 Essential (primary) hypertension; E78.5 Hyperlipidemia, unspecified; I48.91 Unspecified atrial fibrillation; E11.9 Type 2 diabetes mellitus without complications
CPT/HCPCS: 93017; 78452; A9500; J2785; J0280; Q9969

== ENCOUNTER 2018-01-11 13:13 | Emergency (ER) | payer MEDICARE ==
--- NOTE | 2018-01-11 14:03 | ER Document Report ---
ED General - General Chief Complaint: General Weakness Stated Complaint: DIZZINESS Time Seen by Provider: 01/11/18 14:01 Mode of Arrival: Ambulatory Information source: Patient Notes: This is an 82-year-old female with a history of COPD, CHF, atrial fibrillation, hypertension who presents to the emergency room with dizziness. Patient states she was given some IV fluids by EMS and it has made her feel better. Patient denies any chest pain, shortness of breath, nausea, vomiting or abdominal pain. TRAVEL OUTSIDE OF THE [place] IN LAST 30 DAYS: No - HPI Onset: Just prior to arrival Onset/Duration: Sudden Quality of pain: No pain Severity: None Pain Level: Denies Associated symptoms: denies: Chest pain, Fever, Shortness of breath Exacerbated by: Denies Relieved by: Denies Similar symptoms previously: Yes Recently seen / treated by doctor: Yes - Related Data Allergies/Adverse Reactions: codeine [Codeine] Allergy (Verified 09/09/17 18:26) meperidine HCl [From Demerol] Allergy (Verified 09/09/17 18:26) Penicillins Allergy (Verified 09/09/17 18:26) Sulfa (Sulfonamide Antibiotics) Allergy (Verified 09/09/17 18:26) Past Medical History - General Information source: Patient - Social History Smoking Status: Former Smoker Cigarette use (# per day): No Chew tobacco use (# tins/day): No Frequency of alcohol use: None Drug Abuse: None Lives with: Alone Family History: Hypertension Patient has suicidal ideation: No Patient has homicidal ideation: No - Past Medical History Cardiac Medical History: Reports: Hx Atrial Fibrillation, Hx Coronary Artery Disease, Hx Hypercholesterolemia, Hx Hypertension, Hx Peripheral Vascular Disease - Past surgical h/o hysterectomy, colectomy, cholecystectomy, appendectomy Pulmonary Medical History: Reports: Hx COPD, Hx Pneumonia Renal/ Medical History: Denies: Hx Peritoneal Dialysis Malignancy Medical History: Reports: Hx Colorectal Cancer GI Medical History: Reports: Hx Gastroesophageal Reflux Disease Musculoskeltal Medical History: Reports Hx Arthritis Psychiatric Medical History: Reports: Hx Anxiety, Hx Bipolar Disorder, Hx Dementia, Hx Depression Past Surgical History: Reports: Hx Abdominal Surgery, Hx Appendectomy, Hx Cholecystectomy, Hx Hysterectomy. Denies: Hx Pacemaker - Immunizations Immunizations up to date: Yes Hx Diphtheria, Pertussis, Tetanus Vaccination: Yes Review of Systems - Review of Systems Notes: Review of systems: Constitutional: Denies fever, chills. EENT: Denies ear pain, sinus tenderness, throat pain, throat swelling. Cardiovascular: Denies chest pain, palpitations, dyspnea or edema. Respiratory: Denies wheezing, cough, hemoptysis. Abdomen: Denies abdominal pain, nausea, vomiting, diarrhea. Denies BRBPR or melena. Genitourinary: Denies dysuria, pyuria, hematuria, flank pain. Musculoskeletal: denies joint pain or swelling, denies back pain. Neurologic: Denies headache, photophobia, neck stiffness, weakness. Denies loss of bowel or bladder function. Denies saddle anesthesia. Skin: Denies rash, lesions. Physical Exam - Vital signs Vitals: Resp Pulse Ox 20 96 01/11/18 13:19 01/11/18 13:19 Notes: Physical exam: GENERAL: 82-year-old female, alert and oriented 3, no acute distress HEAD: Atraumatic, normocephalic. EYES: Pupils equal round and reactive to light, extraocular movements intact, sclera anicteric, conjunctiva are normal. ENT: TMs normal, nares patent, oropharynx clear without exudates. Moist mucous membranes. NECK: Normal range of motion, supple without obvious mass or JVD. LUNGS: Breath sounds clear to auscultation bilaterally and equal. No wheezes rales or rhonchi. HEART: Regular rate and rhythm without murmurs, rubs or gallops. ABDOMEN: Soft, normoactive bowel sounds. No tenderness to palpation. No guarding, no rebound. No masses appreciated. EXTREMITIES: Normal range of motion, no pitting or edema. No clubbing or cyanosis. NEUROLOGICAL: Cranial nerves II through XII grossly intact. Normal speech, moving all extremities. PSYCH: Normal mood, normal affect. SKIN: Warm, Dry, normal turgor, no rashes or lesions noted. Course - Re-evaluation Re-evalutation: 01/11/18 15:08 Patient looks good. Labs reviewed and she does have possible early UTI. Urine culture was sent. I will send her home with some antibiotics. Case discussed with Dr. Avina who will follow patient in outpatient - Vital Signs Vital signs: Temp Pulse Resp BP Pulse Ox 22 H 112/78 98 01/11/18 16:31 01/11/18 16:31 01/11/18 16:31 - Laboratory Result Diagrams: 01/11/18 14:07 01/11/18 14:07 Laboratory results interpreted by me: 01/11/18 01/11/18 01/11/18 13:22 14:07 14:07 RDW 15.1 H Seg Neutrophils % 82.0 H Lymphocytes % 9.5 L BUN 23 H Glucose 111 H Creatine Kinase 23 L Total Protein 5.9 L Urine Blood SMALL H Urine Nitrite POSITIVE H Ur Leukocyte Esterase SMALL H - EKG Interpretation by Me Rate: Bradycardia Rhythm: A.Fib - EKG shows atrial fibrillation with a ventricular rate of 57, nonspecific ST changes Discharge - Discharge Clinical Impression: Dizziness, UTI Condition: Stable Disposition: HOME, SELF-CARE Instructions: Dizziness ([facility]), Urinary Tract Infection ([facility]) Prescriptions: Ciprofloxacin HCl [Cipro 500 mg Tablet] 500 mg PO BID #10 tablet Referrals: ONEL AVINA MD [Primary Care Provider] - Follow up in 3-5 days
[2018-01-11 14:17] LABS: ABSOLUTE BASOPHILS # (AUTO) 0.1 10^3/uL (0.0-0.2); ABSOLUTE EOSINOPHILS # (AUTO) 0.1 10^3/uL (0.0-0.6); ABSOLUTE LYMPHOCYTES (AUTO) 0.8 10^3/uL (0.5-4.7); ABSOLUTE MONOCYTES (AUTO) 0.6 10^3/uL (0.1-1.4); ABSOLUTE NEUT (AUTO) 7.3 10^3/uL (1.7-8.2); BASOPHILS % (AUTO) 0.6 % (0-2); EOSINOPHILS % (AUTO) 0.7 % (0-6); HEMATOCRIT 41.2 % (36.0-47.0); HEMOGLOBIN 13.6 g/dL (12.0-15.5); LYMPHOCYTES % (AUTO) 9.5 % (13-45); MEAN CORPUSCULAR HEMOGLOBIN 31.6 pg (27.0-33.4); MEAN CORPUSCULAR VOLUME 96 fl (80-97); MONOCYTES % (AUTO) 7.2 % (3-13); PLATELET COUNT 219 10^3/uL (150-450); RED BLOOD COUNT 4.31 10^6/uL (3.72-5.28); RED CELL DISTRIBUTION WIDTH 15.1 % (11.5-14.0); TOTAL CELLS COUNTED % (AUTO) 100 %; WHITE BLOOD COUNT 8.9 10^3/uL (4.0-10.5)
[2018-01-11 14:20] LABS: APPEARANCE,URINE SLIGHTLY-CLOUDY; BILIRUBIN,URINE NEGATIVE (NEGATIVE); COLOR,URINE YELLOW; GLUCOSE, URINE NEGATIVE (NEGATIVE); KETONES,URINE NEGATIVE (NEGATIVE); LEUKOCYTE ESTERASE,URINE SMALL (NEGATIVE); NITRITE,URINE POSITIVE (NEGATIVE); PROTEIN,URINE NEGATIVE (NEGATIVE); URINE SPECIFIC GRAVITY 1.013; UROBILINOGEN,URINE NEGATIVE mg/dL (<2.0)
[2018-01-11 14:36] LABS: ALANINE AMINOTRANSFERASE 27 U/L (9-52); ALBUMIN 3.6 g/dL (3.5-5.0); ALKALINE PHOSPHATASE 57 U/L (38-126); ANION GAP 12 (5-19); ASPARTATE AMINO TRANSFERASE 18 U/L (14-36); BILIRUBIN,DIRECT 0.3 mg/dL (0.0-0.4); BILIRUBIN,TOTAL 0.8 mg/dL (0.2-1.3); BLOOD UREA NITROGEN 23 mg/dL (7-20); CALCIUM 9.4 mg/dL (8.4-10.2); CARBON DIOXIDE 25 mmol/L (22-30); CHLORIDE 107 mmol/L (98-107); CREATINE KINASE 23 U/L (30-135); GLUCOSE 111 mg/dL (75-110); POTASSIUM 4.4 mmol/L (3.6-5.0); SODIUM 144.1 mmol/L (137-145); TOTAL PROTEIN 5.9 g/dL (6.3-8.2)
[2018-01-11 14:48] LABS: CREATINE KINASE MB 1.01 ng/mL (<4.55)
[2018-01-11 14:49] LABS: TROPONIN I < 0.012 ng/mL
[2018-01-11 16:12] VITALS: BP 112/78
--- NOTE | 2018-01-11 20:10 | EKG REPORT ---
SEVERITY:- ABNORMAL ECG - ATRIAL FIBRILLATION CONSIDER ANTEROSEPTAL INFARCT ABNORMAL T, CONSIDER ISCHEMIA, LATERAL LEADS : Confirmed by: Nathan Maurer 11-Jan-2018 20:09:12
== END 2018-01-11 16:05 | disposition home or self-care (01) ==
LOC: ER 13:13
DX: R42 Dizziness and giddiness (principal); N39.0 Urinary tract infection, site not specified; J44.9 Chronic obstructive pulmonary disease, unspecified; I10 Essential (primary) hypertension; I25.10 Atherosclerotic heart disease of native coronary artery without angina pectoris; Z88.5 Allergy status to narcotic agent; Z88.0 Allergy status to penicillin; Z88.2 Allergy status to sulfonamides; Z87.891 Personal history of nicotine dependence; Z85.048 Personal history of other malignant neoplasm of rectum, rectosigmoid junction, and anus
CPT/HCPCS: 36415; 80053; 81001; 82550; 82553; 84484; 85025; 87086; 87088; 87186; 93005; 93010; 99284

== ENCOUNTER 2018-01-14 08:47 | Emergency (ER) | payer MEDICARE ==
--- NOTE | 2018-01-14 09:15 | ER Document Report ---
ED Dizziness/Weakness - General Stated Complaint: DIZZY Time Seen by Provider: 01/14/18 08:52 Mode of Arrival: Medic Information source: Patient, Transfer Record, Outside Facility Records Notes: Patient presents complaining of an episode of dizziness and shakiness this morning at the intermediate. Patient states she was walking in the hallway with her walker and she started to have generalized shaking to the upper and lower extremities. Patient states she felt as though she could not move her feet. Patient called to a staff member who helped her to her room. Patient denies any headache, chest pain, abdominal pain, back pain or difficulty breathing. Patient states she was seen here recently for the same complaint. Patient presently denies any symptoms. Patient denies any history of Parkinson' s. TRAVEL OUTSIDE OF THE [place] IN LAST 30 DAYS: No - HPI Patient complains to provider of: Dizziness Onset: Just prior to arrival Onset/Duration: Sudden, Gone Quality of pain: No pain Pain Level: Denies Associated symptoms: Dizzy. denies: Chest pain, Almost fainted, Fainted, Headache, Sweating, Vomiting Baseline gait: Uses a walker - Related Data Allergies/Adverse Reactions: codeine [Codeine] Allergy (Verified 09/09/17 18:26) meperidine HCl [From Demerol] Allergy (Verified 09/09/17 18:26) Penicillins Allergy (Verified 09/09/17 18:26) Sulfa (Sulfonamide Antibiotics) Allergy (Verified 09/09/17 18:26) Past Medical History - General Information source: Patient, Transfer Record, Outside Facility Records - Social History Smoking Status: Never Smoker Frequency of alcohol use: None Drug Abuse: None Lives with: Intermediate Family History: Hypertension - Past Medical History Cardiac Medical History: Reports: Hx Atrial Fibrillation, Hx Coronary Artery Disease, Hx Hypercholesterolemia, Hx Hypertension, Hx Peripheral Vascular Disease - Past surgical h/o hysterectomy, colectomy, cholecystectomy, appendectomy Pulmonary Medical History: Reports: Hx COPD, Hx Pneumonia Renal/ Medical History: Denies: Hx Peritoneal Dialysis Malignancy Medical History: Reports: Hx Colorectal Cancer GI Medical History: Reports: Hx Gastroesophageal Reflux Disease Musculoskeltal Medical History: Reports Hx Arthritis Psychiatric Medical History: Reports: Hx Anxiety, Hx Bipolar Disorder, Hx Dementia, Hx Depression Past Surgical History: Reports: Hx Abdominal Surgery, Hx Appendectomy, Hx Cholecystectomy, Hx Hysterectomy. Denies: Hx Pacemaker - Immunizations Immunizations up to date: Yes Hx Diphtheria, Pertussis, Tetanus Vaccination: Yes Review of Systems - Review of Systems Constitutional: No symptoms reported. denies: Fever, Recent illness EENT: No symptoms reported. denies: Ear pain, Nose congestion, Nose discharge, Sinus pressure Cardiovascular: Dizziness. denies: Chest pain, Palpitations Respiratory: No symptoms reported. denies: Cough, Short of breath Gastrointestinal: No symptoms reported. denies: Abdominal pain, Nausea, Vomiting Genitourinary: No symptoms reported Female Genitourinary: No symptoms reported Musculoskeletal: No symptoms reported. denies: Back pain, Neck pain Skin: No symptoms reported Hematologic/Lymphatic: No symptoms reported Neurological/Psychological: Weakness - Episode of weakness bilateral feet, Tremor. denies: Confusion, Seizure, Lost consciousness, Headaches Physical Exam - Vital signs Vitals: Temp 98.4 F 01/14/18 08:52 - General General appearance: Appears well, Alert In distress: None - HEENT Head: Normocephalic, Atraumatic Eyes: Normal Conjunctiva: Normal Nasal: Normal Mouth/Lips: Normal Mucous membranes: Normal Neck: Normal, Supple. No: Lymphadenopathy - Respiratory Respiratory status: No respiratory distress Chest status: Nontender Breath sounds: Nonproductive cough, Rhonchi Chest palpation: Normal - Cardiovascular Rhythm: Irregularly irregular Heart sounds: S1 appreciated, S2 appreciated Murmur: No - Abdominal Inspection: Normal Distension: No distension Bowel sounds: Normal Tenderness: Nontender Organomegaly: No organomegaly - Back Back: Normal, Nontender. No: CVA tenderness, Vertebra tenderness - Extremities General upper extremity: Normal inspection, Normal ROM General lower extremity: Normal inspection, Normal ROM - Neurological Neuro grossly intact: Yes Cognition: Normal Jamari Coma Scale Eye Opening: Spontaneous Jamari Coma Scale Verbal: Oriented Penryn Coma Scale Motor: Obeys Commands Penryn Coma Scale Total: 15 Speech: Normal. No: Dysarthria Cranial nerves: Normal. No: Facial palsy, Tongue deviation Motor strength normal: LUE, RUE, LLE, RLE - Psychological Associated symptoms: Normal affect, Normal mood - Skin Skin Temperature: Warm Skin Moisture: Dry Skin Color: Normal Course - Re-evaluation Re-evalutation: 01/14/18 11:30 Patient's vital signs stable, patient denies any dizziness, nausea or vomiting. Patient without any complaints. Patient does have a tremor noted to bilateral upper and lower extremities. 01/14/18 11:[address] Salinas who recommends consultation with her primary doctor Dr. Avina. Consulted with Dr. Avina regarding patient presentation. States patient was to followed up in the office today but states he will gladly see her in the office tomorrow for follow-up. States patient frequently has dizziness complaints and also has some anxiety symptoms. Reviewed results of diagnostic evaluation today. No additional testing advised. Recommends outpatient follow-up tomorrow. - Vital Signs Vital signs: Temp Pulse Resp BP Pulse Ox 98.3 F 71 17 118/75 97 01/14/18 13:35 01/14/18 10:20 01/14/18 13:35 01/14/18 13:35 01/14/18 13:35 - Laboratory Result Diagrams: 01/14/18 09:20 01/14/18 09:20 Laboratory results interpreted by me: 01/14/18 01/14/18 01/14/18 09:20 09:20 09:20 RDW 15.0 H Seg Neutrophils % 81.8 H Lymphocytes % 9.9 L PT 15.6 H Sodium 145.9 H Est GFR (Non-Af Amer) 59 L Glucose 117 H Creatine Kinase 23 L Urine Urobilinogen 01/14/18 10:06 RDW Seg Neutrophils % Lymphocytes % PT Sodium Est GFR (Non-Af Amer) Glucose Creatine Kinase Urine Urobilinogen 2.0 H Labs- Entire Visit 01/14/18 01/14/18 01/14/18 09:20 09:20 09:20 WBC 8.1 RBC 4.36 Hgb 13.8 Hct 41.8 MCV 96 MCH 31.8 MCHC 33.1 RDW 15.0 H Plt Count 228 Seg Neutrophils % 81.8 H Lymphocytes % 9.9 L Monocytes % 6.4 Eosinophils % 1.0 Basophils % 0.9 Absolute Neutrophils 6.6 Absolute Lymphocytes 0.8 Absolute Monocytes 0.5 Absolute Eosinophils 0.1 Absolute Basophils 0.1 PT Cancelled 15.6 H INR Cancelled 1.18 Sodium Potassium Chloride Carbon Dioxide Anion Gap BUN Creatinine Est GFR ( Amer) Est GFR (Non-Af Amer) Glucose Calcium Magnesium Total Bilirubin Direct Bilirubin Neonat Total Bilirubin Neonat Direct Bilirubin Neonat Indirect Bili AST ALT Alkaline Phosphatase Creatine Kinase CK-MB (CK-2) Troponin I Total Protein Albumin Urine Color Urine Appearance Urine pH Ur Specific Nixon Urine Protein Urine Glucose (UA) Urine Ketones Urine Blood Urine Nitrite Urine Bilirubin Urine Urobilinogen Ur Leukocyte Esterase Urine WBC (Auto) Urine RBC (Auto) U Hyaline Cast (Auto) Urine Bacteria (Auto) Squamous Epi Cells Auto Urine Mucus (Auto) Urine Ascorbic Acid 01/14/18 01/14/18 01/14/18 09:20 09:20 10:06 WBC RBC Hgb Hct MCV MCH MCHC RDW Plt Count Seg Neutrophils % Lymphocytes % Monocytes % Eosinophils % Basophils % Absolute Neutrophils Absolute Lymphocytes Absolute Monocytes Absolute Eosinophils Absolute Basophils PT INR Sodium 145.9 H Potassium 3.6 Chloride 105 Carbon Dioxide 26 Anion Gap 15 BUN 16 Creatinine 0.92 Est GFR ( Amer) > 60 Est GFR (Non-Af Amer) 59 L Glucose 117 H Calcium 9.9 Magnesium 1.8 Total Bilirubin 0.7 Direct Bilirubin 0.4 Neonat Total Bilirubin Not Reportable Neonat Direct Bilirubin Not Reportable Neonat Indirect Bili Not Reportable AST 23 ALT 22 Alkaline Phosphatase 56 Creatine Kinase 23 L CK-MB (CK-2) 0.85 Troponin I < 0.012 Total Protein 6.4 Albumin 3.7 Urine Color YELLOW Urine Appearance SLIGHTLY-CLOUDY Urine pH 5.0 Ur Specific Nixon 1.016 Urine Protein NEGATIVE Urine Glucose (UA) NEGATIVE Urine Ketones NEGATIVE Urine Blood NEGATIVE Urine Nitrite NEGATIVE Urine Bilirubin NEGATIVE Urine Urobilinogen 2.0 H Ur Leukocyte Esterase NEGATIVE Urine WBC (Auto) 3 Urine RBC (Auto) 0 U Hyaline Cast (Auto) 1 Urine Bacteria (Auto) TRACE Squamous Epi Cells Auto 8 Urine Mucus (Auto) RARE Urine Ascorbic Acid NEGATIVE - Diagnostic Test Radiology reviewed: Reports reviewed Discharge - Discharge Clinical Impression: Dizziness Anxiety disorder Qualifiers: Anxiety disorder type: unspecified anxiety disorder Qualified Code(s): F41.9 - Anxiety disorder, unspecified Condition: Stable Disposition: SNF-Other Instructions: Dizziness ([facility]) Additional Instructions: Return immediately for any new or worsening symptoms Followup with Dr. Avina in his office tomorrow for repeat examination Referrals: ONEL AVINA MD [Primary Care Provider] - Follow up tomorrow
[2018-01-14 09:39] LABS: INTERNATIONAL RATION (INR) 1.18; PROTHROMBIN TIME 15.6 SEC (11.4-15.4)
[2018-01-14 09:45] LABS: ABSOLUTE BASOPHILS # (AUTO) 0.1 10^3/uL (0.0-0.2); ABSOLUTE EOSINOPHILS # (AUTO) 0.1 10^3/uL (0.0-0.6); ABSOLUTE LYMPHOCYTES (AUTO) 0.8 10^3/uL (0.5-4.7); ABSOLUTE MONOCYTES (AUTO) 0.5 10^3/uL (0.1-1.4); ABSOLUTE NEUT (AUTO) 6.6 10^3/uL (1.7-8.2); BASOPHILS % (AUTO) 0.9 % (0-2); HEMATOCRIT 41.8 % (36.0-47.0); HEMOGLOBIN 13.8 g/dL (12.0-15.5); LYMPHOCYTES % (AUTO) 9.9 % (13-45); MEAN CORPUSCULAR HEMOGLOBIN 31.8 pg (27.0-33.4); MEAN CORPUSCULAR HGB CONC 33.1 g/dL (32.0-36.0); MEAN CORPUSCULAR VOLUME 96 fl (80-97); MONOCYTES % (AUTO) 6.4 % (3-13); PLATELET COUNT 228 10^3/uL (150-450); RED BLOOD COUNT 4.36 10^6/uL (3.72-5.28); SEGMENTED NEUTROPHILS % (AUTO) 81.8 % (42-78); TOTAL CELLS COUNTED % (AUTO) 100 %; WHITE BLOOD COUNT 8.1 10^3/uL (4.0-10.5)
--- NOTE | 2018-01-14 09:59 | EKG REPORT ---
SEVERITY:- ABNORMAL ECG - CONSIDER A FIB, REC REPEAT EKG BORDERLINE R WAVE PROGRESSION, ANTERIOR LEADS : Confirmed by: Nathan Maurer 14-Jan-2018 09:58:08
[2018-01-14 10:02] LABS: ALANINE AMINOTRANSFERASE 22 U/L (9-52); ALBUMIN 3.7 g/dL (3.5-5.0); ALKALINE PHOSPHATASE 56 U/L (38-126); ANION GAP 15 (5-19); ASPARTATE AMINO TRANSFERASE 23 U/L (14-36); BILIRUBIN,DIRECT 0.4 mg/dL (0.0-0.4); BILIRUBIN,TOTAL 0.7 mg/dL (0.2-1.3); BLOOD UREA NITROGEN 16 mg/dL (7-20); CALCIUM 9.9 mg/dL (8.4-10.2); CARBON DIOXIDE 26 mmol/L (22-30); CHLORIDE 105 mmol/L (98-107); CREATINE KINASE 23 U/L (30-135); GLUCOSE 117 mg/dL (75-110); POTASSIUM 3.6 mmol/L (3.6-5.0); SODIUM 145.9 mmol/L (137-145); TOTAL PROTEIN 6.4 g/dL (6.3-8.2)
--- NOTE | 2018-01-14 10:11 | RADIOLOGY REPORT (SQ) ---
EXAM DESCRIPTION: CT HEAD WITHOUT COMPLETED DATE/TIME: 01/14/2018 9:43 am REASON FOR STUDY: dizziness COMPARISON: 10/27/2017 TECHNIQUE: Axial images acquired through the brain without intravenous contrast. Images reviewed wi th bone, brain and subdural windows. Additional sagittal and coronal reconstructions were generated. Images stored on PACS. All CT scanners at this facility use dose modulation, iterative reconstruction, and/or weight based d osing when appropriate to reduce radiation dose to as low as reasonably achievable (ALARA). [facility]: Dose Right [facility]: CareDose [facility]: Dose Right [facility]: Teradose 4D [facility]: Smart Rise Art RADIATION DOSE: CT Rad equipment meets quality standard of care and radiation dose reduction techniq ues were employed. CTDIvol: 53.2 mGy. DLP: 1044 mGy-cm.mGy. LIMITATIONS: None. FINDINGS: VENTRICLES: Prominent. CEREBRUM: No masses. No hemorrhage. No midline shift. Areas of low density in the white matter mos t likely due to chronic micro-vascular ischemic change. No evidence for acute infarction. CEREBELLUM: No masses. No hemorrhage. No alteration of density. No evidence for acute infarction. EXTRAAXIAL SPACES: Age-related involutional change. No fluid collections. No masses. ORBITS AND GLOBE: No intra- or extraconal masses. Normal contour of globe without masses. CALVARIUM: No fracture. PARANASAL SINUSES: No fluid or mucosal thickening. SOFT TISSUES: No mass or hematoma. OTHER: No other significant finding. IMPRESSION: CHRONIC CHANGES OF ATROPHY AND MICROVASCULAR ISCHEMIA. NO ACUTE PROCESS. EVIDENCE OF ACUTE STROKE: NO. TECHNICAL DOCUMENTATION: JOB ID: [id number] Quality ID # [id number]: Final reports with documentation of one or more dose reduction techniques (e.g., Au tomated exposure control, adjustment of the mA and/or kV according to patient size, use of iterative reconstruction technique) 2010 [email or web address]- All Rights Reserved Reading location - IP/workstation name: [email or web address]
--- NOTE | 2018-01-14 10:13 | RADIOLOGY REPORT (SQ) ---
EXAM DESCRIPTION: CHEST 2 VIEWS COMPLETED DATE/TIME: 01/14/2018 10:01 am REASON FOR STUDY: cough COMPARISON: 11/05/2017 EXAM PARAMETERS: NUMBER OF VIEWS: two views TECHNIQUE: Digital Frontal and Lateral radiographic views of the chest acquired. RADIATION DOSE: NA LIMITATIONS: none FINDINGS: LUNGS AND PLEURA: No opacities, masses or pneumothorax. No pleural effusion. MEDIASTINUM AND HILAR STRUCTURES: No masses or contour abnormalities. HEART AND VASCULAR STRUCTURES: The configuration of the heart and mediastinal structures is unchanged . Tortuous calcified thoracic aorta is again identified BONES: No acute findings. HARDWARE: Port-A-Cath is unchanged in position. OTHER: No other significant finding. IMPRESSION: NO ACUTE RADIOGRAPHIC FINDING IN THE CHEST. TECHNICAL DOCUMENTATION: JOB ID: [id number] [employer]- All Rights Reserved Reading location - IP/workstation name: [email or web address]
[2018-01-14 10:14] LABS: CREATINE KINASE MB 0.85 ng/mL (<4.55)
[2018-01-14 10:17] LABS: TROPONIN I < 0.012 ng/mL
[2018-01-14 10:33] LABS: APPEARANCE,URINE SLIGHTLY-CLOUDY; BILIRUBIN,URINE NEGATIVE (NEGATIVE); COLOR,URINE YELLOW; GLUCOSE, URINE NEGATIVE (NEGATIVE); KETONES,URINE NEGATIVE (NEGATIVE); LEUKOCYTE ESTERASE,URINE NEGATIVE (NEGATIVE); NITRITE,URINE NEGATIVE (NEGATIVE); PROTEIN,URINE NEGATIVE (NEGATIVE); URINE SPECIFIC GRAVITY 1.016
[2018-01-14 13:45] VITALS: BP 118/75
== END 2018-01-14 13:45 ==
LOC: ER 08:47
DX: R42 Dizziness and giddiness (principal); F41.9 Anxiety disorder, unspecified; R53.1 Weakness; R25.1 Tremor, unspecified; R05 Cough; I25.10 Atherosclerotic heart disease of native coronary artery without angina pectoris; I10 Essential (primary) hypertension; J44.9 Chronic obstructive pulmonary disease, unspecified; Z85.048 Personal history of other malignant neoplasm of rectum, rectosigmoid junction, and anus; Z88.5 Allergy status to narcotic agent; Z88.0 Allergy status to penicillin; Z88.2 Allergy status to sulfonamides
CPT/HCPCS: 36415; 70450; 71046; 80053; 81001; 82550; 82553; 83735; 84484; 85025; 85610; 93005; 93010; 99285

== ENCOUNTER 2018-01-26 15:27 | Emergency (ER) | payer MEDICARE ==
[2018-01-26 17:01] LABS: ABSOLUTE BASOPHILS # (AUTO) 0.1 10^3/uL (0.0-0.2); ABSOLUTE EOSINOPHILS # (AUTO) 0.1 10^3/uL (0.0-0.6); ABSOLUTE MONOCYTES (AUTO) 0.5 10^3/uL (0.1-1.4); ABSOLUTE NEUT (AUTO) 6.2 10^3/uL (1.7-8.2); BASOPHILS % (AUTO) 0.7 % (0-2); EOSINOPHILS % (AUTO) 0.9 % (0-6); HEMATOCRIT 40.5 % (36.0-47.0); HEMOGLOBIN 13.9 g/dL (12.0-15.5); LYMPHOCYTES % (AUTO) 12.8 % (13-45); MEAN CORPUSCULAR HEMOGLOBIN 32.1 pg (27.0-33.4); MEAN CORPUSCULAR HGB CONC 34.3 g/dL (32.0-36.0); MEAN CORPUSCULAR VOLUME 93 fl (80-97); MONOCYTES % (AUTO) 6.4 % (3-13); PLATELET COUNT 220 10^3/uL (150-450); RED BLOOD COUNT 4.34 10^6/uL (3.72-5.28); RED CELL DISTRIBUTION WIDTH 14.3 % (11.5-14.0); SEGMENTED NEUTROPHILS % (AUTO) 79.2 % (42-78); TOTAL CELLS COUNTED % (AUTO) 100 %; WHITE BLOOD COUNT 7.9 10^3/uL (4.0-10.5)
[2018-01-26 17:10] LABS: AMORPHOUS SEDIMENT,URINE TRACE /HPF; APPEARANCE,URINE SLIGHTLY-CLOUDY; BILIRUBIN,URINE NEGATIVE (NEGATIVE); COLOR,URINE YELLOW; GLUCOSE, URINE NEGATIVE (NEGATIVE); KETONES,URINE NEGATIVE (NEGATIVE); LEUKOCYTE ESTERASE,URINE LARGE (NEGATIVE); NITRITE,URINE NEGATIVE (NEGATIVE); PROTEIN,URINE NEGATIVE (NEGATIVE); UROBILINOGEN,URINE NEGATIVE mg/dL (<2.0)
[2018-01-26 17:34] LABS: ALANINE AMINOTRANSFERASE 25 U/L (9-52); ALBUMIN 3.2 g/dL (3.5-5.0); ALKALINE PHOSPHATASE 62 U/L (38-126); ANION GAP 12 (5-19); ASPARTATE AMINO TRANSFERASE 16 U/L (14-36); BILIRUBIN,DIRECT 0.3 mg/dL (0.0-0.4); BILIRUBIN,TOTAL 0.5 mg/dL (0.2-1.3); BLOOD UREA NITROGEN 17 mg/dL (7-20); CALCIUM 9.1 mg/dL (8.4-10.2); CARBON DIOXIDE 26 mmol/L (22-30); CHLORIDE 106 mmol/L (98-107); GLUCOSE 93 mg/dL (75-110); LIPASE 164.1 U/L (23-300); SODIUM 143.9 mmol/L (137-145); TOTAL PROTEIN 5.4 g/dL (6.3-8.2)
[2018-01-26 17:38] LABS: POTASSIUM 2.6 mmol/L (3.6-5.0)
[2018-01-26 18:01] LABS: CREATINE KINASE 25 U/L (30-135)
[2018-01-26 18:14] LABS: CREATINE KINASE MB 0.55 ng/mL (<4.55); TROPONIN I 0.02 ng/mL
--- NOTE | 2018-01-26 18:29 | ER Document Report ---
ED General - General Chief Complaint: Abdominal Pain Stated Complaint: ABDOMINAL PAIN Time Seen by Provider: 01/26/18 18:13 Mode of Arrival: Medic Information source: Patient, [facility] Records Notes: 82-year-old female with hypertension, COPD, PAD, atrial fibrillation, AAA presents with complaint of abdominal pain. Patient states abdominal pain has been present for a few weeks. Abdominal pain is located in the right left and suprapubic region and described as a cramping that is intermittent. Patient has also had a few weeks of diarrhea. She states that she has had 2-3 episodes of diarrhea for the last few weeks. She denies any black or bloody stools. Patient has associated nausea without vomiting. She denies any fever, chills, chest pain, shortness of breath. TRAVEL OUTSIDE OF THE [place] IN LAST 30 DAYS: No - HPI Onset: Other Onset/Duration: Gradual, Intermittent Quality of pain: Cramping Severity: Mild Associated symptoms: Diarrhea, Nausea. denies: Chest pain, Chills, Vomiting, Shortness of breath Exacerbated by: Denies Relieved by: Denies Similar symptoms previously: Yes Recently seen / treated by doctor: Yes - Related Data Allergies/Adverse Reactions: codeine [Codeine] Allergy (Verified 09/09/17 18:26) meperidine HCl [From Demerol] Allergy (Verified 09/09/17 18:26) Penicillins Allergy (Verified 09/09/17 18:26) Sulfa (Sulfonamide Antibiotics) Allergy (Verified 09/09/17 18:26) Past Medical History - General Information source: Patient, [facility] Records - Social History Smoking Status: Former Smoker Frequency of alcohol use: None Drug Abuse: None Lives with: Alone Family History: Hypertension Patient has suicidal ideation: No Patient has homicidal ideation: No - Past Medical History Cardiac Medical History: Reports: Hx Atrial Fibrillation, Hx Coronary Artery Disease, Hx Hypercholesterolemia, Hx Hypertension, Hx Peripheral Vascular Disease - Past surgical h/o hysterectomy, colectomy, cholecystectomy, appendectomy Pulmonary Medical History: Reports: Hx COPD, Hx Pneumonia Renal/ Medical History: Denies: Hx Peritoneal Dialysis Malignancy Medical History: Reports: Hx Colorectal Cancer GI Medical History: Reports: Hx Gastroesophageal Reflux Disease Musculoskeltal Medical History: Reports Hx Arthritis Psychiatric Medical History: Reports: Hx Anxiety, Hx Bipolar Disorder, Hx Dementia, Hx Depression Past Surgical History: Reports: Hx Abdominal Surgery, Hx Appendectomy, Hx Cholecystectomy, Hx Hysterectomy. Denies: Hx Pacemaker - Immunizations Immunizations up to date: Yes Hx Diphtheria, Pertussis, Tetanus Vaccination: Yes Review of Systems - Review of Systems Notes: REVIEW OF SYSTEMS: CONSTITUTIONAL : Denies fever, chills, or sweats. Denies recent illness. Denies weight loss, recent hospitalizations. EENT: Denies visula changes, eye pain. Denies nasal or sinus congestion or discharge. Denies sore throat, oral lesions, difficulty swallowing. CARDIOVASCULAR: Denies chest pain. Denies palpitations or racing or irregular heart beat. Denies lower extremity edema. RESPIRATORY: Denies cough, cold, or chest congestion. Denies shortness of breath, difficulty breathing, or wheezing. GASTROINTESTINAL: Denies vomiting. Denies blood in vomitus, stools, or per rectum. Denies black, tarry stools. Denies constipation. GENITOURINARY: Denies difficulty urinating, painful urination, burning, frequency, blood in urine, or vaginal discharge. MUSCULOSKELETAL: Denies back or neck pain or stiffness. Denies joint pain or swelling. SKIN: Denies rash, lesions or sores. HEMATOLOGIC : Denies easy bruising or bleeding. LYMPHATIC: Denies swollen, enlarged glands. NEUROLOGICAL: Denies confusion or altered mental status. Denies passing out or loss of consciousness. Denies dizziness or lightheadedness. Denies headache. Denies weakness or paralysis or loss of use of either side. Denies problems with gait or speech. Denies sensory loss, numbness, or tingling. Denies seizures. PSYCHIATRIC: Denies anxiety or stress. Denies depression, suicidal ideation, or homicidal ideation. Physical Exam - Vital signs Vitals: Temp Pulse Resp BP Pulse Ox 98.1 F 65 16 121/62 99 01/26/18 16:06 01/26/18 16:06 01/26/18 16:06 01/26/18 16:06 01/26/18 16:06 Interpretation: Normal. No: Hypotensive, Hypertensive, Tachycardic, Febrile - Notes Notes: PHYSICAL EXAMINATION: GENERAL: Well-appearing, well-nourished and in no acute distress. HEAD: Atraumatic, normocephalic. EYES: Pupils equal round and reactive to light, extraocular movements intact, conjunctiva are normal. ENT: Nares patent, oropharynx clear without exudates. Dry mucous membranes. NECK: Normal range of motion, supple without lymphadenopathy LUNGS: Breath sounds clear to auscultation bilaterally and equal. No wheezes rales or rhonchi. HEART: Regular rate and rhythm without murmurs ABDOMEN: Soft, nontender, nondistended abdomen. No guarding, no rebound. No masses appreciated. Female : deferred Musculoskeletal: Normal range of motion, no pitting or edema. No cyanosis. NEUROLOGICAL: Cranial nerves grossly intact. Normal speech, normal gait. Normal sensory, motor exams PSYCH: Normal mood, normal affect. SKIN: Warm, Dry, normal turgor, no rashes or lesions noted. Course - Re-evaluation Re-evalutation: Laboratory 01/26/18 01/26/18 01/26/18 15:52 16:40 16:40 WBC 7.9 RBC 4.34 Hgb 13.9 Hct 40.5 MCV 93 MCH 32.1 MCHC 34.3 RDW 14.3 H Plt Count 220 Seg Neutrophils % 79.2 H Lymphocytes % 12.8 L Monocytes % 6.4 Eosinophils % 0.9 Basophils % 0.7 Absolute Neutrophils 6.2 Absolute Lymphocytes 1.0 Absolute Monocytes 0.5 Absolute Eosinophils 0.1 Absolute Basophils 0.1 Sodium 143.9 Potassium 2.6 L* Chloride 106 Carbon Dioxide 26 Anion Gap 12 BUN 17 Creatinine 0.79 Est GFR ( Amer) > 60 Est GFR (Non-Af Amer) > 60 Glucose 93 Lactic Acid Calcium 9.1 Magnesium Total Bilirubin 0.5 Direct Bilirubin 0.3 Neonat Total Bilirubin Not Reportable Neonat Direct Bilirubin Not Reportable Neonat Indirect Bili Not Reportable AST 16 ALT 25 Alkaline Phosphatase 62 Creatine Kinase CK-MB (CK-2) Troponin I Total Protein 5.4 L Albumin 3.2 L Lipase 164.1 Urine Color YELLOW Urine Appearance SLIGHTLY-CLOUDY Urine pH 6.0 Ur Specific [place] 1.010 Urine Protein NEGATIVE Urine Glucose (UA) NEGATIVE Urine Ketones NEGATIVE Urine Blood SMALL H Urine Nitrite NEGATIVE Urine Bilirubin NEGATIVE Urine Urobilinogen NEGATIVE Ur Leukocyte Esterase LARGE H Urine WBC (Auto) 179 Urine RBC (Auto) 2 U Hyaline Cast (Auto) 3 Urine Bacteria (Auto) TRACE Squamous Epi Cells Auto 2 Amorphous Sediment Auto TRACE Urine Mucus (Auto) RARE Urine Ascorbic Acid NEGATIVE 01/26/18 01/26/18 01/26/18 16:40 16:40 18:40 WBC RBC Hgb Hct MCV MCH MCHC RDW Plt Count Seg Neutrophils % Lymphocytes % Monocytes % Eosinophils % Basophils % Absolute Neutrophils Absolute Lymphocytes Absolute Monocytes Absolute Eosinophils Absolute Basophils Sodium Potassium Chloride Carbon Dioxide Anion Gap BUN Creatinine Est GFR ( Amer) Est GFR (Non-Af Amer) Glucose Lactic Acid 1.3 Calcium Magnesium 1.6 Total Bilirubin Direct Bilirubin Neonat Total Bilirubin Neonat Direct Bilirubin Neonat Indirect Bili AST ALT Alkaline Phosphatase Creatine Kinase 25 L CK-MB (CK-2) 0.55 Troponin I 0.020 Total Protein Albumin Lipase Urine Color Urine Appearance Urine pH Ur Specific [place] Urine Protein Urine Glucose (UA) Urine Ketones Urine Blood Urine Nitrite Urine Bilirubin Urine Urobilinogen Ur Leukocyte Esterase Urine WBC (Auto) Urine RBC (Auto) U Hyaline Cast (Auto) Urine Bacteria (Auto) Squamous Epi Cells Auto Amorphous Sediment Auto Urine Mucus (Auto) Urine Ascorbic Acid 01/26/18 23:05 WBC RBC Hgb Hct MCV MCH MCHC RDW Plt Count Seg Neutrophils % Lymphocytes % Monocytes % Eosinophils % Basophils % Absolute Neutrophils Absolute Lymphocytes Absolute Monocytes Absolute Eosinophils Absolute Basophils Sodium Potassium 3.1 L Chloride Carbon Dioxide Anion Gap BUN Creatinine Est GFR ( Amer) Est GFR (Non-Af Amer) Glucose Lactic Acid Calcium Magnesium Total Bilirubin Direct Bilirubin Neonat Total Bilirubin Neonat Direct Bilirubin Neonat Indirect Bili AST ALT Alkaline Phosphatase Creatine Kinase CK-MB (CK-2) Troponin I Total Protein Albumin Lipase Urine Color Urine Appearance Urine pH Ur Specific [place] Urine Protein Urine Glucose (UA) Urine Ketones Urine Blood Urine Nitrite Urine Bilirubin Urine Urobilinogen Ur Leukocyte Esterase Urine WBC (Auto) Urine RBC (Auto) U Hyaline Cast (Auto) Urine Bacteria (Auto) Squamous Epi Cells Auto Amorphous Sediment Auto Urine Mucus (Auto) Urine Ascorbic Acid Abdomen/Pelvis CTA 01/26/18 00:00 IMPRESSION: 1. 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 2. 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 3. Diverticulosis coli. 4. Intrahepatic and extrahepatic ductal dilatation as described. 5. Scoliosis and degenerative disc disease. Chest/Abdomen CTA 01/26/18 18:26 IMPRESSION: There is no thoracic aortic aneurysm or dissection. No central pulmonary emboli are present. 01/26/18 23:45 82-year-old female with hypertension, COPD, PAD, atrial fibrillation, AAA presents with complaint of abdominal pain. Patient states abdominal pain has been present for a few weeks. Abdominal pain is located in the right left and suprapubic region and described as a cramping that is intermittent. Patient has also had a few weeks of diarrhea. She states that she has had 2-3 episodes of diarrhea for the last few weeks. She denies any black or bloody stools. Patient has associated nausea without vomiting. She denies any fever, chills, chest pain, shortness of breath. Upon arrival vital signs reviewed. Patient is afebrile, normotensive and not hypoxic. She does not appear toxic but she does appear mildly dehydrated. She is in no acute distress. Previous medical records and nursing notes reviewed. Patient has had multiple ED visits. Exam is significant for tenderness to palpation in the right and left and suprapubic regions of her abdomen. She does not display guarding or rebound. CBC is without leukocytosis or anemia. CMP does initially show a potassium of 2.6 likely due to chronic diarrhea. Potassium was replenished and now 3.1. Patient will be provided oral supplementation for home. Urinalysis was significant for large leuk esterase and greater than 100 WBCs. Patient received Cipro during her ED course. Patient was also provided IV fluids and Zofran. She has had no episodes of vomiting. She states she has home health 24 hours a day. Patient provided the opportunity to ask questions, and express concerns. Discharge instructions discussed. Patient is agreeable with discharge home. Return indications explained and discussed with the patient who displays understanding. Patient encouraged to return to the emergency department immediately with any concerns. After performing a Medical Screening Examination, I estimate there is LOW risk for ACUTE APPENDICITIS, BOWEL OBSTRUCTION, ACUTE CHOLECYSTITIS, PERFORATED DIVERTICULITIS, INCARCERATED HERNIA , PANCREATITIS, PERFORATED ULCER, ruptured AAA, or TUBO-OVARIAN ABSCESS, thus I consider the discharge disposition reasonable. Also, there is no evidence or peritonitis, sepsis, or toxicity. I have reevaluated this patient multiple times and no significant life threatening changes are noted. The patient and I have discussed the diagnosis and risks, and we agree with discharging home with close follow-up with the understanding that symptoms and presentations can change. We also discussed returning to the Emergency Department immediately if new or worsening symptoms occur. We have discussed the symptoms which are most concerning (e.g., bloody stool, fever, changing or worsening pain, vomiting) that necessitate immediate return. 01/26/18 23:45 01/26/18 23:50 - Vital Signs Vital signs: Temp Pulse Resp BP Pulse Ox 98.1 F 65 22 H 134/92 H 95 01/26/18 16:06 01/26/18 16:06 01/26/18 20:50 01/26/18 20:50 01/26/18 20:50 - Laboratory Result Diagrams: 01/26/18 16:40 01/26/18 23:05 Laboratory results interpreted by me: 01/26/18 01/26/18 01/26/18 15:52 16:40 16:40 RDW 14.3 H Seg Neutrophils % 79.2 H Lymphocytes % 12.8 L Potassium 2.6 L* Creatine Kinase Total Protein 5.4 L Albumin 3.2 L Urine Blood SMALL H Ur Leukocyte Esterase LARGE H 01/26/18 01/26/18 16:40 23:05 RDW Seg Neutrophils % Lymphocytes % Potassium 3.1 L Creatine Kinase 25 L Total Protein Albumin Urine Blood Ur Leukocyte Esterase - Diagnostic Test Radiology reviewed: Image reviewed, Reports reviewed - EKG Interpretation by Me Rate: Normal Rhythm: A.Fib Discharge - Discharge Clinical Impression: Hypokalemia, Nausea Urinary tract infection Qualifiers: Urinary tract infection type: site unspecified Hematuria presence: with hematuria Qualified Code(s): N39.0 - Urinary tract infection, site not specified Diarrhea Qualifiers: Diarrhea type: unspecified type Qualified Code(s): R19.7 - Diarrhea, unspecified Abdominal pain Qualifiers: Abdominal location: lower abdomen, unspecified Qualified Code(s): R10.30 - Lower abdominal pain, unspecified Condition: Good Disposition: HOME-ASSISTED LIVING Instructions: Diarrhea, Nonspecific ([facility]), Hypokalemia ([facility]), Urinary Tract Infection ([facility]) Additional Instructions: Follow up with your physician tomorrow for further care or return to the ED IMMEDIATELY if symptoms worsen or new concerns occur. If you cannot afford to follow up with your primary care physician a list of low cost clinics have been provided at the end of your discharge papers as well. Prescriptions: Ciprofloxacin HCl [Cipro 500 mg Tablet] 500 mg PO BID #10 tablet Ondansetron [Zofran Odt 4 mg Tablet] 1 tab PO Q4H PRN 3 Days #8 tab.rapdis PRN Reason: For Nausea/Vomiting Potassium Chloride 40 meq PO DAILY 5 Days #10 tab.er.prt Forms: Elevated Blood Pressure Referrals: ONEL AVINA MD [Primary Care Provider] - Follow up in 3-5 days
[2018-01-26] MEDS ORDERED: ONDANSETRON HCL INJ/PF 4 MG/2 ML SDV IV ONE ×2 (18:30→23:44)
[2018-01-26] MEDS ORDERED: NORMAL SALINE 500 ML IV ONE ×2 (18:30→22:15)
[2018-01-26] MEDS: POTASSI CL 20 MEQ/50 ML RIDER 20 MEQ/50 ML RTUPB IV SCH ×2 (18:51→20:46)
[2018-01-26] MEDS ORDERED: CIPROFLOXACIN 400 MG/D5W RTU 400 MG/200 ML RTUPB IV ONE (20:55)
--- NOTE | 2018-01-26 21:40 | RADIOLOGY REPORT (SQ) ---
EXAM DESCRIPTION: CTA CHEST COMPLETED DATE/TIME: 01/26/2018 8:45 pm REASON FOR STUDY: Abdomen pain, history of AAA COMPARISON: 11/23/2017 TECHNIQUE: CT scan of the chest performed using helical scanning technique with dynamic intravenous contrast injection. Images reviewed with lung, soft tissue and bone windows. Reconstructed coronal and sagittal MPR images reviewed. Additional 3 dimensional post-processing performed to develop Maximal Intensity Projection images (NV P). All images stored on PACS. All CT scanners at this facility use dose modulation, iterative reconstruction, and/or weight based d osing when appropriate to reduce radiation dose to as low as reasonably achievable (ALARA). [facility]: Dose Right [facility]: CareDose [facility]: Dose Right [facility]: Teradose 4D [facility]: [employer] CONTRAST TYPE AND DOSE: contrast/concentration: Isovue 370.00 mg/ml; Total Contrast Delivered: 100.0 ml; Total Saline Delivered: 90.0 ml Contrast bolus optimized for the pulmonary arteries. Not diagnostic for the aorta. RENAL FUNCTION: BUN 17 creatinine 0.8 RADIATION DOSE: CT Rad equipment meets quality standard of care and radiation dose reduction techniq ues were employed. CTDIvol: 11.4 - 34.0 mGy. DLP: 1596 mGy-cm. . LIMITATIONS: None. FINDINGS: LUNGS AND PLEURA: No masses, infiltrates, pneumothorax. No pleural effusions, calcificati ons. AORTA AND GREAT VESSELS: No aneurysm. No dissection. HEART: No pericardial effusion. Moderate to marked coronary artery calcifications. PULMONARY ARTERIES: Contrast bolus was optimized for the aorta, not for the pulmonary arteries. No c entral pulmonary emboli are present. HILAR AND MEDIASTINAL STRUCTURES: No identified masses or abnormal nodes. HARDWARE: None in the chest. UPPER ABDOMEN: See separate report of the CT of the abdomen. THYROID AND OTHER SOFT TISSUES: No masses. No adenopathy. BONES: Scoliosis and degenerative disc changes. 3D MIPS: Confirm above findings. OTHER: No other significant finding. IMPRESSION: There is no thoracic aortic aneurysm or dissection. No central pulmonary emboli are pre sent. COMMENT: Quality ID # [id number]: Final reports with documentation of one or more dose reduction techniques (e.g., Automated exposure control, adjustment of the mA and/or kV according to patient size, use of iterative reconstruction technique) TECHNICAL DOCUMENTATION: JOB ID: [id number]- All Rights Reserved Reading location - IP/workstation name: [email or web address]
--- NOTE | 2018-01-26 22:01 | RADIOLOGY REPORT (SQ) ---
EXAM DESCRIPTION: CTA ABDOMEN/PELVIS W WO COMPLETED DATE/TIME: 01/26/2018 8:45 pm REASON FOR STUDY: Abdomen pain, history of AAA COMPARISON: 09/17/2017 TECHNIQUE: CT scan of the abdominal aorta extending to the iliac bifurcation performed with intraven ous contrast using helical scanning technique with dynamic intravenous contrast injection. Images rev iewed with lung, soft tissue, and bone windows. Reconstructed coronal and sagittal MPR images reviewe d. All images stored on PACS. Advanced 3D imaging as volume rendering, MIPS, SSD performed? yes All CT scanners at this facility use dose modulation, iterative reconstruction, and/or weight based d osing when appropriate to reduce radiation dose to as low as reasonably achievable (ALARA). [facility]: Dose Right [facility]: CareDose [facility]: Dose Right [facility]: Teradose 4D [facility]: [employer] CONTRAST TYPE AND DOSE: 100 mL Isovue 370- low osmolar. RENAL FUNCTION: BUN 17 creatinine 0.8 LIMITATIONS: None. FINDINGS: POST-CONTRAST IMAGING: AORTA AND VESSELS: There is an aneurysm of the infrarenal abdominal aorta measuring [address] on image 135. 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 LUNG BASES: See report for CT of the chest. LIVER: Normal size. There is intrahepatic and extrahepatic ductal dilatation, likely secondary to pr ior cholecystectomy. . SPLEEN: Splenomegaly. PANCREAS: No masses. No significant calcifications. No adjacent inflammation or peripancreatic fluid collections. Pancreatic duct not dilated. GALLBLADDER: Surgically absent. ADRENAL GLANDS: No significant masses or asymmetry. RIGHT KIDNEY AND URETER: No mass, calculi or urinary tract obstruction. LEFT KIDNEY AND URETER: No mass, calculi or urinary tract obstruction. RETROPERITONEUM: No retroperitoneal adenopathy, hemorrhage or masses. BOWEL AND PERITONEAL CAVITY: Sigmoid diverticulosis with no acute inflammatory changes. APPENDIX: Surgically absent. ABDOMINAL WALL: No masses. No hernias. BONY STRUCTURES: Scoliosis and degenerative disc changes. 3-D IMAGING: Confirms the above findings. OTHER: No other significant finding. IMPRESSION: 1. 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 2. 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 3. Diverticulosis coli. 4. Intrahepatic and extrahepatic ductal dilatation as described. 5. Scoliosis and degenerative disc disease. TECHNICAL DOCUMENTATION: JOB ID: [id number] Quality ID # [id number]: Final reports with documentation of one or more dose reduction techniques (e.g., Au tomated exposure control, adjustment of the mA and/or kV according to patient size, use of iterative reconstruction technique) 2010 [employer]- All Rights Reserved Reading location - IP/workstation name: [email or web address]
--- NOTE | 2018-01-26 23:33 | EKG REPORT ---
SEVERITY:- ABNORMAL ECG - ATRIAL FIBRILLATION REPOL ABNRM SUGGESTS ISCHEMIA, DIFFUSE LEADS : Confirmed by: Nathan Maurer 26-Jan-2018 23:33:21
[2018-01-27 01:04] VITALS: BP 130/54
== END 2018-01-27 01:04 | disposition home health service (06) ==
LOC: ER 15:27
DX: N39.0 Urinary tract infection, site not specified (principal); E87.6 Hypokalemia; I71.4 Abdominal aortic aneurysm, without rupture; R11.0 Nausea; R19.7 Diarrhea, unspecified; I48.91 Unspecified atrial fibrillation; J44.9 Chronic obstructive pulmonary disease, unspecified; I25.10 Atherosclerotic heart disease of native coronary artery without angina pectoris; I10 Essential (primary) hypertension; Z88.5 Allergy status to narcotic agent; Z88.0 Allergy status to penicillin; Z88.2 Allergy status to sulfonamides; Z87.891 Personal history of nicotine dependence; Z85.048 Personal history of other malignant neoplasm of rectum, rectosigmoid junction, and anus
CPT/HCPCS: 93005; 96376; 99285; 96375; 96365; 96366; 96367; 36415; 82553; 82550; 83605; 83690; 83735; 84132; 85025; 80053; 81001; 84484; 71275; 74174; 93010; J2405; J3480; J7040; J0744

== ENCOUNTER 2018-02-10 14:34 | Emergency (ER) | payer MEDICARE ==
[2018-02-10] MEDS ORDERED: NORMAL SALINE 1000 ML 1,000 ML IV ONE (15:00)
[2018-02-10 15:12] LABS: ABSOLUTE BASOPHILS # (AUTO) 0.1 10^3/uL (0.0-0.2); ABSOLUTE EOSINOPHILS # (AUTO) 0.1 10^3/uL (0.0-0.6); ABSOLUTE LYMPHOCYTES (AUTO) 0.9 10^3/uL (0.5-4.7); ABSOLUTE MONOCYTES (AUTO) 0.5 10^3/uL (0.1-1.4); EOSINOPHILS % (AUTO) 0.7 % (0-6); HEMATOCRIT 39.9 % (36.0-47.0); HEMOGLOBIN 13.7 g/dL (12.0-15.5); LYMPHOCYTES % (AUTO) 12.4 % (13-45); MEAN CORPUSCULAR HEMOGLOBIN 31.9 pg (27.0-33.4); MEAN CORPUSCULAR HGB CONC 34.3 g/dL (32.0-36.0); MEAN CORPUSCULAR VOLUME 93 fl (80-97); MONOCYTES % (AUTO) 6.9 % (3-13); PLATELET COUNT 198 10^3/uL (150-450); RED BLOOD COUNT 4.29 10^6/uL (3.72-5.28); RED CELL DISTRIBUTION WIDTH 14.7 % (11.5-14.0); TOTAL CELLS COUNTED % (AUTO) 100 %; WHITE BLOOD COUNT 7.6 10^3/uL (4.0-10.5)
[2018-02-10 15:14] LABS: INTERNATIONAL RATION (INR) 1.36; PROTHROMBIN TIME 17.5 SEC (11.4-15.4)
[2018-02-10 15:15] LABS: PARTIAL THROMBOPLASTIN TIME 33.3 SEC (23.5-35.8)
--- NOTE | 2018-02-10 15:19 | RADIOLOGY REPORT (SQ) ---
EXAM DESCRIPTION: CHEST SINGLE VIEW COMPLETED DATE/TIME: 02/10/2018 3:09 pm REASON FOR STUDY: hypotension COMPARISON: CT CHEST 01/26/2018 TWO-VIEW CHEST 01/14/2018 EXAM PARAMETERS: NUMBER OF VIEWS: One view. TECHNIQUE: Single frontal radiographic view of the chest acquired. RADIATION DOSE: NA LIMITATIONS: None. FINDINGS: LUNGS AND PLEURA: No opacities, masses or pneumothorax. No pleural effusion. MEDIASTINUM AND HILAR STRUCTURES: No masses. Contour normal. HEART AND VASCULAR STRUCTURES: Stable cardiomegaly BONES: Osteopenic without gross acute change HARDWARE: Left permanent central line tip superior vena cava OTHER: No other significant finding. IMPRESSION: NO ACUTE RADIOGRAPHIC FINDING IN THE CHEST. TECHNICAL DOCUMENTATION: JOB ID: [id number] [employer]- All Rights Reserved Reading location - IP/workstation name: [email or web address]
[2018-02-10 15:40] LABS: ALANINE AMINOTRANSFERASE 20 U/L (9-52); ALBUMIN 3.4 g/dL (3.5-5.0); ALKALINE PHOSPHATASE 49 U/L (38-126); ANION GAP 13 (5-19); ASPARTATE AMINO TRANSFERASE 24 U/L (14-36); BILIRUBIN,DIRECT 0.4 mg/dL (0.0-0.4); BLOOD UREA NITROGEN 19 mg/dL (7-20); CALCIUM 9.2 mg/dL (8.4-10.2); CARBON DIOXIDE 26 mmol/L (22-30); CHLORIDE 108 mmol/L (98-107); CREATINE KINASE 42 U/L (30-135); GLUCOSE 98 mg/dL (75-110); POTASSIUM 3.2 mmol/L (3.6-5.0); SODIUM 146.6 mmol/L (137-145); TOTAL PROTEIN 5.8 g/dL (6.3-8.2)
[2018-02-10] MEDS ORDERED: POTASSIUM CHLORIDE 10 MEQ TABLET.SA PO ONE ×2 (15:59→20:00)
[2018-02-10] MEDS ORDERED: DEXTROSE 5%-WATER 500 ML with AMIODARONE HCL 900 MG IV PRN ×2 (16:14)
[2018-02-10] MEDS ORDERED: AMIODARONE HCL 150 MG in DEXTROSE 5%-WATER 100 ML IV ONE (16:14)
--- NOTE | 2018-02-10 16:16 | ER Document Report ---
ED General - General Chief Complaint: Nausea Stated Complaint: NAUSEA/DIZZINESS Time Seen by Provider: 02/10/18 14:55 Notes: The patient is a 82-year-old female, PMHx nonoperative AAA, A fib, presents with several days of intermittent nausea and feeling lightheaded. The symptoms only last a few seconds. Patient denies chest pain, syncope, fevers, abdominal pain, back pain, focal weakness, numbness, tingling or blurry vision. TRAVEL OUTSIDE OF THE [place] IN LAST 30 DAYS: No - Related Data Allergies/Adverse Reactions: codeine [Codeine] Allergy (Verified 09/09/17 18:26) meperidine HCl [From Demerol] Allergy (Verified 09/09/17 18:26) Penicillins Allergy (Verified 09/09/17 18:26) Sulfa (Sulfonamide Antibiotics) Allergy (Verified 09/09/17 18:26) Past Medical History - General Information source: Patient - Social History Smoking Status: Unknown if Ever Smoked Family History: Hypertension - Past Medical History Cardiac Medical History: Reports: Hx Atrial Fibrillation, Hx Coronary Artery Disease, Hx Hypercholesterolemia, Hx Hypertension, Hx Peripheral Vascular Disease - Past surgical h/o hysterectomy, colectomy, cholecystectomy, appendectomy Pulmonary Medical History: Reports: Hx COPD, Hx Pneumonia Renal/ Medical History: Denies: Hx Peritoneal Dialysis Malignancy Medical History: Reports: Hx Colorectal Cancer GI Medical History: Reports: Hx Gastroesophageal Reflux Disease Musculoskeltal Medical History: Reports Hx Arthritis Psychiatric Medical History: Reports: Hx Anxiety, Hx Bipolar Disorder, Hx Dementia, Hx Depression Past Surgical History: Reports: Hx Abdominal Surgery, Hx Appendectomy, Hx Cholecystectomy, Hx Hysterectomy. Denies: Hx Pacemaker - Immunizations Immunizations up to date: Yes Hx Diphtheria, Pertussis, Tetanus Vaccination: Yes Review of Systems - Review of Systems Notes: REVIEW OF SYSTEMS: CONSTITUTIONAL: -fevers, -chills EENT: -eye pain, -difficulty swallowing, -nasal congestion CARDIOVASCULAR: -chest pain, +near syncope. RESPIRATORY: -cough, -SOB GASTROINTESTINAL: -abdominal pain, +nausea, -vomiting, -diarrhea GENITOURINARY: -dysuria, -hematuria MUSCULOSKELETAL: -back pain, -neck pain SKIN: -rash or skin lesions. HEMATOLOGIC: -easy bruising or bleeding. LYMPHATIC: -swollen, enlarged glands. NEUROLOGICAL: -altered mental status or loss of consciousness, -headache, - neurologic symptoms PSYCHIATRIC: -anxiety, -depression. ALL OTHER SYSTEMS REVIEWED AND NEGATIVE. Physical Exam - Vital signs Vitals: Resp Pulse Ox 21 H 94 02/10/18 14:46 02/10/18 14:46 - Notes Notes: PHYSICAL EXAMINATION: GENERAL: Well-appearing, well-nourished and in no acute distress. HEAD: Atraumatic, normocephalic. EYES: Pupils equal round and reactive to light, extraocular movements intact, sclera anicteric, conjunctiva are normal. ENT: nares patent, oropharynx clear without exudates. Moist mucous membranes. NECK: Normal range of motion, supple without lymphadenopathy LUNGS: Breath sounds clear to auscultation bilaterally and equal. No wheezes rales or rhonchi. HEART: Irregular rhythm, bradycardia. ABDOMEN: Soft, nontender, normoactive bowel sounds. No guarding, no rebound. No masses appreciated. EXTREMITIES: Normal range of motion, no pitting or edema. No cyanosis. NEUROLOGICAL: Cranial nerves grossly intact. Normal speech, normal gait. Normal sensory and motor exams. PSYCH: Normal mood, normal affect. SKIN: Warm, Dry, normal turgor, no rashes or lesions noted. Course - Re-evaluation Re-evalutation: Patient going into about 8 seconds of V. tach or she begins to feel lightheaded. She did spontaneously convert back to slow A. fib. Her magnesium and potassium are both low and these were repleted. Patient confirms that she is DNR and DNI, but she agrees to see an ends down checker for possible AICD placement. No ends down checker at [facility], so she requires transfer. 02/10/18 16:18 [facility] to [facility] for transfer to Center with ends down checker. 02/10/18 18:[address] [facility] ([facility] and she has accepted the patient. Patient has not had any more runs of V. tach after being placed on amiodarone and after receiving potassium and magnesium. - Vital Signs Vital signs: Temp Pulse Resp BP Pulse Ox 10 L 132/53 H 94 02/10/18 16:00 02/10/18 15:01 02/10/18 16:00 - Laboratory Result Diagrams: 02/10/18 14:45 02/10/18 14:45 Laboratory results interpreted by me: 02/10/18 02/10/18 02/10/18 14:45 14:45 14:45 RDW 14.7 H Seg Neutrophils % 79.0 H Lymphocytes % 12.4 L PT 17.5 H VBG pH Sodium 146.6 H Potassium 3.2 L Chloride 108 H Total Protein 5.8 L Albumin 3.4 L Urine Protein Urine Urobilinogen Ur Leukocyte Esterase 02/10/18 02/10/18 16:10 17:17 RDW Seg Neutrophils % Lymphocytes % PT VBG pH 7.43 H Sodium Potassium Chloride Total Protein Albumin Urine Protein 30 H Urine Urobilinogen 2.0 H Ur Leukocyte Esterase LARGE H - Diagnostic Test Radiology reviewed: Image reviewed, Reports reviewed Radiology results interpreted by me: CXR: NAD - EKG Interpretation by Me EKG shows normal: Sinus rhythm, [place], Intervals, QRS Complexes, ST-T Waves Rate: Bradycardia Critical Care Note - Critical Care Note Total time excluding time spent on procedures (mins): 45 Discharge - Discharge Clinical Impression: Ventricular tachycardia (paroxysmal), Light-headed feeling, Nausea, Hypokalemia , Hypomagnesemia Condition: Serious Disposition: [facility] Referrals: ONEL AVINA MD [Primary Care Provider] - Follow up as needed
[2018-02-10] MEDS ORDERED: MAGNESIUM SULFATE/D5W 1 GM/100 ML RTUPB IV SCH (16:30)
[2018-02-10] MEDS ORDERED: AMIODARONE HCL INJ 150 MG/3 ML VIAL IV ONE (16:47)
[2018-02-10 16:52] LABS: APPEARANCE,URINE TURBID; BILIRUBIN,URINE NEGATIVE (NEGATIVE); GLUCOSE, URINE NEGATIVE (NEGATIVE); KETONES,URINE NEGATIVE (NEGATIVE); LEUKOCYTE ESTERASE,URINE LARGE (NEGATIVE); NITRITE,URINE NEGATIVE (NEGATIVE); PROTEIN,URINE 30 mg/dL (NEGATIVE); URINE SPECIFIC GRAVITY 1.017
[2018-02-10 16:53] LABS: COLOR,URINE YELLOW
[2018-02-10 17:33] LABS: VENOUS BLOOD BASE EXCESS 2.7 mmol/L; VENOUS BLOOD HCO3 27.4 mmol/L (20-32); VENOUS BLOOD PCO2 42.4 mmHg (35-63); VENOUS BLOOD PH 7.43 (7.30-7.42)
--- NOTE | 2018-02-10 19:38 | EKG REPORT ---
SEVERITY:- ABNORMAL ECG - ATRIAL FIBRILLATION, V-RATE 47-53 REPOL ABNRM SUGGESTS ISCHEMIA, DIFFUSE LEADS BORDERLINE PROLONGED QT INTERVAL : Confirmed by: Dixon Mcfarlane MD 10-Feb-2018 19:38:09
[2018-02-11 01:16] VITALS: BP 119/67
== END 2018-02-11 03:19 | disposition short-term general hospital (02) ==
LOC: ER 14:34
DX: I47.2 Ventricular tachycardia (principal); E87.6 Hypokalemia; E83.42 Hypomagnesemia; R11.0 Nausea; R00.1 Bradycardia, unspecified; R55 Syncope and collapse; I48.91 Unspecified atrial fibrillation; I25.10 Atherosclerotic heart disease of native coronary artery without angina pectoris; I10 Essential (primary) hypertension; J44.9 Chronic obstructive pulmonary disease, unspecified; Z88.5 Allergy status to narcotic agent; Z88.0 Allergy status to penicillin; Z88.2 Allergy status to sulfonamides; Z85.048 Personal history of other malignant neoplasm of rectum, rectosigmoid junction, and anus; Z66 Do not resuscitate
CPT/HCPCS: 93005; 99285; 96365; 96366; 96367; 36415; 87040; 87086; 82550; 83735; 85025; 85610; 85730; 87088; 80053; 81001; 84484; 87186; 82803; 83605; 71045; 93010; J3475; J7060; J7030; J0282

== ENCOUNTER 2018-05-08 08:25 | Observation (INO) | payer MEDICARE ==
--- NOTE | 2018-05-08 09:20 | ER Document Report ---
ED General - General Mode of Arrival: Medic Information source: Patient, Emergency Med Personnel TRAVEL OUTSIDE OF THE [place] IN LAST 30 DAYS: No <MATY HECK - Last Filed: 05/08/18 13:12> <KELLIE BARRETO - Last Filed: 05/08/18 13:13> - General Stated Complaint: NAUSEA Time Seen by Provider: 05/08/18 09:03 Notes: Patient is an 83 year old female presenting to the emergency department via [facility] complaining of nausea, vomiting and diarrhea. Patient states she was vomiting and had episodes of diarrhea simultaneously and when asked how she feels she states "I feel shitty". She also complains of sweats and chills. She denies abdominal pain, chest pain or trouble breathing. Of significance, patient was recently diagnosed with an UTI and subsequently placed on Macrobid. Patient's PCP is Dr. Mccabe. (MATY HECK) - Related Data Allergies/Adverse Reactions: codeine [Codeine] Allergy (Verified 09/09/17 18:26) meperidine HCl [From Demerol] Allergy (Verified 09/09/17 18:26) Penicillins Allergy (Verified 09/09/17 18:26) Sulfa (Sulfonamide Antibiotics) Allergy (Verified 09/09/17 18:26) Past Medical History - General Information source: Patient - Social History Smoking Status: Former Smoker Chew tobacco use (# tins/day): No Frequency of alcohol use: None Drug Abuse: None Family History: Hypertension Patient has suicidal ideation: No Patient has homicidal ideation: No - Past Medical History Cardiac Medical History: Reports: Hx Atrial Fibrillation, Hx Coronary Artery Disease, Hx Hypercholesterolemia, Hx Hypertension, Hx Peripheral Vascular Disease - Past surgical h/o hysterectomy, colectomy, cholecystectomy, appendectomy Pulmonary Medical History: Reports: Hx COPD, Hx Pneumonia Malignancy Medical History: Reports: Hx Colorectal Cancer GI Medical History: Reports: Hx Gastroesophageal Reflux Disease Musculoskeletal Medical History: Reports Hx Arthritis Psychiatric Medical History: Reports: Hx Anxiety, Hx Bipolar Disorder, Hx Dementia, Hx Depression Past Surgical History: Reports: Hx Abdominal Surgery, Hx Appendectomy, Hx Cholecystectomy, Hx Hysterectomy - Immunizations Immunizations up to date: Yes Hx Diphtheria, Pertussis, Tetanus Vaccination: Yes <MATY HECK - Last Filed: 09/08/18 13:12> Review of Systems - Review of Systems Constitutional: See HPI, Malaise EENT: No symptoms reported Cardiovascular: No symptoms reported Respiratory: No symptoms reported Gastrointestinal: See HPI, Diarrhea, Nausea, Vomiting Genitourinary: Other - UTI Female Genitourinary: No symptoms reported Musculoskeletal: No symptoms reported Skin: No symptoms reported Hematologic/Lymphatic: No symptoms reported Neurological/Psychological: No symptoms reported -: Yes All other systems reviewed and negative <MATY HECK - Last Filed: 05/08/18 13:12> Physical Exam <MATY HECK - Last Filed: 05/08/18 13:12> <KELLIE BARRETO - Last Filed: 05/08/18 13:13> - Vital signs Vitals: Resp Pulse Ox 19 96 05/08/18 08:34 05/08/18 08:34 - Notes Notes: GENERAL: Alert, interacts well. No acute distress. HEAD: Normocephalic, atraumatic. EYES: Pupils equal, round, and reactive to light. Extraocular movements intact. ENT: Oral mucosa moist, tongue midline. NECK: Full range of motion. Supple. Trachea midline. LUNGS: Clear to auscultation bilaterally, no wheezes, rales, or rhonchi. No respiratory distress. HEART: Irregularly irregular, tachycardic, 1/6 systolic murmur. No gallops or rubs. ABDOMEN: Soft, non-tender. Non-distended. Bowel sounds present in all 4 quadrants. EXTREMITIES: Moves all 4 extremities spontaneously. No edema, radial and dorsalis pedis pulses 2/4 bilaterally. No cyanosis. NEUROLOGICAL: Alert and oriented to person and place. States it is 1979 and the president is "that old taniya who likes young girls". Normal speech. PSYCH: Normal affect, normal mood. SKIN: Warm, dry, normal turgor. No rashes or lesions noted. (MATY HECK) Course - Laboratory Result Diagrams: 05/08/18 09:00 05/08/18 09:00 <MATY HECK - Last Filed: 05/08/18 13:12> - Laboratory Result Diagrams: 05/08/18 09:00 05/08/18 09:00 <KELLIE BARRETO - Last Filed: 05/08/18 13:13> - Re-evaluation Re-evalutation: 05/08/18 11:03 CBC does not show leukocytosis but there is a left shift, CMP shows slightly elevated V BUN but normal creatinine, lactic acid normal at 2.1, urinalysis shows small blood, large leukocyte esterase, this has been sent for culture as have blood cultures been sent. EKG does not show any ischemia. Lactic acid is normal. Patient does meet sepsis criteria given her hypotension and tachypnea. Patient has been started on Rocephin, hydration is being started in the form of lactated Ringer's 2 L. Patient is a patient of Dr. Laurent Tang however he has been signed out to Dr. Hernandez, discussed the patient with Dr. Hernandez who accepts the patient to his service on the [facility]. (KELLIE BARRETO) - Vital Signs Vital signs: Temp Pulse Resp BP Pulse Ox 99.6 F 78 22 H 127/58 H 99 05/08/18 13:01 05/08/18 09:06 05/08/18 13:00 05/08/18 12:01 05/08/18 13:00 - Laboratory Laboratory results interpreted by me: 05/08/18 05/08/18 05/08/18 08:37 09:00 09:00 RDW 16.2 H Seg Neuts % (Manual) 93 H Lymphocytes % (Manual) 4 L Monocytes % (Manual) 2 L Abs Neuts (Manual) 9.7 H Abs Lymphs (Manual) 0.4 L BUN 26 H Est GFR (Non-Af Amer) 55 L Glucose 141 H POC Glucose 148 H Urine Protein Urine Blood Urine Urobilinogen Ur Leukocyte Esterase 05/08/18 09:00 RDW Seg Neuts % (Manual) Lymphocytes % (Manual) Monocytes % (Manual) Abs Neuts (Manual) Abs Lymphs (Manual) BUN Est GFR (Non-Af Amer) Glucose POC Glucose Urine Protein 30 H Urine Blood SMALL H Urine Urobilinogen 2.0 H Ur Leukocyte Esterase LARGE H - EKG Interpretation by Me Additional EKG results interpreted by me: 05/08/18 11:04 EKG shows atrial fibrillation at a rate of 76, left axis deviation, no ST segment elevations or depressions, there is poor R wave progression per my interpretation. (KELLIE BARRETO) Discharge <MATY HECK - Last Filed: 05/08/18 13:12> - Discharge Admitting Provider: [facility] Unit Admitted: [facility] <KELLIE BARRETO - Last Filed: 05/08/18 13:13> - Discharge Clinical Impression: Chronic atrial fibrillation, Sepsis associated hypotension Urinary tract infection Qualifiers: Urinary tract infection type: acute pyelonephritis Qualified Code(s): N10 - Acute pyelonephritis Condition: Fair Disposition: ADMITTED INPATIENT Scribe Attestation: 05/08/18 13:13 I personally performed the services described in the documentation, reviewed and edited the documentation which was dictated to the scribe in my presence, and it accurately records my words and actions. (KELLIE BARRETO) Scribe Documentation - Scribe Written by Scribe:: Gildardo Abraham, 05/08/2018 09:22 acting as scribe for :: Ruth Ann <MATY HECK - Last Filed: 05/08/18 13:12>
[2018-05-08 09:28] LABS: INTERNATIONAL RATION (INR) 1.14; PROTHROMBIN TIME 15.2 SEC (11.4-15.4)
[2018-05-08 09:30] LABS: HEMATOCRIT 41.7 % (36.0-47.0); HEMOGLOBIN 14.1 g/dL (12.0-15.5); MEAN CORPUSCULAR HEMOGLOBIN 31.4 pg (27.0-33.4); MEAN CORPUSCULAR HGB CONC 33.7 g/dL (32.0-36.0); MEAN CORPUSCULAR VOLUME 93 fl (80-97); PLATELET COUNT 178 10^3/uL (150-450); RED BLOOD COUNT 4.47 10^6/uL (3.72-5.28); RED CELL DISTRIBUTION WIDTH 16.2 % (11.5-14.0); WHITE BLOOD COUNT 10.4 10^3/uL (4.0-10.5)
[2018-05-08 09:34] LABS: APPEARANCE,URINE CLOUDY; BILIRUBIN,URINE NEGATIVE (NEGATIVE); COLOR,URINE AMBER; GLUCOSE, URINE NEGATIVE (NEGATIVE); KETONES,URINE NEGATIVE (NEGATIVE); LEUKOCYTE ESTERASE,URINE LARGE (NEGATIVE); NITRITE,URINE NEGATIVE (NEGATIVE); PROTEIN,URINE 30 mg/dL (NEGATIVE); URINE SPECIFIC GRAVITY 1.023
[2018-05-08 09:47] LABS: ABSOLUTE LYMPHOCYTES# (MANUAL) 0.4 10^3/uL (0.5-4.7); ABSOLUTE MONOCYTES # (MANUAL) 0.2 10^3/uL (0.1-1.4); ABSOLUTE NEUTROPHILS# (MANUAL) 9.7 10^3/uL (1.7-8.2); BASOPHILS % (MANUAL) 1 % (0-2); EOSINOPHILS % (MANUAL) 0 % (0-6); LYMPHOCYTES % (MANUAL) 4 % (13-45); MONOCYTES % (MANUAL) 2 % (3-13); SEGMENTED NEUTROPHILS % (MAN) 93 % (42-78); TOTAL CELLS COUNTED 100
[2018-05-08 09:48] LABS: ANISOCYTOSIS 1+; OVALOCYTES 1+; POIKILOCYTOSIS 1+
[2018-05-08 09:49] LABS: PLATELET CLUMPS PRESENT; PLATELET COMMENT ADEQUATE; PLATELET LARGE PRESENT
[2018-05-08 09:54] LABS: ALANINE AMINOTRANSFERASE 22 U/L (9-52); ALBUMIN 3.7 g/dL (3.5-5.0); ALKALINE PHOSPHATASE 65 U/L (38-126); ANION GAP 11 (5-19); ASPARTATE AMINO TRANSFERASE 36 U/L (14-36); BILIRUBIN,DIRECT 0.3 mg/dL (0.0-0.4); BILIRUBIN,TOTAL 0.8 mg/dL (0.2-1.3); BLOOD UREA NITROGEN 26 mg/dL (7-20); CALCIUM 9.2 mg/dL (8.4-10.2); CARBON DIOXIDE 23 mmol/L (22-30); CHLORIDE 107 mmol/L (98-107); GLUCOSE 141 mg/dL (75-110); POTASSIUM 3.8 mmol/L (3.6-5.0); TOTAL PROTEIN 6.8 g/dL (6.3-8.2)
--- NOTE | 2018-05-08 10:07 | EKG REPORT ---
SEVERITY:- ABNORMAL ECG - ATRIAL FIBRILLATION, V-RATE 65-88 BORDERLINE LEFT AXIS DEVIATION LOW VOLTAGE IN FRONTAL LEADS CONSIDER ANTEROSEPTAL INFARCT : Confirmed by: Dixon Mcfarlane MD 08-May-2018 10:06:43
[2018-05-08] MEDS ORDERED: CEFTRIAXONE 1 GM/D5W RTU 1 GM/50 ML RTUPB IV ONE (10:09)
[2018-05-08] MEDS ORDERED: CEFTRIAXONE INJ 1000 MG VIAL ONE (10:26)
[2018-05-08] MEDS: RINGERS SOLUTION,LACTATED 1,000 ML IV PRN ×2 (10:38→12:15)
[2018-05-08 12:46] LABS: VENOUS BLOOD HCO3 25.6 mmol/L (20-32); VENOUS BLOOD PCO2 45.8 mmHg (35-63); VENOUS BLOOD PH 7.37 (7.30-7.42)
[2018-05-08] MEDS ORDERED: (PENDING PHARMACY ID) (Pravastatin Sodium [Pravachol] 40 MG) PO SCH (15:30)
[2018-05-08] MEDS ORDERED: LOPERAMIDE HCL 2 MG CAPSULE PO PRN (15:30)
[2018-05-08] MEDS ORDERED: IPRATROPIUM/ALBUTEROL 0.5-2.5 MG/3 ML AMPUL NEB PRN (15:30)
[2018-05-08] MEDS ORDERED: LORAZEPAM 0.5 MG TABLET PO PRN (15:30)
[2018-05-08] MEDS ORDERED: ALBUTEROL SULFATE HFA (90 MCG/PUFF) 8 GM MDI (1 MDI/ER DISP) IH PRN (15:30)
[2018-05-08] MEDS ORDERED: CALCIUM CARBONATE 500 MG TAB.CHEW PO PRN (15:30)
[2018-05-08] MEDS ORDERED: ACETAMINOPHEN 325 MG TABLET PO PRN (15:32)
[2018-05-08] MEDS ORDERED: CEFTRIAXONE 1 GM/D5W RTU 50 ML IV SCH (16:00)
[2018-05-08] MEDS: SERTRALINE HCL 50 MG TABLET PO SCH (16:35)
[2018-05-08] MEDS: BUPROPION HCL 75 MG TABLET PO SCH (16:35)
[2018-05-08] MEDS ORDERED: ALBUTEROL SULFATE HFA (90 MCG/PUFF) 200 PUFF/8.5 GM MDI IH PRN (17:00)
[2018-05-08] MEDS: APIXABAN 2.5 MG TABLET PO SCH (17:52)
[2018-05-08] MEDS ORDERED: ZINC OXIDE TP SCH (18:00)
[2018-05-08] MEDS ORDERED: POTASSIUM CHLORIDE 10 MEQ CAPSULE.ER PO SCH (18:00)
[2018-05-08] MEDS ORDERED: COD LIVER OIL TP SCH (18:00)
[2018-05-08] MEDS: BUDESONIDE/FORMOTEROL 160-4.5 MCG 60 PUFF/6 GM MDI IH SCH (20:40)
[2018-05-08] MEDS ORDERED: MELATONIN 5 MG TABLET PO SCH (22:00)
[2018-05-08] MEDS ORDERED: ATORVASTATIN CALCIUM 10 MG TABLET PO SCH (22:00)
[2018-05-08] MEDS ORDERED: DONEPEZIL HCL 5 MG TABLET PO SCH (22:00)
[2018-05-08] MEDS ORDERED: QUETIAPINE FUMARATE 25 MG TABLET PO SCH (22:00)
[2018-05-08] MEDS ORDERED: (PENDING PHARMACY ID) (Sennosides [Senna] 8.6 MG) PO SCH (22:00)
[2018-05-08] MEDS: DILTIAZEM HCL 180 MG CAPSULE.CR PO SCH (22:50)
[2018-05-08] MEDS: BUSPIRONE HCL 10 MG TABLET PO SCH (22:54)
[2018-05-08] MEDS: CLOTRIMAZOLE/BETAMETHASONE DIP CREAM 15 GM TOP SCH (22:57)
[2018-05-09] MEDS: APIXABAN 2.5 MG TABLET PO SCH (05:18)
[2018-05-09] MEDS ORDERED: LANSOPRAZOLE 15 MG TAB.RAP.DR PO SCH (06:00)
[2018-05-09] MEDS: BUPROPION HCL 75 MG TABLET PO SCH (09:45)
[2018-05-09] MEDS: DILTIAZEM HCL 180 MG CAPSULE.CR PO SCH (09:45)
[2018-05-09] MEDS: CLOTRIMAZOLE/BETAMETHASONE DIP CREAM 15 GM TOP SCH (09:46)
[2018-05-09] MEDS: BUDESONIDE/FORMOTEROL 160-4.5 MCG 60 PUFF/6 GM MDI IH SCH (09:46)
[2018-05-09] MEDS: SERTRALINE HCL 50 MG TABLET PO SCH (09:50)
[2018-05-09] MEDS: BUSPIRONE HCL 10 MG TABLET PO SCH (09:52)
[2018-05-09] MEDS ORDERED: CEFTRIAXONE SODIUM 1,000 MG in NORMAL SALINE 50 ML IV SCH (10:00)
--- NOTE | 2018-05-09 12:21 | PDOC H&P ---
History of Present Illness Admission Date/PCP: 05/08/18 12:03 ONEL AVINA MD History of Present Illness: DARLYN EVANS is a 83 year old female, she has a history of chronic obstructive pulmonary disease, chronic atrial fibrillation on anticoagulation, baseline dementia, resident of assisted living facility at [facility], she was transferred to the emergency room for evaluation of nausea, vomiting and diarrhea. She stated that she was vomiting and she had diarrhea simultaneously when she arrived in the ER the blood pressure recorded was 84/54 she was given boluses of fluid the blood pressure did respond to fluid therapy. The hemogram was normal, the ED physician is recommending inpatient care because she felt the patient met sepsis criteria. When she arrived on the floor, she was stable, there was no evidence of sepsis, the urine culture was growing gram-negative rods but the colonY count was not significantly elevated. She also was recently treated for UTI with Macrobid by her PCP Dr. Avina, she is a DNR status. I spoke to the patient's daughter who stated that the mohel at [facility] plan to place a pacemaker, routine blood work was done, she was found to have UTI and she was at the PCPs office on Thursday, she was prescribed Macrobid, she felt that the Macrobid caused GI symptoms and made her sick Past Medical History Cardiac Medical History: Reports: Atrial Fibrillation, Coronary Artery Disease, Hyperlipidema, Hypertension, Peripheral Vascular Disease - Past surgical h/o hysterectomy, colectomy, cholecystectomy, appendectomy Pulmonary Medical History: Reports: Chronic Obstructive Pulmonary Disease (COPD) , Pneumonia Malignancy Medical History: Reports: Colorectal Cancer GI Medical History: Reports: Gastroesophageal Reflux Disease Musculoskeltal Medical History: Reports: Arthritis Psychiatric Medical History: Reports: Bipolar Disorder, Dementia, Depression Past Surgical History Past Surgical History: Reports: Appendectomy, Cholecystectomy, Hysterectomy Social History Smoking Status: Former Smoker Frequency of Alcohol Use: None Hx Recreational Drug Use: No Drugs: None Hx Prescription Drug Abuse: No Family History Family History: Hypertension Parental Family History Reviewed: Yes Children Family History Reviewed: Yes Sibling(s) Family History Reviewed.: Yes Medication/Allergy Home Medications: Albuterol Sulfate [Ventolin Hfa] 2 puff .ROUTE Q4HP PRN 05/08/18 Apixaban [Eliquis 2.5 mg Tablet] 2.5 mg PO Q12 05/08/18 Budesonide/Formoterol Fumarate [Symbicort Hfa 160-4.5 Mcg Inhaler 6 gm] 1 puff IH 799,199905/08/18 Bupropion HCl [Wellbutrin 75 Mg Tablet] 75 mg PO DAILY 05/08/18 Buspirone HCl [Buspar 10 mg Tablet] 10 mg PO BID 05/08/18 Calcium Carbonate [Tums Chewable 500 mg Tab.chew] 1,000 mg PO Q8HP PRN 05/08/18 Carbamide Peroxide [Debrox] 15 ml AU DAILY 05/08/18 Clotrimazole/Betamethasone Dip [Lotrisone Cream 15 gm] 1 applic TP BID 05/08/18 Cod Liver Oil/Zinc Oxide [Desitin Diaper Rash Oint] 1 applic TP BID 05/08/18 Diltiazem HCl [Cardizem Cd 180 mg Capsule] 1 cap.sr PO Q12 05/08/18 Donepezil HCl [Aricept 5 mg Tablet] 5 mg PO QHS 05/08/18 Ipratropium/Albuterol Sulfate [Duoneb 3 ml Ampul] 3 ml NEB RTQ6HP PRN 05/08/18 Loperamide HCl [Imodium 2 mg Capsule] 2 mg PO Q8HP PRN 05/08/18 Lorazepam [Ativan 0.5 mg Tablet] 0.5 mg PO DAILYP PRN 05/08/18 Melatonin [Melatonin 5 mg Tablet] 5 mg PO QHS 05/08/18 Nitrofurantoin Monohyd/M-Cryst [Macrobid 100 mg Capsule] 100 mg PO BID 05/08/18 Omeprazole 20 mg PO DAILY 05/08/18 Potassium Chloride [Klor-Con 10 Meq Capsule ER] 10 meq PO DAILY 05/08/18 Pravastatin Sodium [Pravachol] 40 mg PO DAILY 05/08/18 Quetiapine Fumarate [Seroquel] 25 mg PO QHS 05/08/18 Sennosides [Senna] 8.6 mg PO QHS 05/08/18 Sertraline HCl [Zoloft 50 mg Tablet] 50 mg PO DAILY 05/08/18 Allergies/Adverse Reactions: codeine [Codeine] Allergy (Verified 09/09/17 18:26) meperidine HCl [From Demerol] Allergy (Verified 09/09/17 18:26) Penicillins Allergy (Verified 09/09/17 18:26) Sulfa (Sulfonamide Antibiotics) Allergy (Verified 09/09/17 18:26) Review of Systems Constitutional: ABSENT: chills, fever(s), headache(s), weight gain, weight loss Eyes: ABSENT: visual disturbances Ears: ABSENT: hearing changes Cardiovascular: ABSENT: chest pain, dyspnea on exertion, edema, orthropnea, palpitations Respiratory: ABSENT: cough, hemoptysis Gastrointestinal: ABSENT: abdominal pain, constipation, diarrhea, hematemesis, hematochezia, nausea, vomiting Genitourinary: ABSENT: dysuria, hematuria Musculoskeletal: ABSENT: joint swelling Integumentary: ABSENT: rash, wounds Neurological: ABSENT: abnormal gait, abnormal speech, confusion, dizziness, focal weakness, syncope Psychiatric: ABSENT: anxiety, depression, homidical ideation, suicidal ideation Endocrine: ABSENT: cold intolerance, heat intolerance, menstrual abnormalities, polydipsia, polyuria Hematologic/Lymphatic: ABSENT: easy bleeding, easy bruising, lymphadenopathy Physical Exam Vital Signs: Temp Pulse Resp BP Pulse Ox 97.8 F 84 20 131/64 H 95 05/09/18 07:06 05/09/18 07:06 05/09/18 07:06 05/09/18 07:06 05/09/18 07:06 Intake & Output 05/08/18 05/09/18 05/10/18 06:59 06:59 06:59 Intake Total 1999 Balance 1999 Weight 76 kg General appearance: PRESENT: no acute distress, well-developed, well-nourished Head exam: PRESENT: atraumatic, normocephalic Eye exam: PRESENT: conjunctiva pink, EOMI, PERRLA Ear exam: PRESENT: normal external ear exam Mouth exam: PRESENT: moist, tongue midline Neck exam: PRESENT: full ROM Respiratory exam: PRESENT: clear to auscultation chela Cardiovascular exam: PRESENT: RRR, +S1, +S2 Pulses: PRESENT: normal dorsalis pedis pul, +2 pedal pulses bilateral Vascular exam: PRESENT: normal capillary refill GI/Abdominal exam: PRESENT: normal bowel sounds, soft Rectal exam: PRESENT: deferred Neurological exam: PRESENT: alert, awake, oriented to person, oriented to place , oriented to time, oriented to situation, CN II-XII grossly intact Psychiatric exam: PRESENT: appropriate affect, normal mood Skin exam: PRESENT: dry, intact, warm Results Laboratory Results: 05/08/18 05/08/18 12:14 16:05 VBG pH 7.37 VBG pCO2 45.8 VBG HCO3 25.6 VBG Base Excess 0 Lactic Acid 1.3 Assessment & Plan - Diagnosis (1) Urinary tract infection Qualifiers: Urinary tract infection type: site unspecified Hematuria presence: without hematuria Qualified Code(s): N39.0 - Urinary tract infection, site not specified Is this a current diagnosis for this admission?: Yes Plan: She is admitted into the hospital for observation, she does not meet criteria for sepsis, started on IV ceftriaxone hopefully discharge home in the morning (3) Abdominal aortic aneurysm Qualifiers: Presence of rupture: without rupture Qualified Code(s): I71.4 - Abdominal aortic aneurysm, without rupture Is this a current diagnosis for this admission?: Yes (4) COPD (chronic obstructive pulmonary disease) Qualifiers: COPD type: unspecified COPD Qualified Code(s): J44.9 - Chronic obstructive pulmonary disease, unspecified Is this a current diagnosis for this admission?: Yes
--- NOTE | 2018-05-09 12:27 | PDOC TRANSFER SUMMARY ---
General - Admit/Disc Date/PCP Admission Date/Primary Care Provider: 05/08/18 12:03 ONEL AVINA MD Discharge Date: 05/09/18 - Discharge Diagnosis (1) Urinary tract infection Is this a current diagnosis for this admission?: Yes (2) Chronic atrial fibrillation Is this a current diagnosis for this admission?: Yes (3) Abdominal aortic aneurysm Is this a current diagnosis for this admission?: Yes (4) COPD (chronic obstructive pulmonary disease) Is this a current diagnosis for this admission?: Yes - Additional Information Discharge Diet: As Tolerated Discharge Activity: Activity As Tolerated Prescriptions: Ciprofloxacin HCl [Cipro 500 mg Tablet] 500 mg PO BID #14 tablet Home Medications: Albuterol Sulfate [Ventolin Hfa] 2 puff .ROUTE Q4HP PRN 05/08/18 Apixaban [Eliquis 2.5 mg Tablet] 2.5 mg PO Q12 05/08/18 Budesonide/Formoterol Fumarate [Symbicort HFA 160-4.5 mcg Inhaler 6 gm] 1 puff IH 08,199905/08/18 Bupropion HCl [Wellbutrin 75 mg Tablet] 75 mg PO DAILY 05/08/18 Buspirone HCl [Buspar 10 mg Tablet] 10 mg PO BID 05/08/18 Calcium Carbonate [Tums Chewable 500 mg Tab.chew] 1,000 mg PO Q8HP PRN 05/08/18 Carbamide Peroxide [Debrox] 15 ml AU DAILY 05/08/18 Clotrimazole/Betamethasone Dip [Lotrisone Cream 15 gm] 1 applic TP BID 05/08/18 Cod Liver Oil/Zinc Oxide [Desitin Diaper Rash Oint] 1 applic TP BID 05/08/18 Diltiazem HCl [Cardizem Cd 180 mg Capsule] 1 cap.sr PO Q12 05/08/18 Donepezil HCl [Aricept 5 mg Tablet] 5 mg PO QHS 05/08/18 Ipratropium/Albuterol Sulfate [Duoneb 3 ml Ampul] 3 ml NEB RTQ6HP PRN 05/08/18 Loperamide HCl [Imodium 2 mg Capsule] 2 mg PO Q8HP PRN 05/08/18 Lorazepam [Ativan 0.5 mg Tablet] 0.5 mg PO DAILYP PRN 05/08/18 Melatonin [Melatonin 5 mg Tablet] 5 mg PO QHS 05/08/18 Nitrofurantoin Monohyd/M-Cryst [Macrobid 100 mg Capsule] 100 mg PO BID 05/08/18 Omeprazole 20 mg PO DAILY 05/08/18 Potassium Chloride [Klor-Con 10 Meq Capsule ER] 10 meq PO DAILY 05/08/18 Pravastatin Sodium [Pravachol] 40 mg PO DAILY 05/08/18 Quetiapine Fumarate [Seroquel] 25 mg PO QHS 05/08/18 Sennosides [Senna] 8.6 mg PO QHS 05/08/18 Sertraline HCl [Zoloft 50 mg Tablet] 50 mg PO DAILY 05/08/18 Ciprofloxacin HCl [Cipro 500 mg Tablet] 500 mg PO BID #14 tablet 05/09/18 History of Present Illness Admission Date/PCP: 05/08/18 12:03 ONEL AVINA MD History of Present Illness: DARLYN EVANS is a 83 year old female, she has a history of chronic obstructive pulmonary disease, chronic atrial fibrillation on anticoagulation, baseline dementia, resident of assisted living facility [facility], she was transferred to the emergency room for evaluation of nausea, vomiting and diarrhea. She stated that she was vomiting and she had diarrhea simultaneously when she arrived in the ER the blood pressure recorded was 84/54 she was given boluses of fluid the blood pressure did respond to fluid therapy. The hemogram was normal, the ED physician is recommending inpatient care because she felt the patient met sepsis criteria. When she arrived on the floor, she was stable, there was no evidence of sepsis, the urine culture was growing gram-negative rods but the colonY count was not significantly elevated. She also was recently treated for UTI with Macrobid by her PCP Dr. Avina, she is a DNR status. I spoke to the patient's daughter who stated that the boiler technician at [facility] plan to place a pacemaker, routine blood work was done, she was found to have UTI and she was at the PCPs office on Thursday, she was prescribed Macrobid, she felt that the Macrobid caused GI symptoms and made her sick Hospital Course Hospital Course: She was admitted for the management of UTI, she came in for observation, urine culture is growing gram-negative rods. She was treated with IV ceftriaxone, she is being discharged on Cipro, Cipro of interaction with Seroquel and Aricept. She has to stop Seroquel and Aricept for 5 days while she is on Cipro antibiotic. Hospital course was uneventful she be transferred back to [facility] today Physical Exam Vital Signs: Temp Pulse Resp BP Pulse Ox 97.8 F 84 20 131/64 H 95 05/09/18 07:06 05/09/18 07:06 05/09/18 07:06 05/09/18 07:06 05/09/18 07:06 Intake & Output 05/08/18 05/09/18 05/10/18 06:59 06:59 06:59 Intake Total 1999 Balance 2000 Weight 76 kg General appearance: PRESENT: no acute distress Head exam: PRESENT: atraumatic, normocephalic Eye exam: PRESENT: conjunctiva pink, EOMI, PERRLA Ear exam: PRESENT: normal external ear exam Mouth exam: PRESENT: moist, tongue midline Respiratory exam: PRESENT: clear to auscultation chela Cardiovascular exam: PRESENT: RRR, +S1, +S2 Pulses: PRESENT: normal dorsalis pedis pul Vascular exam: PRESENT: normal capillary refill GI/Abdominal exam: PRESENT: normal bowel sounds, soft Rectal exam: PRESENT: deferred Extremities exam: PRESENT: full ROM Neurological exam: PRESENT: alert. ABSENT: motor sensory deficit Psychiatric exam: PRESENT: appropriate affect, normal mood Skin exam: PRESENT: dry, intact, warm Results Laboratory Results: 05/08/18 05/08/18 12:14 16:05 VBG pH 7.37 VBG pCO2 45.8 VBG HCO3 25.6 VBG Base Excess 0 Lactic Acid 1.3 Qualifiers - * PATIENT BEING DISCHARGED WITH ANY OF THE FOLLOWING DIAGNOSIS: No
[2018-05-09 13:23] VITALS: BP 92/59
== END 2018-05-09 14:08 ==
LOC: ER 08:25 → INTOOBSV 12:03 → EH 12:03 → 3S 14:15
PROVIDERS: ADMIT Family Medicine; ATTEND Family Medicine
DX: N39.0 Urinary tract infection, site not specified (principal); I48.2 Chronic atrial fibrillation; I71.4 Abdominal aortic aneurysm, without rupture; J44.9 Chronic obstructive pulmonary disease, unspecified; F03.90 Unspecified dementia, unspecified severity, without behavioral disturbance, psychotic disturbance, mood disturbance, and anxiety; Z66 Do not resuscitate; R11.2 Nausea with vomiting, unspecified; R19.7 Diarrhea, unspecified; I95.9 Hypotension, unspecified; R06.82 Tachypnea, not elsewhere classified; I73.9 Peripheral vascular disease, unspecified; I25.10 Atherosclerotic heart disease of native coronary artery without angina pectoris; K21.9 Gastro-esophageal reflux disease without esophagitis; E78.5 Hyperlipidemia, unspecified; Z90.710 Acquired absence of both cervix and uterus; Z90.49 Acquired absence of other specified parts of digestive tract; Z87.891 Personal history of nicotine dependence; Z85.038 Personal history of other malignant neoplasm of large intestine; Z79.01 Long term (current) use of anticoagulants; Z79.899 Other long term (current) drug therapy
CPT/HCPCS: 93005; 99285; 96361; 96374; 36415; 87040; 87086; 82962; 85025; 85610; 87088; 80053; 81001; 87186; 82803; 83605; 93010; G0378 ×3; A9270 ×17; J3490 ×3; J0696 ×2; J7120

== ENCOUNTER 2018-09-23 01:59 | Emergency (ER) | payer MEDICARE ==
--- NOTE | 2018-09-23 02:34 | ER Document Report ---
ED Fall - General Chief Complaint: Fall Stated Complaint: FALL Time Seen by Provider: 09/23/18 02:17 Primary Care Provider: OREN PRESSLEY DDS [ACTIVE STAFF] - 09/24/18 Notes: Patient is an 83-year-old female that comes to the emergency department for chief complaint of fall. She states she believes she rolled out of her bed but she is unsure. She hit her face on the ground causing swelling to the left side of her face below the left eye. She had some bleeding from her nose as well. She also has an abrasion on her right knee. She denies chest pain, abdominal pain, back pain, hip pain, headache, vomiting. She states she believes she is on a blood thinner for A. fib. She comes by EMS from [facility]. TRAVEL OUTSIDE OF THE [place] IN LAST 30 DAYS: No - Related data Allergies/Adverse Reactions: codeine [Codeine] Allergy (Verified 09/09/17 18:26) meperidine HCl [From Demerol] Allergy (Verified 09/09/17 18:26) Penicillins Allergy (Verified 09/09/17 18:26) Sulfa (Sulfonamide Antibiotics) Allergy (Verified 09/09/17 18:26) Past Medical History - General Information source: Patient - Social History Smoking Status: Never Smoker Frequency of alcohol use: None Drug Abuse: None Lives with: Shelter Family History: Hypertension Patient has suicidal ideation: No Patient has homicidal ideation: No - Past Medical History Cardiac Medical History: Reports: Hx Atrial Fibrillation, Hx Coronary Artery Disease, Hx Hypercholesterolemia, Hx Hypertension, Hx Peripheral Vascular Disease - Past surgical h/o hysterectomy, colectomy, cholecystectomy, appendectomy Pulmonary Medical History: Reports: Hx COPD, Hx Pneumonia Renal/ Medical History: Denies: Hx Peritoneal Dialysis Malignancy Medical History: Reports: Hx Colorectal Cancer GI Medical History: Reports: Hx Gastroesophageal Reflux Disease Musculoskeletal Medical History: Reports Hx Arthritis Psychiatric Medical History: Reports: Hx Anxiety, Hx Bipolar Disorder, Hx Dementia, Hx Depression Past Surgical History: Reports: Hx Abdominal Surgery, Hx Appendectomy, Hx Cholecystectomy, Hx Hysterectomy - Immunizations Immunizations up to date: Yes Hx Diphtheria, Pertussis, Tetanus Vaccination: Yes Review of Systems - Review of Systems Constitutional: No symptoms reported EENT: See HPI Cardiovascular: No symptoms reported Respiratory: No symptoms reported Gastrointestinal: No symptoms reported Genitourinary: No symptoms reported Female Genitourinary: No symptoms reported Musculoskeletal: See HPI Skin: No symptoms reported Hematologic/Lymphatic: No symptoms reported Neurological/Psychological: See HPI Physical Exam - Vital signs Vitals: Temp Pulse Resp BP Pulse Ox 97.3 F 85 19 156/96 H 100 09/23/18 02:14 09/23/18 02:14 09/23/18 02:14 09/23/18 02:14 09/23/18 02:14 - Notes Notes: GENERAL: Alert, interacts well. No acute distress. HEAD: Normocephalic. Large amount of soft tissue swelling over the left zygomatic area underneath the eye. Small abrasion to the left eyebrow area. Otherwise no signs of trauma. EYES: Pupils equal, round, and reactive to light. Extraocular movements intact. ENT: Oral mucosa moist, tongue midline. Oropharynx unremarkable. Airway patent. Nares patent, no nasal septal hematoma, TM's intact. No epistaxis noted. NECK: Full range of motion. Supple. Trachea midline. LUNGS: Clear to auscultation bilaterally, no wheezes, rales, or rhonchi. No respiratory distress. HEART: Regular rate and rhythm. No murmur ABDOMEN: Soft, non-tender. Non-distended. Bowel sounds present in all 4 quadrants. GENITOURINARY: Deferred EXTREMITIES: Moves all 4 extremities spontaneously. No edema, normal radial and dorsalis pedis pulses bilaterally. No cyanosis. There is an abrasion with mild tenderness over the right knee just below the patella. Normal range of motion. Normal lower extremity exam otherwise, no hip tenderness noted. BACK: no cervical, thoracic, lumbar midline tenderness. No saddle anesthesia, normal distal neurovascular exam. NEUROLOGICAL: Alert and oriented x3. Normal speech. [cranial nerves II through XII grossly intact]. PSYCH: Normal affect, normal mood. SKIN: Warm, dry, normal turgor. No rashes or lesions noted. Course - Re-evaluation Re-evalutation: Patient is alert, conversational, oriented. She is pleasant. She does have obvious head/facial injury, right knee injury, however I do not see any other signs of an her body. No other complaints. Patient has not actually listed to be on a blood thinner, I asked her about this and she states she actually believes she was taken off recently. CT showing maxillary sinus fractures without displacement. There is blood in the sinuses. Because of the abrasions she was also started on Keflex prophylaxis. She has normal EOMs, no visual symptoms, no eye pain. No additional concerning findings noted. Discussed oral maxillofacial surgeon follow-up, discussed return precautions. Patient states understanding and agreement. - Vital Signs Vital signs: Temp Pulse Resp BP Pulse Ox 97.8 F 84 16 140/94 H 98 09/23/18 04:20 09/23/18 04:20 09/23/18 04:20 09/23/18 04:20 09/23/18 04:20 Discharge - Discharge Clinical Impression: Facial swelling Fall Qualifiers: Encounter type: initial encounter Qualified Code(s): W19.XXXA - Unspecified fall, initial encounter Maxillary sinus fracture Qualifiers: Encounter type: initial encounter Fracture type: closed Qualified Code(s): S02.401A - Maxillary fracture, unspecified side, initial encounter for closed fracture Abrasion of right knee Qualifiers: Encounter type: initial encounter Qualified Code(s): S80.211A - Abrasion, right knee, initial encounter Condition: Stable Disposition: HOME, SELF-CARE Additional Instructions: Your evaluation and imaging show a fracture of the left maxillary sinus along with the soft tissue swelling of the face. No fracture seen at the knee. Please follow-up with the listed referral for oral maxillary facial surgeon consultation and management. Take the prophylactic antibiotic as prescribed. Return for any concerning symptoms, see head injury precautions listed below. Head Injury Precautions At this point, there is no evidence that your head injury is serious. Observation is necessary, however. If no pain medication was prescribed, you may take acetaminophen according to the directions on the bottle. Do not take any medication that may alter your level of alertness (unless you've discussed it with the doctor first). Limit activity for the first 24 hours. Bed rest is best. During the first 24 hours, check to see approximately every two to three hours that the patient is easily arousable, responds normally, and can perform common tasks such as walking without difficulty. Contact your doctor or go to the hospital if any of the following things occur: Persistent vomiting, difficulty in arousing the patient, worsening or continued headache, or failure to improve as expected. Head injuries can cause symptoms that persist for a few days or even a few weeks. Prescriptions: Cephalexin Monohydrate [Keflex 500 mg Capsule] 500 mg PO TID #15 capsule Referrals: OREN PRESSLEY DDS [ACTIVE STAFF] - 09/24/18
--- NOTE | 2018-09-23 03:18 | RADIOLOGY REPORT (SQ) ---
EXAM DESCRIPTION: CT HEAD WITHOUT IV CONTRAST COMPLETED DATE/TME: 09/23/2018 02:23 CLINICAL HISTORY: 83 years, Female, fall, head injury COMPARISON: 01/14/2018 CT brain TECHNIQUE: 195 Images stored on PACS. All CT scanners at this facility use dose modulation, iterative reconstruction, and/or weight based dosing when appropriate to reduce radiation dose to as low as reasonably achievable (ALARA). [facility]: Dose Right [facility]: CareDose [facility]: Dose Right [facility]: Teradose 4D [facility]: VNG LIMITATIONS: None. FINDINGS: The globes are intact. However, severe soft tissue injury to the left infraorbital region. Nondisplaced fracture deformities of the anterior and posterior salmeron of the left maxillary sinus. Associated opacification of the left maxillary sinus with areas of hemorrhage. No displaced or depressed skull fracture. No intra or extra-axial hemorrhage. CT is limited for evaluation of acute infarct. No CT evidence for large or territorial acute infarct. Age-appropriate atrophy with small vessel ischemic change. No mass or midline shift. IMPRESSION: Fracture deformities of the salmeron of the left maxillary sinus with severe soft tissue injury in the left infraorbital region. Negative for acute intracranial abnormality. Atrophy. Small vessel ischemic change. TECHNICAL DOCUMENTATION: Quality ID # [id number]: Final reports with documentation of one or more dose reduction techniques (e.g., Automated exposure control, adjustment of the mA and/or kV according to patient size, use of iterative reconstruction technique) copyright 2010 [email or web address]- All Rights Reserved
--- NOTE | 2018-09-23 03:27 | RADIOLOGY REPORT (SQ) ---
EXAM DESCRIPTION: XR KNEE 4 OR MORE VIEWS COMPLETED DATE/TME: 09/23/2018 02:24 CLINICAL HISTORY: 83 years, Female, fall, pain COMPARISON: None. NUMBER OF VIEWS: 4 TECHNIQUE: 4 view right knee LIMITATIONS: None. FINDINGS: Osteopenia. Negative for acute fracture or dislocation. No joint effusion. Vascular calcifications. IMPRESSION: Osteopenia. No acute osseous abnormality copyright 2010 [employer]- All Rights Reserved
--- NOTE | 2018-09-23 03:28 | RADIOLOGY REPORT (SQ) ---
EXAM DESCRIPTION: CT CERVICAL SPINE WITHOUT IV CONTRAST COMPLETED DATE/TME: 09/23/2018 02:23 CLINICAL HISTORY: 83 years, Female, fall, head injury COMPARISON: None TECHNIQUE: Multiplanar imaging through the cervical spine without contrast. This exam was performed according to our departmental dose-optimization program, which includes automated exposure control, adjustment of the mA and/or kV according to patient size and/or use of iterative reconstruction technique. FINDINGS: No fracture. No subluxation. Disc space narrowing and marginal osteophytes and endplate sclerosis four five and C5-6 and C6-7 and T1-2. Heavy calcification in both carotid bifurcations as well as the distal right vertebral artery. Visualized lung is clear. IMPRESSION: No acute abnormality. No fracture or subluxation.
--- NOTE | 2018-09-23 03:32 | RADIOLOGY REPORT (SQ) ---
EXAM DESCRIPTION: CT MAXILLOFACIAL WITHOUT IV CONTRAST COMPLETED DATE/TME: 09/23/2018 02:23 CLINICAL HISTORY: 83 years, Female, fall, head injury, left facial swelling COMPARISON: None. TECHNIQUE: Axial CT of the facial bones with sagittal and coronal reconstructions. This exam was performed according to our departmental dose-optimization program, which includes automated exposure control, adjustment of the mA and/or kV according to patient size and/or use of iterative reconstruction technique. FINDINGS: There is a mildly depressed fracture of the left orbital floor. The extraocular muscles do not appear involved. Hyperdense fluid is present in the left maxillary sinus likely representing hemorrhage. There is also fracture of the lateral and anterior salmeron of the left maxillary sinus. Left periorbital subcutaneous emphysema. Air also extends into the extraconal portion of the left orbit. Mild mucosal thickening in the right maxillary sinus with an air-fluid level. Mucosal thickening is also present in the right and left sphenoid sinuses and throughout the ethmoid air cells. The globes and intraorbital contents appear normal. Nasal bones appear intact. Small amount of fluid in the right and left inferior mastoid air cells. IMPRESSION: Mildly depressed left orbital floor fracture. Left anterior and lateral maxillary sinus wall fractures.
[2018-09-23 05:55] VITALS: BP 140/94
== END 2018-09-23 04:25 | disposition home or self-care (01) ==
LOC: ER 01:59
DX: R22.0 Localized swelling, mass and lump, head (principal); S02.401A Maxillary fracture, unspecified side, initial encounter for closed fracture; S80.211A Abrasion, right knee, initial encounter; W06.XXXA Fall from bed, initial encounter; I48.91 Unspecified atrial fibrillation; I25.10 Atherosclerotic heart disease of native coronary artery without angina pectoris; E78.00 Pure hypercholesterolemia, unspecified; J44.9 Chronic obstructive pulmonary disease, unspecified; I10 Essential (primary) hypertension; Z88.6 Allergy status to analgesic agent; Z88.2 Allergy status to sulfonamides; Z79.02 Long term (current) use of antithrombotics/antiplatelets; Z88.0 Allergy status to penicillin; Z90.710 Acquired absence of both cervix and uterus; Z90.49 Acquired absence of other specified parts of digestive tract
CPT/HCPCS: 70450; 70486; 72125; 99285

== ENCOUNTER 2019-04-03 02:51 | Emergency (ER) | payer MEDICARE ==
--- NOTE | 2019-04-03 04:27 | ER Document Report ---
ED General - General Chief Complaint: Fall Stated Complaint: FALL Time Seen by Provider: 04/03/19 04:20 Primary Care Provider: ONEL AVINA MD [Primary Care Provider] - Follow up as needed Notes: Patient is a pleasant 84-year-old female from the shelter presents with complaint of a fall. Patient lives at shelter. She did fall she did hit the left side of her head. She is on a blood thinner. Patient says that she does not have a headache. She did not lose conscious. She denies any chest pain or shortness of breath. Global Safety Officer note mentions left hip pain. Patient says that she has had mild left hip pain there transfer onto the stretcher. She says she currently does not have any hip pain and feels well. She denies any weakness or numbness into her extremities. No other complaints at this time. TRAVEL OUTSIDE OF THE [place] IN LAST 30 DAYS: No - Related Data Allergies/Adverse Reactions: codeine [Codeine] Allergy (Verified 09/09/17 18:26) meperidine HCl [From Demerol] Allergy (Verified 09/09/17 18:26) Penicillins Allergy (Verified 09/09/17 18:26) Sulfa (Sulfonamide Antibiotics) Allergy (Verified 09/09/17 18:26) Past Medical History - Social History Smoking Status: Never Smoker Frequency of alcohol use: None Drug Abuse: None Family History: Hypertension Patient has suicidal ideation: No Patient has homicidal ideation: No - Past Medical History Cardiac Medical History: Reports: Hx Atrial Fibrillation, Hx Coronary Artery Disease, Hx Hypercholesterolemia, Hx Hypertension, Hx Peripheral Vascular Disease - Past surgical h/o hysterectomy, colectomy, cholecystectomy, appendectomy Pulmonary Medical History: Reports: Hx COPD, Hx Pneumonia Renal/ Medical History: Denies: Hx Peritoneal Dialysis Malignancy Medical History: Reports: Hx Colorectal Cancer GI Medical History: Reports: Hx Gastroesophageal Reflux Disease Musculoskeletal Medical History: Reports Hx Arthritis Psychiatric Medical History: Reports: Hx Anxiety, Hx Bipolar Disorder, Hx Dementia, Hx Depression Past Surgical History: Reports: Hx Abdominal Surgery, Hx Appendectomy, Hx Cholecystectomy, Hx Hysterectomy - Immunizations Immunizations up to date: Yes Hx Diphtheria, Pertussis, Tetanus Vaccination: Yes Review of Systems - Review of Systems Notes: My Normal Review Basic REVIEW OF SYSTEMS: CONSTITUTIONAL : Denies fever, chills, or sweats. Denies recent illness. EENT: Denies eye, ear, throat, or mouth pain or symptoms. Denies nasal or sinus congestion. CARDIOVASCULAR: Denies chest pain. RESPIRATORY: Denies cough, cold, or chest congestion. Denies shortness of breath, difficulty breathing, or wheezing. GASTROINTESTINAL: Denies abdominal pain. Denies nausea, vomiting, or diarrhea. MUSCULOSKELETAL: Denies neck or back pain or joint pain or swelling. SKIN: Denies rash or skin lesions. HEMATOLOGIC : On Eliquis. NEUROLOGICAL: Denies altered mental status or loss of consciousness. Denies headache. Denies weakness or paralysis or loss of use of either side. Denies problems with gait or speech. Denies sensory or motor loss. ALL OTHER SYSTEMS REVIEWED AND NEGATIVE. Physical Exam - Vital signs Vitals: Temp Pulse Resp BP Pulse Ox 98.1 F 62 16 116/82 98 04/03/19 03:29 04/03/19 03:29 04/03/19 03:29 04/03/19 03:04/03/19 03:29 - Notes Notes: General Appearance: Well nourished, alert, cooperative, no acute distress, no obvious discomfort. Well-appearing. Vitals: reviewed, See vital signs table. Head: Small hematoma just posterior and superior to the left ear. No tenderness to palpation over the scalp. Eyes: PERRL, EOMI, Conjuctiva clear Mouth: No decreasd moisture Neck: No cervical spine tenderness to palpation. Lungs: No wheezing, No rales, No rhonci, No accessory muscle use, good air exchange bilaterally. Heart: Normal rate, Regular rythm, No murmur, no rub Abdomen: Normal BS, soft, No rigidity, No abdominal tenderness, No guarding, no rebound, no abdominal masses, no organomegaly Extremities: strength 5/5 in all extremities, good pulses in all extremities, no swelling or tenderness in the extremities, no edema. Patient has full range of motion of both hips. No pain to palpation of the hips. No pain to palpation of the pelvis. Patient is able to stand at bedside under her own weight and says that she has no pain in doing so. No pain with placing all extremities range of motion. Skin: warm, dry, appropriate color, no rash Neuro: speech clear, oriented x 3, normal affect, responds appropriately to questions. Cranial nerves II through XII are intact. Distal sensation intact. Patient was all extremities without difficulty. Course - Re-evaluation Re-evalutation: 04/03/19 05:40 CT scan of the patient's head was obtained which showed a small hematoma and she fell and hit her head and is on blood thinning medications. CT scan is normal. She is neurologically appropriate. There is some initial concern for left hip pain however the patient says that the initial pain she had was mild and she currently has no hip pain and she is able to move her hip without difficulty and she is able to stand and bear weight on it without any pain. I therefore did not feel the need to go forward with an x-ray. Patient has no other further signs of injuries or any concerns of pain. Patient will be discharged back to nursing facility. Patient to return to ER if she has severe headache, vomiting, or feels unwell. Patient agrees with plan and will be discharged home. Dictation of this chart was performed using voice recognition software; therefore, there may be some unintended grammatical errors. - Vital Signs Vital signs: Temp Pulse Resp BP Pulse Ox 98.1 F 62 16 116/82 98 04/03/19 03:29 04/03/19 03:29 04/03/19 03:29 04/03/19 03:29 04/03/19 03:29 Discharge - Discharge Clinical Impression: Minor head injury Qualifiers: Encounter type: initial encounter Qualified Code(s): S09.90XA - Unspecified injury of head, initial encounter Condition: Good Disposition: HOME, SELF-CARE Additional Instructions: CT scan of her head did not show any concerning findings. Please have a low threshold to return to ER if you have severe headache, vomiting, or if you feel unwell. Referrals: ONEL AVINA MD [Primary Care Provider] - Follow up as needed
--- NOTE | 2019-04-03 05:02 | RADIOLOGY REPORT (SQ) ---
EXAM DESCRIPTION: CT HEAD WITHOUT IV CONTRAST COMPLETED DATE/TME: 04/03/2019 00:00 CLINICAL HISTORY: 84 years, Female, fall with head injury COMPARISON: 09/23/2018 TECHNIQUE: Axial CT images of the brain were obtained without contrast. Sagittal and coronal reformats were performed. DLP 990 Images stored on PACS. All CT scanners at this facility use dose modulation, iterative reconstruction, and/or weight based dosing when appropriate to reduce radiation dose to as low as reasonably achievable (ALARA). [facility]: Dose Right [facility]: CareDose [facility]: Dose Right [facility]: Teradose 4D [facility]: Care2Manage LIMITATIONS: None. FINDINGS: There is no acute cortical infarct, hemorrhage, mass, edema, hydrocephalus, or extra-axial fluid collection. There is diffuse cerebral atrophy with moderate periventricular and deep white matter chronic microvascular changes. 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 The paranasal sinuses and mastoid air cells are clear. There is no acute fracture. No large soft tissue swelling. IMPRESSION: No acute intracranial abnormality. TECHNICAL DOCUMENTATION: Quality ID # 436: Final reports with documentation of one or more dose reduction techniques (e.g., Automated exposure control, adjustment of the mA and/or kV according to patient size, use of iterative reconstruction technique) copyright 2011 [employer]- All Rights Reserved
[2019-04-03 06:32] VITALS: BP 120/68
== END 2019-04-03 06:42 | disposition home or self-care (01) ==
LOC: ER 02:51
DX: S00.03XA Contusion of scalp, initial encounter (principal); W19.XXXA Unspecified fall, initial encounter; Y93.89 Activity, other specified; Z88.5 Allergy status to narcotic agent; Z88.0 Allergy status to penicillin; Z88.2 Allergy status to sulfonamides; I25.10 Atherosclerotic heart disease of native coronary artery without angina pectoris; I10 Essential (primary) hypertension; J44.9 Chronic obstructive pulmonary disease, unspecified; I48.91 Unspecified atrial fibrillation; Z79.02 Long term (current) use of antithrombotics/antiplatelets; Z85.048 Personal history of other malignant neoplasm of rectum, rectosigmoid junction, and anus
CPT/HCPCS: 70450; 99284

== ENCOUNTER 2020-05-22 11:56 | Emergency (ER) | payer MEDICARE ==
[2020-05-22 12:06] VITALS: BP 130/69
--- NOTE | 2020-05-22 13:36 | ER Document Report ---
HPI - HPI Time Seen by Provider: 05/22/20 12:58 Pain Level: 5 Notes: 85-year-old female presents emergency room for right rib pain after she bent over to pick something up yesterday. Any trauma or fall yesterday. States when she stood back up she felt a pull. Has not tried any [id number] medications. Worse with time, nothing makes better. She was advised by the facility that she states that to either come to the emergency room or seeing by the facility provider, she wanted to go to the emergency room instead. Reports pain is 3 out of 5, intermittently throbbing. Denies fevers, chills, chest pain,palpitations, shortness of breath, dyspnea, nausea, vomiting, diarrhea, abdominal pain, hematuria,blurred vision, double vision, loss of vision, speech changes, LH, dizziness, syncope, headaches, wheezing, ST, URI, neck pain, weakness, bowel or bladder dysfunction, saddle anesthesia, numbness or tingling in bilateral upper or lower extremities equally, muscle paralysis, weakness in bilateral upper or lower extremities equally or rash. Denies IV drug use. MEDICATIONS: I agree with the patient medications as charted by the RN. ALLERGIES: I agree with the allergies as charted by the RN. PAST MEDICAL HISTORY/PAST SURGICAL HISTORY: Reviewed and agree as charted by RN. SOCIAL HISTORY: Reviewed and agree as charted by RN. FAMILY HISTORY: No significant familial comorbid conditions directly related to patient complaint EXAM: Reviewed vital signs as charted by RN. REVIEW OF SYSTEMS:reviewed vital signs by RN CONSTITUTIONAL : Denies fever, chills, or sweats. Denies recent illness. EENT: Denies eye, ear, throat, or mouth pain or symptoms. Denies nasal or sinus congestion or discharge. Denies throat, tongue, or mouth swelling or difficulty swallowing. CARDIOVASCULAR: Denies chest pain. Denies palpitations or racing or irregular heart beat. Denies ankle edema. RESPIRATORY: Denies cough, cold, or chest congestion. Denies shortness of breath, difficulty breathing, or wheezing. GASTROINTESTINAL: Denies abdominal pain or distention. Denies nausea, vomiting, or diarrhea. Denies blood in vomitus, stools, or per rectum. Denies black, tarry stools. Denies constipation. GENITOURINARY: Denies difficulty urinating, painful urination, burning, frequency, blood in urine, or discharge. FEMALE GENITOURINARY: Denies vaginal bleeding, heavy or abnormal periods, irregular periods. Denies vaginal discharge or odor. MUSCULOSKELETAL: Denies back or neck pain or stiffness. Denies joint pain or swelling. SKIN: Denies rash, lesions or sores. HEMATOLOGIC : Denies easy bruising or bleeding. LYMPHATIC: Denies swollen, enlarged glands. NEUROLOGICAL: Denies confusion or altered mental status. Denies passing out or loss of consciousness. Denies dizziness or lightheadedness. Denies headache. Denies weakness or paralysis or loss of use of either side. Denies problems with gait or speech. Denies sensory loss, numbness, or tingling. Denies seizures. PSYCHIATRIC: Denies anxiety or stress. Denies depression, suicidal ideation, or homicidal ideation. ALL OTHER SYSTEMS REVIEWED AND NEGATIVE. PHYSICAL EXAMINATION: GENERAL: Well-appearing, well-nourished and in no acute distress. HEAD: Atraumatic, normocephalic. EYES: Pupils equal round and reactive to light, extraocular movements intact, conjunctiva are normal. ENT: Nares patent, oropharynx clear without exudates. Moist mucous membranes. NECK: Normal range of motion, supple without lymphadenopathy LUNGS: Breath sounds clear to auscultation bilaterally and equal. No wheezes rales or rhonchi. Tenderness to right eighth ninth 10th intercostal space, no step-off noted, no ecchymosis noted. HEART: Regular rate and rhythm without murmurs ABDOMEN: Soft, nontender, nondistended abdomen. No guarding, no rebound. No masses appreciated. Female : deferred Musculoskeletal: Normal range of motion, no pitting or edema. No cyanosis. NEUROLOGICAL: Cranial nerves grossly intact. Normal speech, normal gait. Normal sensory, motor exams PSYCH: Normal mood, normal affect. SKIN: Warm, Dry, normal turgor, no rashes or lesions noted. Dictation was performed using [employer] voice recognition software - REPRODUCTIVE Reproductive: DENIES: : Past Medical History - General Information source: Patient - Social History Smoking Status: Former Smoker Frequency of alcohol use: None Drug Abuse: None Family History: Hypertension - Past Medical History Cardiac Medical History: Reports: Hx Atrial Fibrillation, Hx Coronary Artery Disease, Hx Hypercholesterolemia, Hx Hypertension, Hx Peripheral Vascular Disease - Past surgical h/o hysterectomy, colectomy, cholecystectomy, appendectomy Pulmonary Medical History: Reports: Hx COPD, Hx Pneumonia Renal/ Medical History: Denies: Hx Peritoneal Dialysis Malignancy Medical History: Reports: Hx Colorectal Cancer GI Medical History: Reports: Hx Gastroesophageal Reflux Disease Musculoskeletal Medical History: Reports Hx Arthritis Psychiatric Medical History: Reports: Hx Anxiety, Hx Bipolar Disorder, Hx Dementia, Hx Depression Past Surgical History: Reports: Hx Abdominal Surgery, Hx Appendectomy, Hx Cholecystectomy, Hx Hysterectomy - Immunizations Immunizations up to date: Yes Hx Diphtheria, Pertussis, Tetanus Vaccination: Yes Vertical Provider Document - CONSTITUTIONAL Agree With Documented VS: Yes Exam Limitations: No Limitations General Appearance: WD/WN - INFECTION CONTROL TRAVEL OUTSIDE OF THE [place] IN LAST 30 DAYS: No Course - Re-evaluation Re-evalutation: 05/22/20 14:48 Afebrile vital stable no distress. Nurses notes reviewed. Able to reproduce the pain that brought patient to the emergency room with palpating her right rib. x-ray of right rib negative for any acute fracture, dislocated ribs, pneumothorax, pneumonia. Patient given 650mg of acetaminophen. Patient given inspirometer for her costochondritis. Advised to follow-up with primary care provider within the next 24 to 48 hours. Advised to splint when coughing, to take at least 10 deep breaths an hour, cough at least [place] to prevent pneumonia. After performing a Medical Screening Examination, I estimate there is LOW risk for RUPTURED ESOPHAGUS, PNEUMOTHORAX, PULMONARY EMBOLISM, ACUTE CORONARY SYNDROME, OR THORACIC AORTIC DISSECTION, thus I consider the discharge disposition reasonable. I have reevaluated this patient multiple times and no significant life threatening changes are noted. The patient and I have discussed the diagnosis and risks, and we agree with discharging home with close follow- up. We also discussed returning to the Emergency Department immediately if new or worsening symptoms occur. We have discussed the symptoms which are most concerning (e.g., bloody sputum, worsening pain or shortness of breath) that necessitate immediate return. - Vital Signs Vital signs: Temp Pulse Resp BP Pulse Ox 97.9 F 100 18 130/69 H 99 05/22/20 12:04 05/22/20 12:04 05/22/20 12:04 05/22/20 12:04 05/22/20 12:04 Discharge - Discharge Clinical Impression: Acute costochondritis Condition: Stable Disposition: HOME, SELF-CARE Additional Instructions: Costochondritis Your chest pain is coming from the rib cartilages in the chest wall. This is often caused by subtle straining of the ribs near the breastbone. The strain can occur from a mild injury, coughing or sneezing with a "cold," vigorous vomiting, or even from rib compression while sleeping. Often the pain doesn't begin until a couple of days after the strain. Persons with arthritis are especially prone to this type of pain, due to inflammation of the cartilage joints near the breast bone. But often, there is no clear reason why it happens. Rest from strenuous physical activity. This kind of chest pain is usually made worse by movement of the chest. Depending on the symptoms, we may prescribe medicine for pain and inflammation. Apply gentle warmth to the painful area for 15 minutes every hour or two. You should call contact the doctor immediately if things change. Further evaluation is needed if you develop a fever or cough, if the nature of the pain changes, or if you become short of breath. Follow-up with your primary care provider within the next 24 to 48 hours. Return immediately for any new or worsening symptoms. Follow up with primary care provider, call tomorrow to make followup appointment. Prescriptions: Ibuprofen [Ibu] 600 mg PO Q6HP PRN #20 tablet PRN Reason: Referrals: ONEL AVINA MD [Primary Care Provider] - Follow up tomorrow
[2020-05-22] MEDS ORDERED: ACETAMINOPHEN 325 MG TABLET PO ONE (14:16)
--- NOTE | 2020-05-22 14:20 | RADIOLOGY REPORT (SQ) ---
EXAM DESCRIPTION: RIBS RIGHT W/PA CHEST IMAGES COMPLETED DATE/TIME: 05/22/2020 2:04 pm REASON FOR STUDY: R rib pain after bending over yesterday. r/o fx COMPARISON: None. TECHNIQUE: Frontal view of the chest and additional views of the right ribs acquired. NUMBER OF VIEWS: Five views LIMITATIONS: None. FINDINGS: FRONTAL CXR: No pneumothorax. No pleural effusion. No atelectasis or infiltrates. RIBS: No displaced rib fractures. No lytic or blastic bony lesions. OTHER: No other significant finding. IMPRESSION: NO PNEUMOTHORAX. NO DISPLACED RIB FRACTURES. COMMENT: SITE OF TRAUMA/COMPLAINT MARKED/STAMP COMPLETED: No TECHNICAL DOCUMENTATION: JOB ID: [id number] 2010 [employer]- All Rights Reserved Reading location - IP/workstation name: [email or web address]
== END 2020-05-22 15:00 | disposition home or self-care (01) ==
LOC: ER 11:56
DX: M94.0 Chondrocostal junction syndrome [Tietze] (principal); R07.81 Pleurodynia; I25.10 Atherosclerotic heart disease of native coronary artery without angina pectoris; I10 Essential (primary) hypertension; J44.9 Chronic obstructive pulmonary disease, unspecified; Z85.048 Personal history of other malignant neoplasm of rectum, rectosigmoid junction, and anus; Z87.891 Personal history of nicotine dependence
CPT/HCPCS: 99283; 71101; A9270